=== PATIENT | male | born 1945 | race Caucasian/White ===

== ENCOUNTER 2016-03-26 12:03 | Inpatient (IN) ==
[2016-03-26] MEDS ORDERED: Ipratropium/Albuterol Neb 3 ML IH ONE (12:19)
--- NOTE | 2016-03-26 12:23 | Emergency Department Note ---
Disposition Clinical Impression: Community acquired pneumonia CHF (congestive heart failure) Qualifiers: Congestive heart failure type: unspecified congestive heart failure type Congestive heart failure chronicity: acute Qualified Code(s): I50.9 - Heart failure, unspecified Disposition: Admitted As Inpatient Condition: Good Forms: ED Satisfaction Letter Time of Disposition: 13:50 SOB HPI - General Chief Complaint: ED Shortness of Breath/Dyspnea Stated Complaint: SOB Time Seen by Provider: 03/26/16 12:12 Source: patient, family Limitations: no limitations Nursing Notes Reviewed: Yes Vital Signs Reviewed: Yes - History of Present Illness 71-year-old with a 2 day history of increasing shortness of breath also has had nausea vomiting. Patient stage IV renal disease and was told by his doctor to come in for evaluation. Pt Subjective Complaint: shortness of breath Onset (ago): day(s) Context: recent illness Severity: moderate Consistency/Duration: constant Improves with: nothing Worsens with: exertion Known history of: congestive heart failure Associated symptoms: Reports: chest pain, nausea/vomiting - Related Data Home Medications Medication Instructions Recorded Confirmed Insulin Glargine,Hum.rec.anlog 30 unit SQ HS 05/09/15 01/28/16 [Lantus Solostar] Pregabalin [Lyrica] 200 mg PO TID 05/09/15 01/28/16 Simvastatin [Zocor] 40 mg PO DAILY 05/09/15 01/28/16 Sotalol [Betapace] 80 mg PO BID 05/09/15 01/28/16 Temazepam [Restoril] 30 mg PO HS 05/09/15 01/28/16 Apixaban [Eliquis] 5 mg PO BID 12/31/15 01/28/16 Carvedilol [Coreg] 25 mg PO BID 12/31/15 01/28/16 Promethazine [Phenergan] 25 mg PO HS 12/31/15 01/28/16 Pantoprazole Sodium [Protonix] 40 mg PO DAILY 01/28/16 01/28/16 Previous Rx's Medication Instructions Recorded Artificial Tears SOLN [Akwa Tears] 1 drop BOTH EYES QID bottle 01/07/16 HydrALAZINE 75 mg PO TID #270 tablet 01/07/16 Tamsulosin [Flomax] 0.4 mg PO DAILY #30 capsule 11/18/16 Promethazine [Phenergan] 25 mg PO Q6HR PRN #20 tablet 02/01/16 Allergies Allergy/AdvReac Type Severity Reaction Status Date / Time aspirin Allergy See Verified 03/26/16 12:08 Comments diphenhydramine Allergy Swelling Verified 03/26/16 12:08 [From Benadryl] of Lip/Tongue/Throat Tetracyclines Allergy See Verified 03/26/16 12:08 Comments Constitutional: Denies: fever, chills, weakness, weight change Eyes: Denies: eye pain, eye discharge, vision change ENT ED: Reports: dysphagia. Denies: ear pain, throat pain, dental pain, hearing loss, epistaxis, congestion Cardiovascular: Reports: chest pain, dyspnea on exertion. Denies: palpitations , edema, syncope Respiratory: Denies: cough, dyspnea, wheezes, hemoptysis, stridor Gastrointestinal: Denies: abdominal pain, nausea, vomiting, diarrhea, constipation, hematemesis, melena, hematochezia Genitourinary: Denies: urgency, dysuria, frequency, hematuria Musculoskeletal: Denies: back pain, neck pain, arthralgia, myalgia Integumentary: Denies: rash, abrasion, lesions Neurological: Denies: headache, weakness, numbness, paresthesias, confusion, abnormal gait, vertigo Psychiatric: Denies: anxiety, depression, suicidal thoughts, homicidal thoughts , auditory hallucinations, visual hallucinations Endocrine: Denies: fatigue Hematological/Lymphatic: Denies: easy bleeding, easy bruising Allergic/Immunologic: Denies: facial swelling, urticaria Past Medical History - Past Medical History Medical history: Reports: cardiomyopathy, CHF, CVA, diabetes, hyperlipidemia, hypertension, renal disease Surgical history: Reports: orthopedic, other (Multiple shoulder surgeries left upper extremity status post removal of left proximal humerus humeral head, IVCD/ pacemaker) Psychiatric history: Reports: no psych history - Social History Smoking Status: Current every day smoker Smokeless Tobacco Status: No Alcohol use: Reports: rarely Drug use: Reports: none Physical Exam - General Limitations: no limitations General appearance: alert - Head Head exam: atraumatic, normocephalic, normal inspection - Eye Eye exam: Present: normal appearance, PERRL, EOMI - ENT ENT exam: normal exam, normal oropharynx, mucous membranes moist - Neck Neck exam: Present: normal inspection, full ROM, trachea midline - Chest Chest inspection: Present: normal inspection, symmetric chest wall rise - Respiratory Respiratory exam: Present: wheezes - Cardiovascular Cardiovascular exam: Present: regular rate, normal rhythm, normal heart sounds - Abdominal Exam Abdominal exam: Present: soft, Non-Tender. Absent: tenderness, distention, guarding, rebound, rigidity - Extremities Exam Extremities exam: Present: normal inspection, full ROM. Absent: tenderness, pedal edema - Expanded Lower Extremity Exam Neurovascular/Tendon exam: Absent: motor deficit, sensory deficit, tendon deficit Gait: observed and normal - Back Exam Back exam: Present: normal inspection, full ROM. Absent: tenderness - Neurological Exam Neurological exam: Present: alert, oriented X3 - Psychiatric Psychiatric exam: Present: normal affect, normal mood - Skin Skin exam: Present: warm, dry, intact, normal color Course - Reevaluation(s) Reevaluation #1: 71-year-old with renal insufficiency comes in with increasing shortness of breath. Workup shows some mild congestive changes along with possible pneumonia. Patient will be admitted for further evaluation and treatment. - Consultations Consultation #1: Discussed with , admit and he will see in consult. Time: 13:48 Consultation #2: Discussed with Dr. Valencia, admit Time: 13:49 Vital Signs Temperature 97.5 F L 03/26/16 12:05 Pulse Rate 77 03/26/16 12:05 Respiratory Rate 18 03/26/16 12:05 Blood Pressure 163/73 03/26/16 12:05 O2 Sat by Pulse Oximetry 94 L 03/26/16 12:05 Temperature 97.5 F L 03/26/16 12:05 Pulse Rate 77 03/26/16 12:05 Respiratory Rate 14 03/26/16 12:34 Blood Pressure 163/73 03/26/16 12:05 O2 Sat by Pulse Oximetry 96 03/26/16 12:34 Oxygen Delivery Oxygen Delivery Room Air Shortness of Breath/Dyspnea - Lab Data Result diagrams: 03/26/16 12:32 03/26/16 12:32 Lab Results 03/26/16 03/26/16 03/26/16 Range/Units 12:32 12:32 12:32 WBC 5.5 (4.3-11.1) K/mcL RBC 4.31 (4.19-5.50) M/mcL Hgb 12.7 L (12.9-16.9) g/dL Hct 40.0 (37.5-50.1) % MCV 92.8 (83.0-100.0) fL MCH 29.5 (28.0-33.3) pg MCHC 31.8 (31.6-35.5) g/dL RDW 14.9 H (11.5-14.5) % Plt Count 110 L (140-400) K/mcL MPV 10.9 (9.4-12.4) fL Immature Gran % 0.4 (0-4) % Seg Neutrophils % 76.3 % Lymphocytes % 13.8 % Monocytes % 7.8 % Eosinophils % 1.3 % Basophils % 0.4 % Neutrophils # 4.2 (1.6-8.9) K/mcL Lymphocytes # 0.8 (0.6-4.6) K/mcL Monocytes # 0.4 (0.0-1.3) K/mcL Eosinophils # 0.1 (0.0-0.6) K/mcL Basophils # 0.0 (0.0-0.2) K/mcL Sodium 140 (136-145) mEq/L Potassium 4.9 H (3.5-4.5) mEq/L Chloride 107 (98-109) mEq/L Carbon Dioxide 23 (19-29) mEq/L BUN 40 H (8-26) mg/dL Creatinine 2.55 H (0.72-1.25) mg/dL Est GFR ( Amer) 30 L (> 60) Est GFR (Non-Af Amer) 25 L (> 60) BUN/Creatinine Ratio 16 (6-26) Glucose 221 H (70-99) mg/dL Calculated Osmolality 307 H (280-300) Calcium 9.3 (8.6-10.8) mg/dL Troponin I 0.02 (0-0.03) ng/mL B-Natriuretic Peptide (0-100) pg/mL 03/26/16 Range/Units 12:32 WBC (4.3-11.1) K/mcL RBC (4.19-5.50) M/mcL Hgb (12.9-16.9) g/dL Hct (37.5-50.1) % MCV (83.0-100.0) fL MCH (28.0-33.3) pg MCHC (31.6-35.5) g/dL RDW (11.5-14.5) % Plt Count (140-400) K/mcL MPV (9.4-12.4) fL Immature Gran % (0-4) % Seg Neutrophils % % Lymphocytes % % Monocytes % % Eosinophils % % Basophils % % Neutrophils # (1.6-8.9) K/mcL Lymphocytes # (0.6-4.6) K/mcL Monocytes # (0.0-1.3) K/mcL Eosinophils # (0.0-0.6) K/mcL Basophils # (0.0-0.2) K/mcL Sodium (136-145) mEq/L Potassium (3.5-4.5) mEq/L Chloride (98-109) mEq/L Carbon Dioxide (19-29) mEq/L BUN (8-26) mg/dL Creatinine (0.72-1.25) mg/dL Est GFR ( Amer) (> 60) Est GFR (Non-Af Amer) (> 60) BUN/Creatinine Ratio (6-26) Glucose (70-99) mg/dL Calculated Osmolality (280-300) Calcium (8.6-10.8) mg/dL Troponin I (0-0.03) ng/mL B-Natriuretic Peptide 358 H (0-100) pg/mL - EKG Data EKG attestation: Yes I reviewed and interpreted this EKG. EKG results narrative: Paced rhythm
[2016-03-26 12:55] LABS: Calcium 9.3 mg/dL (8.6-10.8); Potassium 4.9 mEq/L (3.5-4.5)
[2016-03-26 13:15] LABS: Basophils % 0.4 %; Eosinophils # 0.1 K/mcL (0.0-0.6); Eosinophils % 1.3 %; Hemoglobin 12.7 g/dL (12.9-16.9); Immature Granulocytes % 0.4 % (0-4); Lymphocytes # 0.8 K/mcL (0.6-4.6); Lymphocytes % 13.8 %; Mean Corpuscular HGB Conc 31.8 g/dL (31.6-35.5); Mean Corpuscular Hemoglobin 29.5 pg (28.0-33.3); Mean Corpuscular Volume 92.8 fL (83.0-100.0); Mean Platelet Volume 10.9 fL (9.4-12.4); Monocytes # 0.4 K/mcL (0.0-1.3); Monocytes % 7.8 %; Neutrophils # 4.2 K/mcL (1.6-8.9); Platelet Count 110 K/mcL (140-400); Red Blood Count 4.31 M/mcL (4.19-5.50); Red Cell Distribution Width 14.9 % (11.5-14.5); Segmented Neutrophils % 76.3 %
[2016-03-26] MEDS ORDERED: Piperacillin/Tazobactam 3.375 GM in D5% in Water (Mini-Bag+) 100 ML IVPB ONE (13:36)
[2016-03-26] MEDS ORDERED: Furosemide 40 MG/4 ML VIAL IVP ONE (13:47)
[2016-03-26] MEDS ORDERED: Ondansetron 4 MG/2 ML VIAL IVP PRN (15:16)
[2016-03-26] MEDS ORDERED: Naloxone 0.4 MG/ML INJ IVP PRN (15:16)
[2016-03-26] MEDS ORDERED: Vancomycin 1,000 MG in D5% in Water 250 ML IVPB SCH (15:26)
[2016-03-26] MEDS ORDERED: Dextrose Gel 15 GM PO PRN ×2 (15:28)
[2016-03-26] MEDS ORDERED: D5% in Water 1,000 ML IV PRN (15:28)
[2016-03-26] MEDS ORDERED: *HR* Dextrose 50 % in Water (Syg) 50 ML SYRINGE IVP PRN (15:28)
--- NOTE | 2016-03-26 15:57 | Internal Med History&Physical ---
Date of Encounter: 03/26/16 Time of Encounter: 15:10 Assessment and Plan (1) Acute exacerbation of CHF (congestive heart failure) Current visit: Yes Status: Acute Acute on chronic CHF decompensation likely secondary to decrease in diuretic therapy secondary to underlying CKD Will restart IV diuresis, received first dose of Lasix 40mg IV in the ER, will continue Last 2D echo in April 2015: LVEF of 50% with mild LV diastolic dysfunction, will repeat 2D echo continue to monitor daily weight monitor I/Os fluid restricted diet monitor O2 saturation O2 supplementation as needed Qualifiers: Congestive heart failure type: diastolic Qualified Code(s): I50.33 - Acute on chronic diastolic (congestive) heart failure (2) HCAP (healthcare-associated pneumonia) Current visit: Yes Status: Acute CXR consistent with PNA Patient was hospitalized within in the last 90 days, therefore will treat as HCAP Started empiric IV abx (Vancomycin and Zosyn) Pharmacy to renally dose antibiotics f/u blood cultures (3) Hyperglycemia due to type 2 diabetes mellitus Current visit: Yes Status: Chronic Continue home dose of Levemir Started correctional insulin sliding scale algorithm continue to monitor fingerstick and blood glucose 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 Qualified Code( s): E11.65 - Type 2 diabetes mellitus with hyperglycemia; Z79.4 - emt intermediate ( current) use of insulin (4) Acute kidney injury superimposed on chronic kidney disease Current visit: Yes Status: Acute Likely secondary to underlying infection/drug induced Nephrology consultation requested by ER physician Due to acute CHF decompensation will need to use aggressive IV diuretic therapy Please titrate therapy once patient clinically improves continue to monitor kidney function (5) Atrial fibrillation Current visit: Yes Status: Chronic Rate controlled with Sotalol Anticoagulated with Eliquis continue home medications Qualifiers: Atrial fibrillation type: chronic Qualified Code(s): I48.2 - Chronic atrial fibrillation (6) Anemia Current visit: Yes Status: Chronic Secondary to CKD H&H within acceptable range no active bleeding noted at this time will continue to monitor goal Hgb>10 Qualifiers: Anemia type: other cause Other causes of anemia: other cause, not classified Qualified Code(s): D64.89 - Other specified anemias (7) Hypertension Current visit: Yes Status: Chronic BP within acceptable range continue home medications Qualifiers: Hypertension type: essential hypertension Qualified Code(s): I10 - Essential (primary) hypertension (8) DVT prophylaxis Current visit: Yes Status: Acute anticoagulated with Eliquis (9) Tobacco abuse Current visit: Yes Status: Chronic SMoking cessation counseling provided patient not ready to quit at this time refused nicotine replacement therapy (10) Morbid obesity Current visit: Yes Status: Chronic Qualifiers: Obesity type: unspecified obesity type Qualified Code(s): E66.01 - Morbid ( severe) obesity due to excess calories Internal Medicine - H&P: HPI Chief complaint: shortness of breath Admitted From: Home Plans for Post Hospital Care: Home History of present illness: Mr. Vera is a 71 year old male with PMH of CHF, CKD, Type II DM, HLD, Cardiomyopathy s/p AICD, Hypertension who presents to the ER for evaluation of worsening shortness of breath x 2 days. Patient states for the last couple of days he hasn't been feeling well with sore throat, cough, and shortness of breath. He lives with his son who wanted to bring him to the hospital yesterday for worsening shortness of breath but the patient refused. Patient states he follows with his geodesist who he saw recently for his CKD and due to his worsening renal function, his diuretic dose was decreased. He reports of worsening lower extremity edema and shortness of breath since then. In the ER patient received IV Lasix and was placed on nasal cannula, which improved his respiratory status. At this time, he is resting in bed, states he feels better since his arrival to the hospital. Reports of being an every cigar smoker. Reports of persistent cough for the last few days that has been causing him chest discomfort when he coughs. At this time he denies headache, chest pain, abd pain, n/v, fever, or chills. I had a detailed discussion about his advance directives. 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 He reports of having a living will and has appointed his daughter as his POA. Past Med Surg Social Fam HX - Past Medical History Medical history: cardiomyopathy, CHF, CVA, diabetes, hyperlipidemia, hypertension, renal disease Psychiatric history: no psych history - Past Surgical History Surgical History: orthopedic, other - Social History Smoking Status: Current every day smoker Smokeless Tobacco Status: No Alcohol use: rarely Drug use: none - Family History Mother Adopted: No Family Member Ethnicity: Non- Living Status: Hx Family Cardiac Disorders: Yes Hx Family Respiratory Disorders: Yes Hx Family Cancer: Yes Hx Family GI Disorders: No Hx Family Endocrine Disorder: Yes Hx Family Neuromuscular Disorders: No Hx Family Neurologic Disorders: No Hx Family HEENT Disorders: No Hx Family Autoimmune Disorders: No Internal Medicine - H&P: Meds Insulin Glargine,Hum.rec.anlog [Lantus Solostar] 42 unit SQ HS 05/09/15 [History ] Pregabalin [Lyrica] 200 mg PO BID 05/09/15 [History] Simvastatin [Zocor] 40 mg PO DAILY 05/09/15 [History] Sotalol [Betapace] 80 mg PO BID 05/09/15 [History] Temazepam [Restoril] 30 mg PO HS 05/09/15 [History] Apixaban [Eliquis] 2.5 mg PO BID 12/31/15 [History] Carvedilol [Coreg] 25 mg PO BID 12/31/15 [History] Promethazine [Phenergan] 25 mg PO HS 12/31/15 [History] Artificial Tears SOLN [Akwa Tears] 1 drop BOTH EYES QID bottle 01/07/16 [Rx] HydrALAZINE 75 mg PO TID #270 tablet 01/07/16 [Rx] Tamsulosin [Flomax] 0.4 mg PO DAILY #30 capsule 01/07/16 [Rx] Acetaminophen [Tylenol] 650 mg PO HS 03/26/16 [History] Cholecalciferol (D-3) [Vitamin D] 1,000 unit PO DAILY 03/26/16 [History] Cyanocobalamin (Vitamin B-12) [Vitamin B12] 5,000 mcg PO DAILY 03/26/16 [History ] Allergies aspirin Allergy (Verified 03/26/16 14:56) Hives diphenhydramine [From Benadryl] Allergy (Verified 03/26/16 12:08) Swelling of Lip/Tongue/Throat Tetracyclines Allergy (Verified 03/26/16 14:56) Hives All Systems PM: A 10-system review of systems was performed and is negative for pertinent findings except as documented above in the HPI. - Constitutional Constitutional: as per HPI - Constitutional Vitals: Temp Pulse Resp BP Pulse Ox 97.9 F 71 15 136/74 98 03/26/16 14:37 03/26/16 14:37 03/26/16 14:37 03/26/16 14:37 03/26/16 14:37 General appearance: Present: A&O X 3, morbidly obese, no acute distress, answers questions appropriately - Head Head exam: Present: atraumatic, normocephalic - Eye Eye exam: Present: conjuntiva pink, sclera anicteric - Respiratory Respiratory exam: Absent: respiratory distress, wheezes (bibasilar crackles) - Cardiovascular Cardiovascular exam: Present: JVD, RRR, +S1, +S2 - GI/Abdominal GI/Abdominal exam: Present: distended (obese), normal bowel sounds, soft. Absent: tenderness - Extremities Exam Extremities exam: Present: pedal edema (bilateral pitting edema in LE), warm, radial pulses palpable and symetrical. Absent: calf tenderness, tenderness - Neurological Exam Neurological exam: Present: alert, oriented X3, no focal deficits - Psychiatric Psychiatric exam: Present: normal affect, normal mood Internal Med - H&P Results - Labs CBC & Chem 7: 03/26/16 12:32 03/26/16 12:32
[2016-03-26] MEDS ORDERED: GuaiFENesin Liq 200 MG/10 ML UDC PO PRN (16:00)
[2016-03-26] MEDS ORDERED: Vancomycin 2,000 MG in D5% in Water 500 ML IVPB SCH (17:00)
[2016-03-26] MEDS: Artificial Tears SOLN 15 ML BOTTLE BOTH EYES SCH ×2 (17:04→20:16)
[2016-03-26] MEDS: Insulin LISPRO 300 UNITS/3 ML VIAL SQ SCH ×2 (17:04→20:38)
[2016-03-26] MEDS: hydrALAZINE 25 MG TABLET PO SCH (20:13)
[2016-03-26] MEDS: APIXABAN 5 MG TABLET PO SCH (20:14)
[2016-03-26] MEDS: Pregabalin 50 MG CAPSULE PO SCH (20:14)
[2016-03-26] MEDS: Acetaminophen 325 MG TABLET PO SCH (20:15)
[2016-03-26] MEDS: Insulin DETEMIR 100 UNIT/ML X5UNITS SQ SCH (20:15)
[2016-03-26] MEDS: Temazepam 15 MG CAPSULE PO SCH (20:15)
[2016-03-27] MEDS: Piperacillin/Tazobactam 3.375 GM in D5% in Water (Mini-Bag+) 100 ML IVPB SCH ×4 (00:06→20:25)
[2016-03-27 03:47] LABS: Basophils % 0.3 %; Eosinophils % 0.8 %; Immature Granulocytes % 0.3 % (0-4)
[2016-03-27 03:49] LABS: Eosinophils # 0.1 K/mcL (0.0-0.6); Hematocrit 36.4 % (37.5-50.1); Hemoglobin 11.1 g/dL (12.9-16.9); Lymphocytes # 1.5 K/mcL (0.6-4.6); Lymphocytes % 23.8 %; Mean Corpuscular HGB Conc 30.5 g/dL (31.6-35.5); Mean Corpuscular Hemoglobin 28.5 pg (28.0-33.3); Mean Corpuscular Volume 93.3 fL (83.0-100.0); Mean Platelet Volume 10.6 fL (9.4-12.4); Monocytes # 0.7 K/mcL (0.0-1.3); Monocytes % 10.4 %; Neutrophils # 4.1 K/mcL (1.6-8.9); Segmented Neutrophils % 64.4 %
[2016-03-27 04:03] LABS: Platelet Count 98 K/mcL (140-400)
[2016-03-27 04:09] LABS: Calcium 8.6 mg/dL (8.6-10.8); Chol/HDL Ratio 4.2 (0-4.9); Magnesium 1.7 mg/dL (1.6-2.6); Phosphorous 3.5 mg/dL (2.3-4.7); Potassium 4.2 mEq/L (3.5-4.5)
[2016-03-27] MEDS: Furosemide 40 MG/4 ML VIAL IVP SCH ×2 (06:23→07:55)
[2016-03-27] MEDS: Insulin LISPRO 300 UNITS/3 ML VIAL SQ SCH ×4 (07:44→20:24)
[2016-03-27] MEDS: Pregabalin 50 MG CAPSULE PO SCH ×2 (08:00→20:23)
[2016-03-27] MEDS: Artificial Tears SOLN 15 ML BOTTLE BOTH EYES SCH ×4 (08:00→20:21)
[2016-03-27] MEDS: hydrALAZINE 25 MG TABLET PO SCH ×3 (08:01→20:22)
[2016-03-27] MEDS: APIXABAN 5 MG TABLET PO SCH ×2 (08:01→20:23)
[2016-03-27] MEDS: Cholecalciferol (D-3) 1,000 UNIT TABLET PO SCH (08:01)
[2016-03-27] MEDS: Cyanocobalamin (B-12) 1,000 MCG TABLET PO SCH (08:01)
[2016-03-27] MEDS ORDERED: Aminoglycoside Consult 1 EACH MC ONE (08:50)
[2016-03-27] MEDS ORDERED: Perflutren Lipid Microsphere 1.3 ML in 0.9 % Sodium Chloride 8.7 ML IVP ONE (08:55)
--- NOTE | 2016-03-27 10:12 | ECHO - Doppler Report ---
Echo with Imaging Enhancement Agent Name: Mic eVra Date of Study: 03/27/2016 Date: 1945 Ht: 74.0 in Medical Record#: [id number] Age: 71 Wt: 294.0 lb Gender: Male BSA: 2.56 Order #: [id number] Location: [facility] Room #: 3B Reading Physician: Dara Ch DO Umbrella Mender: Redd Lundberg RDCS Ordering Physician: Imelda Bateman MD Primary Physician: Travis Brasher MD Indications: Shortness of breath Impressions: LVEF 50%. There is evidence of mild diastolic dysfunction of the left ventricle. Normal right ventricular size and function. No significant valvular dysfunction. No pulmonary hypertension. Left Ventricular Wall Motion: Rest Echo Findings All wall segments showed normal motion. Findings: Study Quality * Technically adequate exam. ECG Findings * Sinus rhythm with BBB. Left Ventricle * Mild left ventricular diastolic dysfunction. * LVEF 50%. * Definity echo contrast was used. * Mild concentric left ventricular hypertrophy. Mitral Valve * Mild mitral annular calcification * Trace mitral regurgitation. * Normal mitral valve structure. Aortic Valve * No aortic regurgitation. * Trileaflet aortic valve. * Mildly calcified aortic valve leaflets. * No aortic stenosis. Tricuspid Valve * Tricuspid valve not well visualized. * Trace tricuspid regurgitation. * Estimated RA pressure is 3 mmHg. * Estimated RVSP is 28 mmHg. * No pulmonary hypertension. Right Atrium * Normal right atrial size. Right Ventricle * Normal right ventricular structure and function. Left Atrium * Moderately dilated left atrium. Interatrial Septum * Interatrial septum not well evaluated. IVC * Normal IVC dimensions and inspiratory collapse. Pericardium * There is no pericardial effusion present. Aorta * Normally sized aortic root. Pulmonic Valve * Pulmonic valve is not well visualized. * No pulmonic stenosis. * No pulmonic regurgitation. Pulmonary Artery * Pulmonary artery not well visualized. Device lead * A device lead was visualized in the right atrium and right ventricle. History Hypertension Diabetes Hypercholesteremia History of Smoking Years 5 Packs Family History of CAD Pacer/ICD Implant 05/10/15 a Previous Echo was performed. Contrast: Definity 1.3 ml in 8.7 ml of saline 2 ml. Measurements: BP: 134/ 69 2D Normal Values IVSd: 1.30 cm 0.6 - 1.0 cm LVIDd: 5.18 cm 3.7 - 5.6 cm LVPWd: 1.30 cm 0.6 - 1.1 cm LVIDs: 4.01 cm 1.5 - 3.6 cm AO: 3.10 cm < 4.0 cm LA: 3.80 cm 2.0 - 4.0cm %FS: 22.60 cm >25 % LA volume: 119 Mitral Valve Peak E:.74 m/sec Peak A:.74 m/sec E/A Ratio:1 Peak E' Lat Abdifatah:7.29 cm/s Peak E' Med Abdifatah:7.4 cm/s E/E' Lat Ratio:10.2 E/E' Med Ratio:10 Aortic Valve AI pressure Half-time: 717.00 msec Tricuspid Valve TV Regurg Peak Grad: 25.00mmHg TV Regurg Peak Abdifatah: 2.51m/sec Updated by Dara Ch on 03/27/2016 10:04:17 AM electronically signed on 03/27/2016 10:05:45 AM with status of Final Wall Motion Muro: 1=Normal, 2=Hypokinesis, 3=Akinesis, 4=Dyskinesis, 5=Aneurysmal, 6=Hyperkinetic, X=Not Visualized (Blank)=Missing
--- NOTE | 2016-03-27 10:49 | Internal Med Progress Note ---
Date of Encounter: 03/27/16 Time of Encounter: 09:45 - Assessment and plan (1) Acute exacerbation of CHF (congestive heart failure) Current Visit: Yes Status: Acute Assessment and plan: Patient appears clinically dehydrated. Lower extremity edema has resolved, mucous membranes dry, poor by mouth intake, will give gentle IV fluids and decrease Lasix dosage and exchange mechanic to by mouth. Currently on 2 L nasal cannula continuously, not on oxygen at home. Chest x-ray consistent with mild CHF versus pneumonia- treating for both. We will continue to trend. ITS Impressions Chest X-Ray 03/26/16 12:12 IMPRESSION: Mild CHF, with bibasilar airspace disease representing either atelectasis, asymmetric edema, or pneumonia. D/ / 03/26/2016 13:26:58 Rudy Pretty MD / [facility] Interpreting Provider: Rudy Pretty MD Qualifiers: Congestive heart failure type: diastolic Qualified Code(s): I50.33 - Acute on chronic diastolic (congestive) heart failure (2) Acute respiratory failure Current Visit: Yes Status: Acute Qualifiers: Respiratory failure complication: unspecified whether with hypoxia or hypercapnia Qualified Code(s): J96.00 - Acute respiratory failure, unspecified whether with hypoxia or hypercapnia (3) HCAP (healthcare-associated pneumonia) Current Visit: Yes Status: Acute Assessment and plan: continue bank and Zosyn. Patient currently on supplemental oxygen, not on oxygen at home. Unknown causation, will order sputum culture. We will continue to trend. (4) Chronic kidney disease, stage 4 (severe) Current Visit: No Status: Chronic Assessment and plan: Nephrology on board. Patient appears slightly over diuresed. It appears clinically dehydrated. Mucous membranes dry. No pedal edema. We will give gentle IV fluids 1 L. (5) Acute kidney injury superimposed on chronic kidney disease Current Visit: Yes Status: Acute (6) CHF (congestive heart failure) Current Visit: Yes Status: Acute Qualifiers: Congestive heart failure type: diastolic Congestive heart failure chronicity: acute on chronic Qualified Code(s): I50.33 - Acute on chronic diastolic (congestive) heart failure (7) DVT prophylaxis Current Visit: Yes Status: Acute Assessment and plan: On Eliquis (8) Anemia Current Visit: Yes Status: Chronic Assessment and plan: Mild, chronic, stable, no signs of active bleeding. Qualifiers: Anemia type: other cause Other causes of anemia: other cause, not classified Qualified Code(s): D64.89 - Other specified anemias (9) Atrial fibrillation Current Visit: Yes Status: Inactive Assessment and plan: Telemetry reviewed, no atrial fibrillation noted. Ventricular pacing present with intermittent PVCs. (10) Hypertension Current Visit: Yes Status: Chronic Assessment and plan: Controlled, we will continue to trend and adjust medications as indicated. Qualifiers: Hypertension type: essential hypertension Qualified Code(s): I10 - Essential (primary) hypertension (11) Tobacco abuse Current Visit: Yes Status: Chronic (12) Thrombocytopenia Current Visit: No Status: Chronic Assessment and plan: Acute on chronic, currently lower than his baseline, we will continue to trend (13) Diabetes mellitus Current Visit: No Status: Chronic Assessment and plan: Poorly controlled to home with a recent A1c of 8.5%. Continue sliding scale while admitted. Qualifiers: Diabetes mellitus type: type 2 Diabetes mellitus complication status: with neurologic complications Diabetes mellitus complication detail: with polyneuropathy Diabetes mellitus care home insulin use: with exterminator helper termite use Qualified Code(s): E11.42 - Type 2 diabetes mellitus with diabetic polyneuropathy; Z79.4 - terminologist (current) use of insulin (14) Hyperkalemia, diminished renal excretion Current Visit: No Status: Resolved - Subjective Interval history: Patient seen and examined. On examination, patient sitting in high Nguyen's asleep and awaken easily to voice. Patient stating he is more short of breath than usual. He is endorsing chest pain but he states this consistent with his normal pain. He denies any leg swelling. He states he has a cough that is nonproductive. - Constitutional Vitals: Temp Pulse Resp BP Pulse Ox 98.3 F 61 17 106/61 92 L 03/27/16 10:03 03/27/16 10:03 03/27/16 10:03 03/27/16 10:03 03/27/16 10:03 General appearance: Present: A&O X 3, morbidly obese, pleasant, no acute distress, answers questions appropriately - Head Head exam: Present: atraumatic, normocephalic - Eye Eye exam: Present: PERRL, conjuntiva pink, sclera anicteric Pupils: Present: PERRL - Neck Neck exam general surgery: Present: supple, trachea midline. Absent: lymphadenopathy - Respiratory Respiratory exam: Present: accessory muscle use, decreased breath sounds, rhonchi, wheezes. Absent: rales, respiratory distress - Cardiovascular Cardiovascular exam: Present: RRR, +S1, +S2. Absent: diastolic murmur, gallop, rubs, systolic murmur - GI/Abdominal GI/Abdominal exam: Present: distended, normal bowel sounds, soft, no peritoneal signs. Absent: tenderness - Extremities Exam Extremities exam: Present: warm, radial pulses palpable and symetrical. Absent : calf tenderness, cyanotic, pedal edema - Neurological Exam Neurological exam: Present: alert, CN II-XII intact, oriented X3, no focal deficits, strengths equal and symetr throughout. Absent: pronater drift, facial droop, speech deficit - Skin Skin exam: Present: dry, intact, pallor, warm Internal Medicine: Result - Labs CBC & Chem 7: 03/27/16 03:31 03/27/16 03:31 Labs: Short CBC 03/27/16 Range/Units 03:31 WBC 6.4 (4.3-11.1) K/mcL Hgb 11.1 L D (12.9-16.9) g/dL Hct 36.4 L (37.5-50.1) % Plt Count 98 L (140-400) K/mcL Neutrophils # 4.1 (1.6-8.9) K/mcL BMP 03/27/16 03:31 Sodium 140 Potassium 4.2 Chloride 109 Carbon Dioxide 20 BUN 41 H Creatinine 2.84 H Glucose 84 Calcium 8.6 Consult Discharge Plan - Plan Referrals: Travis Brasher Jr, MD [Primary Care Provider] -
[2016-03-27] MEDS ORDERED: 0.9 % Sodium Chloride 1,000 ML IVC SCH (11:00)
--- NOTE | 2016-03-27 11:06 | Nephrology Consult Note ---
Date of Encounter: 03/27/16 Time of Encounter: 11:05 Assessment and Plan (1) Acute exacerbation of CHF (congestive heart failure) Current Visit: Yes Status: Acute Patient presented to the emergency department with what appears to be acute exacerbation of congestive heart failure with preserved ejection fraction. Elevated BNP and chest x-ray with pulmonary edema. Patient was given 40 mg IV Lasix in the emergency department yesterday and again this morning, with adequate urine output. Clinically, patient appears dry with trace lower extremity edema and dry mucous membranes. Lasix has been held at this time and we will reevaluate on a daily basis. Encourage gentle oral intake. Qualifiers: Congestive heart failure type: diastolic Qualified Code(s): I50.33 - Acute on chronic diastolic (congestive) heart failure (2) HCAP (healthcare-associated pneumonia) Current Visit: Yes Status: Acute CXR in the emergency department revealed mild CHF, with bibasilar airspace disease representing either atelectasis, asymmetric edema or pneumonia. Patient has had decent diuresis with the 2 doses of IV Lasix. Consider two- view chest x-ray to reevaluate fluid versus pneumonia. Continue to renally dose IV antibiotics and hold nephrotoxins if possible. (3) Chronic kidney disease, stage 4 (severe) Current Visit: Yes Status: Chronic Patient is established with Dr. Barlow in the outpatient clinic. Has a history of chronic kidney disease stage IV with baseline GFR in the mid 20s. Presented to the emergency department at about his baseline, and received IV Lasix along with vancomycin overnight. Slight increase in serum creatinine this morning. We will hold Lasix dose at this time and evaluate volume status on a daily basis. Continue to hold nephrotoxic agents if possible and renally dose antibiotics. History of Present Illness - Reason for Consult Chronic Kidney Disease - History of Present Illness Mr. Vera is a 71-year-old gentleman with a past medical history of stage IV chronic kidney disease, heart failure with preserved ejection fraction, insulin-dependent diabetes mellitus, hyperlipidemia, cardiomyopathy status post AICD placement, and hypertension who presented to the emergency department complaining of a 2 to three-day history of shortness of breath. He has complained of productive cough, sore throat, and worsening shortness of breath. Workup in the emergency department revealed a chest x-ray with mild CHF, bibasilar airspace disease representing either atelectasis or pneumonia. He was given a dose of Lasix 40 mg IV and started on HCAP coverage. Reviewing Dr. Narvaez office note from 03/17/16 reveals that patient has a baseline chronic kidney disease stage IV with GFR in the mid 20s. Serum creatinine on admission 2.55 with a GFR 25. Nephrology has been consulted for ALEKS on CKD. On examination, patient states that he is not feeling very well today and continues to complain of persistent cough and chest discomfort. Past Med Surg Social Fam HX - Past Medical History Medical history: cardiomyopathy, CHF, CVA, diabetes, hyperlipidemia, hypertension, renal disease Psychiatric history: no psych history - Past Surgical History Surgical History: orthopedic, other - Social History Smoking Status: Current every day smoker Smokeless Tobacco Status: No Alcohol use: rarely Drug use: none - Family History Mother Adopted: No Family Member Ethnicity: Non- Living Status: Hx Family Cardiac Disorders: Yes Hx Family Respiratory Disorders: Yes Hx Family Cancer: Yes Hx Family GI Disorders: No Hx Family Endocrine Disorder: Yes Hx Family Neuromuscular Disorders: No Hx Family Neurologic Disorders: No Hx Family HEENT Disorders: No Hx Family Autoimmune Disorders: No Medications and Allergies Insulin Glargine,Hum.rec.anlog [Lantus Solostar] 42 unit SQ HS 05/09/15 [History ] Pregabalin [Lyrica] 200 mg PO BID 05/09/15 [History] Simvastatin [Zocor] 40 mg PO DAILY 05/09/15 [History] Sotalol [Betapace] 80 mg PO BID 05/09/15 [History] Temazepam [Restoril] 30 mg PO HS 05/09/15 [History] Apixaban [Eliquis] 2.5 mg PO BID 12/31/15 [History] Carvedilol [Coreg] 25 mg PO BID 12/31/15 [History] Promethazine [Phenergan] 25 mg PO HS 12/31/15 [History] Artificial Tears SOLN [Akwa Tears] 1 drop BOTH EYES QID bottle 01/07/16 [Rx] HydrALAZINE 75 mg PO TID #270 tablet 01/07/16 [Rx] Tamsulosin [Flomax] 0.4 mg PO DAILY #30 capsule 01/07/16 [Rx] Acetaminophen [Tylenol] 650 mg PO HS 03/26/16 [History] Cholecalciferol (D-3) [Vitamin D] 1,000 unit PO DAILY 03/26/16 [History] Cyanocobalamin (Vitamin B-12) [Vitamin B12] 5,000 mcg PO DAILY 03/26/16 [History ] Allergies aspirin Allergy (Verified 03/26/16 14:56) Hives diphenhydramine [From Benadryl] Allergy (Verified 03/26/16 12:08) Swelling of Lip/Tongue/Throat Tetracyclines Allergy (Verified 03/26/16 14:56) Hives Review of Systems All Systems: reviewed and no additional remarkable complaints except as stated Exam - Vital Signs Vital signs: Initial Vital Signs Temp Pulse Resp BP Pulse Ox 97.5 F L 77 18 163/73 94 L 03/26/16 12:05 03/26/16 12:05 03/26/16 12:05 03/26/16 12:05 03/26/16 12:05 Vital Signs - Last 8 Hours Temp Pulse Resp BP Pulse Ox 03/27/16 10:03 98.3 F 61 17 106/61 92 L 03/27/16 07:36 98.6 F 64 20 134/69 95 03/27/16 03:15 98.9 F 64 18 116/69 96 Intake and Output 03/26/16 03/27/16 03/27/16 23:59 07:59 15:59 Intake Total 600 / 600 0 / 0 Output Total 1500 / 1500 Balance -900 / -900 0 / 0 Intake: IV Fluids 600 / 600 Zosyn 3.375 GM In 100 / 100 Dextrose 5% (Minibag+) 100 ML 100 ML @ 25 mls/hr IVPB Q8H [facility] Rx#: [id number] Vancocin 2,000 MG In 500 / 500 Dextrose 5% 500 ML @ 250 mls/hr IVPB Q24H [facility] Rx#: [id number] Oral 0 / 0 Output: Urine 900 / 900 Catheter 600 / 600 Other: Meal Dinner Breakfast Percent of Meal Consumed 10% 0% Blood Glucose* 213 87 83 - General Appearance Exam: General: Patient is alert and in no acute distress HEENT: Normocephalic atraumatic, pupils are equal round and reactive to light and accommodation, tympanic membrane is intact, nares is patent, mucous membranes moist, throat is not injected, no JVD, trachea is midline Cardiovascular: Regular rate and rhythm without murmur Respiratory: Lungs with expiratory wheezes and rhonchi noted throughout Abdomen: Soft, nontender, obese, positive bowel sounds in all 4 quadrants Extremities: Warm, dry, trace lower extremity edema Neuro: A&Ox3, speech is appropriate, cranial nerves II through XII are normal as tested Results - Lab Results 03/27/16 03:31 03/27/16 03:31 Most recent lab results Calcium 8.6 mg/dL (8.6-10.8) 03/27/16 03:31 Phosphorus 3.5 mg/dL (2.3-4.7) 03/27/16 03:31 Magnesium 1.7 mg/dL (1.6-2.6) 03/27/16 03:31 Consult Discharge Plan - Plan Referrals: Travis Brasher Jr, MD [Primary Care Provider] -
[2016-03-27] MEDS: *HR* Codeine Sulfate 30 MG TABLET PO PRN (15:44)
[2016-03-27] MEDS ORDERED: Vancomycin 1,500 MG in D5% in Water 250 ML IVPB SCH (17:00)
[2016-03-27] MEDS ORDERED: Furosemide 20 MG TABLET PO SCH (17:00)
--- NOTE | 2016-03-27 17:36 | Electrocardiograph Report ---
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
[2016-03-27] MEDS: *HR* OxyCODONE Immed Rel 5 MG TABLET PO PRN (18:14)
[2016-03-27] MEDS: Benzonatate 100 MG CAPSULE PO PRN (18:15)
[2016-03-27] MEDS: Acetaminophen 325 MG TABLET PO SCH (20:23)
[2016-03-27] MEDS: Insulin DETEMIR 100 UNIT/ML X5UNITS SQ SCH (20:24)
[2016-03-27] MEDS: Temazepam 15 MG CAPSULE PO SCH (20:24)
[2016-03-28 04:57] LABS: Basophils % 0.5 %; Eosinophils # 0.1 K/mcL (0.0-0.6); Eosinophils % 1.4 %; Hematocrit 33.7 % (37.5-50.1); Hemoglobin 10.8 g/dL (12.9-16.9); Immature Granulocytes % 0.5 % (0-4); Lymphocytes # 1.6 K/mcL (0.6-4.6); Lymphocytes % 24.8 %; Mean Corpuscular Hemoglobin 29.6 pg (28.0-33.3); Mean Corpuscular Volume 92.3 fL (83.0-100.0); Mean Platelet Volume 10.7 fL (9.4-12.4); Monocytes # 0.7 K/mcL (0.0-1.3); Monocytes % 10.9 %; Neutrophils # 4.1 K/mcL (1.6-8.9); Platelet Count 101 K/mcL (140-400); Red Blood Count 3.65 M/mcL (4.19-5.50); Segmented Neutrophils % 61.9 %
[2016-03-28 05:12] LABS: Calcium 8.6 mg/dL (8.6-10.8); Potassium 4.3 mEq/L (3.5-4.5)
[2016-03-28] MEDS: Piperacillin/Tazobactam 3.375 GM in D5% in Water (Mini-Bag+) 100 ML IVPB SCH (06:43)
[2016-03-28] MEDS: *HR* Codeine Sulfate 30 MG TABLET PO PRN (06:45)
[2016-03-28] MEDS: Insulin LISPRO 300 UNITS/3 ML VIAL SQ SCH ×4 (08:22→21:54)
[2016-03-28] MEDS: Artificial Tears SOLN 15 ML BOTTLE BOTH EYES SCH ×4 (08:38→21:45)
[2016-03-28] MEDS: Pregabalin 50 MG CAPSULE PO SCH ×2 (08:38→21:47)
[2016-03-28] MEDS: Cyanocobalamin (B-12) 1,000 MCG TABLET PO SCH (08:38)
[2016-03-28] MEDS: hydrALAZINE 25 MG TABLET PO SCH ×3 (08:39→21:48)
[2016-03-28] MEDS: Cholecalciferol (D-3) 1,000 UNIT TABLET PO SCH (08:39)
[2016-03-28] MEDS: APIXABAN 5 MG TABLET PO SCH ×2 (08:39→21:47)
--- NOTE | 2016-03-28 08:51 | Nephrology Progress Note ---
Date of Encounter: 03/28/16 Time of Encounter: 08:51 - Assessment and Plan (1) Acute kidney injury superimposed on chronic kidney disease Current Visit: Yes Status: Acute Unfortunately patient had an increase in his serum creatinine overnight from 2.84 to 3.69. This is likely multifactorial in the setting of diuretic treatment, antibiotics, and likely pneumonia. Clinically, patient appears dry. We have added gentle IV fluid hydration at 75 mL an hour for 1 L. Our concern that the patient may now be developing acute tubular necrosis with the elevation in serum creatinine as well as change in urine appearance. Repeat urinalysis pending. Continue to avoid nephrotoxic agents if possible and dose medications renally. (2) Acute exacerbation of CHF (congestive heart failure) Current Visit: Yes Status: Acute Initially, on presentation to the emergency department the patient appeared to be an acute exacerbation of congestive heart failure with preserved ejection fraction. He had a mildly elevated BNP and a chest x-ray with pulmonary edema. He was given 40 mg IV Lasix in the emergency department as well as another dose on the floor. Today clinically the patient appears dry with no lower extremity edema and dry mucous membranes. BNP today 123. Qualifiers: Congestive heart failure type: diastolic Qualified Code(s): I50.33 - Acute on chronic diastolic (congestive) heart failure (3) HCAP (healthcare-associated pneumonia) Current Visit: Yes Status: Acute Chest x-ray in the emergency department revealed mild congestive heart failure, with bibasilar airspace disease representing either atelectasis, asymmetric edema or pneumonia. Today patient is subjectively more short of breath with increased rhonchi throughout. Primary team ordered CT chest without contrast. Was receiving vancomycin and Zosyn, vancomycin on hold currently. Subjective Interval history: Patient seen and examined at the bedside. States he feels pretty terrible today. Continues to complain of significant productive cough, shortness of breath, and fatigue. States he does not have much of an appetite and appears to not be taking in much orally. He denies fevers or chills, chest pain, abdominal pain, or nausea/vomiting. Objective - Vital Signs Vital signs: Vital Signs Temp Pulse Resp BP Pulse Ox 03/28/16 07:53 99.3 F 71 18 108/56 94 L 03/28/16 04:06 98.4 F 68 20 117/78 93 L 03/27/16 23:21 98.6 F 59 14 105/58 94 L 03/27/16 19:43 99.5 F 61 16 118/66 93 L 03/27/16 15:27 98.0 F 61 20 117/70 94 L 03/27/16 11:00 98.0 F 62 20 115/63 93 L 03/27/16 10:03 98.3 F 61 17 106/61 92 L Intake and Output 03/27/16 03/28/16 03/28/16 23:59 07:59 15:59 Intake Total 350 / 350 100 / 100 Output Total 600 / 600 Balance 350 / 350 -500 / -500 Intake: IV Fluids 350 / 350 100 / 100 Zosyn 3.375 GM In 100 / 100 100 / 100 Dextrose 5% (Minibag+) 100 ML 100 ML @ 25 mls/hr IVPB Q8H [facility] Rx#: [id number] Vancocin 1,500 MG In 250 / 250 Dextrose 5% 250 ML @ 166. 667 mls/hr IVPB Q24H [facility] Rx#:[id number] Output: Catheter 600 / 600 Other: Weight 132.812 kg Blood Glucose* 174 65 80 Patient Weight 03/28/16 23:59 Weight 132.812 kg - General Appearance Exam: General: Patient is alert, ill-appearing HEENT: Normocephalic atraumatic, pupils are equal round and reactive to light and accommodation, tympanic membrane is intact, nares is patent, mucous membranes dry, throat is not injected, no JVD, trachea is midline Cardiovascular: Regular rate and rhythm without murmur Respiratory: Lungs with expiratory wheezes and rhonchi noted throughout Abdomen: Soft, nontender, obese, positive bowel sounds in all 4 quadrants Extremities: Warm, dry, no edema Neuro: A&Ox3, speech is appropriate, cranial nerves II through XII are normal as tested - Lab 03/28/16 04:30 03/28/16 04:30 Most recent lab results Calcium 8.6 mg/dL (8.6-10.8) 03/28/16 04:30 Phosphorus 3.5 mg/dL (2.3-4.7) 03/27/16 03:31 Magnesium 1.7 mg/dL (1.6-2.6) 03/27/16 03:31 Consult Discharge Plan - Plan Referrals: Nikki Quinonez DO [Partnered Physician] - 04/04/16 9:30 am
--- NOTE | 2016-03-28 09:43 | Internal Med Progress Note ---
Date of Encounter: 03/28/16 Time of Encounter: 08:45 - Assessment and plan (1) Acute exacerbation of CHF (congestive heart failure) Current Visit: Yes Status: Acute Assessment and plan: On examination today, the patient states that he feels about the same however clinically, he appears to have decompensated overnight. Patient now in moderate respiratory distress with diffuse wheezing present throughout and fair aeration. Will obtain chest CT and ABGs. He remains alert and oriented 3. Patient was not given IV fluid just today secondary to heart failure exacerbation. No edema noted to lower extremities. Ascites noted on abdomen, patient stating he has never had have his abdomen drained in the past. Patient is an active smoker, will treat for COPD exacerbation as well. It does not appear as if the patient has been diagnosed or treated for COPD in the past, will initiate duo nebs, Solu-Medrol and monitor his response closely. 03/27/16 Patient appears clinically dehydrated. Lower extremity edema has resolved, mucous membranes dry, poor by mouth intake, will give gentle IV fluids and decrease Lasix dosage and private branch exchange service adviser to by mouth. Currently on 2 L nasal cannula continuously, not on oxygen at home. Chest x-ray consistent with mild CHF versus pneumonia- treating for both. We will continue to trend. ITS Impressions Chest X-Ray 03/26/16 12:12 IMPRESSION: Mild CHF, with bibasilar airspace disease representing either atelectasis, asymmetric edema, or pneumonia. D/ / 03/26/2016 13:26:58 Rudy Pretty MD / [facility] Interpreting Provider: Rudy Pretty MD Qualifiers: Congestive heart failure type: diastolic Qualified Code(s): I50.33 - Acute on chronic diastolic (congestive) heart failure (2) Acute respiratory failure Current Visit: Yes Status: Acute Assessment and plan: See prior note for acute exacerbation of CHF. Suspect patient may have underlying COPD given that he is a current smoker. No prior diagnosis of COPD. On examination, he does not appear fluid overloaded. No crackles noted on examination, examination consistent with diffuse expiratory wheezing. Chest CT pending. ABGs pending. Will bring pulmonology on board. Nephrology is on board as well. Qualifiers: Respiratory failure complication: unspecified whether with hypoxia or hypercapnia Qualified Code(s): J96.00 - Acute respiratory failure, unspecified whether with hypoxia or hypercapnia (3) HCAP (healthcare-associated pneumonia) Current Visit: Yes Status: Acute Assessment and plan: Acute kidney injury superimposed on chronic kidney disease stage IV noted overnight. No leukocytosis. Vancomycin stop at this time. Appreciate nephrology and pulmonology recommendations for antibiotic treatment. Sputum culture still pending 03/27/16 continue Vanc and Zosyn. Patient currently on supplemental oxygen, not on oxygen at home. Unknown causation, will order sputum culture. We will continue to trend. (4) Chronic kidney disease, stage 4 (severe) Current Visit: Yes Status: Chronic Assessment and plan: Nephrology on board. Mucous membranes dry. No pedal edema. Pulmology examination not consistent with fluid overload, Chest CT pending. Michelle overnight - Vanc stopped- appreciate Nephrology's input. (5) Acute kidney injury superimposed on chronic kidney disease Current Visit: Yes Status: Acute (6) CHF (congestive heart failure) Current Visit: Yes Status: Acute Assessment and plan: Lasix held due to acute kidney injury superimposed on chronic kidney disease stage IV. Echocardiogram revealing ejection fraction of 50% and mild diastolic dysfunction and otherwise unremarkable. Echocardiogram with imaging enhancement agent impressions: LVEF 50%. There is evidence of mild diastolic dysfunction of the left ventricle. Normal right ventricular size and function. No significant valvular dysfunction. No pulmonary hypertension. Qualifiers: Congestive heart failure type: diastolic Congestive heart failure chronicity: acute on chronic Qualified Code(s): I50.33 - Acute on chronic diastolic (congestive) heart failure (7) DVT prophylaxis Current Visit: Yes Status: Acute Assessment and plan: On Eliquis (8) Anemia Current Visit: Yes Status: Chronic Assessment and plan: Mild, chronic, stable, no signs of active bleeding. Qualifiers: Anemia type: other cause Other causes of anemia: other cause, not classified Qualified Code(s): D64.89 - Other specified anemias (9) Atrial fibrillation Current Visit: Yes Status: Inactive Assessment and plan: Telemetry reviewed, no atrial fibrillation noted. Ventricular pacing present with intermittent PVCs. (10) Hypertension Current Visit: Yes Status: Chronic Assessment and plan: Controlled, we will continue to trend and adjust medications as indicated. Qualifiers: Hypertension type: essential hypertension Qualified Code(s): I10 - Essential (primary) hypertension (11) Tobacco abuse Current Visit: Yes Status: Chronic (12) Thrombocytopenia Current Visit: No Status: Chronic Assessment and plan: Acute on chronic, currently lower than his baseline, we will continue to trend (13) Diabetes mellitus Current Visit: No Status: Chronic Assessment and plan: Poorly controlled to home with a recent A1c of 8.5%. Continue sliding scale while admitted. Qualifiers: Diabetes mellitus type: type 2 Diabetes mellitus complication status: with neurologic complications Diabetes mellitus complication detail: with polyneuropathy Diabetes mellitus fdc insulin use: with finance professor use Qualified Code(s): E11.42 - Type 2 diabetes mellitus with diabetic polyneuropathy; Z79.4 - group home (current) use of insulin (14) Hyperkalemia, diminished renal excretion Current Visit: No Status: Resolved - Subjective Interval history: Patient seen and examined. On examination, patient resting supine in bed with the HOB elevated 30 degrees. Patient stating he is feeling "about the same." He states his chronic pain is the same as it typically is. He states that his breathing is the same as it was yesterday. He states he is not eating well - Constitutional Vitals: Temp Pulse Resp BP Pulse Ox 99.3 F 71 18 108/56 94 L 03/28/16 07:53 03/28/16 07:53 03/28/16 07:53 03/28/16 07:53 03/28/16 07:53 General appearance: Present: mild distress (Moderate), A&O X 3, morbidly obese, pleasant, answers questions appropriately - Head Head exam: Present: atraumatic, normocephalic - Eye Eye exam: Present: PERRL, conjuntiva pink, sclera anicteric Pupils: Present: PERRL - Neck Neck exam general surgery: Present: supple, trachea midline. Absent: lymphadenopathy - Respiratory Respiratory exam: Present: accessory muscle use, decreased breath sounds, prolonged expiratory phase, respiratory distress, wheezes. Absent: rales, rhonchi - Cardiovascular Cardiovascular exam: Present: RRR, +S1, +S2. Absent: diastolic murmur, gallop, rubs, systolic murmur - GI/Abdominal GI/Abdominal exam: Present: distended, normal bowel sounds, soft, no peritoneal signs. Absent: tenderness - Extremities Exam Extremities exam: Present: warm, radial pulses palpable and symetrical. Absent : calf tenderness, cyanotic, pedal edema - Neurological Exam Neurological exam: Present: alert, CN II-XII intact, oriented X3, no focal deficits, strengths equal and symetr throughout. Absent: pronater drift, facial droop, speech deficit - Skin Skin exam: Present: dry, intact, pallor, warm Internal Medicine: Result - Labs CBC & Chem 7: 03/28/16 04:30 03/28/16 04:30 Labs: Short CBC 03/28/16 Range/Units 04:30 WBC 6.6 (4.3-11.1) K/mcL Hgb 10.8 L (12.9-16.9) g/dL Hct 33.7 L (37.5-50.1) % Plt Count 101 L (140-400) K/mcL Neutrophils # 4.1 (1.6-8.9) K/mcL BMP 03/28/16 04:30 Sodium 139 Potassium 4.3 Chloride 106 Carbon Dioxide 22 BUN 50 H Creatinine 3.69 H Glucose 62 L Calcium 8.6 Consult Discharge Plan - Plan Referrals: Nikki Quinonez DO [Partnered Physician] - 04/04/16 9:30 am
[2016-03-28] MEDS: MethylPREDNISolone 40 MG/ML VIAL IVP SCH ×2 (10:07→16:31)
--- NOTE | 2016-03-28 10:26 | Pulmonology Consult Note ---
<Kelsie Arthur - Last Filed: 03/28/16 14:12> Date of Encounter: 03/28/16 Time of Encounter: 10:22 History of Present Illness Consult date: 03/28/16 Requesting physician: Kizzy Jeronimo Reason for consult: dyspnea Chief complaint: Difficulty breathing Past Med Surg Social Fam HX - Past Medical History Medical history: cardiomyopathy, CHF, CVA, diabetes, hyperlipidemia, hypertension, renal disease Psychiatric history: no psych history - Past Surgical History Surgical History: orthopedic, other - Social History Smoking Status: Current every day smoker Smokeless Tobacco Status: No Alcohol use: rarely Drug use: none - Family History Mother Adopted: No Family Member Ethnicity: Non- Living Status: Hx Family Cardiac Disorders: Yes Hx Family Respiratory Disorders: Yes Hx Family Cancer: Yes Hx Family GI Disorders: No Hx Family Endocrine Disorder: Yes Hx Family Neuromuscular Disorders: No Hx Family Neurologic Disorders: No Hx Family HEENT Disorders: No Hx Family Autoimmune Disorders: No Medications and Allergies RX: Insulin Glargine,Hum.rec.anlog [Lantus Solostar] 42 unit SQ HS 05/09/15 [ History] RX: Pregabalin [Lyrica] 200 mg PO BID 05/09/15 [History] RX: Simvastatin [Zocor] 40 mg PO DAILY 05/09/15 [History] RX: Sotalol [Betapace] 80 mg PO BID 05/09/15 [History] RX: Temazepam [Restoril] 30 mg PO HS 05/09/15 [History] RX: Apixaban [Eliquis] 2.5 mg PO BID 12/31/15 [History] RX: Carvedilol [Coreg] 25 mg PO BID 12/31/15 [History] RX: Promethazine [Phenergan] 25 mg PO HS 12/31/15 [History] RX: Artificial Tears SOLN [Akwa Tears] 1 drop BOTH EYES QID bottle 01/07/16 [Rx ] RX: HydrALAZINE 75 mg PO TID #270 tablet 01/07/16 [Rx] RX: Tamsulosin [Flomax] 0.4 mg PO DAILY #30 capsule 01/07/16 [Rx] Acetaminophen [Tylenol] 650 mg PO HS 03/26/16 [History] Cholecalciferol (D-3) [Vitamin D] 1,000 unit PO DAILY 03/26/16 [History] Cyanocobalamin (Vitamin B-12) [Vitamin B12] 5,000 mcg PO DAILY 03/26/16 [History ] Allergies aspirin Allergy (Verified 03/26/16 14:56) Hives diphenhydramine [From Benadryl] Allergy (Verified 03/26/16 12:08) Swelling of Lip/Tongue/Throat Tetracyclines Allergy (Verified 03/26/16 14:56) Hives All Systems: A 10-system review of systems was performed and is negative for pertinent findings except as documented above in the HPI. - Constitutional Constitutional: anorexia, other (Patient states the whole room spins when he lifts his head. No prior symptoms in the past.) - EENT Eyes: no photophobia Ears: other (Denies fullness or feeling underwater. Denies history of vertigo.) , no decreased hearing, no tinnitus Nose, mouth and throat: disequilibrium, dizziness, dry mouth, sore throat, vertigo, no headache(s), no hoarseness, no nasal congestion, no nasal discharge , no nasal obstruction, no sinus pain, no sinus pressure, no throat swelling, no tongue swelling - Cardiovascular Cardiovascular: dyspnea on exertion, no edema, no leg edema, no lightheadedness , no orthopnea, no palpitations, no paroxysmal nocturnal dyspnea, no pedal edema , no radiating pain, no syncope - Respiratory Respiratory: cough (Dry cough), dyspnea, dyspnea on exertion, wheezing, pain with cough, no hemoptysis, no pain on inspirtation, no excessive phlegm production, no change in phlegm color - Gastrointestinal Gastrointestinal: nausea, other (Dry heaves. Constipation), no abdominal pain, no diarrhea, no hematemesis, no hematochezia - Genitourinary Genitourinary: no dysuria, no flank pain, no hematuria - Musculoskeletal Musculoskeletal: arthralgias, no neck pain, no numbness, no radiating pain into limb, no tingling - Integumentary Integumentary: no rash, no jaundice - Neurological Neurological: vertigo, no headache(s), no syncope, no tingling - Psychiatric Psychiatric: no suicidal ideation - Endocrine Endocrine: fatigue, no cold intolerance, no excessive sweating, no flushing, no palpitations, no polydipsia, no polyuria - Hematologic/Lymphatic Hematologic/Lymphatic: easy bleeding, easy bruising, no lymphadenopathy Physical Examination Vital Signs: Vital Signs, Last 4 Hours Temp Pulse Resp BP Pulse Ox 03/28/16 07:53 99.3 F 71 18 108/56 94 L General appearance: no acute distress, alert Eyes: nonicteric ENT: oropharynx dry Mallampati (class): 3 Neck: supple, no lymphadenopathy Effort: mildly labored Inspection: normal Auscultation: left: other (Crackles left lower lobe), right: diminished breath sounds (Lower lobe), bilateral: wheezes Percussion: left: dull Cardiovascular: other (Paced ventricular rhythm rate of 78 bpm.) Gastrointestinal: normoactive bowel sounds, soft, non-tender, other ( Protuberant abdominal obesity) Integumentary: normal Extremities: no cyanosis, no edema, pink and warm, pulses normal, no ischemia or petechiae normal mental status, non-focal exam, pupils equal and round mood appropriate, affect normal Results - Laboratory Findings CBC and BMP: 03/28/16 04:30 03/28/16 04:30 Abnormal lab findings: Abnormal lab results RBC 3.65 M/mcL (4.19-5.50) L 03/28/16 04:30 Hgb 10.8 g/dL (12.9-16.9) L 03/28/16 04:30 Hct 33.7 % (37.5-50.1) L 03/28/16 04:30 RDW 15.0 % (11.5-14.5) H 03/28/16 04:30 Plt Count 101 K/mcL (140-400) L 03/28/16 04:30 BUN 50 mg/dL (8-26) H 03/28/16 04:30 Creatinine 3.69 mg/dL (0.72-1.25) H 03/28/16 04:30 Est GFR ( Amer) 20 (> 60) L 03/28/16 04:30 Est GFR (Non-Af Amer) 16 (> 60) L 03/28/16 04:30 Glucose 62 mg/dL (70-99) L 03/28/16 04:30 POC Glucose 108 (58-89) H 03/28/16 09:15 B-Natriuretic Peptide 123 pg/mL (0-100) H 03/28/16 04:30 HDL Cholesterol 26 mg/dL (40-59) L 03/27/16 03:31 - Clinical Findings Intake & Output: Intake & Output 03/27/16 03/28/16 03/28/16 23:59 07:59 15:59 Intake Total 350 / 350 100 / 100 240 / 240 Output Total 600 / 600 Balance 350 / 350 -500 / -500 240 / 240 Weight 132.812 kg Consult Discharge Plan - Plan Referrals: Nikki Quinonez DO [Partnered Physician] - 04/04/16 9:30 am <Robert Vilchis W - Last Filed: 03/28/16 14:39> Date of Encounter: 03/28/16 All Systems: A 10-system review of systems was performed and is negative for pertinent findings except as documented above in the HPI. Physical Examination Vital Signs: Vital Signs, Last 4 Hours Temp Pulse Resp BP Pulse Ox 03/28/16 11:58 98.7 F 89 16 111/53 96 03/28/16 10:38 18 94 L Results - Laboratory Findings CBC and BMP: 03/28/16 04:30 03/28/16 04:30 ABG ABG pH 7.30 pH Units (7.32-7.45) L 03/28/16 10:40 ABG pCO2 54 mmHg (35-45) H 03/28/16 10:40 ABG pO2 74 mmHg (85-104) L 03/28/16 10:40 ABG O2 Saturation 93 % (95-98) L 03/28/16 10:40 Abnormal lab findings: Abnormal lab results RBC 3.65 M/mcL (4.19-5.50) L 03/28/16 04:30 Hgb 10.8 g/dL (12.9-16.9) L 03/28/16 04:30 Hct 33.7 % (37.5-50.1) L 03/28/16 04:30 RDW 15.0 % (11.5-14.5) H 03/28/16 04:30 Plt Count 101 K/mcL (140-400) L 03/28/16 04:30 ABG pH 7.30 pH Units (7.32-7.45) L 03/28/16 10:40 ABG pCO2 54 mmHg (35-45) H 03/28/16 10:40 ABG pO2 74 mmHg (85-104) L 03/28/16 10:40 ABG Total CO2 28.3 mEq/L (20-26) H 03/28/16 10:40 ABG O2 Saturation 93 % (95-98) L 03/28/16 10:40 BUN 50 mg/dL (8-26) H 03/28/16 04:30 Creatinine 3.69 mg/dL (0.72-1.25) H 03/28/16 04:30 Est GFR ( Amer) 20 (> 60) L 03/28/16 04:30 Est GFR (Non-Af Amer) 16 (> 60) L 03/28/16 04:30 Glucose 62 mg/dL (70-99) L 03/28/16 04:30 POC Glucose 90 (58-89) H 03/28/16 12:00 B-Natriuretic Peptide 123 pg/mL (0-100) H 03/28/16 04:30 HDL Cholesterol 26 mg/dL (40-59) L 03/27/16 03:31 Urine Color Red (Yellow) A 03/28/16 12:15 Urine Clarity Turbid (Clear) A 03/28/16 12:15 Urine Protein 100 mg/dL (Neg-Trace) H 03/28/16 12:15 Urine Blood Large (Negative) H 03/28/16 12:15 Ur Leukocyte Esterase Small (Negative) H 03/28/16 12:15 Urine Microscopic RBC TNTC per hpf (0-3) H 03/28/16 12:15 Urine Microscopic WBC 30-50 per hpf (0-3) H 03/28/16 12:15 Ur Squamous Epith Cells Many per lpf (None-Few) H 03/28/16 12:15 Amorphous Sediment Many (Few) H 03/28/16 12:15 Granular Casts Few per lpf (None Seen) H 03/28/16 12:15 Urine Yeast Moderate per hpf (None Seen) H 03/28/16 12:15 Ur Culture Indicated? YES (NO) A 03/28/16 12:15 - Clinical Findings Intake & Output: Intake & Output 03/27/16 03/28/16 03/28/16 23:59 07:59 15:59 Intake Total 350 / 350 100 / 100 940 / 940 Output Total 600 / 600 Balance 350 / 350 -500 / -500 940 / 940 Weight 132.812 kg - Attending Attestation I examined this patient and my medical decision-making was reviewed with the ELECTRICAL ESTIMATOR/PA/Advanced Practice Nurse/Resident Physician. I agree with the documented findings, disposition and treatment plan as described except to the extent set forth below. labs reviwed Imaging Reviewed and personally interpreted: CT of Thorax, GGOs b/l in Lower lng deleon - chronic bronchitis, no significant pleural effusions CXR, increased vascular markings ?LL infiltrate Impression: 1. Acute Hypoxic Hypercapnic Respiratory Failure 2. PNA with minimal exposure to healthcare environment over last 3 months 3. COPD with exacerbation 4. ALEKS 5. HFpEF 6. Tobacco Abuse Recs: 1. Consider NIPPV whne resting and at sleep for support. Ok for breaks during the day and with meals. Wean supplemental FiO2 to keep saturation 89-92% out of bed to chair as tolerated ambulation as tolerated 2. Respiratory infectious panel. agree with ABx could deescalate to respiratory fluroquinolone but with concern for Qtc prolongation Cefepime with Doxy for atypical coverage is reasonable. Sputum/Blood cultures pending 3. Agree with BDs every 4-6 hours 4. ALEKS on CKD likely s/t to diuresis and nephrotoxins Renal Following. Daily RFP 5. Hold Diuresis. BP well controlled HR well controlled 6. Counseled on smoking cessation.
[2016-03-28] MEDS: Ipratropium/Albuterol Neb 3 ML IH SCH ×4 (10:37→23:31)
[2016-03-28 10:56] LABS: ABG Base Excess -0.4 mEq/L (-2.0 to 3.0); ABG HCO3 26.6 mEQ/L (21-27); ABG Oxygen Saturation 93 % (95-98); ABG PCO2 54 mmHg (35-45); ABG PO2 74 mmHg (85-104); ABG TCO2 28.3 mEq/L (20-26)
[2016-03-28 10:57] LABS: Blood Gas FiO2 28 %
[2016-03-28] MEDS ORDERED: 0.9 % Sodium Chloride 1,000 ML IVC SCH (11:00)
[2016-03-28 12:25] LABS: Bilirubin,Urine Negative (Negative); Blood,Urine Large (Negative); Clarity,Urine Turbid (Clear); Color,Urine Red (Yellow); Glucose,Urine (UA) Normal (Normal); Ketones,Urine Negative (Negative); Leukocyte Esterase,Urine Small (Negative); Nitrite,Urine Negative (Negative); PH,Urine 5.5 pH Units (5.0-8.0); Protein,Urine 100 mg/dL (Neg-Trace); Specific Gravity,Urine 1.021 (1.010-1.025); Urobilinogen,Urine Normal (Normal)
[2016-03-28 12:26] LABS: Squamous Epithelial Cell,Urine Many per lpf (None-Few); WBC,Urine 30-50 per hpf (0-3)
[2016-03-28 12:44] LABS: Amorphous Sediment,Urine Many (Few); RBC,Urine TNTC per hpf (0-3)
[2016-03-28] MEDS: Benzonatate 100 MG CAPSULE PO PRN ×2 (12:44→21:47)
[2016-03-28] MEDS: *HR* OxyCODONE Immed Rel 5 MG TABLET PO PRN (12:44)
[2016-03-28 12:45] LABS: Granular Casts,Urine Few per lpf (None Seen); Hyaline Casts,Urine None Seen per lpf (None-Few)
[2016-03-28 12:48] LABS: Bacteria,Urine Few per hpf (None-Few); Yeast,Urine Moderate per hpf (None Seen)
[2016-03-28 13:35] LABS: Adenovirus Not Detected (Not Detect); Bordetella Pertussis Not Detected (Not Detect); Chlamydophila pneumoniae Not Detected (Not Detect); Coronavirus 229E Not Detected (Not Detect); Coronavirus HKU1 Not Detected (Not Detect); Coronavirus NL63 Not Detected (Not Detect); Coronavirus OC43 Not Detected (Not Detect); Human Metapneumovirus Not Detected (Not Detect); Human Rhinovirus/Enterovirus Not Detected (Not Detect); Influenza A Subtype 2009 H1 Not Detected (Not Detect); Influenza A Untypeable Not Detected (Not Detect); Influenza B Not Detected (Not Detect); Mycoplasma pneumoniae Not Detected (Not Detect); Parainfluenza Virus 1 Not Detected (Not Detect); Parainfluenza Virus 2 Not Detected (Not Detect); Parainfluenza Virus 3 Not Detected (Not Detect); Parainfluenza Virus 4 Not Detected (Not Detect); Respiratory Syncytial Virus ***DETECTED*** (Not Detect)
--- NOTE | 2016-03-28 14:56 | Event Note ---
Date of Encounter: 03/28/16 Time of Encounter: 14:15 Patient is seen and reexamined. Both pulmonology and nephrology on board. On reexamination, patient again asleep and again awakened easily to voice and is still alert and oriented 3. Induration remains fair with diffuse expiratory wheeze noted. Gentle IV fluids and progress and he will receive 1 L of fluid today. Holding diuresis at this point. ABGs consistent with mild CO2 retention , will initiate BiPAP while asleep and as needed and recheck ABGs in the morning. Chest CT consistent with multifocal infectious versus inflammatory nodules. Will check respiratory viruses panel. Consideration for respiratory fluoroquinolone however with QTC prolongation, will initiate cefepime and Doxy instead. Continue duo nebs every 4, Solu-Medrol. Urine negative for legionella and strep pneumonia antigens. Blood cultures negative. Vital signs are stable, we will continue to monitor closely. Impressions Chest CT 03/28/16 09:38 IMPRESSION: Small ground-glass nodules noted within the lower lobes and posterior aspect of the upper lobes. Findings are likely infectious or inflammatory in etiology. Recommend follow-up in 3 months to ensure resolution. Atherosclerosis. D/ / Isabelle Galvan MD / Isabelle Galvan MD Interpreting Provider: Isabelle Galvan MD
[2016-03-28] MEDS: Cefepime HCl 1,000 MG in D5% in Water (Mini-Bag+) 100 ML IVPB SCH (16:31)
[2016-03-28] MEDS: Insulin DETEMIR 100 UNIT/ML X5UNITS SQ SCH (21:46)
[2016-03-28] MEDS: Temazepam 15 MG CAPSULE PO SCH (21:46)
[2016-03-28] MEDS: Acetaminophen 325 MG TABLET PO SCH (21:54)
[2016-03-29] MEDS: MethylPREDNISolone 40 MG/ML VIAL IVP SCH ×3 (00:13→15:34)
[2016-03-29] MEDS: Ipratropium/Albuterol Neb 3 ML IH SCH ×5 (04:25→21:12)
[2016-03-29 05:44] LABS: ABG Base Excess -4.4 mEq/L (-2.0 to 3.0); ABG HCO3 22.5 mEQ/L (21-27); ABG Oxygen Saturation 94 % (95-98); ABG PCO2 49 mmHg (35-45); ABG PH 7.27 pH Units (7.32-7.45); ABG PO2 79 mmHg (85-104)
[2016-03-29 05:45] LABS: Blood Gas FiO2 28 %
[2016-03-29 05:52] LABS: Calcium 8.4 mg/dL (8.6-10.8); Potassium 4.9 mEq/L (3.5-4.5)
--- NOTE | 2016-03-29 06:01 | Pulmonology Progress Note ---
<Kelsie Arthur - Last Filed: 03/29/16 09:44> Date of Encounter: 03/29/16 Time of Encounter: 06:01 Assessment and Plan (1) Acute respiratory failure with hypoxia and hypercapnia Current Visit: Yes Status: Acute Likely due to infectious etiology causing pneumonia and compounding by suspected underlying COPD exacerbation. Patient was on 2 L of oxygen by nasal cannula with an oxygen saturation of 92-94%. ABG demonstrated acidosis Ensure upper airway is patent and clear of obstructions. Supplemental oxygenation by noninvasive positive pressure ventilation while patient is resting or sleeping as treatment of underlying cause ensues. Patient is at risk of aspiration if obtunded or unconsciousness. NIPPV will decrease this risk with breaks for meals. FiO2 between 89-92%. Chest X-Ray 03/26/16 12:12 IMPRESSION: Mild CHF, with bibasilar airspace disease representing either atelectasis, asymmetric edema, or pneumonia. Chest CT 03/28/16 09:38 IMPRESSION: Small ground-glass nodules noted within the lower lobes and posterior aspect of the upper lobes. Findings are likely infectious or inflammatory in etiology. Recommend follow-up in 3 months to ensure resolution. Atherosclerosis. Blood cultures negative 2. Urine negative. Continue antibiotic therapy for treatment of pneumonia Continue corticosteroid therapy and short acting bronchodilator therapy/duonebs for underlying chronic lung disease Continuous pulse oximetry. Follow with morning ABG. (2) Pneumonia Current Visit: Yes Status: Acute Clinically, exam findings are suggestive of lower respiratory tract infection as patient has crackles in the left lower base decreased breath sounds in the right base. In addition, chest x-ray imaging is suggestive of new lung infiltrate, and CT scan. Patient has also been having cough, dyspnea, arthralgia and pleuritic chest pain. Chest X-Ray 03/26/16 12:12 IMPRESSION: Mild CHF, with bibasilar airspace disease representing either atelectasis, asymmetric edema, or pneumonia. Chest CT 03/28/16 09:38 IMPRESSION: Small ground-glass nodules noted within the lower lobes and posterior aspect of the upper lobes. Findings are likely infectious or inflammatory in etiology. Recommend follow-up in 3 months to ensure resolution. Atherosclerosis. Blood cultures were negative 2. Respiratory virus panel is pending Antibiotic start date 03/28/16: Cefepime and doxycycline. Respiratory syncytial virus positive. (3) COPD with acute exacerbation Current Visit: Yes Status: Acute Suspect underlying chronic lung disease due to strong risk factors that include cigarette/cigar smoking, advanced age and prolonged period of tobacco smoking. Symptoms concurrent with disease include progressive shortness of breath, wheezing, cough. CT scan demonstrated mild Bronchial thickening of the lower lobes as well as evidence of inflammatory or infectious etiology. Continue bronchodilator therapy every 4-6 hours and systemic corticosteroids for suspected chronic lung disease. Suggest further diagnostic testing and follow-up outpatient to include pulmonary function testing to establish baseline values and follow progression. Smoking cessation strongly encouraged. (4) Heart failure with preserved ejection fraction Current Visit: Yes Status: Acute Hold diuretics. Blood pressure and heart rate are currently well controlled. (5) Acute kidney injury superimposed on chronic kidney disease Current Visit: Yes Status: Acute This may be due to diuretic therapy and nephrotoxins. Renal is following. (6) Tobacco abuse Current Visit: Yes Status: Chronic Smoking cessation was discussed with the patient. He states that he has quit several times in the past but inevitably relapses within relatively short periods of time. Patient states that he is not ready to quit at this time and enjoys smoking his cigars daily because it makes him feel relaxed. Consider nicotine replacement patch low dose. Subjective Principal diagnosis: Acute hypoxic respiratory failure with hypercapnia Interval history: Patient was placed on BiPAP at 2300 until approximately 03:30 When he was no longer able to tolerate the mask. Patient states that he felt uncomfortable in the mask and did not like it on his face so he took it off and was placed on 2 L oxygen by nasal cannula satting at 94%. Patient reports that he slept well and is feeling better today however, has not had a bowel movement since Sunday and is feeling uncomfortable. Objective PUL Vital signs: Last Vital Signs Temp 98.4 F 03/29/16 05:41 Pulse 71 03/29/16 05:41 Resp 20 03/29/16 05:41 BP 134/62 03/29/16 05:41 Pulse Ox 93 L 03/29/16 05:41 General appearance: no acute distress, alert Eyes: nonicteric ENT: oropharynx dry Neck: supple, no lymphadenopathy Results - Laboratory Findings CBC and BMP: 03/28/16 04:30 03/29/16 04:35 ABG ABG pH 7.27 pH Units (7.32-7.45) L 03/29/16 05:35 ABG pCO2 49 mmHg (35-45) H 03/29/16 05:35 ABG pO2 79 mmHg (85-104) L 03/29/16 05:35 ABG O2 Saturation 94 % (95-98) L 03/29/16 05:35 Abnormal lab findings: Abnormal lab results RBC 3.65 M/mcL (4.19-5.50) L 03/28/16 04:30 Hgb 10.8 g/dL (12.9-16.9) L 03/28/16 04:30 Hct 33.7 % (37.5-50.1) L 03/28/16 04:30 RDW 15.0 % (11.5-14.5) H 03/28/16 04:30 Plt Count 101 K/mcL (140-400) L 03/28/16 04:30 ABG pH 7.27 pH Units (7.32-7.45) L 03/29/16 05:35 ABG pCO2 49 mmHg (35-45) H 03/29/16 05:35 ABG pO2 79 mmHg (85-104) L 03/29/16 05:35 ABG O2 Saturation 94 % (95-98) L 03/29/16 05:35 ABG Base Excess -4.4 mEq/L (-2.0 to 3.0) L 03/29/16 05:35 Sodium 134 mEq/L (136-145) L 03/29/16 04:35 Potassium 4.9 mEq/L (3.5-4.5) H 03/29/16 04:35 BUN 64 mg/dL (8-26) H D 03/29/16 04:35 Creatinine 3.54 mg/dL (0.72-1.25) H 03/29/16 04:35 Est GFR ( Amer) 21 (> 60) L 03/29/16 04:35 Est GFR (Non-Af Amer) 17 (> 60) L 03/29/16 04:35 Glucose 220 mg/dL (70-99) H 03/29/16 04:35 POC Glucose 252 (58-89) H 03/28/16 20:05 Calculated Osmolality 303 (280-300) H 03/29/16 04:35 Calcium 8.4 mg/dL (8.6-10.8) L 03/29/16 04:35 Phosphorus 5.0 mg/dL (2.3-4.7) H 03/29/16 04:35 B-Natriuretic Peptide 123 pg/mL (0-100) H 03/28/16 04:30 HDL Cholesterol 26 mg/dL (40-59) L 03/27/16 03:31 Urine Color Red (Yellow) A 03/28/16 12:15 Urine Clarity Turbid (Clear) A 03/28/16 12:15 Urine Protein 100 mg/dL (Neg-Trace) H 03/28/16 12:15 Urine Blood Large (Negative) H 03/28/16 12:15 Ur Leukocyte Esterase Small (Negative) H 03/28/16 12:15 Urine Microscopic RBC TNTC per hpf (0-3) H 03/28/16 12:15 Urine Microscopic WBC 30-50 per hpf (0-3) H 03/28/16 12:15 Ur Squamous Epith Cells Many per lpf (None-Few) H 03/28/16 12:15 Amorphous Sediment Many (Few) H 03/28/16 12:15 Granular Casts Few per lpf (None Seen) H 03/28/16 12:15 Urine Yeast Moderate per hpf (None Seen) H 03/28/16 12:15 Ur Culture Indicated? YES (NO) A 03/28/16 12:15 RSV (PCR) DETECTED (Not Detect) A 03/28/16 12:15 - Microbiology Findings Microbiology Findings: Microbiology, Last 48 Hours 03/28/16 12:49 Legionella Antigen - Final Urine,Catheterized Streptococcus pneumoniae Antigen (M - Final - Clinical Findings Intake & Output: Intake & Output 03/28/16 03/28/16 03/29/16 15:59 23:59 07:59 Intake Total 1060 / 1060 240 / 240 Balance 1060 / 1060 240 / 240 Weight 138.799 kg Consult Discharge Plan - Plan Referrals: Nikki Quinonez DO [Partnered Physician] - 04/04/16 9:30 am <Robert Vilchis W - Last Filed: 03/29/16 11:12> Date of Encounter: 03/29/16 Objective PUL Vital signs: Last Vital Signs Temp 98.3 F 03/29/16 07:53 Pulse 75 03/29/16 07:53 Resp 20 03/29/16 07:53 BP 128/68 03/29/16 07:53 Pulse Ox 94 L 03/29/16 07:53 Auscultation: bilateral: diminished breath sounds, wheezes (b/l ), rhonchi ( scattered ) Cardiovascular: regular rate and rhythm Extremities: no edema normal mental status mood appropriate Results - Laboratory Findings CBC and BMP: 03/28/16 04:30 03/29/16 04:35 ABG ABG pH 7.27 pH Units (7.32-7.45) L 03/29/16 05:35 ABG pCO2 49 mmHg (35-45) H 03/29/16 05:35 ABG pO2 79 mmHg (85-104) L 03/29/16 05:35 ABG O2 Saturation 94 % (95-98) L 03/29/16 05:35 Abnormal lab findings: Abnormal lab results RBC 3.65 M/mcL (4.19-5.50) L 03/28/16 04:30 Hgb 10.8 g/dL (12.9-16.9) L 03/28/16 04:30 Hct 33.7 % (37.5-50.1) L 03/28/16 04:30 RDW 15.0 % (11.5-14.5) H 03/28/16 04:30 Plt Count 101 K/mcL (140-400) L 03/28/16 04:30 ABG pH 7.27 pH Units (7.32-7.45) L 03/29/16 05:35 ABG pCO2 49 mmHg (35-45) H 03/29/16 05:35 ABG pO2 79 mmHg (85-104) L 03/29/16 05:35 ABG O2 Saturation 94 % (95-98) L 03/29/16 05:35 ABG Base Excess -4.4 mEq/L (-2.0 to 3.0) L 03/29/16 05:35 Sodium 134 mEq/L (136-145) L 03/29/16 04:35 Potassium 4.9 mEq/L (3.5-4.5) H 03/29/16 04:35 BUN 64 mg/dL (8-26) H D 03/29/16 04:35 Creatinine 3.54 mg/dL (0.72-1.25) H 03/29/16 04:35 Est GFR ( Amer) 21 (> 60) L 03/29/16 04:35 Est GFR (Non-Af Amer) 17 (> 60) L 03/29/16 04:35 Glucose 220 mg/dL (70-99) H 03/29/16 04:35 POC Glucose 242 (58-89) H 03/29/16 07:56 Calculated Osmolality 303 (280-300) H 03/29/16 04:35 Calcium 8.4 mg/dL (8.6-10.8) L 03/29/16 04:35 Phosphorus 5.0 mg/dL (2.3-4.7) H 03/29/16 04:35 B-Natriuretic Peptide 123 pg/mL (0-100) H 03/28/16 04:30 HDL Cholesterol 26 mg/dL (40-59) L 03/27/16 03:31 Urine Color Red (Yellow) A 03/28/16 12:15 Urine Clarity Turbid (Clear) A 03/28/16 12:15 Urine Protein 100 mg/dL (Neg-Trace) H 03/28/16 12:15 Urine Blood Large (Negative) H 03/28/16 12:15 Ur Leukocyte Esterase Small (Negative) H 03/28/16 12:15 Urine Microscopic RBC TNTC per hpf (0-3) H 03/28/16 12:15 Urine Microscopic WBC 30-50 per hpf (0-3) H 03/28/16 12:15 Ur Squamous Epith Cells Many per lpf (None-Few) H 03/28/16 12:15 Amorphous Sediment Many (Few) H 03/28/16 12:15 Granular Casts Few per lpf (None Seen) H 03/28/16 12:15 Urine Yeast Moderate per hpf (None Seen) H 03/28/16 12:15 Ur Culture Indicated? YES (NO) A 03/28/16 12:15 RSV (PCR) DETECTED (Not Detect) A 03/28/16 12:15 - Microbiology Findings Microbiology Findings: Microbiology, Last 48 Hours 03/28/16 12:49 Legionella Antigen - Final Urine,Catheterized Streptococcus pneumoniae Antigen (M - Final - Clinical Findings Intake & Output: Intake & Output 03/28/16 03/29/1617 23:59 07:59 15:59 Intake Total 240 / 240 Balance 240 / 240 Weight 138.799 kg - Attending Attestation I examined this patient and my medical decision-making was reviewed with the HOME STAGER/PA/Advanced Practice Nurse/Resident Physician. I agree with the documented findings, disposition and treatment plan as described except to the extent set forth below. Impression: 1. Acute hypoxic hypercapnic respiratory failure complicated by ALEKS 2. LRTI s/t RSV 3. COPD exacerbation 4. ALEKS on CKD 5. HFpEF Recs: 1. Cont supplemtal NIPPV while sleeping and layingrest. Wean Fio2 to keep sats > 88% to 92%. Encourage OOBCT and Ambulation as tolerated 2. Stop ABx supportive care 3. Cont Enteral steroids 40mg x 5 days 4. Nephrology managing. metabolic derangement complicating resp insuff. 5. Stable montor HR and BP control
[2016-03-29] MEDS: APIXABAN 5 MG TABLET PO SCH ×2 (08:56→19:52)
[2016-03-29] MEDS: Cyanocobalamin (B-12) 1,000 MCG TABLET PO SCH (08:57)
[2016-03-29] MEDS: Pregabalin 50 MG CAPSULE PO SCH ×2 (08:57→19:53)
[2016-03-29] MEDS: hydrALAZINE 25 MG TABLET PO SCH ×3 (08:57→19:53)
[2016-03-29] MEDS: Cholecalciferol (D-3) 1,000 UNIT TABLET PO SCH (08:58)
[2016-03-29] MEDS: Insulin LISPRO 300 UNITS/3 ML VIAL SQ SCH ×4 (09:05→19:55)
[2016-03-29] MEDS: Artificial Tears SOLN 15 ML BOTTLE BOTH EYES SCH ×4 (09:12→19:55)
--- NOTE | 2016-03-29 09:26 | Nephrology Progress Note ---
Date of Encounter: 03/29/16 Time of Encounter: 09:26 - Assessment and Plan (1) Acute kidney injury superimposed on chronic kidney disease Current Visit: Yes Status: Acute Patient's serum creatinine appears to have plateaued overnight. Slight improvement with gentle hydration. Clinically, patient appears dry. We have added gentle IV fluid hydration at 75 mL an hour for 1 L again today. Our concern that the patient may now be developing acute tubular necrosis with the elevation in serum creatinine as well as change in urine appearance. Repeat urinalysis reveals granular casts. Continue to avoid nephrotoxic agents if possible and dose medications renally. Patient's sotalol will need to be discontinued as it is contraindicated for patients with a GFR less than 40. Cardiology has been consulted for their recommendations. (2) Acute exacerbation of CHF (congestive heart failure) Current Visit: Yes Status: Acute Initially, on presentation to the emergency department the patient appeared to be an acute exacerbation of congestive heart failure with preserved ejection fraction. He had a mildly elevated BNP and a chest x-ray with pulmonary edema. He was given 40 mg IV Lasix in the emergency department as well as another dose on the floor. Today clinically the patient appears dry with no lower extremity edema and dry mucous membranes. We will give another liter of IV fluid hydration as patient's serum creatinine did slightly respond to yesterday's fluid. Continue to monitor patient's volume status closely. Qualifiers: Congestive heart failure type: diastolic Qualified Code(s): I50.33 - Acute on chronic diastolic (congestive) heart failure (3) Lower respiratory tract infection Current Visit: Yes Status: Acute Respiratory infectious panel reveals positive RSV. Continue supportive care with noninvasive positive pressure ventilation and oral steroids. Subjective Principal diagnosis: Acute hypoxic respiratory failure with hypercapnia Interval history: Patient seen and examined at the bedside. Continues to complain of significant cough, shortness of breath, and fatigue. He denies fevers or chills, chest pain , abdominal pain, or nausea/vomiting. Objective - Vital Signs Vital signs: Vital Signs Temp Pulse Resp BP Pulse Ox 03/29/16 07:53 98.3 F 75 20 128/68 94 L 03/29/16 05:41 98.4 F 71 20 134/62 93 L 03/29/16 04:27 14 93 L 03/28/16 23:57 99.3 F 65 13 121/69 94 L 03/28/16 23:41 18 92 L 03/28/16 20:52 14 91 L 03/28/16 20:00 98.4 F 72 16 135/67 94 L 03/28/16 17:22 98.3 F 68 18 118/65 94 L 03/28/16 16:28 63 122/68 03/28/16 15:38 16 96 03/28/16 11:58 98.7 F 89 16 111/53 96 03/28/16 10:38 18 94 L Intake and Output 03/28/16 03/29/16 03/29/16 23:59 07:59 15:59 Intake Total 240 / 240 Balance 240 / 240 Intake: Oral 240 / 240 Other: Meal Dinner Percent of Meal Consumed 85% # Voids 2 Weight 138.799 kg Blood Glucose* 252 242 Patient Weight 03/29/16 23:59 Weight 138.799 kg - General Appearance Exam: General: Patient is alert, ill-appearing HEENT: Normocephalic atraumatic, pupils are equal round and reactive to light and accommodation, tympanic membrane is intact, nares is patent, mucous membranes moist, throat is not injected, no JVD, trachea is midline Cardiovascular: Regular rate and rhythm without murmur Respiratory: Lungs with expiratory wheezes and rhonchi noted throughout Abdomen: Soft, nontender, obese, positive bowel sounds in all 4 quadrants Extremities: Warm, dry, no edema Neuro: A&Ox3, speech is appropriate, cranial nerves II through XII are normal as tested - Lab 03/28/16 04:30 03/29/16 04:35 Most recent lab results ABG pH 7.27 pH Units (7.32-7.45) L 03/29/16 05:35 ABG pCO2 49 mmHg (35-45) H 03/29/16 05:35 ABG pO2 79 mmHg (85-104) L 03/29/16 05:35 ABG HCO3 22.5 mEQ/L (21-27) 03/29/16 05:35 ABG O2 Saturation 94 % (95-98) L 03/29/16 05:35 Calcium 8.4 mg/dL (8.6-10.8) L 03/29/16 04:35 Phosphorus 5.0 mg/dL (2.3-4.7) H 03/29/16 04:35 Magnesium 1.7 mg/dL (1.6-2.6) 03/27/16 03:31 Consult Discharge Plan - Plan Referrals: Nikki Quinonez DO [Partnered Physician] - 04/04/16 9:30 am
[2016-03-29] MEDS: Tiotropium 18 MCG inhalation IH SCH (10:46)
[2016-03-29] MEDS ORDERED: 0.9 % Sodium Chloride 1,000 ML IVC SCH (13:15)
--- NOTE | 2016-03-29 13:21 | Internal Med Progress Note ---
Date of Encounter: 03/29/16 Time of Encounter: 09:00 (and 1045) - Assessment and plan (1) Acute exacerbation of CHF (congestive heart failure) Current Visit: Yes Status: Acute Assessment and plan: Patient was given a total of 1 L of fluid yesterday. On examination, he still appears slightly dehydrated and he will be given another bag today. Lower extremities with trace, nonpitting edema. Nephrology and pulmonology on board. 03/28/16 On examination today, the patient states that he feels about the same however clinically, he appears to have decompensated overnight. Patient now in moderate respiratory distress with diffuse wheezing present throughout and fair aeration. Will obtain chest CT and ABGs. He remains alert and oriented 3. Patient was not given IV fluid just today secondary to heart failure exacerbation. No edema noted to lower extremities. Ascites noted on abdomen, patient stating he has never had have his abdomen drained in the past. Patient is an active smoker, will treat for COPD exacerbation as well. It does not appear as if the patient has been diagnosed or treated for COPD in the past, will initiate duo nebs, Solu-Medrol and monitor his response closely. 03/27/16 Patient appears clinically dehydrated. Lower extremity edema has resolved, mucous membranes dry, poor by mouth intake, will give gentle IV fluids and decrease Lasix dosage and roll changer to by mouth. Currently on 2 L nasal cannula continuously, not on oxygen at home. Chest x-ray consistent with mild CHF versus pneumonia- treating for both. We will continue to trend. ITS Impressions Chest X-Ray 03/26/16 12:12 IMPRESSION: Mild CHF, with bibasilar airspace disease representing either atelectasis, asymmetric edema, or pneumonia. D/ / 03/26/2016 13:26:58 Rudy Pretty MD / [facility], [place] Interpreting Provider: Rudy Pretty MD Qualifiers: Congestive heart failure type: diastolic Qualified Code(s): I50.33 - Acute on chronic diastolic (congestive) heart failure (2) Acute respiratory failure Current Visit: Yes Status: Acute Assessment and plan: See prior note for acute exacerbation of CHF. Suspect patient may have underlying COPD given that he is a current smoker. No prior diagnosis of COPD. On examination, he does not appear fluid overloaded. No crackles noted on examination, examination consistent with diffuse expiratory wheezing. Chest CT consistent with multifocal infectious/inflammatory processes. BiPAP as needed, he did wear it overnight. ABGs improved today. He is currently tolerating 2 L of nasal cannula continuously. He is not on oxygen at home. Overall, he is slowly improving. Viral swab revealing positive for RSV, placed on isolation. ITS Impressions Chest CT 03/28/16 09:38 IMPRESSION: Small ground-glass nodules noted within the lower lobes and posterior aspect of the upper lobes. Findings are likely infectious or inflammatory in etiology. Recommend follow-up in 3 months to ensure resolution. Atherosclerosis. D/ / Isabelle Galvan MD / Isabelle Galvan MD Interpreting Provider: Isabelle Galvan MD Qualifiers: Respiratory failure complication: unspecified whether with hypoxia or hypercapnia Qualified Code(s): J96.00 - Acute respiratory failure, unspecified whether with hypoxia or hypercapnia (3) HCAP (healthcare-associated pneumonia) Current Visit: Yes Status: Acute Assessment and plan: Renal function remained stable with very slight improvement overnight. We will give another bag of fluid today. Positive urinary output. Nephrology on board. Legionella and strep pneumoniae antigens negative. Blood cultures negative x2. Urine culture negative. 03/28/16 Acute kidney injury superimposed on chronic kidney disease stage IV noted overnight. No leukocytosis. Vancomycin stop at this time. Appreciate nephrology and pulmonology recommendations for antibiotic treatment. Sputum culture still pending 03/27/16 continue Vanc and Zosyn. Patient currently on supplemental oxygen, not on oxygen at home. Unknown causation, will order sputum culture. We will continue to trend. (4) RSV (respiratory syncytial virus pneumonia) Current Visit: Yes Status: Acute (5) Chronic kidney disease, stage 4 (severe) Current Visit: Yes Status: Chronic Assessment and plan: Nephrology on board. Mucous membranes dry- will give another bag of IVF today. Trace, nonpitting pedal edema. Pulmology examination not consistent with fluid overload, Chest CT revealing multifocal inflammatory versus infectious process. ALEKS on CKD$ stable and slightly improved overnight. Nephrology onboard. (6) Acute kidney injury superimposed on chronic kidney disease Current Visit: Yes Status: Acute (7) CHF (congestive heart failure) Current Visit: Yes Status: Acute Assessment and plan: Lasix held due to acute kidney injury superimposed on chronic kidney disease stage IV. Echocardiogram revealing ejection fraction of 50% and mild diastolic dysfunction and otherwise unremarkable. Echocardiogram with imaging enhancement agent impressions: LVEF 50%. There is evidence of mild diastolic dysfunction of the left ventricle. Normal right ventricular size and function. No significant valvular dysfunction. No pulmonary hypertension. Qualifiers: Congestive heart failure type: diastolic Congestive heart failure chronicity: acute on chronic Qualified Code(s): I50.33 - Acute on chronic diastolic (congestive) heart failure (8) DVT prophylaxis Current Visit: Yes Status: Acute Assessment and plan: On Eliquis (9) Anemia Current Visit: Yes Status: Chronic Assessment and plan: Mild, chronic, stable, no signs of active bleeding. Qualifiers: Anemia type: other cause Other causes of anemia: other cause, not classified Qualified Code(s): D64.89 - Other specified anemias (10) Atrial fibrillation Current Visit: Yes Status: Chronic Assessment and plan: Telemetry reviewed, no atrial fibrillation noted. Ventricular pacing present with intermittent PVCs. Per Nephrology recommendations, the patient's Sotalol is contraindicated with a GFR less than 40 (his is 17 today). Will bring cardiology onboard for medication titration and change at their discretion (11) Hypertension Current Visit: Yes Status: Chronic Assessment and plan: Controlled, we will continue to trend and adjust medications as indicated. Qualifiers: Hypertension type: essential hypertension Qualified Code(s): I10 - Essential (primary) hypertension (12) Tobacco abuse Current Visit: Yes Status: Chronic (13) Thrombocytopenia Current Visit: No Status: Chronic Assessment and plan: Acute on chronic, currently lower than his baseline, we will continue to trend (14) Diabetes mellitus Current Visit: No Status: Chronic Assessment and plan: Poorly controlled to home with a recent A1c of 8.5%. Continue sliding scale while admitted. Qualifiers: Diabetes mellitus type: type 2 Diabetes mellitus complication status: with neurologic complications Diabetes mellitus complication detail: with polyneuropathy Diabetes mellitus manager terminal insulin use: with snf use Qualified Code(s): E11.42 - Type 2 diabetes mellitus with diabetic polyneuropathy; Z79.4 - buttermaker (current) use of insulin (15) Hyperkalemia, diminished renal excretion Current Visit: No Status: Acute - Subjective Interval history: Patient seen and examined. On examination, patient is alert and oriented 3 and sitting upright in bed. Patient stating his shortness of breath has slightly improved from yesterday. He is continuing to endorse shortness of breath above his norm. He states he did not sleep very well last night. He states he was able to tolerate the BiPAP machine. He is complaining of his chronic pain without acute changes. - Constitutional Vitals: Temp Pulse Resp BP Pulse Ox 97.9 F 67 20 127/65 99 03/29/16 11:19 03/29/16 11:19 03/29/16 11:19 03/29/16 11:19 03/29/16 11:19 General appearance: Present: mild distress, A&O X 3, pleasant, obese, answers questions appropriately - Head Head exam: Present: atraumatic, normocephalic - Eye Eye exam: Present: PERRL, conjuntiva pink, sclera anicteric Pupils: Present: PERRL - Neck Neck exam general surgery: Present: supple, trachea midline. Absent: lymphadenopathy - Respiratory Respiratory exam: Present: accessory muscle use, decreased breath sounds, prolonged expiratory phase, respiratory distress (Mild), wheezes. Absent: rales , rhonchi - Cardiovascular Cardiovascular exam: Present: irregular rhythm, RRR, +S1, +S2. Absent: diastolic murmur, gallop, rubs, systolic murmur - GI/Abdominal GI/Abdominal exam: Present: distended, normal bowel sounds, soft, no peritoneal signs. Absent: tenderness - Extremities Exam Extremities exam: Present: warm, radial pulses palpable and symetrical. Absent : calf tenderness, cyanotic, pedal edema - Neurological Exam Neurological exam: Present: alert, CN II-XII intact, oriented X3, no focal deficits, strengths equal and symetr throughout. Absent: pronater drift, facial droop, speech deficit - Skin Skin exam: Present: dry, intact, pallor, warm Internal Medicine: Result - Labs CBC & Chem 7: 03/28/16 04:30 03/29/16 04:35 Labs: BMP 03/29/16 04:35 Sodium 134 L Potassium 4.9 H Chloride 104 Carbon Dioxide 21 BUN 64 H D Creatinine 3.54 H Glucose 220 H Calcium 8.4 L - ABG Interpretation ABG results: ABG ABG pH 7.27 pH Units (7.32-7.45) L 03/29/16 05:35 ABG pCO2 49 mmHg (35-45) H 03/29/16 05:35 ABG pO2 79 mmHg (85-104) L 03/29/16 05:35 ABG O2 Saturation 94 % (95-98) L 03/29/16 05:35 Consult Discharge Plan - Plan Referrals: Nikki Quinonez DO [Partnered Physician] - 04/04/16 9:30 am
--- NOTE | 2016-03-29 13:41 | Cardiology Consult Note ---
Date of Encounter: 03/29/16 Time of Encounter: 13:00 Assessment and Plan (1) History of atrial fibrillation Current Visit: Yes Status: Resolved Per cardiology: -Patient with remote history of atrial fibrillation. Patient states he does not remember being told he had atrial fibrillation, cardiac arrhythmias, or tachycardia. Patient states he has been on sotalol for years, but he believed it was for his blood pressure. Patient also on coreg 25mg PO BID. -Patient currently without atrial fibrillation. Patient currently paced with a heart rate of 60. BPs have been 110-130s systolic and 60s diastolic. -Cardiology has been consulted to evaluate for stopping sotalol due to CKD and worsening renal function. -Will stop sotalol as recommended per nephrology. -Will sign off. Re-consult as needed. Discussion w patient/family: The assessment and plan as outlined above was discussed with the patient who expressed understanding and agreement. All questions were answered. Thank you for involving us in the care of your patient. Please call with any questions. Discussed and reviewed with Dr.John Steinberg. History of Present Illness Consult date: 03/29/16 Requesting physician: Kizzy Jeronimo Consult reason: Sotalol with CKD Chief complaint: Shortness of breath History of present illness: Mr. Vera is a 71 year old male who was admitted to [place] with shortness of breath. Patient has been on sotalol for apparent atrial fibrillation. Patient states he has been on this medication for years, but he does not recall a history of atrial fibrillation, cardiac arrythmia, or tachycardia. Per review of patient's cardiology records from [facility] cardiology, atrial fibrillation is listed as part of patient's medical history. Cardiology has been asked to see patient due to sotalol use in the setting of chronic kidney disease. Nephrology recommends stopping sotalol sine patient's kidney function is continuing to worsen. Past Med Surg Social Fam HX - Past Medical History Attestation: Yes The following information was validated with the patient. Medical history: cardiomyopathy, CHF, CVA, diabetes, hyperlipidemia, hypertension, renal disease Psychiatric history: no psych history - Past Surgical History Surgical History: orthopedic, other - Social History Smoking Status: Current every day smoker Smokeless Tobacco Status: No Alcohol use: rarely Drug use: none - Family History Mother Adopted: No Family Member Ethnicity: Non- Living Status: Hx Family Cardiac Disorders: Yes Hx Family Respiratory Disorders: Yes Hx Family Cancer: Yes Hx Family GI Disorders: No Hx Family Endocrine Disorder: Yes Hx Family Neuromuscular Disorders: No Hx Family Neurologic Disorders: No Hx Family HEENT Disorders: No Hx Family Autoimmune Disorders: No Medications and Allergies Insulin Glargine,Hum.rec.anlog [Lantus Solostar] 42 unit SQ HS 05/09/15 [History ] Pregabalin [Lyrica] 200 mg PO BID 05/09/15 [History] Simvastatin [Zocor] 40 mg PO DAILY 05/09/15 [History] Sotalol [Betapace] 80 mg PO BID 05/09/15 [History] Temazepam [Restoril] 30 mg PO HS 05/09/15 [History] Apixaban [Eliquis] 2.5 mg PO BID 12/31/15 [History] Carvedilol [Coreg] 25 mg PO BID 12/31/15 [History] Promethazine [Phenergan] 25 mg PO HS 12/31/15 [History] Artificial Tears SOLN [Akwa Tears] 1 drop BOTH EYES QID bottle 01/07/16 [Rx] HydrALAZINE 75 mg PO TID #270 tablet 01/07/16 [Rx] Tamsulosin [Flomax] 0.4 mg PO DAILY #30 capsule 01/07/16 [Rx] Acetaminophen [Tylenol] 650 mg PO HS 03/26/16 [History] Cholecalciferol (D-3) [Vitamin D] 1,000 unit PO DAILY 03/26/16 [History] Cyanocobalamin (Vitamin B-12) [Vitamin B12] 5,000 mcg PO DAILY 03/26/16 [History ] Allergies aspirin Allergy (Verified 03/26/16 14:56) Hives diphenhydramine [From Benadryl] Allergy (Verified 03/26/16 12:08) Swelling of Lip/Tongue/Throat Tetracyclines Allergy (Verified 03/26/16 14:56) Hives All Systems Review: A 10-system review of systems was performed and is negative for pertinent findings except as documented above in the HPI. - Constitutional Constitutional: fatigue, weakness - Respiratory Respiratory: cough, dyspnea Physical Examination Vital Signs, Last 4 Hours Temp Pulse Resp BP Pulse Ox 03/29/16 11:19 97.9 F 67 20 127/65 99 General: Conversant, No Apparent Distress HEENT: Atraumatic, Normocephaly Neck: No JVD Cardiac: Reg Rate and Rhythm, Normal S1 and S2, No Murmur, Other (Paced ) Lungs: Other (Wheezes noted to bilateral lungs. ) Neuro: No focal deficits noted Abdomen: Soft, Non-Tender Skin: No rashes noted on visualized skin Musculoskeletal: No Chest Wall Tenderness Extremities: No Clubbing, No Cyanosis, No Edema, Normal Pulses Results 03/28/16 04:30 03/29/16 04:35 Lab Results 03/29/16 04:35 Sodium 134 L Potassium 4.9 H Chloride 104 Carbon Dioxide 21 BUN 64 H D Creatinine 3.54 H Glucose 220 H Calcium 8.4 L - Imaging and Cardiology Chest Xray: report reviewed Echo: report reviewed Other Results: Chest CT report reviewed. - EKG Interpretation EKG results cardiology: personally reviewed, other (Telemetry reviewed. Paced rhythm with average heart rate 67. No significant events or atrial fibrillation noted.) Consult Discharge Plan - Plan Referrals: Nikki Quinonez DO [Partnered Physician] - 04/04/16 9:30 am
[2016-03-29] MEDS: *HR* OxyCODONE Immed Rel 5 MG TABLET PO PRN (15:33)
[2016-03-29] MEDS: Cefepime HCl 1,000 MG in D5% in Water (Mini-Bag+) 100 ML IVPB SCH (15:33)
[2016-03-29] MEDS: *HR* Morphine 2 MG/ML SYRINGE IVP PRN (17:17)
[2016-03-29] MEDS: Acetaminophen 325 MG TABLET PO SCH (19:53)
[2016-03-29] MEDS: Temazepam 15 MG CAPSULE PO SCH (19:54)
[2016-03-29] MEDS: Insulin DETEMIR 100 UNIT/ML X5UNITS SQ SCH (19:56)
[2016-03-30] MEDS: MethylPREDNISolone 40 MG/ML VIAL IVP SCH (00:09)
[2016-03-30] MEDS: Ipratropium/Albuterol Neb 3 ML IH SCH ×7 (00:19→23:01)
[2016-03-30 05:26] LABS: Hematocrit 31.6 % (37.5-50.1); Hemoglobin 10.1 g/dL (12.9-16.9); Immature Granulocytes % 0.9 % (0-4); Lymphocytes # 0.6 K/mcL (0.6-4.6); Lymphocytes % 8.2 %; Mean Corpuscular Hemoglobin 28.9 pg (28.0-33.3); Mean Corpuscular Volume 90.5 fL (83.0-100.0); Mean Platelet Volume 10.7 fL (9.4-12.4); Monocytes # 0.2 K/mcL (0.0-1.3); Neutrophils # 5.9 K/mcL (1.6-8.9); Platelet Count 113 K/mcL (140-400); Red Blood Count 3.49 M/mcL (4.19-5.50); Red Cell Distribution Width 13.9 % (11.5-14.5); Segmented Neutrophils % 87.9 %
[2016-03-30 05:38] LABS: Calcium 8.5 mg/dL (8.6-10.8); Potassium 5.3 mEq/L (3.5-4.5)
--- NOTE | 2016-03-30 07:29 | Pulmonology Progress Note ---
Date of Encounter: 03/30/16 Time of Encounter: 07:27 Assessment and Plan (1) RSV bronchitis Current Visit: Yes Status: Acute Cont supportive care and Isolation protocol (2) Acute kidney injury superimposed on chronic kidney disease Current Visit: Yes Status: Acute slowly appears to be improving. Defer mngt to Nephrology service (3) Acute respiratory failure with hypoxia and hypercapnia Current Visit: Yes Status: Acute s/t to Acute RSV infection with COPD (undiagnosed) exacerbation. Cont NIPVV at rest and when sleeping. Wean Fio2 to keep O2 sat% >99to 92% Walking pulse ox study prior to d/c to evaluate for need for home going O2 Needs oupatient Pulm follow up and PSG (4) CHF (congestive heart failure) Current Visit: Yes Status: Acute appears Euvolemic on exam. Cont BP meds and diuretics at discretion of primary team Qualifiers: Congestive heart failure type: diastolic Congestive heart failure chronicity: acute on chronic Qualified Code(s): I50.33 - Acute on chronic diastolic (congestive) heart failure (5) COPD with acute exacerbation Current Visit: Yes Status: Acute Recommend Enteral Steroids (40mg Prednisone) taper over two weeks Cont LAMA (Spiriva) Cont AR/JESSICA 4-6 hours PRN Discharge with Nebs and or PRN AR and daily LAMA Outpatient PFTs Counseled on Smoking Cessation Subjective Principal diagnosis: Acute hypoxic respiratory failure with hypercapnia Interval history: Did well overnight. Moved to SDU for closer monitoring after stopping Sotalol. He says that his breathing is improving. He has been compliant with NIPPV overnight. Objective PUL Vital signs: Last Vital Signs Temp 97.6 F 03/30/16 07:16 Pulse 59 03/30/16 07:16 Resp 11 03/30/16 07:16 BP 148/75 03/30/16 07:16 Pulse Ox 97 03/30/16 07:16 General appearance: no acute distress, alert ENT: oropharynx moist Neck: supple, no lymphadenopathy Effort: normal Auscultation: bilateral: wheezes (faint expiratory wheeze ) Cardiovascular: regular rate and rhythm Gastrointestinal: normoactive bowel sounds, soft, non-tender Extremities: no edema normal mental status, non-focal exam mood appropriate Results - Laboratory Findings CBC and BMP: 03/30/16 05:00 03/30/16 05:00 ABG ABG pH 7.27 pH Units (7.32-7.45) L 03/29/16 05:35 ABG pCO2 49 mmHg (35-45) H 03/29/16 05:35 ABG pO2 79 mmHg (85-104) L 03/29/16 05:35 ABG O2 Saturation 94 % (95-98) L 03/29/16 05:35 Abnormal lab findings: Abnormal lab results RBC 3.49 M/mcL (4.19-5.50) L 03/30/16 05:00 Hgb 10.1 g/dL (12.9-16.9) L 03/30/16 05:00 Hct 31.6 % (37.5-50.1) L 03/30/16 05:00 Plt Count 113 K/mcL (140-400) L 03/30/16 05:00 ABG pH 7.27 pH Units (7.32-7.45) L 03/29/16 05:35 ABG pCO2 49 mmHg (35-45) H 03/29/16 05:35 ABG pO2 79 mmHg (85-104) L 03/29/16 05:35 ABG O2 Saturation 94 % (95-98) L 03/29/16 05:35 ABG Base Excess -4.4 mEq/L (-2.0 to 3.0) L 03/29/16 05:35 Sodium 134 mEq/L (136-145) L 03/30/16 05:00 Potassium 5.3 mEq/L (3.5-4.5) H 03/30/16 05:00 BUN 77 mg/dL (8-26) H 03/30/16 05:00 Creatinine 3.04 mg/dL (0.72-1.25) H 03/30/16 05:00 Est GFR ( Amer) 25 (> 60) L 03/30/16 05:00 Est GFR (Non-Af Amer) 20 (> 60) L 03/30/16 05:00 Glucose 284 mg/dL (70-99) H 03/30/16 05:00 POC Glucose 287 (58-89) H 03/29/16 19:50 Calculated Osmolality 311 (280-300) H 03/30/16 05:00 Calcium 8.5 mg/dL (8.6-10.8) L 03/30/16 05:00 Phosphorus 5.0 mg/dL (2.3-4.7) H 03/29/16 04:35 B-Natriuretic Peptide 123 pg/mL (0-100) H 03/28/16 04:30 HDL Cholesterol 26 mg/dL (40-59) L 03/27/16 03:31 Urine Color Red (Yellow) A 03/28/16 12:15 Urine Clarity Turbid (Clear) A 03/28/16 12:15 Urine Protein 100 mg/dL (Neg-Trace) H 03/28/16 12:15 Urine Blood Large (Negative) H 03/28/16 12:15 Ur Leukocyte Esterase Small (Negative) H 03/28/16 12:15 Urine Microscopic RBC TNTC per hpf (0-3) H 03/28/16 12:15 Urine Microscopic WBC 30-50 per hpf (0-3) H 03/28/16 12:15 Ur Squamous Epith Cells Many per lpf (None-Few) H 03/28/16 12:15 Amorphous Sediment Many (Few) H 03/28/16 12:15 Granular Casts Few per lpf (None Seen) H 03/28/16 12:15 Urine Yeast Moderate per hpf (None Seen) H 03/28/16 12:15 Ur Culture Indicated? YES (NO) A 03/28/16 12:15 RSV (PCR) DETECTED (Not Detect) A 03/28/16 12:15 - Microbiology Findings Microbiology Findings: Microbiology, Last 48 Hours 03/28/16 12:49 Urine Culture - Final Urine,Clean Catch No growth. 03/28/16 12:49 Legionella Antigen - Final Urine,Catheterized Streptococcus pneumoniae Antigen (M - Final - Clinical Findings Intake & Output: Intake & Output 03/29/16 03/29/16 03/30/16 15:59 23:59 07:59 Intake Total 1290 / 1290 320 / 320 1200 / 1200 Output Total 650 / 650 725 / 725 Balance 1290 / 1290 -330 / -330 475 / 475 Weight 133.3 kg Consult Discharge Plan - Plan Referrals: Nikki Quinonez DO [Partnered Physician] - 04/04/16 9:30 am
[2016-03-30] MEDS: Insulin LISPRO 300 UNITS/3 ML VIAL SQ SCH ×5 (07:45→20:06)
[2016-03-30] MEDS: hydrALAZINE 25 MG TABLET PO SCH ×3 (07:46→20:01)
[2016-03-30] MEDS: Artificial Tears SOLN 15 ML BOTTLE BOTH EYES SCH ×4 (07:46→20:04)
[2016-03-30] MEDS: Cyanocobalamin (B-12) 1,000 MCG TABLET PO SCH (07:47)
[2016-03-30] MEDS: APIXABAN 5 MG TABLET PO SCH ×2 (07:47→20:02)
[2016-03-30] MEDS: Pregabalin 50 MG CAPSULE PO SCH ×2 (07:47→20:01)
[2016-03-30] MEDS: Cholecalciferol (D-3) 1,000 UNIT TABLET PO SCH (07:47)
[2016-03-30] MEDS: Tiotropium 18 MCG inhalation IH SCH (07:57)
--- NOTE | 2016-03-30 08:42 | Nephrology Progress Note ---
Date of Encounter: 03/30/16 Time of Encounter: 08:42 - Assessment and Plan (1) Acute kidney injury superimposed on chronic kidney disease Current Visit: Yes Status: Acute Patient's serum creatinine improving with gentle hydration. Clinically, patient appears dry. We have added gentle IV fluid hydration at 75 mL an hour for 1 L again today. Repeat urinalysis reveals granular casts. Continue to avoid nephrotoxic agents if possible and dose medications renally. (2) Acute exacerbation of CHF (congestive heart failure) Current Visit: Yes Status: Acute Initially, on presentation to the emergency department the patient appeared to be an acute exacerbation of congestive heart failure with preserved ejection fraction. He had a mildly elevated BNP and a chest x-ray with pulmonary edema. He was given 40 mg IV Lasix in the emergency department as well as another dose on the floor. Today clinically the patient appears dry with no lower extremity edema and dry mucous membranes. We will give another liter of IV fluid hydration as patient's serum creatinine did slightly respond to yesterday's fluid. Continue to monitor patient's volume status closely. Qualifiers: Congestive heart failure type: diastolic Qualified Code(s): I50.33 - Acute on chronic diastolic (congestive) heart failure (3) Lower respiratory tract infection Current Visit: Yes Status: Acute Respiratory infectious panel reveals positive RSV. Continue supportive care with noninvasive positive pressure ventilation and oral steroids. Subjective Principal diagnosis: Acute hypoxic respiratory failure with hypercapnia Interval history: Patient seen and examined at the bedside. Continues to complain of significant cough, shortness of breath, and fatigue. He denies fevers or chills, chest pain , abdominal pain, or nausea/vomiting. Objective - Vital Signs Vital signs: Vital Signs Temp Pulse Resp BP Pulse Ox 03/30/16 07:55 18 94 L 03/30/16 07:40 62 03/30/16 07:16 97.6 F 59 11 148/75 97 03/30/16 04:28 19 96 03/30/16 04:10 97.4 F L 59 16 139/69 98 03/30/16 00:20 14 94 L 03/30/16 00:10 65 03/29/16 23:10 98.0 F 65 14 115/60 92 L 03/29/16 19:40 98.2 F 66 14 149/71 94 L 03/29/16 17:21 68 03/29/16 16:59 98.2 F 79 18 95 03/29/16 15:53 98.1 F 64 24 124/67 94 L 03/29/16 11:19 97.9 F 67 20 127/65 99 03/29/16 11:08 20 94 L Intake and Output 03/29/16 03/30/16 03/30/16 23:59 07:59 15:59 Intake Total 320 / 320 1200 / 1200 Output Total 650 / 650 725 / 725 Balance -330 / -330 475 / 475 Intake: IV Fluids 1000 / 1000 0.9 % Sodium Chloride 1, 1000 / 1000 000 ML @ 75 mls/hr IVC . [id number] SANDI Rx#: [id number] Oral 320 / 320 200 / 200 Output: Urine 450 / 450 Catheter 200 / 200 725 / 725 Other: Meal Dinner Percent of Meal Consumed 50% Weight 133.3 kg Blood Glucose* 287 301 Patient Weight 03/30/16 23:59 Weight 133.3 kg - General Appearance Exam: General: Patient is alert, ill-appearing HEENT: Normocephalic atraumatic, pupils are equal round and reactive to light and accommodation, tympanic membrane is intact, nares is patent, mucous membranes moist, throat is not injected, no JVD, trachea is midline Cardiovascular: Regular rate and rhythm without murmur Respiratory: Lungs with expiratory wheezes and trace rhonchi noted Abdomen: Soft, nontender, obese, positive bowel sounds in all 4 quadrants Extremities: Warm, dry, trace lower extremity edema Neuro: A&Ox3, speech is appropriate, cranial nerves II through XII are normal as tested - Lab 03/30/16 05:00 03/30/16 05:00 Most recent lab results ABG pH 7.27 pH Units (7.32-7.45) L 03/29/16 05:35 ABG pCO2 49 mmHg (35-45) H 03/29/16 05:35 ABG pO2 79 mmHg (85-104) L 03/29/16 05:35 ABG HCO3 22.5 mEQ/L (21-27) 03/29/16 05:35 ABG O2 Saturation 94 % (95-98) L 03/29/16 05:35 Calcium 8.5 mg/dL (8.6-10.8) L 03/30/16 05:00 Phosphorus 5.0 mg/dL (2.3-4.7) H 03/29/16 04:35 Magnesium 1.7 mg/dL (1.6-2.6) 03/27/16 03:31 Consult Discharge Plan - Plan Referrals: Nikki Quinonez DO [Partnered Physician] - 04/04/16 9:30 am
[2016-03-30] MEDS: predniSONE 20 MG TABLET PO SCH (09:01)
--- NOTE | 2016-03-30 10:50 | Internal Med Progress Note ---
Date of Encounter: 03/30/16 Time of Encounter: 09:00 - Assessment and plan (1) Acute kidney injury superimposed on chronic kidney disease Current Visit: Yes Status: Acute Assessment and plan: Patient has history of CKD. Nephrology consult was called. Suspected ATN. Will give low rate IV fluid and follow-up renal function. (2) Acute respiratory failure with hypoxia and hypercapnia Current Visit: Yes Status: Acute (3) CHF (congestive heart failure) Current Visit: Yes Status: Acute Assessment and plan: Lasix held due to acute kidney injury superimposed on chronic kidney disease stage IV. Echocardiogram revealing ejection fraction of 50% and mild diastolic dysfunction and otherwise unremarkable. Continue beta nayely Qualifiers: Congestive heart failure type: combined Congestive heart failure chronicity : acute on chronic Qualified Code(s): I50.43 - Acute on chronic combined systolic (congestive) and diastolic (congestive) heart failure (4) COPD with acute exacerbation Current Visit: Yes Status: Acute Assessment and plan: Patient is on antibiotic, steroid, bronchodilator, and LAMA. Pulmonology consult is on case (5) DVT prophylaxis Current Visit: Yes Status: Acute Assessment and plan: On Eliquis (6) HCAP (healthcare-associated pneumonia) Current Visit: Yes Status: Acute Assessment and plan: Legionella and strep pneumoniae antigens negative. Blood cultures negative x2. Urine culture negative. CT suggest infection or inflammation, Continue cefepime. (7) RSV bronchitis Current Visit: Yes Status: Acute Assessment and plan: Continue isolation and supportive treatment (8) Atrial fibrillation Current Visit: Yes Status: Chronic Assessment and plan: History of A. fib, now on pacing rhythm. Cardiology consult appreciated, stop sotalol. Continue beta nayely and Eliquis. Qualifiers: Atrial fibrillation type: unspecified Qualified Code(s): I48.91 - Unspecified atrial fibrillation (9) Hypertension Current Visit: Yes Status: Chronic Assessment and plan: Controlled, we will continue to trend and adjust medications as indicated. Qualifiers: Hypertension type: essential hypertension Qualified Code(s): I10 - Essential (primary) hypertension (10) Diabetes mellitus Current Visit: No Status: Chronic Assessment and plan: Poorly controlled to home with a recent A1c of 8.5%. Continue sliding scale while admitted. Qualifiers: Diabetes mellitus type: type 2 Diabetes mellitus complication status: with neurologic complications Diabetes mellitus complication detail: with polyneuropathy Diabetes mellitus [facility] insulin use: with [facility] use Qualified Code(s): E11.42 - Type 2 diabetes mellitus with diabetic polyneuropathy; Z79.4 - snf (current) use of insulin (11) Tobacco abuse Current Visit: No Status: Chronic Assessment and plan: Smoking cessation education - Subjective Interval history: Patient is a 71-year-old male admitted at COPD exacerbation. Past medical history is significant for CHF, COPD, CVA, diabetes, hyperlipidemia, hypertension, CKD. Patient was seen and examined. Still in mild respiratory distress. Complaint mild shortness of breath. No chest pain, no nausea, no vomiting. No fever. Vitals are stable. Still wheezes bilaterally. Pulmonology consult is on case to help in managing for COPD, recommended patient is highly appreciated. We will continue closely monitor patient and continue current treatment. PTOT evaluation to help the patient increase mobility. - Constitutional Vitals: Temp Pulse Resp BP Pulse Ox 97.6 F 62 18 148/75 94 L 03/30/16 07:16 03/30/16 07:40 03/30/16 07:55 03/30/16 07:16 03/30/16 07:55 General appearance: Present: mild distress, A&O X 3, pleasant, obese, answers questions appropriately - Head Head exam: Present: atraumatic, normocephalic - Eye Eye exam: Present: PERRL, conjuntiva pink, sclera anicteric Pupils: Present: PERRL - Neck Neck exam general surgery: Present: supple, trachea midline. Absent: lymphadenopathy - Respiratory Respiratory exam: Present: CTAB, wheezes (Diffused wheezes bilaterally). Absent : accessory muscle use, rales, rhonchi - Cardiovascular Cardiovascular exam: Present: RRR, +S1, +S2. Absent: diastolic murmur, gallop, rubs, systolic murmur - GI/Abdominal GI/Abdominal exam: Present: normal bowel sounds, soft, no peritoneal signs. Absent: distended, tenderness - Extremities Exam Extremities exam: Present: warm, radial pulses palpable and symetrical. Absent : calf tenderness, cyanotic, pedal edema - Neurological Exam Neurological exam: Present: CN II-XII intact, oriented X3, no focal deficits. Absent: pronater drift, facial droop, speech deficit - Skin Skin exam: Present: dry, intact Internal Medicine: Result - Labs CBC & Chem 7: 03/30/16 05:00 03/30/16 05:00 Labs: Short CBC 03/30/16 Range/Units 05:00 WBC 6.7 (4.3-11.1) K/mcL Hgb 10.1 L (12.9-16.9) g/dL Hct 31.6 L (37.5-50.1) % Plt Count 113 L (140-400) K/mcL Neutrophils # 5.9 (1.6-8.9) K/mcL BMP 03/30/16 05:00 Sodium 134 L Potassium 5.3 H Chloride 107 Carbon Dioxide 19 BUN 77 H Creatinine 3.04 H Glucose 284 H Calcium 8.5 L - ABG Interpretation ABG results: ABG ABG pH 7.27 pH Units (7.32-7.45) L 03/29/16 05:35 ABG pCO2 49 mmHg (35-45) H 03/29/16 05:35 ABG pO2 79 mmHg (85-104) L 03/29/16 05:35 ABG O2 Saturation 94 % (95-98) L 03/29/16 05:35 Consult Discharge Plan - Plan Referrals: Nikki Quinonez DO [Partnered Physician] - 04/04/16 9:30 am
[2016-03-30] MEDS: *HR* Morphine 2 MG/ML SYRINGE IVP PRN ×2 (11:18→23:20)
[2016-03-30] MEDS ORDERED: 0.9 % Sodium Chloride 1,000 ML IVC SCH (13:15)
[2016-03-30] MEDS: Cefepime HCl 1,000 MG in D5% in Water (Mini-Bag+) 100 ML IVPB SCH (15:41)
[2016-03-30] MEDS: Temazepam 15 MG CAPSULE PO SCH (20:03)
[2016-03-30] MEDS: Acetaminophen 325 MG TABLET PO SCH (20:04)
[2016-03-30] MEDS: Insulin DETEMIR 100 UNIT/ML X5UNITS SQ SCH (20:05)
[2016-03-30] MEDS: *HR* OxyCODONE Immed Rel 5 MG TABLET PO PRN (23:13)
[2016-03-31] MEDS: Ipratropium/Albuterol Neb 3 ML IH SCH ×5 (05:10→19:36)
[2016-03-31 06:04] LABS: Basophils % 0.1 %; Hematocrit 32.3 % (37.5-50.1); Hemoglobin 10.5 g/dL (12.9-16.9); Immature Granulocytes % 1.3 % (0-4); Lymphocytes # 0.8 K/mcL (0.6-4.6); Lymphocytes % 11.1 %; Mean Corpuscular HGB Conc 32.5 g/dL (31.6-35.5); Mean Corpuscular Hemoglobin 29.1 pg (28.0-33.3); Mean Corpuscular Volume 89.5 fL (83.0-100.0); Mean Platelet Volume 10.7 fL (9.4-12.4); Monocytes # 0.4 K/mcL (0.0-1.3); Monocytes % 5.8 %; Neutrophils # 5.7 K/mcL (1.6-8.9); Platelet Count 119 K/mcL (140-400); Red Blood Count 3.61 M/mcL (4.19-5.50); Red Cell Distribution Width 13.7 % (11.5-14.5); Segmented Neutrophils % 81.7 %
[2016-03-31 06:23] LABS: Calcium 8.6 mg/dL (8.6-10.8); Potassium 4.8 mEq/L (3.5-4.5)
[2016-03-31] MEDS: Tiotropium 18 MCG inhalation IH SCH (07:47)
[2016-03-31] MEDS: Cyanocobalamin (B-12) 1,000 MCG TABLET PO SCH (08:22)
[2016-03-31] MEDS: Cholecalciferol (D-3) 1,000 UNIT TABLET PO SCH (08:22)
[2016-03-31] MEDS: predniSONE 20 MG TABLET PO SCH (08:22)
[2016-03-31] MEDS: Pregabalin 50 MG CAPSULE PO SCH ×2 (08:23→20:02)
[2016-03-31] MEDS: APIXABAN 5 MG TABLET PO SCH ×2 (08:23→20:02)
[2016-03-31] MEDS: Insulin LISPRO 300 UNITS/3 ML VIAL SQ SCH ×4 (08:39→21:13)
[2016-03-31] MEDS: Artificial Tears SOLN 15 ML BOTTLE BOTH EYES SCH ×4 (08:40→20:01)
[2016-03-31] MEDS: hydrALAZINE 25 MG TABLET PO SCH ×3 (09:35→20:01)
[2016-03-31] MEDS: *HR* Morphine 2 MG/ML SYRINGE IVP PRN ×2 (11:41→23:04)
--- NOTE | 2016-03-31 14:22 | Internal Med Progress Note ---
Date of Encounter: 03/31/16 Time of Encounter: 10:00 - Assessment and plan (1) Acute respiratory failure with hypoxia and hypercapnia Current Visit: Yes Status: Acute Assessment and plan: Due to COPD exacerbation. We will continue current treatment. Hypoxia has improved after treatment (2) Acute kidney injury superimposed on chronic kidney disease Current Visit: Yes Status: Acute Assessment and plan: Patient has history of CKD. Nephrology consult was called. Suspected ATN. Will continue low rate IV fluid and follow-up renal function. (3) CHF (congestive heart failure) Current Visit: Yes Status: Acute Assessment and plan: Lasix held due to acute kidney injury superimposed on chronic kidney disease stage IV. Echocardiogram revealing ejection fraction of 50% and mild diastolic dysfunction and otherwise unremarkable. Continue beta nayely Qualifiers: Congestive heart failure type: combined Congestive heart failure chronicity : acute on chronic Qualified Code(s): I50.43 - Acute on chronic combined systolic (congestive) and diastolic (congestive) heart failure (4) COPD with acute exacerbation Current Visit: Yes Status: Acute Assessment and plan: Patient is on antibiotic, steroid, bronchodilator, and LAMA. Pulmonology consult is on case (5) DVT prophylaxis Current Visit: Yes Status: Acute Assessment and plan: On Eliquis (6) HCAP (healthcare-associated pneumonia) Current Visit: Yes Status: Acute Assessment and plan: Legionella and strep pneumoniae antigens negative. Blood cultures negative x2. Urine culture negative. CT suggest infection or inflammation, Continue cefepime. (7) RSV bronchitis Current Visit: Yes Status: Acute Assessment and plan: Continue isolation and supportive treatment (8) Atrial fibrillation Current Visit: Yes Status: Chronic Assessment and plan: History of A. fib, now on pacing rhythm. Cardiology consult appreciated, stop sotalol. Continue beta nayely and Eliquis. Qualifiers: Atrial fibrillation type: unspecified Qualified Code(s): I48.91 - Unspecified atrial fibrillation (9) Hypertension Current Visit: Yes Status: Chronic Assessment and plan: Controlled, we will continue to trend and adjust medications as indicated. Qualifiers: Hypertension type: essential hypertension Qualified Code(s): I10 - Essential (primary) hypertension (10) Diabetes mellitus Current Visit: No Status: Chronic Assessment and plan: Poorly controlled at home with a recent A1c of 8.5%. Continue sliding scale while admitted. Qualifiers: Diabetes mellitus type: type 2 Diabetes mellitus complication status: with neurologic complications Diabetes mellitus complication detail: with polyneuropathy Diabetes mellitus [facility] insulin use: with terminal superintendent use Qualified Code(s): E11.42 - Type 2 diabetes mellitus with diabetic polyneuropathy; Z79.4 - intermediate (current) use of insulin (11) Tobacco abuse Current Visit: No Status: Chronic Assessment and plan: Smoking cessation education - Subjective Interval history: Patient is a 71-year-old male admitted at COPD exacerbation. Past medical history is significant for CHF, COPD, CVA, diabetes, hyperlipidemia, hypertension, CKD. Patient was seen and examined. Still in mild respiratory distress, improved from yesterday. Complaint mild shortness of breath. No chest pain, no nausea, no vomiting. No fever. Vitals are stable. Wheezes bilaterally also improved. Pulmonology consult is on case to help in managing for COPD, recommended patient is highly appreciated. We will continue closely monitor patient and continue current treatment. PTOT recommended ECF discharge, social media designer consult asked. - Constitutional Vitals: Temp Pulse Resp BP Pulse Ox 97.5 F L 63 18 139/74 95 03/31/16 11:21 03/31/16 11:21 03/31/16 11:21 03/31/16 11:21 03/31/16 11:21 General appearance: Present: mild distress, A&O X 3, pleasant, obese, answers questions appropriately - Head Head exam: Present: atraumatic, normocephalic - Eye Eye exam: Present: PERRL, conjuntiva pink, sclera anicteric Pupils: Present: PERRL - Neck Neck exam general surgery: Present: supple, trachea midline. Absent: lymphadenopathy - Respiratory Respiratory exam: Present: CTAB, rhonchi, wheezes (Scattered wheezes bilaterally ). Absent: accessory muscle use, rales - Cardiovascular Cardiovascular exam: Present: RRR, +S1, +S2. Absent: diastolic murmur, gallop, rubs, systolic murmur - GI/Abdominal GI/Abdominal exam: Present: normal bowel sounds, soft, no peritoneal signs. Absent: distended, tenderness - Extremities Exam Extremities exam: Present: warm, radial pulses palpable and symetrical. Absent : calf tenderness, cyanotic, pedal edema - Neurological Exam Neurological exam: Present: CN II-XII intact, oriented X3, no focal deficits. Absent: pronater drift, facial droop, speech deficit - Skin Skin exam: Present: dry, intact Internal Medicine: Result - Labs CBC & Chem 7: 03/31/16 05:00 03/31/16 05:00 Labs: Short CBC 03/31/16 Range/Units 05:00 WBC 7.0 (4.3-11.1) K/mcL Hgb 10.5 L (12.9-16.9) g/dL Hct 32.3 L (37.5-50.1) % Plt Count 119 L (140-400) K/mcL Neutrophils # 5.7 (1.6-8.9) K/mcL BMP 03/31/16 05:00 Sodium 137 Potassium 4.8 H Chloride 109 Carbon Dioxide 19 BUN 73 H Creatinine 2.54 H Glucose 201 H Calcium 8.6 - ABG Interpretation ABG results: ABG ABG pH 7.27 pH Units (7.32-7.45) L 03/29/16 05:35 ABG pCO2 49 mmHg (35-45) H 03/29/16 05:35 ABG pO2 79 mmHg (85-104) L 03/29/16 05:35 ABG O2 Saturation 94 % (95-98) L 03/29/16 05:35 Consult Discharge Plan - Plan Referrals: Nikki Qiunonez DO [Partnered Physician] - 04/04/16 9:30 am
[2016-03-31] MEDS: Cefepime HCl 1,000 MG in D5% in Water (Mini-Bag+) 100 ML IVPB SCH (16:44)
--- NOTE | 2016-03-31 16:50 | Nephrology Progress Note ---
Date of Encounter: 03/31/16 Time of Encounter: 16:30 - Assessment and Plan (1) Acute kidney injury superimposed on chronic kidney disease Current Visit: Yes Status: Acute SCr continues to improve off diuretics at 2.54, GFR 25, may well be at baseline UOP great at approx. 2l in the past 24hrs Continue to avoid nephrotoxins especially NSAIDs (2) Chronic kidney disease, stage 4 (severe) Current Visit: Yes Status: Chronic Baseline around GFR 26 (3) Hyperkalemia, diminished renal excretion Current Visit: No Status: Acute Potassium improved from 5.3 to 4.8. Continue renal diet Subjective Principal diagnosis: Acute hypoxic respiratory failure with hypercapnia Interval history: Interim events noted, pt seen and examined while on nebulizer treatment which he reports is helping him. No other complaints at present. Objective - Vital Signs Vital signs: Vital Signs Temp Pulse Resp BP Pulse Ox 03/31/16 15:29 97.5 F L 59 18 165/84 98 03/31/16 11:21 97.5 F L 63 18 139/74 95 03/31/16 11:19 16 94 L 03/31/16 08:35 96 03/31/16 08:06 97.4 F L 63 9 152/85 99 03/31/16 08:05 10 98 03/31/16 04:37 60 03/31/16 00:34 62 03/30/16 23:29 97.5 F L 62 18 166/78 95 03/30/16 23:02 18 94 L 03/30/16 20:57 91 L 03/30/16 20:29 67 03/30/16 20:24 96 03/30/16 20:09 97.4 F L 69 16 128/78 94 L Intake and Output 03/31/16 03/31/16 03/31/16 07:59 15:59 23:59 Intake Total 480 / 480 100 / 100 Output Total 1300 / 1300 Balance -820 / -820 100 / 100 Intake: IV Fluids 100 / 100 Maxipime 1,000 MG In 100 / 100 Dextrose 5% (Minibag+) 100 ML 100 ML @ 200 mls/ hr IVPB Q24H [facility] Rx#: [id number] Oral 480 / 480 Output: Urine 200 / 200 Urethral ([place]) 200 / 200 Catheter 1100 / 1100 Other: Meal Breakfast Percent of Meal Consumed 25% Blood Glucose* 173 - General Appearance General appearance: Present: well-developed, well-nourished (NAD, sitting in chair) EENT: Present: ATNC, mucous membranes moist Neck: Present: no JVD, supple Additional Comments: good areation ant bilat Cardiology: Present: no edema, normal S1, normal S2 Gastrointestinal: Present: no tenderness, no guarding, obese Integumentary: Present: warm and dry Neurologic: Present: no focal deficit Musculoskeletal: Present: no deformities Psychiatric: Present: mood/affect appropriate - Lab 03/31/16 05:00 04/01/16 11:41 Most recent lab results ABG pH 7.27 pH Units (7.32-7.45) L 03/29/16 05:35 ABG pCO2 49 mmHg (35-45) H 03/29/16 05:35 ABG pO2 79 mmHg (85-104) L 03/29/16 05:35 ABG HCO3 22.5 mEQ/L (21-27) 03/29/16 05:35 ABG O2 Saturation 94 % (95-98) L 03/29/16 05:35 Calcium 8.6 mg/dL (8.6-10.8) 03/31/16 05:00 Phosphorus 5.0 mg/dL (2.3-4.7) H 03/29/16 04:35 Magnesium 1.7 mg/dL (1.6-2.6) 03/27/16 03:31 Consult Discharge Plan - Plan Referrals: Nikki Quinonez DO [Partnered Physician] - 04/04/16 9:30 am
[2016-03-31] MEDS: Temazepam 15 MG CAPSULE PO SCH (20:01)
[2016-03-31] MEDS: Acetaminophen 325 MG TABLET PO SCH (20:01)
[2016-03-31] MEDS: Insulin DETEMIR 100 UNIT/ML X5UNITS SQ SCH (21:13)
[2016-04-01] MEDS: Ipratropium/Albuterol Neb 3 ML IH SCH ×7 (00:07→23:45)
[2016-04-01] MEDS: Insulin LISPRO 300 UNITS/3 ML VIAL SQ SCH ×4 (08:20→19:40)
[2016-04-01] MEDS: Acetylcysteine 10% 2 ML INHSOL IH SCH ×5 (09:55→23:45)
[2016-04-01] MEDS: Tiotropium 18 MCG inhalation IH SCH (09:57)
--- NOTE | 2016-04-01 11:19 | Internal Med Progress Note ---
Date of Encounter: 04/01/16 Time of Encounter: 09:00 - Assessment and plan (1) Acute respiratory failure with hypoxia and hypercapnia Current Visit: Yes Status: Acute Assessment and plan: Due to COPD exacerbation. We will continue current treatment. Hypoxia has improved after treatment (2) Acute kidney injury superimposed on chronic kidney disease Current Visit: Yes Status: Acute Assessment and plan: Patient has history of CKD. Nephrology consult was called. Suspected ATN. Will continue low rate IV fluid and follow-up renal function. (3) CHF (congestive heart failure) Current Visit: Yes Status: Acute Assessment and plan: Lasix held due to acute kidney injury superimposed on chronic kidney disease stage IV. Echocardiogram revealing ejection fraction of 50% and mild diastolic dysfunction and otherwise unremarkable. Continue beta nayely Qualifiers: Congestive heart failure type: combined Congestive heart failure chronicity : acute on chronic Qualified Code(s): I50.43 - Acute on chronic combined systolic (congestive) and diastolic (congestive) heart failure (4) COPD with acute exacerbation Current Visit: Yes Status: Acute Assessment and plan: Patient is on antibiotic, steroid, bronchodilator, and LAMA. Pulmonology consult is on case (5) DVT prophylaxis Current Visit: Yes Status: Acute Assessment and plan: On Eliquis (6) HCAP (healthcare-associated pneumonia) Current Visit: Yes Status: Acute Assessment and plan: Legionella and strep pneumoniae antigens negative. Blood cultures negative x2. Urine culture negative. CT suggest infection or inflammation, Continue cefepime. (7) RSV bronchitis Current Visit: Yes Status: Acute Assessment and plan: Continue isolation and supportive treatment (8) Atrial fibrillation Current Visit: Yes Status: Chronic Assessment and plan: History of A. fib, now on pacing rhythm. Cardiology consult appreciated, stop sotalol. Continue beta nayely and Eliquis. Qualifiers: Atrial fibrillation type: unspecified Qualified Code(s): I48.91 - Unspecified atrial fibrillation (9) Hypertension Current Visit: Yes Status: Chronic Assessment and plan: Controlled, we will continue to trend and adjust medications as indicated. Add amlodipine 5 mg by mouth daily. Qualifiers: Hypertension type: essential hypertension Qualified Code(s): I10 - Essential (primary) hypertension (10) Diabetes mellitus Current Visit: No Status: Chronic Assessment and plan: Poorly controlled at home with a recent A1c of 8.5%. Continue sliding scale while admitted. Switch to high-dose correction dose Qualifiers: Diabetes mellitus type: type 2 Diabetes mellitus complication status: with neurologic complications Diabetes mellitus complication detail: with polyneuropathy Diabetes mellitus [facility] insulin use: with [facility] use Qualified Code(s): E11.42 - Type 2 diabetes mellitus with diabetic polyneuropathy; Z79.4 - fishery biologist (current) use of insulin (11) Tobacco abuse Current Visit: No Status: Chronic Assessment and plan: Smoking cessation education - Time Spent With Patient 25 - 35 minutes - Subjective Interval history: Patient is a 71-year-old male admitted at COPD exacerbation. Past medical history is significant for CHF, COPD, CVA, diabetes, hyperlipidemia, hypertension, CKD. Patient was seen and examined. Still in mild respiratory distress, improved from yesterday. Complaint mild shortness of breath, has nonproductive cough. No chest pain, no nausea, no vomiting. No fever. Vitals are stable. Wheezes bilaterally also improved. Pulmonology consult is on case to help in managing for COPD, recommended patient is highly appreciated. We will continue closely monitor patient and continue current treatment. PTOT recommended ECF discharge , social media editor consult asked. Add mucomyst IH to help relieve symptoms. - Constitutional Vitals: Temp Pulse Resp BP Pulse Ox 98.2 F 65 16 160/86 96 04/01/16 07:46 04/01/16 08:32 04/01/16 07:46 04/01/16 07:46 04/01/16 08:31 General appearance: Present: mild distress, A&O X 3, pleasant, obese, answers questions appropriately - Head Head exam: Present: atraumatic, normocephalic - Eye Eye exam: Present: PERRL, conjuntiva pink, sclera anicteric Pupils: Present: PERRL - Neck Neck exam general surgery: Present: supple, trachea midline. Absent: lymphadenopathy - Respiratory Respiratory exam: Present: CTAB, wheezes (Scattered wheezes bilaterally). Absent: accessory muscle use, rales, rhonchi - Cardiovascular Cardiovascular exam: Present: RRR, +S1, +S2. Absent: diastolic murmur, gallop, rubs, systolic murmur - GI/Abdominal GI/Abdominal exam: Present: normal bowel sounds, soft, no peritoneal signs. Absent: distended, tenderness - Extremities Exam Extremities exam: Present: warm, radial pulses palpable and symetrical. Absent : calf tenderness, cyanotic, pedal edema - Neurological Exam Neurological exam: Present: CN II-XII intact, oriented X3, no focal deficits. Absent: pronater drift, facial droop, speech deficit - Skin Skin exam: Present: dry, intact Internal Medicine: Result - Labs CBC & Chem 7: 03/31/16 05:00 03/31/16 05:00 - ABG Interpretation ABG results: ABG ABG pH 7.27 pH Units (7.32-7.45) L 03/29/16 05:35 ABG pCO2 49 mmHg (35-45) H 03/29/16 05:35 ABG pO2 79 mmHg (85-104) L 03/29/16 05:35 ABG O2 Saturation 94 % (95-98) L 03/29/16 05:35 Consult Discharge Plan - Plan Referrals: Nikki Quinonez DO [Partnered Physician] - 04/04/16 9:30 am
--- NOTE | 2016-04-01 11:34 | Nephrology Progress Note ---
Date of Encounter: 04/01/16 Time of Encounter: 11:30 - Assessment and Plan (1) Acute kidney injury superimposed on chronic kidney disease Current Visit: Yes Status: Acute SCr continues to improve off diuretics at 2.5, GFR 26, this is likely the baseline UOP remains good at approx. 1300cc yesterday and already 1600cc today so far Continue to avoid nephrotoxins especially NSAIDs Continue po fluids. Can use diuretics cautiously if indicated (2) Chronic kidney disease, stage 4 (severe) Current Visit: Yes Status: Chronic Baseline around GFR 26 (3) Hyperkalemia, diminished renal excretion Current Visit: No Status: Acute Potassium normalized at 4.3, continue renal diet Subjective Principal diagnosis: Acute hypoxic respiratory failure with hypercapnia Interval history: Pt seen and examined still with wheezing, coughing and some SOB. Still feels weak as well. Objective - Vital Signs Vital signs: Vital Signs Temp Pulse Resp BP Pulse Ox 04/01/16 11:17 98.0 F 86 18 160/74 98 04/01/16 08:32 65 04/01/16 08:31 96 04/01/16 07:46 98.2 F 79 16 160/86 96 04/01/16 03:56 60 04/01/16 03:54 10 98 04/01/16 03:43 98.6 F 67 13 160/85 100 04/01/16 00:37 64 04/01/16 00:09 22 98 03/31/16 23:30 97.8 F 64 16 159/80 100 03/31/16 21:15 98.5 F 68 18 175/97 99 03/31/16 20:17 64 03/31/16 20:00 99 03/31/16 19:36 18 97 03/31/16 16:56 18 98 03/31/16 15:29 97.5 F L 59 18 165/84 98 Intake and Output 03/31/16 04/01/16 04/01/16 23:59 07:59 15:59 Intake Total 320 / 320 900 / 900 240 / 240 Output Total 500 / 500 1100 / 1100 Balance 320 / 320 400 / 400 -860 / -860 Intake: IV Fluids 200 / 200 Maxipime 1,000 MG In 200 / 200 Dextrose 5% (Minibag+) 100 ML 100 ML @ 200 mls/ hr IVPB Q24H [facility] Rx#: [id number] Oral 120 / 120 900 / 900 240 / 240 Output: Catheter 500 / 500 1100 / 1100 Other: Meal Dinner Breakfast Percent of Meal Consumed 95% 60% Weight 134.7 kg Blood Glucose* 262 171 110 Patient Weight 04/01/16 23:59 Weight 134.7 kg - General Appearance General appearance: Present: well-developed (NAD), well-nourished EENT: Present: ATNC, mucous membranes moist Neck: Present: no JVD Additional Comments: good areation ant bilat with scattered wheezes Cardiology: Present: no edema, normal S1, normal S2 Gastrointestinal: Present: no tenderness, no guarding, obese Integumentary: Present: warm and dry Neurologic: Present: no focal deficit Musculoskeletal: Present: no deformities Psychiatric: Present: mood/affect appropriate - Lab 03/31/16 05:00 04/01/16 11:41 Most recent lab results ABG pH 7.27 pH Units (7.32-7.45) L 03/29/16 05:35 ABG pCO2 49 mmHg (35-45) H 03/29/16 05:35 ABG pO2 79 mmHg (85-104) L 03/29/16 05:35 ABG HCO3 22.5 mEQ/L (21-27) 03/29/16 05:35 ABG O2 Saturation 94 % (95-98) L 03/29/16 05:35 Calcium 8.6 mg/dL (8.6-10.8) 03/31/16 05:00 Phosphorus 5.0 mg/dL (2.3-4.7) H 03/29/16 04:35 Magnesium 1.7 mg/dL (1.6-2.6) 03/27/16 03:31 Consult Discharge Plan - Plan Referrals: Nikki Quinonez DO [Partnered Physician] - 04/04/16 9:30 am
[2016-04-01 12:03] LABS: Calcium 8.8 mg/dL (8.6-10.8); Potassium 4.3 mEq/L (3.5-4.5)
[2016-04-01] MEDS: Cyanocobalamin (B-12) 1,000 MCG TABLET PO SCH (12:11)
[2016-04-01] MEDS: hydrALAZINE 25 MG TABLET PO SCH ×3 (12:11→19:39)
[2016-04-01] MEDS: Pregabalin 50 MG CAPSULE PO SCH ×2 (12:11→19:38)
[2016-04-01] MEDS: predniSONE 20 MG TABLET PO SCH (12:12)
[2016-04-01] MEDS: APIXABAN 5 MG TABLET PO SCH ×2 (12:12→19:39)
[2016-04-01] MEDS: Cholecalciferol (D-3) 1,000 UNIT TABLET PO SCH (12:13)
[2016-04-01] MEDS: Artificial Tears SOLN 15 ML BOTTLE BOTH EYES SCH ×4 (12:16→19:41)
[2016-04-01] MEDS: amLODIPine 5 MG TABLET PO SCH (17:24)
[2016-04-01] MEDS: Cefepime HCl 1,000 MG in D5% in Water (Mini-Bag+) 100 ML IVPB SCH (17:24)
[2016-04-01] MEDS: Temazepam 15 MG CAPSULE PO SCH (19:38)
[2016-04-01] MEDS: Acetaminophen 325 MG TABLET PO SCH (19:38)
[2016-04-01] MEDS: Insulin DETEMIR 100 UNIT/ML X5UNITS SQ SCH (19:40)
[2016-04-01] MEDS: *HR* Morphine 2 MG/ML SYRINGE IVP PRN (23:17)
[2016-04-02] MEDS: Ipratropium/Albuterol Neb 3 ML IH SCH ×5 (03:18→20:05)
[2016-04-02] MEDS: Acetylcysteine 10% 2 ML INHSOL IH SCH ×5 (03:18→20:05)
[2016-04-02 06:23] LABS: Hematocrit 34.5 % (37.5-50.1); Immature Granulocytes % 3.7 % (0-4); Lymphocytes % 20.1 %; Mean Corpuscular HGB Conc 31.9 g/dL (31.6-35.5); Mean Corpuscular Hemoglobin 28.5 pg (28.0-33.3); Mean Corpuscular Volume 89.4 fL (83.0-100.0); Monocytes % 8.4 %; Platelet Count 118 K/mcL (140-400); Red Blood Count 3.86 M/mcL (4.19-5.50); Red Cell Distribution Width 13.7 % (11.5-14.5); Segmented Neutrophils % 67.6 %
[2016-04-02 06:24] LABS: Basophils % 0.2 %; Monocytes # 0.4 K/mcL (0.0-1.3); Neutrophils # 3.5 K/mcL (1.6-8.9)
[2016-04-02 06:31] LABS: Calcium 8.6 mg/dL (8.6-10.8); Potassium 4.8 mEq/L (3.5-4.5)
[2016-04-02] MEDS: hydrALAZINE 25 MG TABLET PO SCH ×3 (08:21→20:04)
[2016-04-02] MEDS: APIXABAN 5 MG TABLET PO SCH ×2 (08:22→20:06)
[2016-04-02] MEDS: amLODIPine 5 MG TABLET PO SCH (08:22)
[2016-04-02] MEDS: Cholecalciferol (D-3) 1,000 UNIT TABLET PO SCH (08:22)
[2016-04-02] MEDS: Insulin LISPRO 300 UNITS/3 ML VIAL SQ SCH ×4 (08:23→20:17)
[2016-04-02] MEDS: Artificial Tears SOLN 15 ML BOTTLE BOTH EYES SCH ×4 (08:23→20:09)
[2016-04-02] MEDS: predniSONE 20 MG TABLET PO SCH (08:23)
[2016-04-02] MEDS: Tiotropium 18 MCG inhalation IH SCH (10:09)
[2016-04-02] MEDS: Pregabalin 50 MG CAPSULE PO SCH ×2 (12:13→20:05)
[2016-04-02] MEDS: Cyanocobalamin (B-12) 1,000 MCG TABLET PO SCH (12:13)
--- NOTE | 2016-04-02 12:48 | Internal Med Progress Note ---
Date of Encounter: 04/02/16 Time of Encounter: 10:00 - Assessment and plan (1) Acute respiratory failure with hypoxia and hypercapnia Current Visit: Yes Status: Acute Assessment and plan: Due to COPD exacerbation. We will continue current treatment. Hypoxia has improved after treatment (2) Acute kidney injury superimposed on chronic kidney disease Current Visit: Yes Status: Acute Assessment and plan: Patient has history of CKD. Nephrology consult was called. Suspected ATN. Significant improvement in renal function. At about his baseline now. (3) CHF (congestive heart failure) Current Visit: Yes Status: Acute Assessment and plan: Lasix held due to acute kidney injury superimposed on chronic kidney disease stage IV. Echocardiogram revealing ejection fraction of 50% and mild diastolic dysfunction and otherwise unremarkable. Continue beta nayely. He has good urine output now. Qualifiers: Congestive heart failure type: combined Congestive heart failure chronicity : acute on chronic Qualified Code(s): I50.43 - Acute on chronic combined systolic (congestive) and diastolic (congestive) heart failure (4) COPD with acute exacerbation Current Visit: Yes Status: Acute Assessment and plan: Patient is on antibiotic, steroid, bronchodilator, and LAMA. Pulmonology consult is on case. Symptoms has improved. (5) DVT prophylaxis Current Visit: Yes Status: Acute Assessment and plan: On Eliquis (6) HCAP (healthcare-associated pneumonia) Current Visit: Yes Status: Acute Assessment and plan: Legionella and strep pneumoniae antigens negative. Blood cultures negative x2. Urine culture negative. CT suggest infection or inflammation, Continue cefepime. (7) RSV bronchitis Current Visit: Yes Status: Acute Assessment and plan: Continue isolation and supportive treatment (8) Atrial fibrillation Current Visit: Yes Status: Chronic Assessment and plan: History of A. fib, now on pacing rhythm. Cardiology consult appreciated, stop sotalol. Continue beta nayely and Eliquis. Qualifiers: Atrial fibrillation type: unspecified Qualified Code(s): I48.91 - Unspecified atrial fibrillation (9) Hypertension Current Visit: Yes Status: Chronic Assessment and plan: we will continue to trend and adjust medications as indicated. Increase amlodipine to 10 mg by mouth daily. Qualifiers: Hypertension type: essential hypertension Qualified Code(s): I10 - Essential (primary) hypertension (10) Diabetes mellitus Current Visit: No Status: Chronic Assessment and plan: Poorly controlled at home with a recent A1c of 8.5%. Continue sliding scale while admitted. Switch to high-dose correction dose, glucose level improved. 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 Past medical history is significant for CHF, COPD, CVA, diabetes, hyperlipidemia, hypertension, CKD. Patient was seen and examined. Improved with respiratory distress. Still has mild nonproductive cough. No chest pain, no nausea, no vomiting. No fever. Vitals are stable. Wheezes bilaterally also improved. Complement constipation no bowel movement for 4 days, will add stool softener. Encourage patient out of bed. - Constitutional Vitals: Temp Pulse Resp BP Pulse Ox 97.6 F 60 16 150/80 93 L 04/02/16 11:21 04/02/16 11:49 04/02/16 11:21 04/02/16 11:21 04/02/16 11:21 General appearance: Present: mild distress, A&O X 3, pleasant, obese, answers questions appropriately - Head Head exam: Present: atraumatic, normocephalic - Eye Eye exam: Present: PERRL, conjuntiva pink, sclera anicteric Pupils: Present: PERRL - Neck Neck exam general surgery: Present: supple, trachea midline. Absent: lymphadenopathy - Respiratory Respiratory exam: Present: CTAB, wheezes (Very few wheezes bilaterally). Absent : accessory muscle use, rales, rhonchi - Cardiovascular Cardiovascular exam: Present: RRR, +S1, +S2. Absent: diastolic murmur, gallop, rubs, systolic murmur - GI/Abdominal GI/Abdominal exam: Present: normal bowel sounds, soft, no peritoneal signs. Absent: distended, tenderness - Extremities Exam Extremities exam: Present: warm, radial pulses palpable and symetrical. Absent : calf tenderness, cyanotic, pedal edema - Neurological Exam Neurological exam: Present: CN II-XII intact, oriented X3, no focal deficits. Absent: pronater drift, facial droop, speech deficit - Skin Skin exam: Present: dry, intact Internal Medicine: Result - Labs CBC & Chem 7: 04/02/16 05:29 04/02/16 05:29 Labs: Short CBC 04/02/16 Range/Units 05:29 WBC 5.1 (4.3-11.1) K/mcL Hgb 11.0 L (12.9-16.9) g/dL Hct 34.5 L (37.5-50.1) % Plt Count 118 L (140-400) K/mcL Neutrophils # 3.5 (1.6-8.9) K/mcL BMP 04/02/16 05:29 Sodium 140 Potassium 4.8 H Chloride 110 H Carbon Dioxide 23 BUN 67 H Creatinine 2.34 H Glucose 155 H Calcium 8.6 - ABG Interpretation ABG results: ABG ABG pH 7.27 pH Units (7.32-7.45) L 03/29/16 05:35 ABG pCO2 49 mmHg (35-45) H 03/29/16 05:35 ABG pO2 79 mmHg (85-104) L 03/29/16 05:35 ABG O2 Saturation 94 % (95-98) L 03/29/16 05:35 - VTE Documentation of Mechanical Device: Intermittent pneumatic compression device Consult Discharge Plan - Plan Referrals: Nikki Quinonez DO [Partnered Physician] - 04/04/16 9:30 am
--- NOTE | 2016-04-02 15:38 | Nephrology Progress Note ---
Date of Encounter: 04/02/16 Time of Encounter: 13:30 - Assessment and Plan (1) Acute kidney injury superimposed on chronic kidney disease Current Visit: Yes Status: Acute SCr continues to improve off diuretics at 2.34, GFR 28 UOP still very good Continue to avoid nephrotoxins if possible (2) Chronic kidney disease, stage 4 (severe) Current Visit: Yes Status: Chronic Baseline around GFR 26 (3) Hyperkalemia, diminished renal excretion Current Visit: No Status: Acute Potassium slightly elevated at 4.8. Continue renal diet Subjective Principal diagnosis: Acute hypoxic respiratory failure with hypercapnia Interval history: Pt seen and examined still with some SOB and cough. Nebs still helping though. Objective - Vital Signs Vital signs: Vital Signs Temp Pulse Resp BP Pulse Ox 04/02/16 15:18 97.3 F L 66 18 163/93 96 04/02/16 11:49 60 04/02/16 11:21 97.6 F 62 16 150/80 93 L 04/02/16 10:08 13 98 04/02/16 08:35 60 04/02/16 07:17 97.5 F L 59 13 160/80 98 04/02/16 04:07 97.5 F L 59 10 149/82 99 04/02/16 04:00 59 04/02/16 03:19 10 98 04/01/16 23:46 12 98 04/01/16 23:24 62 04/01/16 23:00 98.7 F 62 12 129/78 98 04/01/16 20:43 98.0 F 04/01/16 19:59 18 98 04/01/16 19:56 64 14 145/69 97 04/01/16 16:34 61 04/01/16 16:18 14 97 Intake and Output 04/01/16 04/02/16 04/02/16 23:59 07:59 15:59 Intake Total 500 / 500 0 / 0 940 / 940 Output Total 425 / 425 500 / 500 425 / 425 Balance 75 / 75 -500 / -500 515 / 515 Intake: Oral 500 / 500 0 / 0 940 / 940 Output: Catheter 425 / 425 500 / 500 425 / 425 Other: Meal Lunch Percent of Meal Consumed 25% Blood Glucose* 286 145 203 - General Appearance General appearance: Present: chronically ill (NAD) EENT: Present: ATNC, mucous membranes moist Neck: Present: no JVD, supple Respiratory: Present: course breath sounds Cardiology: Present: no edema, normal S1, normal S2 Gastrointestinal: Present: no tenderness, no guarding Integumentary: Present: warm and dry Neurologic: Present: no focal deficit Musculoskeletal: Present: no deformities Psychiatric: Present: mood/affect appropriate, cooperative - Lab 04/04/16 04:18 04/04/16 04:18 Most recent lab results ABG pH 7.27 pH Units (7.32-7.45) L 03/29/16 05:35 ABG pCO2 49 mmHg (35-45) H 03/29/16 05:35 ABG pO2 79 mmHg (85-104) L 03/29/16 05:35 ABG HCO3 22.5 mEQ/L (21-27) 03/29/16 05:35 ABG O2 Saturation 94 % (95-98) L 03/29/16 05:35 Calcium 8.6 mg/dL (8.6-10.8) 04/02/16 05:29 Phosphorus 5.0 mg/dL (2.3-4.7) H 03/29/16 04:35 Magnesium 1.7 mg/dL (1.6-2.6) 03/27/16 03:31 - VTE Documentation of Mechanical Device: Intermittent pneumatic compression device Consult Discharge Plan - Plan Referrals: Nikki Quinonez DO [Partnered Physician] - Travis Brasher Jr, MD [Primary Care Provider] - 04/13/16 10:00 am
[2016-04-02] MEDS ORDERED: Lisinopril 20 MG TABLET PO ONE (15:42)
[2016-04-02] MEDS: Cefepime HCl 1,000 MG in D5% in Water (Mini-Bag+) 100 ML IVPB SCH (16:43)
[2016-04-02] MEDS: Temazepam 15 MG CAPSULE PO SCH (20:05)
[2016-04-02] MEDS: Acetaminophen 325 MG TABLET PO SCH (20:06)
[2016-04-02] MEDS: Insulin DETEMIR 100 UNIT/ML X5UNITS SQ SCH (20:14)
[2016-04-02] MEDS: *HR* Morphine 2 MG/ML SYRINGE IVP PRN (23:18)
[2016-04-03] MEDS: Acetylcysteine 10% 2 ML INHSOL IH SCH ×7 (00:16→23:22)
[2016-04-03] MEDS: Ipratropium/Albuterol Neb 3 ML IH SCH ×7 (00:16→23:22)
[2016-04-03 06:10] LABS: Basophils % 0.2 %; Eosinophils % 0.4 %; Hematocrit 32.6 % (37.5-50.1); Hemoglobin 10.7 g/dL (12.9-16.9); Immature Granulocytes % 3.9 % (0-4); Immature Platelets 4.1 % (1.1-6.1); Lymphocytes # 1.2 K/mcL (0.6-4.6); Lymphocytes % 22.7 %; Mean Corpuscular HGB Conc 32.8 g/dL (31.6-35.5); Mean Corpuscular Hemoglobin 28.9 pg (28.0-33.3); Mean Corpuscular Volume 88.1 fL (83.0-100.0); Mean Platelet Volume 10.2 fL (9.4-12.4); Monocytes # 0.5 K/mcL (0.0-1.3); Monocytes % 9.4 %; Neutrophils # 3.4 K/mcL (1.6-8.9); Platelet Count 132 K/mcL (140-400); Red Cell Distribution Width 13.7 % (11.5-14.5); Segmented Neutrophils % 63.4 %
[2016-04-03 06:21] LABS: Calcium 8.5 mg/dL (8.6-10.8); Potassium 4.1 mEq/L (3.5-4.5)
[2016-04-03] MEDS: Tiotropium 18 MCG inhalation IH SCH (08:12)
[2016-04-03] MEDS: hydrALAZINE 25 MG TABLET PO SCH ×3 (09:05→20:33)
[2016-04-03] MEDS: Artificial Tears SOLN 15 ML BOTTLE BOTH EYES SCH ×4 (09:05→20:34)
[2016-04-03] MEDS: Cyanocobalamin (B-12) 1,000 MCG TABLET PO SCH (09:06)
[2016-04-03] MEDS: Cholecalciferol (D-3) 1,000 UNIT TABLET PO SCH (09:06)
[2016-04-03] MEDS: Pregabalin 50 MG CAPSULE PO SCH ×2 (09:06→20:32)
[2016-04-03] MEDS: predniSONE 20 MG TABLET PO SCH (09:06)
[2016-04-03] MEDS: amLODIPine 5 MG TABLET PO SCH (09:06)
[2016-04-03] MEDS: Insulin LISPRO 300 UNITS/3 ML VIAL SQ SCH ×4 (09:07→20:34)
[2016-04-03] MEDS: APIXABAN 5 MG TABLET PO SCH ×2 (09:07→20:33)
[2016-04-03] MEDS ORDERED: predniSONE 20 MG TABLET PO SCH (12:13)
--- NOTE | 2016-04-03 12:18 | Internal Med Progress Note ---
Date of Encounter: 04/03/16 Time of Encounter: 09:00 - Assessment and plan (1) Acute respiratory failure with hypoxia and hypercapnia Current Visit: Yes Status: Acute Assessment and plan: Due to COPD exacerbation. We will continue current treatment. Hypoxia has improved after treatment. (2) Acute kidney injury superimposed on chronic kidney disease Current Visit: Yes Status: Acute Assessment and plan: Patient has history of CKD. Nephrology consult was called. Suspected ATN. Significant improvement in renal function. At about his baseline now. (3) CHF (congestive heart failure) Current Visit: Yes Status: Acute Assessment and plan: Lasix held due to acute kidney injury superimposed on chronic kidney disease stage IV. Echocardiogram revealing ejection fraction of 50% and mild diastolic dysfunction and otherwise unremarkable. Continue beta nayely. He has good urine output now. Qualifiers: Congestive heart failure type: combined Congestive heart failure chronicity : acute on chronic Qualified Code(s): I50.43 - Acute on chronic combined systolic (congestive) and diastolic (congestive) heart failure (4) COPD with acute exacerbation Current Visit: Yes Status: Acute Assessment and plan: Patient is on antibiotic, steroid, bronchodilator, and LAMA. Pulmonology consult is on case. Symptoms has improved. Taper down steroid today. (5) DVT prophylaxis Current Visit: Yes Status: Acute Assessment and plan: On Eliquis (6) HCAP (healthcare-associated pneumonia) Current Visit: Yes Status: Acute Assessment and plan: Legionella and strep pneumoniae antigens negative. Blood cultures negative x2. Urine culture negative. CT suggest infection or inflammation, Continue cefepime to finish a 7 day course (day 6 today). (7) RSV bronchitis Current Visit: Yes Status: Acute Assessment and plan: Continue isolation and supportive treatment (8) Atrial fibrillation Current Visit: Yes Status: Chronic Assessment and plan: History of A. fib, now on pacing rhythm. Cardiology consult appreciated, stop sotalol. Continue beta nayely and Eliquis. Qualifiers: Atrial fibrillation type: unspecified Qualified Code(s): I48.91 - Unspecified atrial fibrillation (9) Hypertension Current Visit: Yes Status: Chronic Assessment and plan: we will continue to trend and adjust medications as indicated. Increase amlodipine to 10 mg by mouth daily. BP is better controlled today. Qualifiers: Hypertension type: essential hypertension Qualified Code(s): I10 - Essential (primary) hypertension (10) Diabetes mellitus Current Visit: No Status: Chronic Assessment and plan: Poorly controlled at home with a recent A1c of 8.5%. Continue sliding scale while admitted. Switch to high-dose correction dose, glucose level improved. Hyperglycemia is possibly also due to steroid use, taper down Steroid Today Qualifiers: Diabetes mellitus type: type 2 Diabetes mellitus complication status: with neurologic complications Diabetes mellitus complication detail: with polyneuropathy Diabetes mellitus terminal operator insulin use: with intermediate use Qualified Code(s): E11.42 - Type 2 diabetes mellitus with diabetic polyneuropathy; Z79.4 - nursing home (current) use of insulin (11) Tobacco abuse Current Visit: No Status: Chronic Assessment and plan: Smoking cessation education - Time Spent With Patient 25 - 35 minutes - Subjective Interval history: Patient is a 71-year-old male admitted at COPD exacerbation. Past medical history is significant for CHF, COPD, CVA, diabetes, hyperlipidemia, hypertension, CKD. Patient was seen and examined. Improved with respiratory distress. Still has nonproductive cough. No chest pain, no nausea, no vomiting. No fever. Vitals are stable. No wheezing today. Still no bowel movement, will continue stool softener. Encourage patient out of bed. Change cough syrup to Robitussin AC. - Constitutional Vitals: Temp Pulse Resp BP Pulse Ox 97.7 F 61 18 146/95 94 L 04/03/16 11:30 04/03/16 11:30 04/03/16 11:40 04/03/16 11:30 04/03/16 11:40 General appearance: Present: mild distress, A&O X 3, pleasant, obese, answers questions appropriately - Head Head exam: Present: atraumatic, normocephalic - Eye Eye exam: Present: PERRL, conjuntiva pink, sclera anicteric Pupils: Present: PERRL - Neck Neck exam general surgery: Present: supple, trachea midline. Absent: lymphadenopathy - Respiratory Respiratory exam: Present: CTAB. Absent: accessory muscle use, rales, rhonchi, wheezes - Cardiovascular Cardiovascular exam: Present: RRR, +S1, +S2. Absent: diastolic murmur, gallop, rubs, systolic murmur - GI/Abdominal GI/Abdominal exam: Present: normal bowel sounds, soft, no peritoneal signs. Absent: distended, tenderness - Extremities Exam Extremities exam: Present: warm, radial pulses palpable and symetrical. Absent : calf tenderness, cyanotic, pedal edema - Neurological Exam Neurological exam: Present: CN II-XII intact, oriented X3, no focal deficits. Absent: pronater drift, facial droop, speech deficit - Skin Skin exam: Present: dry, intact Internal Medicine: Result - Labs CBC & Chem 7: 04/03/16 05:26 04/03/16 05:26 Labs: Short CBC 04/03/16 Range/Units 05:26 WBC 5.4 (4.3-11.1) K/mcL Hgb 10.7 L (12.9-16.9) g/dL Hct 32.6 L (37.5-50.1) % Plt Count 132 L (140-400) K/mcL Neutrophils # 3.4 (1.6-8.9) K/mcL BMP 04/03/16 05:26 Sodium 139 Potassium 4.1 Chloride 108 Carbon Dioxide 23 BUN 64 H Creatinine 2.21 H Glucose 210 H Calcium 8.5 L - ABG Interpretation ABG results: ABG ABG pH 7.27 pH Units (7.32-7.45) L 03/29/16 05:35 ABG pCO2 49 mmHg (35-45) H 03/29/16 05:35 ABG pO2 79 mmHg (85-104) L 03/29/16 05:35 ABG O2 Saturation 94 % (95-98) L 03/29/16 05:35 - VTE Documentation of Mechanical Device: Intermittent pneumatic compression device Consult Discharge Plan - Plan Referrals: Nikki Quinonez DO [Partnered Physician] - Travis Brasher Jr, MD [Primary Care Provider] - 04/13/16 10:00 am
--- NOTE | 2016-04-03 13:30 | Nephrology Progress Note ---
Date of Encounter: 04/03/16 Time of Encounter: 11:45 - Assessment and Plan (1) Acute kidney injury superimposed on chronic kidney disease Current Visit: Yes Status: Acute SCr continues to improve off diuretics at 2.21 UOP acceptable Continue to avoid nephrotoxins if possible (2) Chronic kidney disease, stage 4 (severe) Current Visit: Yes Status: Chronic Baseline around GFR 26 (3) Hyperkalemia, diminished renal excretion Current Visit: No Status: Acute Potassium normalized at 4.1 Continue renal diet Subjective Principal diagnosis: Acute hypoxic respiratory failure with hypercapnia Interval history: Pt seen and examined feeling a little better but still with SOB and coughing. Objective - Vital Signs Vital signs: Vital Signs Temp Pulse Resp BP Pulse Ox 04/03/16 11:40 18 94 L 04/03/16 11:30 97.7 F 61 18 146/95 94 L 04/03/16 11:13 97.7 F 61 18 146/95 94 L 04/03/16 09:10 97.5 F L 87 11 167/88 97 04/03/16 08:45 97.5 F L 87 11 167/88 97 04/03/16 08:11 11 167/88 97 04/03/16 07:33 97.5 F L 87 14 167/88 99 04/03/16 05:00 96.3 F L 77 12 166/83 97 04/03/16 03:50 12 98 04/03/16 00:41 25 96 04/03/16 00:00 97.0 F L 84 19 157/103 96 04/02/16 20:28 67 96 04/02/16 20:21 97.6 F 65 12 174/84 100 04/02/16 20:06 16 95 04/02/16 15:46 18 95 04/02/16 15:18 97.3 F L 66 18 163/93 96 Intake and Output 04/02/16 04/03/16 04/03/16 23:59 07:59 15:59 Intake Total 0 / 0 400 / 400 480 / 480 Output Total 1220 / 1220 550 / 550 Balance 0 / 0 -820 / -820 -70 / -70 Intake: Oral 0 / 0 400 / 400 480 / 480 Output: Catheter 1220 / 1220 550 / 550 Other: Meal Dinner Lunch Percent of Meal Consumed 20% 10% Weight 134.7 kg Blood Glucose* 224 216 172 Patient Weight 04/03/16 23:59 Weight 134.7 kg - General Appearance General appearance: Present: chronically ill (NAD) EENT: Present: ATNC, mucous membranes moist Neck: Present: no JVD, supple Respiratory: Present: course breath sounds Cardiology: Present: no edema, normal S1, normal S2 Gastrointestinal: Present: no tenderness, no guarding Integumentary: Present: warm and dry Neurologic: Present: no focal deficit Musculoskeletal: Present: no deformities Psychiatric: Present: mood/affect appropriate, cooperative - Lab 04/04/16 04:18 04/04/16 04:18 Most recent lab results ABG pH 7.27 pH Units (7.32-7.45) L 03/29/16 05:35 ABG pCO2 49 mmHg (35-45) H 03/29/16 05:35 ABG pO2 79 mmHg (85-104) L 03/29/16 05:35 ABG HCO3 22.5 mEQ/L (21-27) 03/29/16 05:35 ABG O2 Saturation 94 % (95-98) L 03/29/16 05:35 Calcium 8.5 mg/dL (8.6-10.8) L 04/03/16 05:26 Phosphorus 5.0 mg/dL (2.3-4.7) H 03/29/16 04:35 Magnesium 1.7 mg/dL (1.6-2.6) 03/27/16 03:31 - VTE Documentation of Mechanical Device: Intermittent pneumatic compression device Consult Discharge Plan - Plan Referrals: Nikki Quinonez DO [Partnered Physician] - Travis Brasher Jr, MD [Primary Care Provider] - 04/13/16 10:00 am
[2016-04-03] MEDS: GuaiFENesin/Codeine Oral Soln 5 ML UDC PO SCH ×3 (14:44→23:09)
[2016-04-03] MEDS: Cefepime HCl 1,000 MG in D5% in Water (Mini-Bag+) 100 ML IVPB SCH (14:45)
[2016-04-03] MEDS: Benzonatate 100 MG CAPSULE PO PRN (19:48)
[2016-04-03] MEDS: Acetaminophen 325 MG TABLET PO SCH (20:33)
[2016-04-03] MEDS: Temazepam 15 MG CAPSULE PO SCH (20:33)
[2016-04-03] MEDS: Insulin DETEMIR 100 UNIT/ML X5UNITS SQ SCH (20:39)
[2016-04-03] MEDS: *HR* Morphine 2 MG/ML SYRINGE IVP PRN (23:13)
[2016-04-04] MEDS: Ipratropium/Albuterol Neb 3 ML IH SCH ×5 (03:33→20:24)
[2016-04-04] MEDS: Acetylcysteine 10% 2 ML INHSOL IH SCH ×5 (03:33→20:24)
[2016-04-04 04:59] LABS: Basophils % 0.2 %; Eosinophils % 0.2 %; Hematocrit 31.1 % (37.5-50.1); Hemoglobin 10.3 g/dL (12.9-16.9); Immature Granulocytes % 4.1 % (0-4); Lymphocytes # 1.1 K/mcL (0.6-4.6); Lymphocytes % 18.6 %; Mean Corpuscular HGB Conc 33.1 g/dL (31.6-35.5); Mean Corpuscular Hemoglobin 29.1 pg (28.0-33.3); Mean Corpuscular Volume 87.9 fL (83.0-100.0); Mean Platelet Volume 10.3 fL (9.4-12.4); Monocytes # 0.5 K/mcL (0.0-1.3); Monocytes % 7.7 %; Neutrophils # 4.2 K/mcL (1.6-8.9); Platelet Count 124 K/mcL (140-400); Red Blood Count 3.54 M/mcL (4.19-5.50); Red Cell Distribution Width 13.7 % (11.5-14.5); Segmented Neutrophils % 69.2 %
[2016-04-04 05:12] LABS: Calcium 8.4 mg/dL (8.6-10.8); Potassium 4.5 mEq/L (3.5-4.5)
[2016-04-04] MEDS: GuaiFENesin/Codeine Oral Soln 5 ML UDC PO SCH ×4 (06:04→23:16)
[2016-04-04] MEDS: Cyanocobalamin (B-12) 1,000 MCG TABLET PO SCH (07:45)
[2016-04-04] MEDS: Pregabalin 50 MG CAPSULE PO SCH ×2 (07:45→20:23)
[2016-04-04] MEDS: APIXABAN 5 MG TABLET PO SCH ×2 (07:45→20:23)
[2016-04-04] MEDS: Cholecalciferol (D-3) 1,000 UNIT TABLET PO SCH (07:45)
[2016-04-04] MEDS: hydrALAZINE 25 MG TABLET PO SCH ×3 (07:46→20:24)
[2016-04-04] MEDS: amLODIPine 5 MG TABLET PO SCH (07:46)
[2016-04-04] MEDS: predniSONE 20 MG TABLET PO SCH (07:46)
[2016-04-04] MEDS: Tiotropium 18 MCG inhalation IH SCH (07:46)
[2016-04-04] MEDS: Artificial Tears SOLN 15 ML BOTTLE BOTH EYES SCH ×4 (07:46→20:26)
[2016-04-04] MEDS: Insulin LISPRO 300 UNITS/3 ML VIAL SQ SCH ×4 (07:47→20:20)
[2016-04-04] MEDS: Benzonatate 100 MG CAPSULE PO PRN (10:42)
--- NOTE | 2016-04-04 14:48 | Internal Med Progress Note ---
Date of Encounter: 04/04/16 Time of Encounter: 10:00 - Assessment and plan (1) Acute respiratory failure with hypoxia and hypercapnia Current Visit: Yes Status: Acute Assessment and plan: Due to COPD exacerbation. We will continue current treatment. Hypoxia has improved after treatment. Continue taper Down steroid. (2) Acute kidney injury superimposed on chronic kidney disease Current Visit: Yes Status: Acute Assessment and plan: Patient has history of CKD. Nephrology consult was called. Suspected ATN. Continue improvement in renal function. At about his baseline now. (3) CHF (congestive heart failure) Current Visit: Yes Status: Acute Assessment and plan: Lasix held due to acute kidney injury superimposed on chronic kidney disease stage IV. Echocardiogram revealing ejection fraction of 50% and mild diastolic dysfunction and otherwise unremarkable. Continue beta nayely. He has good urine output now, no diuretic used. Qualifiers: Congestive heart failure type: combined Congestive heart failure chronicity : acute on chronic Qualified Code(s): I50.43 - Acute on chronic combined systolic (congestive) and diastolic (congestive) heart failure (4) COPD with acute exacerbation Current Visit: Yes Status: Acute Assessment and plan: Patient is on antibiotic, steroid, bronchodilator, and LAMA. Pulmonology consult is on case. Symptoms has improved. Taper down steroid. (5) DVT prophylaxis Current Visit: Yes Status: Acute Assessment and plan: On Eliquis (6) HCAP (healthcare-associated pneumonia) Current Visit: Yes Status: Acute Assessment and plan: Legionella and strep pneumoniae antigens negative. Blood cultures negative x2. Urine culture negative. CT suggest infection or inflammation, Continue cefepime to finish a 7 day course. DC cefepime today (7) RSV bronchitis Current Visit: Yes Status: Acute Assessment and plan: Continue isolation and supportive treatment (8) Atrial fibrillation Current Visit: Yes Status: Chronic Assessment and plan: History of A. fib, now on pacing rhythm. Cardiology consult appreciated, stop sotalol. Continue beta nayely and Eliquis. Qualifiers: Atrial fibrillation type: unspecified Qualified Code(s): I48.91 - Unspecified atrial fibrillation (9) Hypertension Current Visit: Yes Status: Chronic Assessment and plan: we will continue to trend and adjust medications as indicated. Increase amlodipine to 10 mg by mouth daily. BP is better controlled today. Qualifiers: Hypertension type: essential hypertension Qualified Code(s): I10 - Essential (primary) hypertension (10) Diabetes mellitus Current Visit: No Status: Chronic Assessment and plan: Poorly controlled at home with a recent A1c of 8.5%. Continue sliding scale while admitted. Switch to high-dose correction dose, glucose level improved. 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 Past medical history is significant for CHF, COPD, CVA, diabetes, hyperlipidemia, hypertension, CKD. Patient was seen and examined. Improved with respiratory distress. Improved nonproductive cough. No chest pain, no nausea, no vomiting. No fever. Vitals are stable. No wheezing today. Still no bowel movement, will continue stool softener. Encourage patient out of bed. Patient can walk around the room with the assistance of PT. PT recommended patient discharge to ECF, however patient refused to go to ECF, plan discharge with home health. - Constitutional Vitals: Temp Pulse Resp BP Pulse Ox 98 F 61 16 134/73 92 L 04/04/16 11:00 04/04/16 11:53 04/04/16 11:41 04/04/16 11:00 04/04/16 11:41 General appearance: Present: A&O X 3, pleasant, no acute distress, obese, answers questions appropriately - Head Head exam: Present: atraumatic, normocephalic - Eye Eye exam: Present: PERRL, conjuntiva pink, sclera anicteric Pupils: Present: PERRL - Neck Neck exam general surgery: Present: supple, trachea midline. Absent: lymphadenopathy - Respiratory Respiratory exam: Present: CTAB. Absent: accessory muscle use, rales, rhonchi, wheezes - Cardiovascular Cardiovascular exam: Present: RRR, +S1, +S2. Absent: diastolic murmur, gallop, rubs, systolic murmur - GI/Abdominal GI/Abdominal exam: Present: normal bowel sounds, soft, no peritoneal signs. Absent: distended, tenderness - Extremities Exam Extremities exam: Present: warm, radial pulses palpable and symetrical. Absent : calf tenderness, cyanotic, pedal edema - Neurological Exam Neurological exam: Present: CN II-XII intact, oriented X3, no focal deficits. Absent: pronater drift, facial droop, speech deficit - Skin Skin exam: Present: dry, intact Internal Medicine: Result - Labs CBC & Chem 7: 04/04/16 04:18 04/04/16 04:18 Labs: Short CBC 04/04/16 Range/Units 04:18 WBC 6.1 (4.3-11.1) K/mcL Hgb 10.3 L (12.9-16.9) g/dL Hct 31.1 L (37.5-50.1) % Plt Count 124 L (140-400) K/mcL Neutrophils # 4.2 (1.6-8.9) K/mcL BMP 04/04/16 04:18 Sodium 137 Potassium 4.5 Chloride 107 Carbon Dioxide 23 BUN 60 H Creatinine 2.08 H Glucose 287 H Calcium 8.4 L - ABG Interpretation ABG results: ABG ABG pH 7.27 pH Units (7.32-7.45) L 03/29/16 05:35 ABG pCO2 49 mmHg (35-45) H 03/29/16 05:35 ABG pO2 79 mmHg (85-104) L 03/29/16 05:35 ABG O2 Saturation 94 % (95-98) L 03/29/16 05:35 - VTE Documentation of Mechanical Device: Intermittent pneumatic compression device Consult Discharge Plan - Plan Referrals: Nikki Quinonez DO [Partnered Physician] - Travis Brasher Jr, MD [Primary Care Provider] - 04/13/16 10:00 am
[2016-04-04] MEDS: Cefepime HCl 1,000 MG in D5% in Water (Mini-Bag+) 100 ML IVPB SCH (14:54)
--- NOTE | 2016-04-04 17:37 | Nephrology Progress Note ---
Date of Encounter: 04/04/16 Time of Encounter: 11:45 - Assessment and Plan (1) Acute kidney injury superimposed on chronic kidney disease Current Visit: Yes Status: Acute SCr continues to improve off diuretics at 2.08, GFR 32 which is better than baseline. Will sign off, please reconsult prn. followup with Dr Barlow within 4 weeks of discharge UOP good Continue to avoid nephrotoxins if possible (2) Chronic kidney disease, stage 4 (severe) Current Visit: Yes Status: Chronic Baseline around GFR 26 (3) Hyperkalemia, diminished renal excretion Current Visit: No Status: Acute Potassium remains normalized at 4.5. Continue renal diet Subjective Principal diagnosis: Acute hypoxic respiratory failure with hypercapnia Interval history: Pt seen and examined feeling better today with less SOB overall. Eager to go home soon. Pt does not want ECF for rehab. Objective - Vital Signs Vital signs: Vital Signs Temp Pulse Resp BP Pulse Ox 04/04/16 15:58 16 95 04/04/16 15:30 62 04/04/16 15:18 97.9 F 66 16 109/96 94 L 04/04/16 11:53 61 04/04/16 11:41 16 92 L 04/04/16 11:00 98 F 59 16 134/73 93 L 04/04/16 07:56 60 04/04/16 07:48 16 95 04/04/16 07:06 97.9 F 60 14 139/80 95 04/04/16 03:35 16 96 04/04/16 03:29 97.2 F L 77 14 152/81 96 04/03/16 23:24 20 97 04/03/16 23:17 97.6 F 73 14 143/75 97 04/03/16 20:19 97.9 F 04/03/16 20:01 78 16 154/77 95 04/03/16 19:55 18 98 Intake and Output 04/04/16 04/04/16 04/04/16 07:59 15:59 23:59 Intake Total 0 / 0 240 / 240 Output Total 1250 / 1250 Balance -1250 / -1250 240 / 240 Intake: Oral 0 / 0 240 / 240 Output: Catheter 1250 / 1250 Other: Meal Lunch Percent of Meal Consumed 90% Weight 134 kg Blood Glucose* 331 246 Patient Weight 04/04/16 23:59 Weight 134 kg - General Appearance General appearance: Present: chronically ill (NAD) EENT: Present: ATNC, mucous membranes moist Neck: Present: no JVD, supple Additional Comments: improved areation ant bilat Cardiology: Present: no edema, normal S1, normal S2 Gastrointestinal: Present: no tenderness, no guarding, obese Integumentary: Present: warm and dry Neurologic: Present: no focal deficit Musculoskeletal: Present: no deformities Psychiatric: Present: mood/affect appropriate, cooperative - Lab 04/04/16 04:18 04/04/16 04:18 Most recent lab results ABG pH 7.27 pH Units (7.32-7.45) L 03/29/16 05:35 ABG pCO2 49 mmHg (35-45) H 03/29/16 05:35 ABG pO2 79 mmHg (85-104) L 03/29/16 05:35 ABG HCO3 22.5 mEQ/L (21-27) 03/29/16 05:35 ABG O2 Saturation 94 % (95-98) L 03/29/16 05:35 Calcium 8.4 mg/dL (8.6-10.8) L 04/04/16 04:18 Phosphorus 5.0 mg/dL (2.3-4.7) H 03/29/16 04:35 Magnesium 1.7 mg/dL (1.6-2.6) 03/27/16 03:31 - VTE Documentation of Mechanical Device: Intermittent pneumatic compression device Consult Discharge Plan - Plan Referrals: Nikki Quinonez DO [Partnered Physician] - Travis Brasher Jr, MD [Primary Care Provider] - 04/13/16 10:00 am
[2016-04-04] MEDS: Insulin DETEMIR 100 UNIT/ML X5UNITS SQ SCH (20:22)
[2016-04-04] MEDS: Acetaminophen 325 MG TABLET PO SCH (20:23)
[2016-04-04] MEDS: Temazepam 15 MG CAPSULE PO SCH (20:24)
[2016-04-04] MEDS: *HR* Morphine 2 MG/ML SYRINGE IVP PRN (23:14)
[2016-04-05] MEDS: Acetylcysteine 10% 2 ML INHSOL IH SCH ×5 (00:14→15:35)
[2016-04-05] MEDS: Ipratropium/Albuterol Neb 3 ML IH SCH ×5 (00:14→15:34)
[2016-04-05] MEDS: GuaiFENesin/Codeine Oral Soln 5 ML UDC PO SCH ×2 (05:53→11:25)
[2016-04-05] MEDS: Tiotropium 18 MCG inhalation IH SCH (07:49)
[2016-04-05] MEDS ORDERED: Lactulose Oral Soln 20 GM/30 ML UDC PO ONE (08:39)
[2016-04-05] MEDS: Cyanocobalamin (B-12) 1,000 MCG TABLET PO SCH (09:04)
[2016-04-05] MEDS: hydrALAZINE 25 MG TABLET PO SCH ×2 (09:04→16:12)
[2016-04-05] MEDS: Cholecalciferol (D-3) 1,000 UNIT TABLET PO SCH (09:05)
[2016-04-05] MEDS: predniSONE 20 MG TABLET PO SCH (09:05)
[2016-04-05] MEDS: Pregabalin 50 MG CAPSULE PO SCH (09:06)
[2016-04-05] MEDS: amLODIPine 5 MG TABLET PO SCH (09:06)
[2016-04-05] MEDS: APIXABAN 5 MG TABLET PO SCH (09:07)
[2016-04-05] MEDS: Insulin LISPRO 300 UNITS/3 ML VIAL SQ SCH ×2 (09:09→11:26)
[2016-04-05] MEDS: Artificial Tears SOLN 15 ML BOTTLE BOTH EYES SCH ×2 (09:17→12:43)
--- NOTE | 2016-04-05 14:25 | Discharge Summary ---
Date of Encounter: 04/05/16 Time of Encounter: 13:00 - Discharge Diagnosis (1) Acute respiratory failure with hypoxia and hypercapnia Priority: Primary Status: Acute (2) Acute kidney injury superimposed on chronic kidney disease Priority: Primary Status: Acute (3) CHF (congestive heart failure) Priority: Secondary Status: Acute Qualifiers: Congestive heart failure type: combined Congestive heart failure chronicity : acute on chronic Qualified Code(s): I50.43 - Acute on chronic combined systolic (congestive) and diastolic (congestive) heart failure (4) COPD with acute exacerbation Priority: Primary Status: Acute (5) DVT prophylaxis Priority: Secondary Status: Acute (6) HCAP (healthcare-associated pneumonia) Priority: Primary Status: Acute (7) RSV bronchitis Priority: Primary Status: Acute (8) Atrial fibrillation Priority: Secondary Status: Chronic Qualifiers: Atrial fibrillation type: unspecified Qualified Code(s): I48.91 - Unspecified atrial fibrillation (9) Hypertension Priority: Secondary Status: Chronic Qualifiers: Hypertension type: essential hypertension Qualified Code(s): I10 - Essential (primary) hypertension (10) Diabetes mellitus Priority: Secondary Status: Chronic Qualifiers: Diabetes mellitus type: type 2 Diabetes mellitus complication status: with neurologic complications Diabetes mellitus complication detail: with polyneuropathy Diabetes mellitus intermediate teacher insulin use: with intermediate teacher use Qualified Code(s): E11.42 - Type 2 diabetes mellitus with diabetic polyneuropathy; Z79.4 - [facility] (current) use of insulin (11) Tobacco abuse Priority: Secondary Status: Chronic - Discharge Medications Prescriptions: GuaiFENesin/Codeine [ROBITUSSIN w/CODEINE] 10 ml PO Q6HR PRN 10 Days PRN Reason: Cough Amlodipine [Norvasc] 10 mg PO DAILY #30 tablet Docusate [Colace] 200 mg PO DAILY #60 capsule PredniSONE 20 mg PO DAILY #10 tablet Tiotropium [Spiriva] 18 mcg IH DAILYR #60 inh Home Medications: Insulin Glargine,Hum.rec.anlog [Lantus Solostar] 42 unit SQ HS 05/09/15 [History ] Pregabalin [Lyrica] 200 mg PO BID 05/09/15 [History] Simvastatin [Zocor] 40 mg PO DAILY 05/09/15 [History] Temazepam [Restoril] 30 mg PO HS 05/09/15 [History] Apixaban [Eliquis] 2.5 mg PO BID 12/31/15 [History] Carvedilol [Coreg] 25 mg PO BID 12/31/15 [History] Promethazine [Phenergan] 25 mg PO HS 12/31/15 [History] Artificial Tears SOLN [Akwa Tears] 1 drop BOTH EYES QID bottle 01/07/16 [Rx] HydrALAZINE 75 mg PO TID #270 tablet 01/07/16 [Rx] Tamsulosin [Flomax] 0.4 mg PO DAILY #30 capsule 01/07/16 [Rx] Acetaminophen [Tylenol] 650 mg PO HS 03/26/16 [History] Cholecalciferol (D-3) [Vitamin D] 1,000 unit PO DAILY 03/26/16 [History] Cyanocobalamin (Vitamin B-12) [Vitamin B12] 5,000 mcg PO DAILY 03/26/16 [History ] Amlodipine [Norvasc] 10 mg PO DAILY #30 tablet 04/05/16 [Rx] Docusate [Colace] 200 mg PO DAILY #60 capsule 04/05/16 [Rx] GuaiFENesin/Codeine [ROBITUSSIN w/CODEINE] 10 ml PO Q6HR PRN 10 Days 04/05/16 [ Rx] PredniSONE 20 mg PO DAILY #10 tablet 04/05/16 [Rx] Tiotropium [Spiriva] 18 mcg IH DAILYR #60 inh 04/05/16 [Rx] Allergies/Adverse Reactions: Allergies aspirin Allergy (Verified 03/26/16 14:56) Hives diphenhydramine [From Benadryl] Allergy (Verified 03/26/16 12:08) Swelling of Lip/Tongue/Throat Tetracyclines Allergy (Verified 03/26/16 14:56) Hives - Notes to Outpatient Provider 1. Patient's home medication sotalol has been discontinued because of his poor renal function. 2. Amlodipine added to his home medication for blood pressure control. 3. Spiriva has been added to his home medication per pulmonology consult. Date of admission: 03/26/16 16:14 Primary care physician: Travis Brasher Jr, MD Consults: 03/28/16 09:52 Consult to Pulmonology [CONS] Routine Consulting Provider: [facility] [place] Reason for Consult: CHFEX, decompensating. +PNA. + possible undiagnosed COPDex. Please eval and advise. Time Notified: 09:52 Call Completed: Yes 03/29/16 13:31 Consult to Cardiology [CONS] Routine Comment: Consulting Provider: [facility] [place] Reason for Consult: Sotalol c/i with GFR 17. Please eval and advise. Nephro recs d'cing sotalol. Time Notified: 11:30 Call Completed: Yes 03/30/16 10:40 Consult to Occupational Therapy [CONS] Routine Comment: Evaluate, develop and implement POC Consult to Physical Therapy [CONS] Routine Comment: Evaluate, develop and implement POC 03/30/16 16:42 Consult to [facility] [CONS] Routine Reason for SW Consult: PT recommend for ECF discharge. Discharging clinician: Crystal Nguyễn Anticipated date of discharge: 04/05/16 - Patient Status Disposition: Home Health Service Condition: Good Functional capacity at discharge: independent ambulation Overall status at discharge: patient is back to baseline - Discharge Instructions Follow Up With: Nikki Quinonez DO [Partnered Physician] - Travis Brasher Jr, MD [Primary Care Provider] - 04/13/16 10:00 am - Diet and Activity Activity: as per physical therapy Diet: diabetic diet Interval History: Mr. Vera is a 71 year old male with PMH of CHF, CKD, Type II DM, HLD, Cardiomyopathy s/p AICD, Hypertension who presents to the ER for evaluation of worsening shortness of breath x 2 days. Patient states for the last couple of days he hasn't been feeling well with sore throat, cough, and shortness of breath. He lives with his son who wanted to bring him to the hospital yesterday for worsening shortness of breath but the patient refused. Patient states he follows with his yield engineer who he saw recently for his CKD and due to his worsening renal function, his diuretic dose was decreased. He reports of worsening lower extremity edema and shortness of breath since then. In the ER patient received IV Lasix and was placed on nasal cannula, which improved his respiratory status. At this time, he is resting in bed, states he feels better since his arrival to the hospital. Reports of being an every cigar smoker. Reports of persistent cough for the last few days that has been causing him chest discomfort when he coughs. At this time he denies headache, chest pain, abd pain, n/v, fever, or chills. Hospital course: Mr. Vera is a 71 year old male admitted for COPD exacerbation, CHF exacerbation, pneumonia, RSV infection, and acute renal failure on CKD. He was treated with antibiotics, steroids, and bronchodilator. He is not treated with diuretics because of poor renal function. Pulmonary, cardiology, and nephrology consult was called and saw patient. After treatment, his condition has improved, he has no shortness of breath, he has a good urine output and a negative fluid balance. His kidney function has improved and reached his baseline. PT / OT evaluated the patient, recommended for rehabilitation discharge. However, patient refused to go to rehabilitation center. We will discharge him home with home health, home PT and OT. He was evaluated for home oxygen qualification but did not qualify. I saw and examined patient today. He is awake alert, oriented 3. He has not no acute distress. No chest pain or shortness of breath, no nausea no vomiting. He complained of no bowel movement for 4 days, but denies abdominal pain or fullness. KUB ordered shows constipation but no obstruction. Patient was given lactulose 1 dose and will be discharged on docusate. Patient will discharge home today with home health, He will follow up of with PCP as outpatient - Time Spent with Patient Total time spent providing and/or coordinating discharge services: Greater than 30 minutes - Constitutional Vitals: Temp Pulse Resp BP Pulse Ox 98.9 F 63 17 157/86 94 L 04/05/16 10:59 04/05/16 11:35 04/05/16 11:15 04/05/16 10:59 04/05/16 11:15 General appearance: Present: A&O X 3, pleasant, no acute distress, obese, answers questions appropriately - Head Head exam: Present: atraumatic, normocephalic - Eye Eye exam: Present: PERRL, conjuntiva pink, sclera anicteric Pupils: Present: PERRL - Neck Neck exam general surgery: Present: supple, trachea midline. Absent: lymphadenopathy - Respiratory Respiratory exam: Present: CTAB. Absent: accessory muscle use, rales, rhonchi, wheezes - Cardiovascular Cardiovascular exam: Present: RRR, +S1, +S2. Absent: diastolic murmur, gallop, rubs, systolic murmur - GI/Abdominal GI/Abdominal exam: Present: normal bowel sounds, soft, no peritoneal signs. Absent: distended, tenderness - Extremities Exam Extremities exam: Present: warm, radial pulses palpable and symetrical. Absent : calf tenderness, cyanotic, pedal edema - Neurological Exam Neurological exam: Present: CN II-XII intact, oriented X3, no focal deficits. Absent: pronater drift, facial droop, speech deficit - Skin Skin exam: Present: dry, intact - VTE Documentation of Mechanical Device: Intermittent pneumatic compression device
--- NOTE | 2016-04-05 14:41 | Physician Discharge Referral ---
Home Health/Hosp Referral Info Transfer to: Home Health - Diagnosis (1) Acute respiratory failure with hypoxia and hypercapnia Status: Acute (2) Acute kidney injury superimposed on chronic kidney disease Status: Acute (3) CHF (congestive heart failure) Status: Acute (4) COPD with acute exacerbation Status: Acute (5) DVT prophylaxis Status: Acute (6) HCAP (healthcare-associated pneumonia) Status: Acute (7) RSV bronchitis Status: Acute (8) Atrial fibrillation Status: Chronic (9) Hypertension Status: Chronic (10) Diabetes mellitus Status: Chronic (11) Tobacco abuse Status: Chronic - Respiratory Orders Smoking Cessation: Smoking cessation has been advised. For more information, call the [place] Tobacco Quit Line at 6-340-KXDS-NOW. - Diet/Nutrition Diet/Nutrition Orders: No Concentrated Sweets (Diabetes diet) - Activity Activity Orders: Ambulate, Walker - Services Needed Following services are medically necessary services: Nursing, Home Health Aide, Physical Therapy, Occupational Therapy - Transfer Medications Prescriptions: GuaiFENesin/Codeine [ROBITUSSIN w/CODEINE] 10 ml PO Q6HR PRN 10 Days PRN Reason: Cough Amlodipine [Norvasc] 10 mg PO DAILY #30 tablet Docusate [Colace] 200 mg PO DAILY #60 capsule PredniSONE 20 mg PO DAILY #10 tablet Tiotropium [Spiriva] 18 mcg IH DAILYR #60 inh Home Medications: Insulin Glargine,Hum.rec.anlog [Lantus Solostar] 42 unit SQ HS 05/09/15 [History ] Pregabalin [Lyrica] 200 mg PO BID 05/09/15 [History] Simvastatin [Zocor] 40 mg PO DAILY 05/09/15 [History] Temazepam [Restoril] 30 mg PO HS 05/09/15 [History] Apixaban [Eliquis] 2.5 mg PO BID 12/31/15 [History] Carvedilol [Coreg] 25 mg PO BID 12/31/15 [History] Promethazine [Phenergan] 25 mg PO HS 12/31/15 [History] Artificial Tears SOLN [Akwa Tears] 1 drop BOTH EYES QID bottle 01/07/16 [Rx] HydrALAZINE 75 mg PO TID #270 tablet 01/07/16 [Rx] Tamsulosin [Flomax] 0.4 mg PO DAILY #30 capsule 01/07/16 [Rx] Acetaminophen [Tylenol] 650 mg PO HS 03/26/16 [History] Cholecalciferol (D-3) [Vitamin D] 1,000 unit PO DAILY 03/26/16 [History] Cyanocobalamin (Vitamin B-12) [Vitamin B12] 5,000 mcg PO DAILY 03/26/16 [History ] Amlodipine [Norvasc] 10 mg PO DAILY #30 tablet 04/05/16 [Rx] Docusate [Colace] 200 mg PO DAILY #60 capsule 04/05/16 [Rx] GuaiFENesin/Codeine [ROBITUSSIN w/CODEINE] 10 ml PO Q6HR PRN 10 Days 04/05/16 [ Rx] PredniSONE 20 mg PO DAILY #10 tablet 04/05/16 [Rx] Tiotropium [Spiriva] 18 mcg IH DAILYR #60 inh 04/05/16 [Rx] Allergies/Adverse Reactions: Allergies aspirin Allergy (Verified 03/26/16 14:56) Hives diphenhydramine [From Benadryl] Allergy (Verified 03/26/16 12:08) Swelling of Lip/Tongue/Throat Tetracyclines Allergy (Verified 03/26/16 14:56) Hives Certification: Further, I certify that my clinical findings support that this patient is homebound (i.e. absences from home require considerable and taxing effort and are for medical reasons or taoist services or infrequently or short duration when for other reasons) because: Homebound Reason: Patient requires assistance of a person or device to safely leave home Attestation: My signature below is to certify that this patient is under my care and that I, or nurse practitioner, or a physician's housing assistant working with me, has a face-to -face encounter with this patient.
[2016-04-05 15:32] VITALS: BP 151/84
== END 2016-04-05 16:41 | disposition home health service (06) | DRG 291 ==
LOC: EMEROO 12:03 → 3BNU 12:03 → SUATTDRO 16:14 → 2NNU 03-29 16:37
PROVIDERS: ADMIT Internal Medicine; ATTEND Internal Medicine

== ENCOUNTER 2016-04-27 16:21 | Inpatient (IN) ==
[2016-04-27] MEDS ORDERED: Ipratropium/Albuterol Neb 3 ML IH ONE (16:34)
--- NOTE | 2016-04-27 16:40 | Emergency Department Note ---
Disposition Clinical Impression: Acute exacerbation of chronic obstructive airways disease, Hypoxia Disposition: Admitted As Inpatient Condition: Good Referrals: NO,PCP [Primary Care Provider] - Forms: ED Satisfaction Letter SOB HPI - General Chief Complaint: ED Shortness of Breath/Dyspnea Stated Complaint: GODFREY Time Seen by Provider: 04/27/16 16:27 Source: patient, EMS Mode of arrival: EMS Limitations: no limitations Nursing Notes Reviewed: Yes Vital Signs Reviewed: Yes - History of Present Illness 71-year-old male history of COPD, diabetes, atrial fibrillation with AICD who presents to the ER with a chief complaint of shortness of breath. Patient reports that he woke up this morning and was feeling short of breath. Has also had a cough. Was recently hospitalized for pneumonia. EMS was called and reports he was 82% on room air when the arrived. Patient is not on oxygen at home. He was given Solu-Medrol and placed on a nonrebreather with improvement to 98%. He also reports central chest pain with this. Has had subjective fevers at home and chills. No other complaints. Pt Subjective Complaint: shortness of breath Onset (ago): hour(s) Context: recent illness Severity: severe Consistency/Duration: constant Improves with: oxygen, rest Worsens with: exertion Known history of: COPD, congestive heart failure Associated symptoms: Reports: chest pain, fever, cough Treatment prior to arrival: oxygen, other (Steroids) Cough present: Yes Cough Description: Involuntary Sputum production: No Sputum Amount: None - Related Data Home oxygen amount: none Home Medications Medication Instructions Recorded Confirmed Insulin Glargine,Hum.rec.anlog 42 unit SQ HS 05/09/15 04/27/16 [Lantus Solostar] Pregabalin [Lyrica] 200 mg PO BID 05/09/15 04/27/16 Simvastatin [Zocor] 40 mg PO DAILY 05/09/15 04/27/16 Temazepam [Restoril] 30 mg PO HS 05/09/15 04/27/16 Apixaban [Eliquis] 2.5 mg PO BID 12/31/15 04/27/16 Carvedilol [Coreg] 25 mg PO BID 12/31/15 04/27/16 Promethazine [Phenergan] 25 mg PO HS 12/31/15 04/27/16 Acetaminophen [Tylenol] 650 mg PO HS 03/26/16 04/27/16 Cholecalciferol (D-3) [Vitamin D] 1,000 unit PO DAILY 03/26/16 04/27/16 Cyanocobalamin (Vitamin B-12) 5,000 mcg PO DAILY 03/26/16 04/27/16 [Vitamin B12] Albuterol Sulfate [Proventil Hfa] 1 - 2 puff IH Q6H PRN 04/27/16 04/27/16 Budesonide/Formoterol 160/4.5 2 puff IH BIDR 04/27/16 04/27/16 [Symbicort 160/4.5] Ipratropium/Albuterol Neb [Duoneb] 3 ml IH QID PRN 04/27/16 04/27/16 Previous Rx's Medication Instructions Recorded Artificial Tears SOLN [Akwa Tears] 1 drop BOTH EYES QID bottle 01/07/16 HydrALAZINE 75 mg PO TID #270 tablet 01/07/16 Tamsulosin [Flomax] 0.4 mg PO DAILY #30 capsule 01/07/16 Amlodipine [Norvasc] 10 mg PO DAILY #30 tablet 04/05/16 Docusate [Colace] 200 mg PO DAILY #60 capsule 04/05/16 GuaiFENesin/Codeine [ROBITUSSIN 10 ml PO Q6HR PRN 10 Days 04/05/16 w/CODEINE] Tiotropium [Spiriva] 18 mcg IH DAILYR #60 inh 04/05/16 Allergies Allergy/AdvReac Type Severity Reaction Status Date / Time aspirin Allergy Hives Verified 03/26/16 14:56 diphenhydramine Allergy Swelling Verified 03/26/16 12:08 [From Benadryl] of Lip/Tongue/Throat Tetracyclines Allergy Hives Verified 03/26/16 14:56 All systems ED: reviewed and negative except as stated. Constitutional: Reports: fever, chills Cardiovascular: Reports: chest pain Respiratory: Reports: cough, dyspnea. Denies: wheezes Gastrointestinal: Denies: abdominal pain, nausea, vomiting, diarrhea Musculoskeletal: Denies: back pain, neck pain Past Medical History - Past Medical History Attestation: Yes The following information was validated with the patient. Source: patient Medical history: Reports: cardiomyopathy, CHF, CVA, diabetes, hyperlipidemia, hypertension, renal disease Surgical history: Reports: orthopedic, other Psychiatric history: Reports: no psych history - Social History Smoking Status: Current every day smoker Smokeless Tobacco Status: No Alcohol use: Reports: rarely Drug use: Reports: none Physical Exam - General Limitations: no limitations General appearance: alert, in no apparent distress - Head Head exam: atraumatic, normocephalic, normal inspection - Eye Eye exam: Present: normal appearance, EOMI - ENT ENT exam: normal exam - Neck Neck exam: Present: normal inspection - Chest Chest inspection: Present: normal inspection, symmetric chest wall rise - Respiratory Respiratory exam: Present: wheezes (Bilateral wheezing greater on the right versus left.), accessory muscle use, prolonged expiratory phase - Cardiovascular Cardiovascular exam: Present: regular rate, normal rhythm, normal heart sounds - Abdominal Exam Abdominal exam: Present: soft, Non-Tender. Absent: tenderness - Expanded Upper Extremity Exam Shoulder exam: Present: normal inspection, full ROM Arm exam: Present: normal inspection, full ROM Elbow exam: Present: normal inspection, full ROM Forearm/Wrist exam: Present: normal inspection, full ROM Hand exam: Present: normal inspection, full ROM - Expanded Lower Extremity Exam Hip/Pelvis exam: Present: normal inspection, full ROM Upper leg exam: Present: normal inspection, full ROM Knee exam: Present: normal inspection, full ROM Lower leg exam: Present: normal inspection, full ROM Ankle exam: Present: normal inspection, full ROM Foot/toe exam: Present: normal inspection, full ROM - Neurological Exam Neurological exam: Present: alert - Psychiatric Psychiatric exam: Present: normal affect, normal mood - Skin Skin exam: Present: warm, dry, intact, normal color Course Course Narrative: Patient seen and examined. Vital signs reviewed. We will give him 3 DuoNeb treatments here. He received Solu-Medrol prior to arrival. We will also check an EKG, chest x-ray and basic labs. - Reevaluation(s) Reevaluation #1: Discussed results of lab work and imaging with the patient. Vital Signs Temperature 101.7 F H 04/27/16 16:22 Pulse Rate 81 04/27/16 16:22 Respiratory Rate 20 04/27/16 16:22 Blood Pressure 163/152 04/27/16 16:22 O2 Sat by Pulse Oximetry 93 L 04/27/16 16:22 Temperature 101.7 F H 04/27/16 16:22 Pulse Rate 76 04/27/16 17:25 Respiratory Rate 20 04/27/16 17:25 Blood Pressure 133/60 04/27/16 17:25 O2 Sat by Pulse Oximetry 92 L 04/27/16 17:25 Oxygen Delivery Oxygen Delivery Nasal Cannula Shortness of Breath/Dyspnea - [facility] Narrative Medical decision making narrative: 71-year-old male presents to the ER due to shortness of breath and hypoxia. He was 83% upon arrival by EMS. He is on oxygen at home. This was improved after doing nebs and IV Solu-Medrol. Previous admission for pneumonia. He is satting well on 3 L here. EKG is unchanged from previous. Chest x-ray shows no acute process as per radiology read. Patient's creatinine is elevated at baseline. Patient admitted to the hospitalist service for COPD, hypoxia. - Lab Data Lab results reviewed: Yes I reviewed the patient's lab results. Result diagrams: 04/27/16 17:06 04/27/16 17:06 Lab Results 04/27/16 04/27/16 04/27/16 Range/Units 17:06 17:06 17:06 WBC 5.4 (4.3-11.1) K/mcL RBC 3.82 L (4.19-5.50) M/mcL Hgb 10.8 L (12.9-16.9) g/dL Hct 35.0 L (37.5-50.1) % MCV 91.6 (83.0-100.0) fL MCH 28.3 (28.0-33.3) pg MCHC 30.9 L (31.6-35.5) g/dL RDW 14.6 H (11.5-14.5) % Plt Count 183 (140-400) K/mcL MPV 9.9 (9.4-12.4) fL Immature Gran % 0.6 (0-4) % Seg Neutrophils % 71.9 % Lymphocytes % 18.2 % Monocytes % 7.4 % Eosinophils % 1.5 % Basophils % 0.4 % Neutrophils # 3.9 (1.6-8.9) K/mcL Lymphocytes # 1.0 (0.6-4.6) K/mcL Monocytes # 0.4 (0.0-1.3) K/mcL Eosinophils # 0.1 (0.0-0.6) K/mcL Basophils # 0.0 (0.0-0.2) K/mcL Sodium 137 (136-145) mEq/L Potassium 5.7 H (3.5-4.5) mEq/L Chloride 107 (98-109) mEq/L Carbon Dioxide 22 (19-29) mEq/L BUN 29 H (8-26) mg/dL Creatinine 2.31 H (0.72-1.25) mg/dL Est GFR ( Amer) 34 L (> 60) Est GFR (Non-Af Amer) 28 L (> 60) BUN/Creatinine Ratio 13 (6-26) Glucose 132 H (70-99) mg/dL Calculated Osmolality 292 (280-300) Lactic Acid (0.5-2.2) mmol/L Calcium 9.0 (8.6-10.8) mg/dL Troponin I 0.02 (0-0.03) ng/mL B-Natriuretic Peptide (0-100) pg/mL 04/27/16 04/27/16 Range/Units 17:06 17:08 WBC (4.3-11.1) K/mcL RBC (4.19-5.50) M/mcL Hgb (12.9-16.9) g/dL Hct (37.5-50.1) % MCV (83.0-100.0) fL MCH (28.0-33.3) pg MCHC (31.6-35.5) g/dL RDW (11.5-14.5) % Plt Count (140-400) K/mcL MPV (9.4-12.4) fL Immature Gran % (0-4) % Seg Neutrophils % % Lymphocytes % % Monocytes % % Eosinophils % % Basophils % % Neutrophils # (1.6-8.9) K/mcL Lymphocytes # (0.6-4.6) K/mcL Monocytes # (0.0-1.3) K/mcL Eosinophils # (0.0-0.6) K/mcL Basophils # (0.0-0.2) K/mcL Sodium (136-145) mEq/L Potassium (3.5-4.5) mEq/L Chloride (98-109) mEq/L Carbon Dioxide (19-29) mEq/L BUN (8-26) mg/dL Creatinine (0.72-1.25) mg/dL Est GFR ( Amer) (> 60) Est GFR (Non-Af Amer) (> 60) BUN/Creatinine Ratio (6-26) Glucose (70-99) mg/dL Calculated Osmolality (280-300) Lactic Acid 0.7 (0.5-2.2) mmol/L Calcium (8.6-10.8) mg/dL Troponin I (0-0.03) ng/mL B-Natriuretic Peptide 280 H (0-100) pg/mL - Radiology Data Radiology results reviewed: Yes I reviewed the patient's radiology results. Chest X-Ray 04/27/16 16:34 IMPRESSION: No acute cardiopulmonary disease. Left shoulder deformity with bone demineralization, incompletely visualized. D/ / Prashant Morrow MD / Prashant Morrow MD Interpreting Provider: Prashant Morrow MD - EKG Data EKG attestation: Yes I reviewed and interpreted this EKG. EKG results narrative: EKG demonstrates a paced rhythm with a rate of 81 bpm. Left axis deviation. QRS duration [address]-T wave changes in leads 1, V5, V6. No ST elevations or depressions. No acute ischemic findings. No significant changes from previous EKG dated 03/26/16. S.B.AChelle - Arielle Situation: Demographics, MOA Background: Presenting Complaint, Relevant PMH, Meds, & Allergies Assessment: Vital Signs, Course and respsone to treatment, Exam Concerns, Patient/Family Expectation, Pertinant Lab Results, Outstanding Labs Recommendation: Barrier(s) to disposition, Recommendation based on pending studies, treatments, or consults S.B.ABettyRBetty Report Given to: Adrianna López Time: 18:12
--- NOTE | 2016-04-27 16:46 | Emergency Department Note ---
START Narrative - START START: I examined this patient and my medical decision-making was reviewed with the CHUTE BOSS/PA/Advanced Practice Nurse/Resident Physician. I agree with the documented findings, disposition and treatment plan as described except to the extent set forth below. ED attending note: Patient seen with emergency medicine resident Dr. Gooden. Please see a copy of his note for details of the H&P, evaluation, management and disposition of this patient. We independently had [id number] contact with the patient Briefly: 71-year-old male via EMS for shortness of breath. Initially treated for pneumonia and was hospitalized for same. Has COPD and morbid obesity. Came in hypoxic in at home he was in the low 80s he was febrile to 1.5 in the ER about 20. Lactic acid and blood cultures are pending patient will likely need to be admitted for recurrent pneumonia or persistent pneumonia. Provided 45 minutes critical care service for this patient. Disposition pending.
[2016-04-27] MEDS ORDERED: Ipratropium/Albuterol Neb 3 ML ONE (16:53)
[2016-04-27 17:13] LABS: Basophils % 0.4 %; Eosinophils # 0.1 K/mcL (0.0-0.6); Eosinophils % 1.5 %; Hemoglobin 10.8 g/dL (12.9-16.9); Immature Granulocytes % 0.6 % (0-4); Lymphocytes % 18.2 %; Mean Corpuscular HGB Conc 30.9 g/dL (31.6-35.5); Mean Corpuscular Hemoglobin 28.3 pg (28.0-33.3); Mean Corpuscular Volume 91.6 fL (83.0-100.0); Mean Platelet Volume 9.9 fL (9.4-12.4); Monocytes # 0.4 K/mcL (0.0-1.3); Monocytes % 7.4 %; Neutrophils # 3.9 K/mcL (1.6-8.9); Platelet Count 183 K/mcL (140-400); Red Blood Count 3.82 M/mcL (4.19-5.50); Red Cell Distribution Width 14.6 % (11.5-14.5); Segmented Neutrophils % 71.9 %
[2016-04-27 17:30] LABS: Potassium 5.7 mEq/L (3.5-4.5)
[2016-04-27] MEDS ORDERED: Naloxone 0.4 MG/ML INJ IVP PRN (20:41)
[2016-04-27] MEDS ORDERED: Albuterol 2.5 MG/3 ML NEBULIZER IH PRN (20:45)
[2016-04-27] MEDS ORDERED: Dextrose Gel 15 GM PO PRN ×2 (21:15)
[2016-04-27] MEDS ORDERED: *HR* Dextrose 50 % in Water (Syg) 50 ML SYRINGE IVP PRN (21:15)
[2016-04-27] MEDS ORDERED: D5% in Water 1,000 ML IV PRN (21:15)
--- NOTE | 2016-04-27 21:28 | Internal Med History&Physical ---
Date of Encounter: 04/27/16 Time of Encounter: 21:28 Assessment and Plan (1) Acute exacerbation of chronic obstructive airways disease Current visit: Yes Status: Acute 1 patient has been extensively increasing shortness of breath as well as wheezing dry nonproductive cough for past few days. We will continue with oxygen titrated to maintain SPO2 greater than 92% 2 complete 6 minute walk test in order to see if patient qualifies for home O2 3 continue with DuoNeb's 4 IV steroids with taper (2) CHF (congestive heart failure) Current visit: Yes Status: Chronic 1 mass echo revealed EF 50% with mild diastolic dysfunction. Has been off lasix Will give lasix 40 IV x1 and 20 IV bid 2 monitor intake and output daily weights 3 low sodium diet Qualifiers: Congestive heart failure type: combined Congestive heart failure chronicity : chronic Qualified Code(s): I50.42 - Chronic combined systolic (congestive) and diastolic (congestive) heart failure (3) Chronic kidney disease, stage 4 (severe) Current visit: No Status: Chronic 1 present patient's creatinine is 2.3 appears patient's baseline is between 2 and 3 GFR is 28 baseline is 26. 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 2 EKG with no peaked T waves will continue monitoring (6) DVT prophylaxis Current visit: No Status: Acute 1 Eliquis (7) Atrial fibrillation Current visit: No Status: Chronic presently rate controlled will continue with BB and eliquis Qualifiers: Atrial fibrillation type: chronic Qualified Code(s): I48.2 - Chronic atrial fibrillation Internal Medicine - H&P: HPI Chief complaint: SOB Admitted From: Emergency Dept Plans for Post Hospital Care: Home History of present illness: Mr. Vera is a 71 year old male . He 4 CHF diabetes type 2 hypertension COPD nonischemic cardiomyopathy pacemaker with defibrillator. Patient was admitted to this facility approximately a month ago for pneumonia as well as [place] I. He was given antibiotics IV fluid his condition improved he has been doing well at home however the past few days he has been experiencing increasing shortness of breath upon exertion he has no oxygen at home and has been using breathing treatments with little relief he also has had a cough which is dry and nonproductive and wheezes. He sees pulmonology and is to undergo testing for sleep apnea. He denies any fevers chills nausea vomiting diarrhea chest pain. He presented to the ER with the above complaints upon presentation patient's temperature was 101.7 oxygen saturation was 92% on room air. He was given duo nebs and placed on oxygen which did improve his SPO2. Blood cultures were obtained Lab work revealed no leukocytosis troponin was 0.02 BNP is 280 creatinine was 2.3 which appears his baseline is between 2 and 3 potassium was 5.7. Chest x-ray with no acute process. He has been admitted for further workup and evaluation. Presently patient appears to be in respiratory distress he denies any chest pain or shortness of breath at this time. Lungs upon auscultation have expiratory wheezes throughout. He denies any recent weight gain there is no edema in his lower extremities he has 94% on 2 L of oxygen. He is afebrile this time. I reviewed this case with Dr. Todd who agrees with plan Past Med Surg Social Fam HX - Past Medical History Medical history: atrial fibrillation, cardiomyopathy, CHF, COPD, CVA, diabetes, hyperlipidemia, hypertension, myocardial infarction, renal disease, TIA Psychiatric history: no psych history - Past Surgical History Surgical History: orthopedic, other - Social History Smoking Status: Former smoker Smokeless Tobacco Status: No Alcohol use: rarely Drug use: none - Family History Mother Adopted: No Family Member Ethnicity: Non- Living Status: Hx Family Cardiac Disorders: Yes Hx Family Respiratory Disorders: Yes Hx Family Cancer: Yes Hx Family GI Disorders: No Hx Family Endocrine Disorder: Yes Hx Family Neuromuscular Disorders: No Hx Family Neurologic Disorders: No Hx Family HEENT Disorders: No Hx Family Autoimmune Disorders: No Internal Medicine - H&P: Meds Insulin Glargine,Hum.rec.anlog [Lantus Solostar] 42 unit SQ HS 05/09/15 [History ] Pregabalin [Lyrica] 200 mg PO BID 05/09/15 [History] Simvastatin [Zocor] 40 mg PO DAILY 05/09/15 [History] Temazepam [Restoril] 30 mg PO HS 05/09/15 [History] Apixaban [Eliquis] 2.5 mg PO BID 12/31/15 [History] Carvedilol [Coreg] 25 mg PO BID 12/31/15 [History] Promethazine [Phenergan] 25 mg PO HS 12/31/15 [History] Artificial Tears SOLN [Akwa Tears] 1 drop BOTH EYES QID bottle 01/07/16 [Rx] HydrALAZINE 75 mg PO TID #270 tablet 01/07/16 [Rx] Tamsulosin [Flomax] 0.4 mg PO DAILY #30 capsule 01/07/16 [Rx] Acetaminophen [Tylenol] 650 mg PO HS 03/26/16 [History] Cholecalciferol (D-3) [Vitamin D] 1,000 unit PO DAILY 03/26/16 [History] Cyanocobalamin (Vitamin B-12) [Vitamin B12] 5,000 mcg PO DAILY 03/26/16 [History ] Amlodipine [Norvasc] 10 mg PO DAILY #30 tablet 04/05/16 [Rx] Docusate [Colace] 200 mg PO DAILY #60 capsule 04/05/16 [Rx] GuaiFENesin/Codeine [ROBITUSSIN w/CODEINE] 10 ml PO Q6HR PRN 10 Days 04/05/16 [ Rx] Tiotropium [Spiriva] 18 mcg IH DAILYR #60 inh 04/05/16 [Rx] Albuterol Sulfate [Proventil Hfa] 1 - 2 puff IH Q6H PRN 04/27/16 [History] Budesonide/Formoterol 160/4.5 [Symbicort 160/4.5] 2 puff IH BIDR 04/27/16 [ History] Ipratropium/Albuterol Neb [Duoneb] 3 ml IH QID PRN 03/09/17 [History] Allergies aspirin Allergy (Verified 03/26/16 14:56) Hives diphenhydramine [From Benadryl] Allergy (Verified 03/26/16 12:08) Swelling of Lip/Tongue/Throat Tetracyclines Allergy (Verified 03/26/16 14:56) Hives All Systems PM: A 10-system review of systems was performed and is negative for pertinent findings except as documented above in the HPI. - Constitutional Constitutional: fatigue - EENT Eyes: no change in vision, no discharge, no pain, no photophobia Nose, mouth and throat: no dysphagia, no nasal discharge, no neck pain, no sore throat - Cardiovascular Cardiovascular ROS IM: dyspnea on exertion - Respiratory Respiratory: cough, dyspnea on exertion - Gastrointestinal Gastrointestinal: no abdominal pain, no diarrhea, no hematemesis, no hematochezia, no melena, no nausea, no vomiting - Musculoskeletal Musculoskeletal ROS IM: no numbness, no tingling - Integumentary Integumentary IM: no rash, no unusual bruising - Neurological Neurological ROS: no confusion, no convulsions, no focal weakness, no numbness, no tingling, no tremor(s) - Hematologic/Lymphatic Hematologic/Lymphatic: no easy bruising - Constitutional Vitals: Temp Pulse Resp BP Pulse Ox 99.4 F 79 19 132/71 93 L 04/27/16 20:34 04/27/16 20:34 04/27/16 20:34 04/27/16 20:34 04/27/16 20:34 General appearance: Present: A&O X 3, morbidly obese, answers questions appropriately - Head Head exam: Present: atraumatic, normocephalic - Eye Eye exam: Present: PERRL, conjuntiva pink, sclera anicteric Pupils: Present: PERRL - Neck Neck exam general surgery: Present: supple, trachea midline. Absent: lymphadenopathy - Respiratory Respiratory exam: Present: wheezes. Absent: accessory muscle use, rhonchi - Cardiovascular Cardiovascular exam: Present: RRR, +S1, +S2. Absent: diastolic murmur, gallop, rubs, systolic murmur - GI/Abdominal GI/Abdominal exam: Present: normal bowel sounds, soft, no peritoneal signs. Absent: distended, tenderness - Extremities Exam Extremities exam: Present: warm, radial pulses palpable and symetrical. Absent : calf tenderness, cyanotic, pedal edema - Neurological Exam Neurological exam: Present: CN II-XII intact, oriented X3, no focal deficits. Absent: pronater drift, facial droop, speech deficit - Skin Skin exam: Present: dry, intact Internal Med - H&P Results - Labs CBC & Chem 7: 04/27/16 17:06 04/27/16 17:06 - Diagnostic Studies Chest x-ray Additional comments: Chest X-Ray 04/27/16 16:34 IMPRESSION: No acute cardiopulmonary disease. Left shoulder deformity with bone demineralization, incompletely visualized. D/ / Prashant Morrow MD / Prashant Morrow MD Interpreting Provider: Prashant Morrow MD
[2016-04-27] MEDS ORDERED: Calcium Gluconate 1,000 MG in D5% in Water 100 ML IVPB ONE (22:14)
[2016-04-27] MEDS ORDERED: Furosemide 40 MG/4 ML VIAL IVP ONE (22:19)
[2016-04-27] MEDS ORDERED: Ipratropium/Albuterol Neb 3 ML IH SCH (23:00)
[2016-04-27] MEDS: APIXABAN 5 MG TABLET PO SCH (23:00)
[2016-04-27] MEDS: Pregabalin 50 MG CAPSULE PO SCH (23:01)
[2016-04-27] MEDS: hydrALAZINE 25 MG TABLET PO SCH (23:01)
[2016-04-27] MEDS: Budesonide/Formoterol 160/4.5 MDI IH SCH (23:46)
[2016-04-27] MEDS: Ipratropium/Albuterol Neb 3 ML IH SCH (23:46)
[2016-04-27] MEDS: Artificial Tears SOLN 15 ML BOTTLE BOTH EYES SCH (23:58)
[2016-04-27] MEDS: methylPREDNISolone 125 MG/2 ML VIAL IM SCH (23:58)
[2016-04-27] MEDS: *HR* HYDROcodone/Acet 5/325 mg TABLET PO PRN (23:59)
[2016-04-28 01:07] LABS: Basophils % 0.2 %; Hematocrit 31.5 % (37.5-50.1); Hemoglobin 9.8 g/dL (12.9-16.9); Immature Granulocytes % 0.9 % (0-4); Lymphocytes # 0.5 K/mcL (0.6-4.6); Lymphocytes % 9.3 %; Mean Corpuscular HGB Conc 31.1 g/dL (31.6-35.5); Mean Platelet Volume 9.9 fL (9.4-12.4); Monocytes # 0.1 K/mcL (0.0-1.3); Monocytes % 1.5 %; Neutrophils # 4.9 K/mcL (1.6-8.9); Platelet Count 173 K/mcL (140-400); Red Cell Distribution Width 14.5 % (11.5-14.5); Segmented Neutrophils % 88.1 %
[2016-04-28 01:21] LABS: Calcium 8.9 mg/dL (8.6-10.8); Magnesium 1.8 mg/dL (1.6-2.6)
--- NOTE | 2016-04-28 04:08 | Event Note ---
Date of Encounter: 04/28/16 Time of Encounter: 04:07 Patients examined with nurse practitioner. Patient presents with acute COPD exacerbation due to acute bronchitis. I also suspect that the patient is having a mild element of diastolic congestive heart failure. Patient will be started on IV steroids [id number] nebulizer treatment antibiotics and IV Lasix. Patient had a temperature of 101.7 on arrival to the hospital therefore I will keep him on Levaquin for acute bronchitis. X-ray shows no evidence of pneumonia. Patient was hypoxic on arrival to the hospital saturating 83%. Patient is on oxygen home. Patient will require 6 minute walk test on hospital discharge to evaluate for need for home O2.
[2016-04-28] MEDS: Ipratropium/Albuterol Neb 3 ML IH SCH ×6 (04:57→23:13)
[2016-04-28] MEDS: methylPREDNISolone 125 MG/2 ML VIAL IM SCH (05:26)
[2016-04-28] MEDS: Levofloxacin 750 MG/150 ML 750 MG/150 ML BAG IVPB SCH (05:27)
[2016-04-28] MEDS: Budesonide/Formoterol 160/4.5 MDI IH SCH ×2 (07:55→20:00)
[2016-04-28] MEDS ORDERED: Furosemide 20 MG/2 ML VIAL IVP SCH (08:00)
[2016-04-28] MEDS: Cyanocobalamin (B-12) 1,000 MCG TABLET PO SCH (08:05)
[2016-04-28] MEDS: Cholecalciferol (D-3) 1,000 UNIT TABLET PO SCH (08:05)
[2016-04-28] MEDS: Pregabalin 50 MG CAPSULE PO SCH ×2 (08:05→20:56)
[2016-04-28] MEDS: Furosemide 20 MG/2 ML VIAL IVP SCH (08:05)
[2016-04-28] MEDS: hydrALAZINE 25 MG TABLET PO SCH ×3 (08:06→20:56)
[2016-04-28] MEDS: APIXABAN 5 MG TABLET PO SCH ×2 (08:07→20:57)
[2016-04-28] MEDS: Artificial Tears SOLN 15 ML BOTTLE BOTH EYES SCH ×4 (08:08→21:01)
[2016-04-28] MEDS: Insulin LISPRO 300 UNITS/3 ML VIAL SQ SCH ×5 (08:08→20:58)
[2016-04-28] MEDS ORDERED: Tiotropium 18 MCG inhalation IH SCH (10:00)
--- NOTE | 2016-04-28 12:51 | Internal Med Progress Note ---
<Brandon Alford - Last Filed: 04/28/16 12:48> Date of Encounter: 04/28/16 Time of Encounter: 12:48 - Assessment and plan (1) Acute exacerbation of chronic obstructive airways disease Current Visit: Yes Status: Acute Assessment and plan: 71-year-old male with a history of CHF, diabetes mellitus 2, hypertension, COPD , nonischemic cardiomyopathy presented with worsening shortness of breath and unproductive cough. One month ago patient was admitted to the hospital due to pneumonia. Chest x-ray upon admission was normal and showed interval improvement from previous admission. Possibly secondary to acute bronchitis. Blood cultures pending. Lung exam was clear to auscultation bilaterally He required 2 L oxygen initially. Plan on weaning off oxygen. We will continue Levaquin, DuoNeb, prednisone. continue Symbicort. Cardiac diet. (2) CKD stage 4 due to type 2 diabetes mellitus Current Visit: Yes Status: Chronic Assessment and plan: Patient has history of chronic kidney disease stage IV Serum creatinine upon admission was 2.31 which is increased to 2.7 for most likely secondary to Lasix. On exam patient appears dry. We will withhold Lasix. BMP tomorrow morning. (3) Acute hyperkalemia Current Visit: Yes Status: Acute Assessment and plan: Patient presented with potassium was 5.7. This is most likely secondary to chronic kidney disease. He was treated with albuterol nebulizer, sodium bicarbonate, calcium gluconate, Kayexalate without improvement. We will give him another 30 g of Kayexalate and repeat potassium in the afternoon. EKG within normal limits. (4) CHF (congestive heart failure) Current Visit: Yes Status: Chronic Assessment and plan: Patient has mild diastolic congestive heart failure. Last echo was completed in March with a ejection fraction of 50% with normal valvular function and normal wall motion. Currently holding Lasix because patient appears dry and has worsening of kidney function. BNP was 280 which appears to be patient's baseline. Chest x-ray was negative for pulmonary edema and cardiomegaly. Qualifiers: Congestive heart failure type: combined Congestive heart failure chronicity : chronic Qualified Code(s): I50.42 - Chronic combined systolic (congestive) and diastolic (congestive) heart failure (5) Atrial fibrillation Current Visit: Yes Status: Chronic Assessment and plan: Controlled. Patient appears to be in regular rate and rhythm. He is anticoagulated with Eliquis. Rate controlled with carvedilol. Qualifiers: Atrial fibrillation type: chronic Qualified Code(s): I48.2 - Chronic atrial fibrillation (6) Diabetes mellitus Current Visit: No Status: Chronic Assessment and plan: Patient's last hemoglobin A1c was 8.5. Currently his glucose is elevated at 300 most likely secondary to prednisone use. He will receive 34 units of Levemir at night and 10 units of Humalog preprandial. Continue diabetic diet. 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 Patient continues to complain of shortness of breath and nonproductive cough. He denies chest pain, palpitations, abdominal pain, dysuria, nausea. - Constitutional Vitals: Temp Pulse Resp BP Pulse Ox 98.2 F 81 18 131/75 97 04/28/16 11:04 04/28/16 11:04 04/28/16 11:24 04/28/16 11:04 04/28/16 11:24 General appearance: Present: A&O X 3, morbidly obese, answers questions appropriately - Respiratory Respiratory exam: Present: CTAB. Absent: accessory muscle use, rales, rhonchi, wheezes - Cardiovascular Cardiovascular exam: Present: RRR, +S1, +S2. Absent: diastolic murmur, gallop, rubs, systolic murmur - GI/Abdominal GI/Abdominal exam: Present: normal bowel sounds, soft, no peritoneal signs. Absent: distended, tenderness - Extremities Exam Extremities exam: Present: warm, radial pulses palpable and symetrical. Absent : calf tenderness, cyanotic, pedal edema Internal Medicine: Result - Labs CBC & Chem 7: 04/28/16 00:44 04/28/16 00:44 Labs: Short CBC 04/28/16 Range/Units 00:44 WBC 5.5 (4.3-11.1) K/mcL Hgb 9.8 L (12.9-16.9) g/dL Hct 31.5 L (37.5-50.1) % Plt Count 173 (140-400) K/mcL Neutrophils # 4.9 (1.6-8.9) K/mcL [facility] 04/28/16 00:44 Sodium 136 Potassium 6.0 H Chloride 105 Carbon Dioxide 22 BUN 36 H Creatinine 2.74 H Glucose 342 H Calcium 8.9 Consult Discharge Plan - Plan Referrals: NO,PCP [Primary Care Provider] - <Thomas Washington T - Last Filed: 04/28/16 13:46> - Constitutional Vitals: Temp Pulse Resp BP Pulse Ox 98.2 F 81 18 131/75 97 04/28/16 11:04 04/28/16 11:04 04/28/16 11:24 04/28/16 11:04 04/28/16 11:24 Internal Medicine: Result - Labs CBC & Chem 7: 04/28/16 00:44 04/28/16 00:44 Labs: Short CBC 04/28/16 Range/Units 00:44 WBC 5.5 (4.3-11.1) K/mcL Hgb 9.8 L (12.9-16.9) g/dL Hct 31.5 L (37.5-50.1) % Plt Count 173 (140-400) K/mcL Neutrophils # 4.9 (1.6-8.9) K/mcL [facility] 04/28/16 00:44 Sodium 136 Potassium 6.0 H Chloride 105 Carbon Dioxide 22 BUN 36 H Creatinine 2.74 H Glucose 342 H Calcium 8.9 - Attending Attestation I examined this patient and my medical decision-making was reviewed with the HEALTH CARE SPECIALIST/PA/Advanced Practice Nurse/Resident Physician. I agree with the documented findings, disposition and treatment plan as described except to the extent set forth below. 71 Y/O M with PMH of CHFpEF, HTN, COPD, Non-ischemic CMP s/p PCM, Suspected MIAC Patient is admitted and being managed for acute hypoxic respiratory failure secondary to COPD exacerbation possibly due to bronchitis. He is seen at bedside, lying flat in bed, denies new complains. Chest is clear to auscultation bilaterally, no JVD, no pedal edema. HS S1, S2. RRR. No g/m/r Labs and Imaging reviewed-No leukocytosis, HB, CR at baseline, slightly worse after IV Lasix this a.m, hyperkalemia, CXR is clear. ECHO from 03/27 showed LVEF 50%, mild LVDD, no pulm HTN Continue Levaquin, switch solumedrol to prednisone, continue O2 supplementation , continue Levaquin, give kayexalate, repeat potassium later today and monitor, hold Lasix, patient is not in fluid overload, no pulm edema on CXR, no crackles. Rest of details as in residents documentation
--- NOTE | 2016-04-28 17:57 | Electrocardiograph Report ---
[place] [id number] Test Date: 2016-04-27 Pat Name: Mic Buckley Department: 103 Room: 2A22 Gender: M Manager Electronic: : 1945 Requested By: Rufino Gooden Order Number: [id number] Reading MD: Anastasia Steinberg Measurements Intervals [place] Rate: 81 P: [place]: 0 QRS: -63 QRSD: 109 T: 96 QT: 362 QTc: 399 Interpretive Statements ELECTRONIC VENTRICULAR PACEMAKER ABNORMAL RHYTHM ECG Electronically Signed On 04-28-2016 17:55:12 EST by Anastasia Steinberg
[2016-04-28] MEDS: Insulin DETEMIR 100 UNIT/ML X5UNITS SQ SCH (20:58)
[2016-04-28] MEDS ORDERED: Insulin DETEMIR 100 UNIT/ML X5UNITS SQ SCH ×2 (21:00)
[2016-04-29] MEDS: Ipratropium/Albuterol Neb 3 ML IH SCH ×6 (04:46→23:17)
[2016-04-29 06:50] LABS: Calcium 8.4 mg/dL (8.6-10.8); Potassium 4.5 mEq/L (3.5-4.5)
[2016-04-29 07:10] LABS: Hematocrit 32.4 % (37.5-50.1); Hemoglobin 10.2 g/dL (12.9-16.9); Immature Granulocytes % 0.9 % (0-4); Lymphocytes # 0.9 K/mcL (0.6-4.6); Lymphocytes % 13.5 %; Mean Corpuscular HGB Conc 31.5 g/dL (31.6-35.5); Mean Corpuscular Hemoglobin 27.9 pg (28.0-33.3); Mean Corpuscular Volume 88.8 fL (83.0-100.0); Monocytes # 0.6 K/mcL (0.0-1.3); Monocytes % 8.2 %; Neutrophils # 5.2 K/mcL (1.6-8.9); Platelet Count 189 K/mcL (140-400); Red Blood Count 3.65 M/mcL (4.19-5.50); Red Cell Distribution Width 14.5 % (11.5-14.5); Segmented Neutrophils % 77.4 %
[2016-04-29] MEDS: Budesonide/Formoterol 160/4.5 MDI IH SCH ×2 (07:54→19:44)
[2016-04-29] MEDS: Cyanocobalamin (B-12) 1,000 MCG TABLET PO SCH (07:55)
[2016-04-29] MEDS: hydrALAZINE 25 MG TABLET PO SCH ×3 (07:55→22:17)
[2016-04-29] MEDS: predniSONE 20 MG TABLET PO SCH (07:56)
[2016-04-29] MEDS: Furosemide 20 MG/2 ML VIAL IVP SCH (07:56)
[2016-04-29] MEDS: Cholecalciferol (D-3) 1,000 UNIT TABLET PO SCH (07:56)
[2016-04-29] MEDS: Pregabalin 50 MG CAPSULE PO SCH ×2 (07:56→22:16)
[2016-04-29] MEDS: APIXABAN 5 MG TABLET PO SCH ×2 (07:56→22:17)
[2016-04-29] MEDS: Artificial Tears SOLN 15 ML BOTTLE BOTH EYES SCH ×4 (07:57→22:18)
[2016-04-29] MEDS: Insulin LISPRO 300 UNITS/3 ML VIAL SQ SCH ×7 (07:57→22:21)
--- NOTE | 2016-04-29 16:57 | Internal Med Progress Note ---
Date of Encounter: 04/29/16 Time of Encounter: 16:56 - Assessment and plan (1) Acute exacerbation of chronic obstructive airways disease Current Visit: Yes Status: Acute Assessment and plan: 71-year-old male with a history of CHF, diabetes mellitus 2, hypertension, COPD , nonischemic cardiomyopathy presented with worsening shortness of breath and unproductive cough. One month ago patient was admitted to the hospital due to pneumonia. Chest x-ray upon admission was normal and showed interval improvement from previous admission. Possibly secondary to acute bronchitis. Blood cultures pending. Lung exam was clear to auscultation bilaterally He required 2 L oxygen initially. Plan on weaning off oxygen. We will continue Levaquin, DuoNeb, prednisone. continue Symbicort. Cardiac diet. 04/29/2016 Day 2 antibiotics/Steroids/BDAs doing better occasional cough and SOB plan will continue same. close observation labs in AM (2) CKD stage 4 due to type 2 diabetes mellitus Current Visit: Yes Status: Chronic Assessment and plan: Patient has history of chronic kidney disease stage IV Serum creatinine upon admission was 2.31 which is increased to 2.7 for most likely secondary to Lasix. On exam patient appears dry. We will withhold Lasix. BMP tomorrow morning. 04/29/2016 Improving creat will continue to monitor. (3) CHF (congestive heart failure) Current Visit: Yes Status: Chronic Assessment and plan: Patient has mild diastolic congestive heart failure. Last echo was completed in March with a ejection fraction of 50% with normal valvular function and normal wall motion. Currently holding Lasix because patient appears dry and has worsening of kidney function. BNP was 280 which appears to be patient's baseline. Chest x-ray was negative for pulmonary edema and cardiomegaly. Qualifiers: Congestive heart failure type: combined Congestive heart failure chronicity : chronic Qualified Code(s): I50.42 - Chronic combined systolic (congestive) and diastolic (congestive) heart failure (4) Atrial fibrillation Current Visit: Yes Status: Chronic Assessment and plan: Controlled. Patient appears to be in regular rate and rhythm. He is anticoagulated with Eliquis. Rate controlled with carvedilol. Qualifiers: Atrial fibrillation type: chronic Qualified Code(s): I48.2 - Chronic atrial fibrillation (5) DVT prophylaxis Current Visit: Yes Status: Acute Assessment and plan: Continue Eliquis - Subjective Interval history: seen and examined has occasional cough and SOB feeling much better than yesterday - Constitutional Vitals: Temp Pulse Resp BP Pulse Ox 97.9 F 78 14 138/65 95 04/29/16 15:33 04/29/16 15:33 04/29/16 15:33 04/29/16 15:33 04/29/16 15:33 General appearance: Present: A&O X 3, morbidly obese, answers questions appropriately - Head Head exam: Present: atraumatic, normocephalic - Eye Eye exam: Present: PERRL, conjuntiva pink, sclera anicteric Pupils: Present: PERRL - Neck Neck exam general surgery: Present: supple, trachea midline. Absent: lymphadenopathy - Respiratory Respiratory exam: Present: CTAB. Absent: accessory muscle use, rales, rhonchi, wheezes - Cardiovascular Cardiovascular exam: Present: RRR, +S1, +S2. Absent: diastolic murmur, gallop, rubs, systolic murmur - GI/Abdominal GI/Abdominal exam: Present: normal bowel sounds, soft, no peritoneal signs. Absent: distended, tenderness - Extremities Exam Extremities exam: Present: warm, radial pulses palpable and symetrical. Absent : calf tenderness, cyanotic, pedal edema - Neurological Exam Neurological exam: Present: CN II-XII intact, oriented X3, no focal deficits. Absent: pronater drift, facial droop, speech deficit - Skin Skin exam: Present: dry, intact Internal Medicine: Result - Labs CBC & Chem 7: 04/29/16 05:51 04/29/16 05:51 Labs: Short CBC 04/29/16 Range/Units 05:51 WBC 6.7 (4.3-11.1) K/mcL Hgb 10.2 L (12.9-16.9) g/dL Hct 32.4 L (37.5-50.1) % Plt Count 189 (140-400) K/mcL Neutrophils # 5.2 (1.6-8.9) K/mcL BMP 04/29/16 05:51 Sodium 140 Potassium 4.5 Chloride 105 Carbon Dioxide 23 BUN 50 H D Creatinine 2.68 H Glucose 213 H Calcium 8.4 L - VTE Documentation of Mechanical Device: Graduated compression elastic hosiery Consult Discharge Plan - Plan Referrals: NO,PCP [Primary Care Provider] -
[2016-04-29] MEDS: Insulin DETEMIR 100 UNIT/ML X5UNITS SQ SCH (22:19)
[2016-04-30] MEDS: Ipratropium/Albuterol Neb 3 ML IH SCH ×6 (04:21→23:50)
[2016-04-30] MEDS: Levofloxacin 750 MG/150 ML 750 MG/150 ML BAG IVPB SCH (05:14)
[2016-04-30 07:08] LABS: Hematocrit 29.3 % (37.5-50.1); Hemoglobin 9.4 g/dL (12.9-16.9); Immature Granulocytes % 0.7 % (0-4); Lymphocytes # 1.1 K/mcL (0.6-4.6); Lymphocytes % 18.4 %; Mean Corpuscular HGB Conc 32.1 g/dL (31.6-35.5); Mean Corpuscular Hemoglobin 28.8 pg (28.0-33.3); Mean Corpuscular Volume 89.9 fL (83.0-100.0); Mean Platelet Volume 9.9 fL (9.4-12.4); Monocytes # 0.5 K/mcL (0.0-1.3); Monocytes % 8.4 %; Neutrophils # 4.3 K/mcL (1.6-8.9); Platelet Count 179 K/mcL (140-400); Red Blood Count 3.26 M/mcL (4.19-5.50); Red Cell Distribution Width 14.6 % (11.5-14.5); Segmented Neutrophils % 72.5 %
[2016-04-30 07:14] LABS: Albumin 2.5 g/dL (3.5-5.0); Albumin/Globulin Ratio 0.7 (1.1-2.2); Bilirubin,Total 0.4 mg/dL (0.2-1.2); Calcium 8.1 mg/dL (8.6-10.8); Globulin 3.6 g/dL (2.4-3.5); Potassium 3.9 mEq/L (3.5-4.5); Total Protein 6.1 g/dL (6.0-8.3)
[2016-04-30] MEDS: Cyanocobalamin (B-12) 1,000 MCG TABLET PO SCH (08:32)
[2016-04-30] MEDS: Cholecalciferol (D-3) 1,000 UNIT TABLET PO SCH (08:32)
[2016-04-30] MEDS: APIXABAN 5 MG TABLET PO SCH ×2 (08:32→22:54)
[2016-04-30] MEDS: predniSONE 20 MG TABLET PO SCH (08:33)
[2016-04-30] MEDS: Pregabalin 50 MG CAPSULE PO SCH ×2 (08:33→23:05)
[2016-04-30] MEDS: hydrALAZINE 25 MG TABLET PO SCH ×3 (08:33→22:58)
[2016-04-30] MEDS: Furosemide 20 MG/2 ML VIAL IVP SCH (08:34)
[2016-04-30] MEDS: Insulin LISPRO 300 UNITS/3 ML VIAL SQ SCH ×7 (08:34→23:01)
[2016-04-30] MEDS: Budesonide/Formoterol 160/4.5 MDI IH SCH ×2 (09:24→19:44)
[2016-04-30] MEDS: Artificial Tears SOLN 15 ML BOTTLE BOTH EYES SCH ×4 (10:03→23:09)
--- NOTE | 2016-04-30 13:46 | Internal Med Progress Note ---
Date of Encounter: 04/30/16 Time of Encounter: 13:43 - Assessment and plan (1) Acute exacerbation of chronic obstructive airways disease Current Visit: Yes Status: Acute Assessment and plan: 71-year-old male with a history of CHF, diabetes mellitus 2, hypertension, COPD , nonischemic cardiomyopathy presented with worsening shortness of breath and unproductive cough. One month ago patient was admitted to the hospital due to pneumonia. Chest x-ray upon admission was normal and showed interval improvement from previous admission. Possibly secondary to acute bronchitis. Blood cultures pending. Lung exam was clear to auscultation bilaterally He required 2 L oxygen initially. Plan on weaning off oxygen. We will continue Levaquin, DuoNeb, prednisone. continue Symbicort. Cardiac diet. 04/29/2016 Day 2 antibiotics/Steroids/BDAs doing better occasional cough and SOB plan will continue same. close observation labs in AM 04/30/2016 Day 3 Abx/Steroids/BDAs doing well creat down landin trend blood sugar is in acceptable limits (2) CKD stage 4 due to type 2 diabetes mellitus Current Visit: Yes Status: Chronic Assessment and plan: Patient has history of chronic kidney disease stage IV Serum creatinine upon admission was 2.31 which is increased to 2.7 for most likely secondary to Lasix. On exam patient appears dry. We will withhold Lasix. BMP tomorrow morning. 04/29/2016 Improving creat will continue to monitor. 04/30/2016 creat is getting better. (3) CHF (congestive heart failure) Current Visit: Yes Status: Chronic Assessment and plan: Patient has mild diastolic congestive heart failure. Last echo was completed in March with a ejection fraction of 50% with normal valvular function and normal wall motion. Currently holding Lasix because patient appears dry and has worsening of kidney function. BNP was 280 which appears to be patient's baseline. Chest x-ray was negative for pulmonary edema and cardiomegaly. Qualifiers: Congestive heart failure type: combined Congestive heart failure chronicity : chronic Qualified Code(s): I50.42 - Chronic combined systolic (congestive) and diastolic (congestive) heart failure (4) Atrial fibrillation Current Visit: Yes Status: Chronic Assessment and plan: Controlled. Patient appears to be in regular rate and rhythm. He is anticoagulated with Eliquis. Rate controlled with carvedilol. Qualifiers: Atrial fibrillation type: chronic Qualified Code(s): I48.2 - Chronic atrial fibrillation (5) DVT prophylaxis Current Visit: Yes Status: Acute Assessment and plan: Continue Eliquis - Subjective Interval history: seen and examined has occasional cough and SOB feeling much better than yesterday 04/30/2016 no new complaints has occasional cough and keen to have codine base cough syrup slept well and denies any SOB - Constitutional Vitals: Temp Pulse Resp BP Pulse Ox 97.6 F 71 16 135/70 97 04/30/16 11:24 04/30/16 11:24 04/30/16 11:24 04/30/16 11:24 04/30/16 11:24 General appearance: Present: A&O X 3, morbidly obese, answers questions appropriately - Head Head exam: Present: atraumatic, normocephalic - Eye Eye exam: Present: PERRL, conjuntiva pink, sclera anicteric Pupils: Present: PERRL - Neck Neck exam general surgery: Present: supple, trachea midline. Absent: lymphadenopathy - Respiratory Respiratory exam: Present: CTAB. Absent: accessory muscle use, rales, rhonchi, wheezes - Cardiovascular Cardiovascular exam: Present: RRR, +S1, +S2. Absent: diastolic murmur, gallop, rubs, systolic murmur - GI/Abdominal GI/Abdominal exam: Present: normal bowel sounds, soft, no peritoneal signs. Absent: distended, tenderness - Extremities Exam Extremities exam: Present: warm, radial pulses palpable and symetrical. Absent : calf tenderness, cyanotic, pedal edema - Neurological Exam Neurological exam: Present: CN II-XII intact, oriented X3, no focal deficits. Absent: pronater drift, facial droop, speech deficit - Skin Skin exam: Present: dry, intact Internal Medicine: Result - Labs CBC & Chem 7: 04/30/16 06:45 04/30/16 06:45 Labs: Short CBC 04/30/16 Range/Units 06:45 WBC 5.9 (4.3-11.1) K/mcL Hgb 9.4 L (12.9-16.9) g/dL Hct 29.3 L (37.5-50.1) % Plt Count 179 (140-400) K/mcL Neutrophils # 4.3 (1.6-8.9) K/mcL BMP 04/30/16 06:45 Sodium 139 Potassium 3.9 Chloride 104 Carbon Dioxide 26 BUN 55 H Creatinine 2.46 H Glucose 172 H Calcium 8.1 L Liver Function 04/30/16 Range/Units 06:45 Total Bilirubin 0.4 (0.2-1.2) mg/dL AST 35 H (5-34) Units/L ALT 14 (0-55) Units/L Alkaline Phosphatase 61 (38-126) Units/L Albumin 2.5 L (3.5-5.0) g/dL - VTE Documentation of Mechanical Device: Graduated compression elastic hosiery Consult Discharge Plan - Plan Referrals: NO,PCP [Primary Care Provider] -
[2016-04-30] MEDS: GuaiFENesin/Codeine Oral Soln 5 ML UDC PO PRN (22:58)
[2016-04-30] MEDS: *HR* HYDROcodone/Acet 5/325 mg TABLET PO PRN (23:06)
[2016-04-30] MEDS: Insulin DETEMIR 100 UNIT/ML X5UNITS SQ SCH (23:07)
[2016-05-01] MEDS: Ipratropium/Albuterol Neb 3 ML IH SCH ×6 (03:56→23:53)
[2016-05-01 05:54] LABS: Basophils % 0.2 %; Hematocrit 30.2 % (37.5-50.1); Immature Granulocytes % 1.8 % (0-4); Immature Platelets 3.1 % (1.1-6.1); Lymphocytes # 1.2 K/mcL (0.6-4.6); Lymphocytes % 21.2 %; Mean Corpuscular HGB Conc 33.1 g/dL (31.6-35.5); Mean Corpuscular Hemoglobin 29.2 pg (28.0-33.3); Mean Platelet Volume 9.8 fL (9.4-12.4); Monocytes # 0.5 K/mcL (0.0-1.3); Monocytes % 8.3 %; Neutrophils # 3.9 K/mcL (1.6-8.9); Platelet Count 190 K/mcL (140-400); Red Blood Count 3.43 M/mcL (4.19-5.50); Red Cell Distribution Width 14.1 % (11.5-14.5); Segmented Neutrophils % 68.5 %
[2016-05-01 06:06] LABS: Albumin 2.6 g/dL (3.5-5.0); Albumin/Globulin Ratio 0.7 (1.1-2.2); Bilirubin,Total 0.4 mg/dL (0.2-1.2); Calcium 8.2 mg/dL (8.6-10.8); Globulin 3.8 g/dL (2.4-3.5); Potassium 3.9 mEq/L (3.5-4.5); Total Protein 6.4 g/dL (6.0-8.3)
[2016-05-01] MEDS: Budesonide/Formoterol 160/4.5 MDI IH SCH ×2 (07:49→19:54)
[2016-05-01] MEDS: Insulin LISPRO 300 UNITS/3 ML VIAL SQ SCH ×7 (08:15→22:29)
[2016-05-01] MEDS: Cyanocobalamin (B-12) 1,000 MCG TABLET PO SCH (08:48)
[2016-05-01] MEDS: Cholecalciferol (D-3) 1,000 UNIT TABLET PO SCH (08:48)
[2016-05-01] MEDS: predniSONE 20 MG TABLET PO SCH (08:48)
[2016-05-01] MEDS: APIXABAN 5 MG TABLET PO SCH ×2 (08:48→22:27)
[2016-05-01] MEDS: hydrALAZINE 25 MG TABLET PO SCH ×3 (08:49→22:27)
[2016-05-01] MEDS: Pregabalin 50 MG CAPSULE PO SCH ×2 (08:49→22:27)
[2016-05-01] MEDS: GuaiFENesin/Codeine Oral Soln 5 ML UDC PO PRN ×2 (08:55→22:39)
[2016-05-01] MEDS: Artificial Tears SOLN 15 ML BOTTLE BOTH EYES SCH ×3 (10:53→16:48)
[2016-05-01] MEDS: Furosemide 20 MG/2 ML VIAL IVP SCH (11:08)
[2016-05-01] MEDS ORDERED: Sennosides 8.6 MG TABLET PO PRN (11:30)
[2016-05-01] MEDS ORDERED: Sennosides 8.6 MG TABLET PO ONE (11:31)
--- NOTE | 2016-05-01 13:56 | Internal Med Progress Note ---
Date of Encounter: 05/01/16 Time of Encounter: 13:52 - Assessment and plan (1) Acute exacerbation of chronic obstructive airways disease Current Visit: Yes Status: Acute Assessment and plan: 71-year-old male with a history of CHF, diabetes mellitus 2, hypertension, COPD , nonischemic cardiomyopathy presented with worsening shortness of breath and unproductive cough. One month ago patient was admitted to the hospital due to pneumonia. Chest x-ray upon admission was normal and showed interval improvement from previous admission. Possibly secondary to acute bronchitis. Blood cultures pending. Lung exam was clear to auscultation bilaterally He required 2 L oxygen initially. Plan on weaning off oxygen. We will continue Levaquin, DuoNeb, prednisone. continue Symbicort. Cardiac diet. 04/29/2016 Day 2 antibiotics/Steroids/BDAs doing better occasional cough and SOB plan will continue same. close observation labs in AM 04/30/2016 Day 3 Abx/Steroids/BDAs doing well creat down landin trend blood sugar is in acceptable limits 05/01/2016 Day 4 Abx (Levaquin), Steroids ( Pred 40 mg ) BDAs still has occasional cough has CKD IV creat base line around 2 will give gentle hydration and will have labs tomorrow (2) CKD stage 4 due to type 2 diabetes mellitus Current Visit: Yes Status: Chronic Assessment and plan: Patient has history of chronic kidney disease stage IV Serum creatinine upon admission was 2.31 which is increased to 2.7 for most likely secondary to Lasix. On exam patient appears dry. We will withhold Lasix. BMP tomorrow morning. 04/29/2016 Improving creat will continue to monitor. 04/30/2016 creat is getting better. 05/01/2016 has CKD IV creat base line around 2 now 2.55 will give gentle hydration and will have labs tomorrow (3) CHF (congestive heart failure) Current Visit: Yes Status: Chronic Assessment and plan: Patient has mild diastolic congestive heart failure. Last echo was completed in March with a ejection fraction of 50% with normal valvular function and normal wall motion. Currently holding Lasix because patient appears dry and has worsening of kidney function. BNP was 280 which appears to be patient's baseline. Chest x-ray was negative for pulmonary edema and cardiomegaly. Qualifiers: Congestive heart failure type: combined Congestive heart failure chronicity : chronic Qualified Code(s): I50.42 - Chronic combined systolic (congestive) and diastolic (congestive) heart failure (4) Atrial fibrillation Current Visit: Yes Status: Chronic Assessment and plan: Controlled. Patient appears to be in regular rate and rhythm. He is anticoagulated with Eliquis. Rate controlled with carvedilol. Qualifiers: Atrial fibrillation type: chronic Qualified Code(s): I48.2 - Chronic atrial fibrillation (5) DVT prophylaxis Current Visit: Yes Status: Acute Assessment and plan: Continue Eliquis - Subjective Interval history: seen and examined has occasional cough and SOB feeling much better than yesterday 04/30/2016 no new complaints has occasional cough and keen to have codine base cough syrup slept well and denies any SOB 05/01/2016 has occasional cough but claims that he improved a lot as compare to yesterday denies constipation/Diarrhea no headaches or chest pain - Constitutional Vitals: Temp Pulse Resp BP Pulse Ox 97.7 F 65 18 135/74 96 05/01/16 11:53 05/01/16 11:53 05/01/16 11:53 05/01/16 11:53 05/01/16 11:53 General appearance: Present: A&O X 3, morbidly obese, answers questions appropriately - Head Head exam: Present: atraumatic, normocephalic - Eye Eye exam: Present: PERRL, conjuntiva pink, sclera anicteric Pupils: Present: PERRL - Neck Neck exam general surgery: Present: supple, trachea midline. Absent: lymphadenopathy - Respiratory Respiratory exam: Present: CTAB. Absent: accessory muscle use, rales, rhonchi, wheezes - Cardiovascular Cardiovascular exam: Present: RRR, +S1, +S2. Absent: diastolic murmur, gallop, rubs, systolic murmur - GI/Abdominal GI/Abdominal exam: Present: normal bowel sounds, soft, no peritoneal signs. Absent: distended, tenderness - Extremities Exam Extremities exam: Present: warm, radial pulses palpable and symetrical. Absent : calf tenderness, cyanotic, pedal edema - Neurological Exam Neurological exam: Present: CN II-XII intact, oriented X3, no focal deficits. Absent: pronater drift, facial droop, speech deficit - Skin Skin exam: Present: dry, intact Internal Medicine: Result - Labs CBC & Chem 7: 05/01/16 05:41 05/01/16 05:41 Labs: Short CBC 05/01/16 Range/Units 05:41 WBC 5.7 (4.3-11.1) K/mcL Hgb 10.0 L (12.9-16.9) g/dL Hct 30.2 L (37.5-50.1) % Plt Count 190 (140-400) K/mcL Neutrophils # 3.9 (1.6-8.9) K/mcL BMP 05/01/16 05:41 Sodium 140 Potassium 3.9 Chloride 104 Carbon Dioxide 28 BUN 57 H Creatinine 2.55 H Glucose 164 H Calcium 8.2 L Liver Function 05/01/16 Range/Units 05:41 Total Bilirubin 0.4 (0.2-1.2) mg/dL AST 39 H (5-34) Units/L ALT 23 (0-55) Units/L Alkaline Phosphatase 64 (38-126) Units/L Albumin 2.6 L (3.5-5.0) g/dL - VTE Documentation of Mechanical Device: Graduated compression elastic hosiery Consult Discharge Plan - Plan Referrals: NO,PCP [Primary Care Provider] -
[2016-05-01] MEDS: 0.9 % Sodium Chloride 1,000 ML IVC SCH (15:20)
[2016-05-01] MEDS: Insulin DETEMIR 100 UNIT/ML X5UNITS SQ SCH (22:28)
[2016-05-01] MEDS: *HR* HYDROcodone/Acet 5/325 mg TABLET PO PRN (22:39)
[2016-05-02] MEDS: Ipratropium/Albuterol Neb 3 ML IH SCH ×6 (04:19→20:27)
[2016-05-02] MEDS: 0.9 % Sodium Chloride 1,000 ML IVC SCH (04:54)
[2016-05-02] MEDS: Levofloxacin 750 MG/150 ML 750 MG/150 ML BAG IVPB SCH (04:54)
[2016-05-02 06:45] LABS: Basophils % 0.2 %; Hematocrit 29.3 % (37.5-50.1); Hemoglobin 9.6 g/dL (12.9-16.9); Immature Granulocytes % 3.8 % (0-4); Lymphocytes # 1.2 K/mcL (0.6-4.6); Lymphocytes % 21.1 %; Mean Corpuscular HGB Conc 32.8 g/dL (31.6-35.5); Mean Corpuscular Hemoglobin 28.8 pg (28.0-33.3); Monocytes # 0.5 K/mcL (0.0-1.3); Monocytes % 8.5 %; Neutrophils # 3.8 K/mcL (1.6-8.9); Platelet Count 160 K/mcL (140-400); Red Blood Count 3.33 M/mcL (4.19-5.50); Segmented Neutrophils % 66.4 %
[2016-05-02 07:14] LABS: Albumin 2.5 g/dL (3.5-5.0); Albumin/Globulin Ratio 0.7 (1.1-2.2); Bilirubin,Total 0.4 mg/dL (0.2-1.2); Globulin 3.4 g/dL (2.4-3.5); Potassium 3.9 mEq/L (3.5-4.5); Total Protein 5.9 g/dL (6.0-8.3)
[2016-05-02] MEDS: Budesonide/Formoterol 160/4.5 MDI IH SCH ×2 (07:48→20:27)
[2016-05-02] MEDS: Cyanocobalamin (B-12) 1,000 MCG TABLET PO SCH (08:14)
[2016-05-02] MEDS: predniSONE 20 MG TABLET PO SCH (08:15)
[2016-05-02] MEDS: hydrALAZINE 25 MG TABLET PO SCH ×3 (08:16→20:22)
[2016-05-02] MEDS: Cholecalciferol (D-3) 1,000 UNIT TABLET PO SCH (08:16)
[2016-05-02] MEDS: APIXABAN 5 MG TABLET PO SCH ×2 (08:16→20:21)
[2016-05-02] MEDS: Insulin LISPRO 300 UNITS/3 ML VIAL SQ SCH ×4 (08:17→11:15)
[2016-05-02] MEDS: Pregabalin 50 MG CAPSULE PO SCH ×2 (08:17→20:20)
--- NOTE | 2016-05-02 10:16 | Internal Med Progress Note ---
<Umair Thornton - Last Filed: 05/02/16 17:32> Date of Encounter: 05/02/16 Time of Encounter: 10:16 - Assessment and plan (1) COPD with acute exacerbation Current Visit: No Status: Acute Assessment and plan: Patient was admitted with increasing shortness of breath and nonproductive cough. He will recent admission one month prior for pneumonia. Original chest x-ray was without abnormal findings. The cultures from 04/27 preliminarily have no growth. No elevation in WBC, vitals stable. Plan: - Continue duo nebs, Proventil nebulizer, Symbicort. - Day 5 Levaquin. - Day 5 of prednisone 40 mg by mouth. - Discharge disposition 1-2 days. (2) Atrial fibrillation Current Visit: Yes Status: Chronic Assessment and plan: Patient has history of proximal atrial fibrillation takes 25 mg cord by mouth twice a day. Clinical examination demonstrates regular rate. Anticoagulation includes Apixaban. Plan: -Continue cord 25 mg by mouth twice a day - Continue current anticoagulation. Qualifiers: Atrial fibrillation type: chronic Qualified Code(s): I48.2 - Chronic atrial fibrillation (3) CHF (congestive heart failure) Current Visit: Yes Status: Chronic Assessment and plan: Patient has a history of diastolic heart failure, last echocardiogram was in March. Clinical examination of mild fluid overload. Chest x-ray was negative for pulmonary congestion. Plan: - Lasix 40 mg by mouth daily. - Continue simvastatin 40 mg by mouth daily, beta nayely - Diabetic/cardiac diet - Fluid restrictions - Daily weights Qualifiers: Congestive heart failure type: combined Congestive heart failure chronicity : chronic Qualified Code(s): I50.42 - Chronic combined systolic (congestive) and diastolic (congestive) heart failure (4) CKD stage 4 due to type 2 diabetes mellitus Current Visit: Yes Status: Chronic Assessment and plan: Patient has history of chronic kidney disease stage IV, with acute kidney injury with this visit. Creatinine high during inpatient stay was 2.7, current creatinine is 2.24. Patient has been receiving gentle rehydration and now demonstrates diffuse rhonchi. Plan: - Avoid nephrotoxic medications and renally dose antibiotics. - Hold IV fluids. - IV Lasix 40 mg. Close monitoring of renal function. (5) Diabetes mellitus Current Visit: No Status: Chronic Assessment and plan: Continue Levemir 34 units at bedtime. Held sliding scale insulin with hypoglycemic episode this morning. Hypoglycemia likely secondary to hospital- controlled diet. Plan: - Continue Levemir 34 units at bedtime - Continue before meals at bedtime glucose checks. - We will address with elevated glucoses. Qualifiers: Diabetes mellitus type: type 2 Diabetes mellitus complication status: with neurologic complications Diabetes mellitus complication detail: with polyneuropathy Diabetes mellitus long term acute care registered nurse insulin use: with longterm use Qualified Code(s): E11.42 - Type 2 diabetes mellitus with diabetic polyneuropathy; Z79.4 - snf (current) use of insulin (6) DVT prophylaxis Current Visit: Yes Status: Acute Assessment and plan: Continue Eliquis - Subjective Interval history: Mr. Vera 71-year-old male seen evaluated patient bedside screening. He said that he is improved but not back to his normal self. He continues to have shortness of breath and a cough that is nonproductive. He denies any chest pain or palpitations, abdominal pain, nausea vomiting diarrhea constipation. 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 - Constitutional Vitals: Temp Pulse Resp BP Pulse Ox 98.3 F 59 18 133/75 94 L 05/02/16 07:37 05/02/16 07:37 05/02/16 07:48 05/02/16 07:37 05/02/16 07:48 General appearance: Present: A&O X 3, morbidly obese, answers questions appropriately - Other Additional findings: General examination: Well-developed, well-nourished, no acute distress, alert and oriented 3 and interactive. HEENT: Normocephalic, atraumatic, pupils equal and reactive, oral mucosa is moist, neck is supple trachea is midline. Cardiac: Regular rate and rhythm positive S1-S2 no murmurs or gallops appreciated, radial pulses bilateral 2+. Respiratory: Patient diffuse expiratory wheeze in all lung deleon and diffuse rhonchi. Abdomen: Obese, soft, nontender to palpation, positive bowel sounds, no signs of erythema. Extremities: Symmetric bilateral patient is moving all 4 spontaneously. Bilateral pedal edema trace. Internal Medicine: Result - Labs CBC & Chem 7: 05/02/16 05:43 05/02/16 05:43 Labs: Short CBC 05/02/16 Range/Units 05:43 WBC 5.8 (4.3-11.1) K/mcL Hgb 9.6 L (12.9-16.9) g/dL Hct 29.3 L (37.5-50.1) % Plt Count 160 (140-400) K/mcL Neutrophils # 3.8 (1.6-8.9) K/mcL BMP 05/02/16 05:43 Sodium 141 Potassium 3.9 Chloride 106 Carbon Dioxide 24 BUN 56 H Creatinine 2.24 H Glucose 168 H Calcium 8.0 L Liver Function 05/02/16 Range/Units 05:43 Total Bilirubin 0.4 (0.2-1.2) mg/dL AST 27 (5-34) Units/L ALT 19 (0-55) Units/L Alkaline Phosphatase 62 (38-126) Units/L Albumin 2.5 L (3.5-5.0) g/dL - VTE Documentation of Mechanical Device: Graduated compression elastic hosiery Consult Discharge Plan - Plan Referrals: NO,PCP [Primary Care Provider] - <Ambrocio Ramírez - Last Filed: 05/02/16 18:42> - Assessment and plan (1) Acute exacerbation of chronic obstructive airways disease Current Visit: Yes Status: Acute (2) Atrial fibrillation Current Visit: Yes Status: Chronic Qualifiers: Atrial fibrillation type: chronic Qualified Code(s): I48.2 - Chronic atrial fibrillation (3) Diabetes mellitus Current Visit: No Status: Chronic Qualifiers: Diabetes mellitus type: type 2 Diabetes mellitus complication status: with neurologic complications Diabetes mellitus complication detail: with polyneuropathy Diabetes mellitus long term acute care registered nurse insulin use: with longterm use Qualified Code(s): E11.42 - Type 2 diabetes mellitus with diabetic polyneuropathy; Z79.4 - terminal operations supervisor (current) use of insulin (4) CHF (congestive heart failure) Current Visit: Yes Status: Chronic Qualifiers: Congestive heart failure type: combined Congestive heart failure chronicity : chronic Qualified Code(s): I50.42 - Chronic combined systolic (congestive) and diastolic (congestive) heart failure (5) Hypertension Current Visit: No Status: Chronic Qualifiers: Hypertension type: essential hypertension Qualified Code(s): I10 - Essential (primary) hypertension (6) Hypoglycemia Current Visit: No Status: Resolved - Constitutional Vitals: Temp Pulse Resp BP Pulse Ox 97.6 F 68 18 158/74 92 L 05/02/16 15:50 05/02/16 15:50 05/02/16 16:14 05/02/16 15:50 05/02/16 16:14 Internal Medicine: Result - Labs CBC & Chem 7: 05/02/16 05:43 05/02/16 05:43 Labs: Short CBC 05/02/16 Range/Units 05:43 WBC 5.8 (4.3-11.1) K/mcL Hgb 9.6 L (12.9-16.9) g/dL Hct 29.3 L (37.5-50.1) % Plt Count 160 (140-400) K/mcL Neutrophils # 3.8 (1.6-8.9) K/mcL BMP 05/02/16 05:43 Sodium 141 Potassium 3.9 Chloride 106 Carbon Dioxide 24 BUN 56 H Creatinine 2.24 H Glucose 168 H Calcium 8.0 L Liver Function 05/02/16 Range/Units 05:43 Total Bilirubin 0.4 (0.2-1.2) mg/dL AST 27 (5-34) Units/L ALT 19 (0-55) Units/L Alkaline Phosphatase 62 (38-126) Units/L Albumin 2.5 L (3.5-5.0) g/dL - Attending Attestation I examined this patient and my medical decision-making was reviewed with the Resident Physician on 05/02/16. I agree with the documented findings, disposition and treatment plan as described except to the extent set forth below. Mr. Vera is currently admitted for acute exac COPD. He remains moderate to high risk due to potential for worsening respiratory issues. Mr Vera is feeling a little better. He is not near baseline. He still is dyspneic with movement. Less cough. No chest pain or GI symptoms. Exam Alert. Comfortable resting in bed Heart reg Lungs diminished. Some scant bilateral wheeze and rhonchi noted. I/P 1. Acute exac COPD 2. Chronic CHF 3. Chronic a fib Further diagnoses and plan as above.
[2016-05-02] MEDS: Furosemide 40 MG TABLET PO SCH (14:03)
[2016-05-02] MEDS: Insulin DETEMIR 100 UNIT/ML X5UNITS SQ SCH (20:30)
[2016-05-02] MEDS: Artificial Tears SOLN 15 ML BOTTLE BOTH EYES SCH (20:31)
[2016-05-02] MEDS: Acetaminophen 325 MG TABLET PO PRN (23:31)
[2016-05-03] MEDS: Ipratropium/Albuterol Neb 3 ML IH SCH ×7 (00:19→23:15)
[2016-05-03 06:52] LABS: Basophils % 0.2 %; Eosinophils % 0.2 %; Hemoglobin 10.3 g/dL (12.9-16.9); Immature Granulocytes % 4.5 % (0-4); Lymphocytes # 1.2 K/mcL (0.6-4.6); Lymphocytes % 20.2 %; Mean Corpuscular HGB Conc 32.2 g/dL (31.6-35.5); Mean Corpuscular Hemoglobin 28.5 pg (28.0-33.3); Mean Corpuscular Volume 88.4 fL (83.0-100.0); Monocytes # 0.5 K/mcL (0.0-1.3); Monocytes % 8.3 %; Platelet Count 149 K/mcL (140-400); Red Blood Count 3.62 M/mcL (4.19-5.50); Segmented Neutrophils % 66.6 %
[2016-05-03 07:04] LABS: Albumin 2.6 g/dL (3.5-5.0); Albumin/Globulin Ratio 0.7 (1.1-2.2); Bilirubin,Total 0.5 mg/dL (0.2-1.2); Calcium 8.3 mg/dL (8.6-10.8); Globulin 3.5 g/dL (2.4-3.5); Potassium 3.9 mEq/L (3.5-4.5); Total Protein 6.1 g/dL (6.0-8.3)
[2016-05-03] MEDS: Artificial Tears SOLN 15 ML BOTTLE BOTH EYES SCH ×5 (07:44→20:39)
[2016-05-03] MEDS: Budesonide/Formoterol 160/4.5 MDI IH SCH ×2 (08:02→20:08)
[2016-05-03] MEDS: Pregabalin 50 MG CAPSULE PO SCH ×2 (08:59→20:41)
[2016-05-03] MEDS: predniSONE 20 MG TABLET PO SCH (09:00)
[2016-05-03] MEDS: hydrALAZINE 25 MG TABLET PO SCH ×3 (09:00→20:41)
[2016-05-03] MEDS: Furosemide 40 MG TABLET PO SCH (09:01)
[2016-05-03] MEDS: APIXABAN 5 MG TABLET PO SCH ×2 (09:01→20:39)
[2016-05-03] MEDS: Cholecalciferol (D-3) 1,000 UNIT TABLET PO SCH (09:01)
[2016-05-03] MEDS: Cyanocobalamin (B-12) 1,000 MCG TABLET PO SCH (09:01)
[2016-05-03] MEDS: Acetaminophen 325 MG TABLET PO PRN (11:00)
--- NOTE | 2016-05-03 14:42 | Internal Med Progress Note ---
<Umair Thornton - Last Filed: 05/03/16 14:39> Date of Encounter: 05/03/16 Time of Encounter: 08:20 - Assessment and plan (1) COPD with acute exacerbation Current Visit: No Status: Acute Assessment and plan: Patient was admitted with increasing shortness of breath and nonproductive cough. He will recent admission one month prior for pneumonia. Original chest x-ray was without abnormal findings. Blood cultures from April 27 have no growth. No elevation in WBC, vitals stable. Plan: - Continue duo nebs, Proventil nebulizer, Symbicort. - Discontinue Levaquin - Discontinue prednisone - Discharge disposition tomorrow. (2) Atrial fibrillation Current Visit: Yes Status: Chronic Assessment and plan: Patient has history of proximal atrial fibrillation takes 25 mg cord by mouth twice a day. Clinical examination demonstrates regular rate. Anticoagulation includes Apixaban. Telemetry demonstrates 100% ventricular paced. Plan: -Continue coreg 25 mg by mouth twice a day - Continue current anticoagulation. Qualifiers: Atrial fibrillation type: chronic Qualified Code(s): I48.2 - Chronic atrial fibrillation (3) CHF (congestive heart failure) Current Visit: Yes Status: Chronic Assessment and plan: Patient has a history of diastolic heart failure, last echocardiogram was in March. Clinical examination today demonstrates euvolemic. Plan: - Discontinue Lasix - Continue simvastatin 40 mg by mouth daily, beta nayely - Diabetic/cardiac diet - Fluid restrictions - Daily weights Qualifiers: Congestive heart failure type: combined Congestive heart failure chronicity : chronic Qualified Code(s): I50.42 - Chronic combined systolic (congestive) and diastolic (congestive) heart failure (4) CKD stage 4 due to type 2 diabetes mellitus Current Visit: Yes Status: Chronic Assessment and plan: Patient has history of chronic kidney disease stage IV, with acute kidney injury with this visit. Creatinine high during inpatient stay was 2.7, current creatinine is 2.23. Review of previous creatinine levels demonstrates he is around his baseline. Plan: - Avoid nephrotoxic medications and renally dose antibiotics. - Hold IV fluids. - Close monitoring of renal function. (5) Diabetes mellitus Current Visit: No Status: Chronic Assessment and plan: Continue Levemir 34 units at bedtime. Held sliding scale insulin with hypoglycemic episode this morning. Hypoglycemia likely secondary to hospital- controlled diet. Plan: - Continue Levemir 34 units at bedtime - Continue before meals at bedtime glucose checks. - We will address with elevated glucoses. Qualifiers: Diabetes mellitus type: type 2 Diabetes mellitus complication status: with neurologic complications Diabetes mellitus complication detail: with polyneuropathy Diabetes mellitus skilled nursing insulin use: with skilled nursing use Qualified Code(s): E11.42 - Type 2 diabetes mellitus with diabetic polyneuropathy; Z79.4 - intermediate accountant (current) use of insulin (6) DVT prophylaxis Current Visit: Yes Status: Acute Assessment and plan: Continue Eliquis - Subjective Interval history: Mr. Vera 71-year-old male seen evaluated patient bedside screening. He is feeling much improved today but not back to his normal self yet. He is sitting up at bedside working with physical therapy and feels that he is improving. He continues to have some shortness of breath but is tolerating room oxygen. He denies any sputum production or chronic cough. Denies any chest pain, palpitations, abdominal pain nausea vomiting diarrhea constipation. He is agreeable with discharge planning for tomorrow morning if he is in good condition. - Constitutional Vitals: Temp Pulse Resp BP Pulse Ox 99.0 F 66 16 122/68 91 L 05/03/16 10:59 05/03/16 10:59 05/03/16 11:04 05/03/16 10:59 05/03/16 11:04 General appearance: Present: A&O X 3, morbidly obese, answers questions appropriately - Head Head exam: Present: atraumatic, normocephalic - Eye Eye exam: Present: PERRL, conjuntiva pink, sclera anicteric Pupils: Present: PERRL - Neck Neck exam general surgery: Present: supple, trachea midline. Absent: lymphadenopathy - Respiratory Respiratory exam: Present: CTAB. Absent: accessory muscle use, rales, rhonchi, wheezes - Cardiovascular Cardiovascular exam: Present: RRR, +S1, +S2. Absent: diastolic murmur, gallop, rubs, systolic murmur - GI/Abdominal GI/Abdominal exam: Present: normal bowel sounds, soft, no peritoneal signs. Absent: distended, tenderness - Extremities Exam Extremities exam: Present: warm, radial pulses palpable and symetrical. Absent : calf tenderness, cyanotic, pedal edema - Neurological Exam Neurological exam: Present: alert, oriented X3, no focal deficits. Absent: pronater drift, facial droop, speech deficit - Psychiatric Psychiatric exam: Present: normal affect, normal mood Internal Medicine: Result - Labs CBC & Chem 7: 05/03/16 06:01 05/03/16 06:01 Labs: Short CBC 05/03/16 Range/Units 06:01 WBC 6.0 (4.3-11.1) K/mcL Hgb 10.3 L (12.9-16.9) g/dL Hct 32.0 L (37.5-50.1) % Plt Count 149 (140-400) K/mcL Neutrophils # 4.0 (1.6-8.9) K/mcL BMP 05/03/16 06:01 Sodium 139 Potassium 3.9 Chloride 103 Carbon Dioxide 26 BUN 55 H Creatinine 2.23 H Glucose 165 H Calcium 8.3 L Liver Function 05/03/16 Range/Units 06:01 Total Bilirubin 0.5 (0.2-1.2) mg/dL AST 22 (5-34) Units/L ALT 18 (0-55) Units/L Alkaline Phosphatase 62 (38-126) Units/L Albumin 2.6 L (3.5-5.0) g/dL - VTE Documentation of Mechanical Device: Graduated compression elastic hosiery Consult Discharge Plan - Plan Referrals: NO,PCP [Primary Care Provider] - <Ambrocio Ramírez - Last Filed: 05/03/16 17:23> - Assessment and plan (1) Acute exacerbation of chronic obstructive airways disease Current Visit: Yes Status: Acute (2) Atrial fibrillation Current Visit: Yes Status: Chronic Qualifiers: Atrial fibrillation type: chronic Qualified Code(s): I48.2 - Chronic atrial fibrillation (3) Diabetes mellitus Current Visit: No Status: Chronic Qualifiers: Diabetes mellitus type: type 2 Diabetes mellitus complication status: with neurologic complications Diabetes mellitus complication detail: with polyneuropathy Diabetes mellitus intermodal dispatcher insulin use: with intermodal dispatcher use Qualified Code(s): E11.42 - Type 2 diabetes mellitus with diabetic polyneuropathy; Z79.4 - care home (current) use of insulin (4) CHF (congestive heart failure) Current Visit: Yes Status: Chronic Qualifiers: Congestive heart failure type: combined Congestive heart failure chronicity : chronic Qualified Code(s): I50.42 - Chronic combined systolic (congestive) and diastolic (congestive) heart failure (5) Hypertension Current Visit: No Status: Chronic Qualifiers: Hypertension type: essential hypertension Qualified Code(s): I10 - Essential (primary) hypertension (6) Hypoglycemia Current Visit: No Status: Resolved - Constitutional Vitals: Temp Pulse Resp BP Pulse Ox 98.3 F 65 16 135/72 92 L 05/03/16 14:00 05/03/16 14:00 05/03/16 15:37 05/03/16 14:00 05/03/16 15:37 Internal Medicine: Result - Labs CBC & Chem 7: 05/03/16 06:01 05/03/16 06:01 Labs: Short CBC 05/03/16 Range/Units 06:01 WBC 6.0 (4.3-11.1) K/mcL Hgb 10.3 L (12.9-16.9) g/dL Hct 32.0 L (37.5-50.1) % Plt Count 149 (140-400) K/mcL Neutrophils # 4.0 (1.6-8.9) K/mcL BMP 05/03/16 06:01 Sodium 139 Potassium 3.9 Chloride 103 Carbon Dioxide 26 BUN 55 H Creatinine 2.23 H Glucose 165 H Calcium 8.3 L Liver Function 05/03/16 Range/Units 06:01 Total Bilirubin 0.5 (0.2-1.2) mg/dL AST 22 (5-34) Units/L ALT 18 (0-55) Units/L Alkaline Phosphatase 62 (38-126) Units/L Albumin 2.6 L (3.5-5.0) g/dL - Attending Attestation I examined this patient and my medical decision-making was reviewed with the Resident Physician on 05/03/16. I agree with the documented findings, disposition and treatment plan as described except to the extent set forth below. Mr. Vera is currently admitted for acute exac COPD. He remains moderate to high risk due to potential for worsening respiratory symptoms. Mr. Vera feels a little better today. He received Lasix yesterday. He is still quite dyspneic when up and about in the room. No CP. No GI symptoms. Exam Alert. Comfortable in bed. Heart reg No wheeze at this time. I/P 1. Acute exac COPD 2. Chronic a fib 3. CHF - chronic diastolic 4. CKD 4 Further diagnoses and plan as above.
[2016-05-03] MEDS: GuaiFENesin/Codeine Oral Soln 5 ML UDC PO PRN ×2 (16:00→22:40)
[2016-05-03] MEDS: Insulin DETEMIR 100 UNIT/ML X5UNITS SQ SCH (20:42)
[2016-05-04] MEDS: Ipratropium/Albuterol Neb 3 ML IH SCH ×4 (04:22→16:04)
[2016-05-04 06:59] LABS: Basophils % 0.3 %; Eosinophils % 0.1 %; Hematocrit 33.4 % (37.5-50.1); Immature Granulocytes % 3.4 % (0-4); Lymphocytes # 1.5 K/mcL (0.6-4.6); Mean Corpuscular HGB Conc 32.9 g/dL (31.6-35.5); Mean Corpuscular Hemoglobin 29.2 pg (28.0-33.3); Mean Corpuscular Volume 88.6 fL (83.0-100.0); Mean Platelet Volume 10.4 fL (9.4-12.4); Monocytes # 0.6 K/mcL (0.0-1.3); Monocytes % 7.7 %; Neutrophils # 4.9 K/mcL (1.6-8.9); Platelet Count 156 K/mcL (140-400); Red Blood Count 3.77 M/mcL (4.19-5.50); Red Cell Distribution Width 14.2 % (11.5-14.5); Segmented Neutrophils % 67.5 %
[2016-05-04 07:15] LABS: Albumin 2.8 g/dL (3.5-5.0); Albumin/Globulin Ratio 0.8 (1.1-2.2); Bilirubin,Total 0.6 mg/dL (0.2-1.2); Calcium 8.5 mg/dL (8.6-10.8); Globulin 3.6 g/dL (2.4-3.5); Potassium 4.2 mEq/L (3.5-4.5); Total Protein 6.4 g/dL (6.0-8.3)
[2016-05-04 07:34] VITALS: BP 153/81
[2016-05-04] MEDS: Budesonide/Formoterol 160/4.5 MDI IH SCH (07:38)
--- NOTE | 2016-05-04 08:43 | Discharge Summary ---
<Umair Thornton - Last Filed: 05/05/16 17:03> Date of Encounter: 05/04/16 Time of Encounter: 08:40 - Discharge Diagnosis (1) COPD with acute exacerbation Priority: Primary Status: Acute (2) Atrial fibrillation Priority: Secondary Status: Chronic Qualifiers: Atrial fibrillation type: chronic Qualified Code(s): I48.2 - Chronic atrial fibrillation (3) CHF (congestive heart failure) Priority: Primary Status: Chronic Qualifiers: Congestive heart failure type: combined Congestive heart failure chronicity : chronic Qualified Code(s): I50.42 - Chronic combined systolic (congestive) and diastolic (congestive) heart failure (4) CKD stage 4 due to type 2 diabetes mellitus Priority: Primary Status: Chronic (5) Diabetes mellitus Priority: Secondary Status: Chronic Qualifiers: Diabetes mellitus type: type 2 Diabetes mellitus complication status: with neurologic complications Diabetes mellitus complication detail: with polyneuropathy Diabetes mellitus penitentiary insulin use: with terminal make up operator use Qualified Code(s): E11.42 - Type 2 diabetes mellitus with diabetic polyneuropathy; Z79.4 - buttermaker helper (current) use of insulin (6) DVT prophylaxis Priority: Secondary Status: Acute - Discharge Medications Prescriptions: GuaiFENesin Liq [Robitussin Liq] 200 mg PO Q6HR #500 mls Home Medications: Insulin Glargine,Hum.rec.anlog [Lantus Solostar] 42 unit SQ HS 05/09/15 [History ] Pregabalin [Lyrica] 200 mg PO BID 05/09/15 [History] Simvastatin [Zocor] 40 mg PO DAILY 05/09/15 [History] Temazepam [Restoril] 30 mg PO HS 05/09/15 [History] Apixaban [Eliquis] 2.5 mg PO BID 12/31/15 [History] Carvedilol [Coreg] 25 mg PO BID 12/31/15 [History] Promethazine [Phenergan] 25 mg PO HS 12/31/15 [History] Artificial Tears SOLN [Akwa Tears] 1 drop BOTH EYES QID bottle 01/07/16 [Rx] HydrALAZINE 75 mg PO TID #270 tablet 01/07/16 [Rx] Tamsulosin [Flomax] 0.4 mg PO DAILY #30 capsule 01/07/16 [Rx] Acetaminophen [Tylenol] 650 mg PO HS 03/26/16 [History] Cholecalciferol (D-3) [Vitamin D] 1,000 unit PO DAILY 03/26/16 [History] Cyanocobalamin (Vitamin B-12) [Vitamin B12] 5,000 mcg PO DAILY 03/26/16 [History ] Amlodipine [Norvasc] 10 mg PO DAILY #30 tablet 04/05/16 [Rx] Docusate [Colace] 200 mg PO DAILY #60 capsule 04/05/16 [Rx] GuaiFENesin/Codeine [ROBITUSSIN w/CODEINE] 10 ml PO Q6HR PRN 10 Days 04/05/16 [ Rx] Tiotropium [Spiriva] 18 mcg IH DAILYR #60 inh 04/05/16 [Rx] Albuterol Sulfate [Proventil Hfa] 1 - 2 puff IH Q6H PRN 04/27/16 [History] Budesonide/Formoterol 160/4.5 [Symbicort 160/4.5] 2 puff IH BIDR 04/27/16 [ History] Ipratropium/Albuterol Neb [Duoneb] 3 ml IH QID PRN 04/27/16 [History] GuaiFENesin Liq [Robitussin Liq] 200 mg PO Q6HR #500 mls 05/04/16 [Rx] Allergies/Adverse Reactions: Allergies aspirin Allergy (Verified 03/26/16 14:56) Hives diphenhydramine [From Benadryl] Allergy (Verified 03/26/16 12:08) Swelling of Lip/Tongue/Throat Tetracyclines Allergy (Verified 03/26/16 14:56) Hives Date of admission: 04/27/16 22:11 Primary care physician: PCP NO Discharging clinician: Umair Thornton Anticipated date of discharge: 05/04/16 - Patient Status Disposition: Home Health Service Condition: Good Functional capacity at discharge: independent ambulation Overall status at discharge: patient is progressing back to baseline - Discharge Instructions Instructions: Guaifenesin/Phenylephrine (By mouth), Heart Failure (DC), Chronic Kidney Disease (DC), Diabetes Mellitus Type 2 in Adults (DC) Follow Up With: Travis Brasher Jr, MD [Partnered Physician] - 05/10/16 10:40 am (FOLLOW UP WITH AMELIA GAN CNP) Additional Instructions: I recommend follow-up with your primary care physician in the next to 5 days. Take medications as prescribed. - Diet and Activity Activity: increase activity as tolerated Diet: diabetic diet, low salt diet Interval History: Mr. Vera is a 71 year old male with past medical history of CHF diabetes type 2 hypertension COPD nonischemic cardiomyopathy pacemaker with defibrillator was admitted to [facility] with acute COPD exacerbation. He was placed on oxygen to maintain oxygen saturation greater than 90% continued on DuoNeb nebulizers, placed on IV steroids with planned taper, Levaquin for antibiotic coverage. He was found to have hyperkalemia with a potassium of 5.7 was treated with albuterol nebulizer, sodium bicarbonate and calcium gluconate, Kayexalate. He was continued on all Eliquis for anticoagulation that was home medications for atrial fibrillation. Throughout his inpatient stay continued to improve clinically with reduced need for oxygen therapy, resolution of his productive sputum and completion of steroids and antibiotics during his inpatient stay. His hyperkalemia resolved his discharge potassium was 4.2, renal function correlates with his stage IV kidney disease with a discharge creatinine 2.47 and GFR of 26. On 05/04/2016 Mr. Vera was seen and evaluated patient bedside he is deemed stable for discharge with home health as recommended. Hospital course: Mr. Vera is a 71 year old male - Time Spent with Patient Total time spent providing and/or coordinating discharge services: - Constitutional Vitals: Temp Pulse Resp BP Pulse Ox 97.3 F L 64 16 153/81 95 05/04/16 07:33 05/04/16 07:33 05/04/16 07:38 05/04/16 07:33 05/04/16 07:38 General appearance: Present: A&O X 3, morbidly obese, answers questions appropriately - Head Head exam: Present: atraumatic, normocephalic - Eye Eye exam: Present: conjuntiva pink, sclera anicteric - ENT ENT exam: Present: mucous membranes moist - Neck Neck exam general surgery: Present: supple, trachea midline. Absent: lymphadenopathy - Respiratory Respiratory exam: Present: CTAB. Absent: accessory muscle use, rales, rhonchi, wheezes - Cardiovascular Cardiovascular exam: Present: RRR, +S1, +S2. Absent: diastolic murmur, gallop, rubs, systolic murmur - GI/Abdominal GI/Abdominal exam: Present: normal bowel sounds, soft, no peritoneal signs. Absent: distended, tenderness - Extremities Exam Extremities exam: Present: warm, radial pulses palpable and symetrical. Absent : calf tenderness, cyanotic, pedal edema - Neurological Exam Neurological exam: Present: alert, oriented X3, no focal deficits. Absent: pronater drift, facial droop, speech deficit - Skin Skin exam: Present: dry, intact - VTE Documentation of Mechanical Device: Graduated compression elastic hosiery <Ambrocio Ramírez - Last Filed: 05/07/16 16:07> - Discharge Diagnosis (1) Acute exacerbation of chronic obstructive airways disease Status: Acute (2) Atrial fibrillation Status: Chronic Qualifiers: Atrial fibrillation type: chronic Qualified Code(s): I48.2 - Chronic atrial fibrillation (3) Diabetes mellitus Status: Chronic Qualifiers: Diabetes mellitus type: type 2 Diabetes mellitus complication status: with neurologic complications Diabetes mellitus complication detail: with polyneuropathy Diabetes mellitus terminal make up operator insulin use: with terminal make up operator use Qualified Code(s): E11.42 - Type 2 diabetes mellitus with diabetic polyneuropathy; Z79.4 - alf (current) use of insulin (4) CHF (congestive heart failure) Status: Chronic Qualifiers: Congestive heart failure type: combined Congestive heart failure chronicity : chronic Qualified Code(s): I50.42 - Chronic combined systolic (congestive) and diastolic (congestive) heart failure (5) Hypertension Status: Chronic Qualifiers: Hypertension type: essential hypertension Qualified Code(s): I10 - Essential (primary) hypertension (6) Hypoglycemia Status: Resolved Date of admission: 04/27/16 22:11 Primary care physician: PCP NO Hospital course: Mr. Vera is a 71 year old male - Time Spent with Patient Total time spent providing and/or coordinating discharge services: 39min - Constitutional Vitals: Temp Pulse Resp BP Pulse Ox 97.3 F L 64 16 153/81 95 05/04/16 07:33 05/04/16 07:33 05/04/16 11:01 05/04/16 07:33 05/04/16 11:01 - Attending Attestation I examined this patient and my medical decision-making was reviewed with the Resident Physician on 05/04/16. I agree with the documented findings, disposition and treatment plan as described except to the extent set forth below. Mr. Vera is feeling OK today. He is ready to go home. Denies new issues. He is afebrile and vitals are stable. Exam Alert. Comfortable Heart reg Lungs clear Plan D/C home today Follow up with primary provider
--- NOTE | 2016-05-04 08:46 | Physician Discharge Referral ---
Home Health/Hosp Referral Info Transfer to: Home Health Provider in Charge Post Discharge: PCP - Diagnosis (1) COPD with acute exacerbation Status: Acute (2) Atrial fibrillation Status: Chronic (3) CHF (congestive heart failure) Status: Chronic (4) CKD stage 4 due to type 2 diabetes mellitus Status: Chronic (5) Diabetes mellitus Status: Chronic (6) DVT prophylaxis Status: Acute - Respiratory Orders Smoking Cessation: Smoking cessation has been advised. For more information, call the [place] Tobacco Quit Line at 6-959-TZKF-NOW. - Diet/Nutrition Diet/Nutrition: List: Cardiac/diabetic diet. - Activity Activity Orders: Ambulate - Services Needed Following services are medically necessary services: Home Health Aide, Physical Therapy, Occupational Therapy - Transfer Medications Home Medications: Insulin Glargine,Hum.rec.anlog [Lantus Solostar] 42 unit SQ HS 05/09/15 [History ] Pregabalin [Lyrica] 200 mg PO BID 05/09/15 [History] Simvastatin [Zocor] 40 mg PO DAILY 05/09/15 [History] Temazepam [Restoril] 30 mg PO HS 05/09/15 [History] Apixaban [Eliquis] 2.5 mg PO BID 12/31/15 [History] Carvedilol [Coreg] 25 mg PO BID 12/31/15 [History] Promethazine [Phenergan] 25 mg PO HS 12/31/15 [History] Artificial Tears SOLN [Akwa Tears] 1 drop BOTH EYES QID bottle 01/07/16 [Rx] HydrALAZINE 75 mg PO TID #270 tablet 01/07/16 [Rx] Tamsulosin [Flomax] 0.4 mg PO DAILY #30 capsule 01/07/16 [Rx] Acetaminophen [Tylenol] 650 mg PO HS 03/26/16 [History] Cholecalciferol (D-3) [Vitamin D] 1,000 unit PO DAILY 03/26/16 [History] Cyanocobalamin (Vitamin B-12) [Vitamin B12] 5,000 mcg PO DAILY 03/26/16 [History ] Amlodipine [Norvasc] 10 mg PO DAILY #30 tablet 04/05/16 [Rx] Docusate [Colace] 200 mg PO DAILY #60 capsule 04/05/16 [Rx] GuaiFENesin/Codeine [ROBITUSSIN w/CODEINE] 10 ml PO Q6HR PRN 10 Days 04/05/16 [ Rx] Tiotropium [Spiriva] 18 mcg IH DAILYR #60 inh 04/05/16 [Rx] Albuterol Sulfate [Proventil Hfa] 1 - 2 puff IH Q6H PRN 04/27/16 [History] Budesonide/Formoterol 160/4.5 [Symbicort 160/4.5] 2 puff IH BIDR 04/27/16 [ History] Ipratropium/Albuterol Neb [Duoneb] 3 ml IH QID PRN 04/27/16 [History] Allergies/Adverse Reactions: Allergies aspirin Allergy (Verified 03/26/16 14:56) Hives diphenhydramine [From Benadryl] Allergy (Verified 03/26/16 12:08) Swelling of Lip/Tongue/Throat Tetracyclines Allergy (Verified 03/26/16 14:56) Hives Certification: Further, I certify that my clinical findings support that this patient is homebound (i.e. absences from home require considerable and taxing effort and are for medical reasons or faith services or infrequently or short duration when for other reasons) because: Homebound Reason: Leaving home requires considerable and taxing effort due to condition, Severity of cardiac or pulmonary status limits activity tolerance Attestation: My signature below is to certify that this patient is under my care and that I, or nurse practitioner, or a physician's imaging assistant working with me, has a face-to -face encounter with this patient.
[2016-05-04] MEDS: Pregabalin 50 MG CAPSULE PO SCH (09:12)
[2016-05-04] MEDS: APIXABAN 5 MG TABLET PO SCH (09:12)
[2016-05-04] MEDS: Cyanocobalamin (B-12) 1,000 MCG TABLET PO SCH (09:12)
[2016-05-04] MEDS: hydrALAZINE 25 MG TABLET PO SCH ×2 (09:13→14:22)
[2016-05-04] MEDS: Cholecalciferol (D-3) 1,000 UNIT TABLET PO SCH (09:13)
[2016-05-04] MEDS: Artificial Tears SOLN 15 ML BOTTLE BOTH EYES SCH ×3 (09:14→16:01)
[2016-05-04] MEDS: Acetaminophen 325 MG TABLET PO PRN (11:33)
[2016-05-04] MEDS: GuaiFENesin/Codeine Oral Soln 5 ML UDC PO PRN (11:33)
== END 2016-05-04 16:40 | disposition home health service (06) | DRG 190 ==
LOC: EMEROO 16:21 → 2ANU 16:21 → SUATTDRO 22:11
PROVIDERS: ADMIT Nurse Practitioner Acute Care; ATTEND Internal Medicine

== ENCOUNTER 2016-05-12 14:12 | Inpatient (IN) ==
--- NOTE | 2016-05-12 15:28 | Emergency Department Note ---
Disposition Clinical Impression: HCAP (healthcare-associated pneumonia), CHF (congestive heart failure) Disposition: Admitted As Inpatient Referrals: NO,PCP [Non-Partnered Physician] - Forms: ED Satisfaction Letter Chest Pain HPI - General Chief Complaint: ED Shortness of Breath/Dyspnea Stated Complaint: CP Time Seen by Provider: 05/12/16 14:16 Source: patient, EMS Limitations: no limitations Vital Signs Reviewed: Yes Nursing Notes Reviewed: Yes - History of Present Illness HPI Narrative: Patient also complains of cough and congestion for a few days. Patient states he has chest pain but only when he coughs. Patient also has shortness of denies fevers or chills. Patient states he did have some pain in his left arm while 3 days ago but that since resolved. Patient denies bowel bladder dysfunction denies dizziness. Patient is complains of chest pain with cough and shortness of breath. Patient does have a history COPD but he feels he may have pneumonia again which she was diagnosed with 2 weeks ago. Severity scale (1-10): 0 - Related Data Home Medications Medication Instructions Recorded Confirmed Insulin Glargine,Hum.rec.anlog 42 unit SQ HS 05/09/15 05/12/16 [Lantus Solostar] Pregabalin [Lyrica] 200 mg PO BID 05/09/15 05/12/16 Simvastatin [Zocor] 40 mg PO DAILY 05/09/15 05/12/16 Temazepam [Restoril] 30 mg PO HS 05/09/15 05/12/16 Apixaban [Eliquis] 2.5 mg PO BID 12/31/15 04/27/16 Carvedilol [Coreg] 25 mg PO BID 12/31/15 05/12/16 Promethazine [Phenergan] 25 mg PO HS 12/31/15 05/12/16 Acetaminophen [Tylenol] 650 mg PO HS 03/26/16 05/12/16 Cholecalciferol (D-3) [Vitamin D] 1,000 unit PO DAILY 03/26/16 05/12/16 Cyanocobalamin (Vitamin B-12) 5,000 mcg PO DAILY 03/26/16 05/12/16 [Vitamin B12] Albuterol Sulfate [Proventil Hfa] 1 - 2 puff IH Q6H PRN 04/27/16 05/12/16 Budesonide/Formoterol 160/4.5 2 puff IH BIDR 04/27/16 05/12/16 [Symbicort 160/4.5] Ipratropium/Albuterol Neb [Duoneb] 3 ml IH QID PRN 04/27/16 05/12/16 GuaiFENesin Liq [Robitussin Liq] 200 mg PO Q6HR PRN 05/12/16 05/12/16 Pantoprazole Sodium [Protonix] 40 mg PO DAILY 05/12/16 05/12/16 Previous Rx's Medication Instructions Recorded Artificial Tears SOLN [Akwa Tears] 1 drop BOTH EYES QID bottle 01/07/16 HydrALAZINE 75 mg PO TID #270 tablet 01/07/16 Tamsulosin [Flomax] 0.4 mg PO DAILY #30 capsule 01/07/16 Amlodipine [Norvasc] 10 mg PO DAILY #30 tablet 04/05/16 Docusate [Colace] 200 mg PO DAILY #60 capsule 04/05/16 Tiotropium [Spiriva] 18 mcg IH DAILYR #60 inh 04/05/16 Allergies Allergy/AdvReac Type Severity Reaction Status Date / Time aspirin Allergy Hives Verified 03/26/16 14:56 diphenhydramine Allergy Swelling Verified 03/26/16 12:08 [From Benadryl] of Lip/Tongue/Throat Tetracyclines Allergy Hives Verified 03/26/16 14:56 All systems ED: reviewed and negative except as stated. Chest Pain PMH - Past Medical History Medical history: Reports: atrial fibrillation, cardiomyopathy, CHF, COPD, CVA, diabetes, hyperlipidemia, hypertension, myocardial infarction, renal disease, TIA Surgical history: Reports: orthopedic, other Psychiatric history: Reports: no psych history - Social History Smoking Status: Former smoker Alcohol use: Reports: rarely Drug use: Reports: none Physical Exam - General Limitations: no limitations General appearance: alert, in no apparent distress - Head Head exam: atraumatic, normocephalic, normal inspection - Eye Eye exam: Present: normal appearance, PERRL, EOMI - ENT ENT exam: normal exam, normal oropharynx, mucous membranes moist - Neck Neck exam: Present: normal inspection, full ROM, trachea midline - Chest Chest inspection: Present: normal inspection, symmetric chest wall rise - Respiratory Respiratory exam: Present: other (Decreased air movement) - Cardiovascular Cardiovascular exam: Present: regular rate, normal rhythm, normal heart sounds - Abdominal Exam Abdominal exam: Present: soft, Non-Tender. Absent: tenderness, distention, guarding, rebound, rigidity - Extremities Exam Extremities exam: Present: normal inspection, full ROM, pedal edema. Absent: tenderness - Back Exam Back exam: Present: normal inspection, full ROM. Absent: tenderness - Neurological Exam Neurological exam: Present: alert, oriented X3 - Psychiatric Psychiatric exam: Present: normal affect, normal mood - Skin Skin exam: Present: warm, dry, intact, normal color Course Vital Signs Temperature 99.3 F 05/12/16 14:13 Pulse Rate 87 05/12/16 14:13 Respiratory Rate 20 05/12/16 14:13 Blood Pressure 114/101 05/12/16 14:13 O2 Sat by Pulse Oximetry 95 05/12/16 14:13 Temperature 99.3 F 05/12/16 14:13 Pulse Rate 83 05/12/16 15:49 Respiratory Rate 18 05/12/16 15:49 Blood Pressure 131/66 05/12/16 15:49 O2 Sat by Pulse Oximetry 95 05/12/16 15:49 Oxygen Delivery Oxygen Delivery Room Air Chest Pain - Differential Diagnosis Likely: pneumothorax, stable angina, st elevation myocardial infraction, costalchondritis, chest pain - Lab Data Lab results reviewed: Yes I reviewed the patient's lab results. Result diagrams: 05/12/16 16:00 05/12/16 16:00 Lab Results 05/12/16 05/12/16 05/12/16 Range/Units 16:00 16:00 16:00 WBC 12.6 H (4.3-11.1) K/mcL RBC 3.45 L (4.19-5.50) M/mcL Hgb 9.9 L (12.9-16.9) g/dL Hct 30.8 L (37.5-50.1) % MCV 89.3 (83.0-100.0) fL MCH 28.7 (28.0-33.3) pg MCHC 32.1 (31.6-35.5) g/dL RDW 14.9 H (11.5-14.5) % Plt Count 111 L (140-400) K/mcL MPV 10.1 (9.4-12.4) fL Immature Gran % 0.7 (0-4) % Seg Neutrophils % 90.2 % Lymphocytes % 5.6 % Monocytes % 3.1 % Eosinophils % 0.3 % Basophils % 0.1 % Neutrophils # 11.4 H (1.6-8.9) K/mcL Lymphocytes # 0.7 (0.6-4.6) K/mcL Monocytes # 0.4 (0.0-1.3) K/mcL Eosinophils # 0.0 (0.0-0.6) K/mcL Basophils # 0.0 (0.0-0.2) K/mcL PT 14.0 H (9.4-12.1) Seconds INR 1.3 APTT 33.4 (26.0-36.0) Seconds Sodium 140 (136-145) mEq/L Potassium 5.1 H (3.5-4.5) mEq/L Chloride 110 H (98-109) mEq/L Carbon Dioxide 22 (19-29) mEq/L BUN 29 H (8-26) mg/dL Creatinine 2.10 H (0.72-1.25) mg/dL Est GFR ( Amer) 38 L (> 60) Est GFR (Non-Af Amer) 31 L (> 60) BUN/Creatinine Ratio 14 (6-26) Glucose 133 H (70-99) mg/dL Calculated Osmolality 298 (280-300) Lactic Acid (0.5-2.2) mmol/L Calcium 8.8 (8.6-10.8) mg/dL Total Bilirubin 0.8 (0.2-1.2) mg/dL AST 13 (5-34) Units/L ALT 13 (0-55) Units/L Alkaline Phosphatase 78 (38-126) Units/L Troponin I (0-0.03) ng/mL B-Natriuretic Peptide (0-100) pg/mL Serum Total Protein 6.7 (6.0-8.3) g/dL Albumin 2.9 L (3.5-5.0) g/dL Globulin 3.8 H (2.4-3.5) g/dL Albumin/Globulin Ratio 0.8 L (1.1-2.2) 05/12/16 05/12/16 05/12/16 Range/Units 16:00 16:00 16:00 WBC (4.3-11.1) K/mcL RBC (4.19-5.50) M/mcL Hgb (12.9-16.9) g/dL Hct (37.5-50.1) % MCV (83.0-100.0) fL MCH (28.0-33.3) pg MCHC (31.6-35.5) g/dL RDW (11.5-14.5) % Plt Count (140-400) K/mcL MPV (9.4-12.4) fL Immature Gran % (0-4) % Seg Neutrophils % % Lymphocytes % % Monocytes % % Eosinophils % % Basophils % % Neutrophils # (1.6-8.9) K/mcL Lymphocytes # (0.6-4.6) K/mcL Monocytes # (0.0-1.3) K/mcL Eosinophils # (0.0-0.6) K/mcL Basophils # (0.0-0.2) K/mcL PT (9.4-12.1) Seconds INR APTT (26.0-36.0) Seconds Sodium (136-145) mEq/L Potassium (3.5-4.5) mEq/L Chloride (98-109) mEq/L Carbon Dioxide (19-29) mEq/L BUN (8-26) mg/dL Creatinine (0.72-1.25) mg/dL Est GFR ( Amer) (> 60) Est GFR (Non-Af Amer) (> 60) BUN/Creatinine Ratio (6-26) Glucose (70-99) mg/dL Calculated Osmolality (280-300) Lactic Acid 0.7 (0.5-2.2) mmol/L Calcium (8.6-10.8) mg/dL Total Bilirubin (0.2-1.2) mg/dL AST (5-34) Units/L ALT (0-55) Units/L Alkaline Phosphatase (38-126) Units/L Troponin I 0.03 (0-0.03) ng/mL B-Natriuretic Peptide 532 H (0-100) pg/mL Serum Total Protein (6.0-8.3) g/dL Albumin (3.5-5.0) g/dL Globulin (2.4-3.5) g/dL Albumin/Globulin Ratio (1.1-2.2) - Radiology Data Radiology results reviewed: Yes I reviewed the patient's radiology results. Chest X-Ray 05/12/16 14:25 IMPRESSION: Patchy hazy bilateral pulmonary opacities compatible with infectious or inflammatory process. D/ / Luis Jeff MD / Luis Jeff MD Interpreting Provider: Luis Jeff MD - EKG Data EKG results narrative: Electorally paced rhythm. Critical Care Time Total Critical Care Time: 30 Attestation: Critical care performed: Time is exclusive of separately billable procedures. Time includes: direct patient care, patient reassessment, coordination of patient care, interpretation of data (laboratory data, radiology data, and respiratory data), review of patient's medical records, medical consultation and documentation of patient care. Procedures included in critical care time: Procedures excluded from critical care time:
[2016-05-12 16:08] LABS: Basophils % 0.1 %; Eosinophils % 0.3 %; Hematocrit 30.8 % (37.5-50.1); Hemoglobin 9.9 g/dL (12.9-16.9); Immature Granulocytes % 0.7 % (0-4); Lymphocytes # 0.7 K/mcL (0.6-4.6); Lymphocytes % 5.6 %; Mean Corpuscular HGB Conc 32.1 g/dL (31.6-35.5); Mean Corpuscular Hemoglobin 28.7 pg (28.0-33.3); Mean Corpuscular Volume 89.3 fL (83.0-100.0); Mean Platelet Volume 10.1 fL (9.4-12.4); Monocytes # 0.4 K/mcL (0.0-1.3); Monocytes % 3.1 %; Neutrophils # 11.4 K/mcL (1.6-8.9); Platelet Count 111 K/mcL (140-400); Red Blood Count 3.45 M/mcL (4.19-5.50); Red Cell Distribution Width 14.9 % (11.5-14.5); Segmented Neutrophils % 90.2 %
[2016-05-12 16:12] LABS: INR 1.3
[2016-05-12 16:14] LABS: Activated Partial Thrombo Time 33.4 Seconds (26.0-36.0)
[2016-05-12 16:23] LABS: Albumin 2.9 g/dL (3.5-5.0); Bilirubin,Total 0.8 mg/dL (0.2-1.2); Calcium 8.8 mg/dL (8.6-10.8); Potassium 5.1 mEq/L (3.5-4.5); Total Protein 6.7 g/dL (6.0-8.3)
[2016-05-12 16:24] LABS: Albumin/Globulin Ratio 0.8 (1.1-2.2); Globulin 3.8 g/dL (2.4-3.5)
[2016-05-12] MEDS ORDERED: Piperacillin/Tazobactam 3.375 GM in D5% in Water (Mini-Bag+) 100 ML IVPB ONE (16:48)
[2016-05-12] MEDS ORDERED: Vancomycin 1,500 MG in D5% in Water 250 ML IVPB ONE (16:48)
--- NOTE | 2016-05-12 21:01 | Internal Med History&Physical ---
Date of Encounter: 05/12/16 Time of Encounter: 20:55 Assessment and Plan (1) HCAP (healthcare-associated pneumonia) Current visit: No Status: Acute Bilateral infiltrates in a patient with recent hospital admission due to COPD exacerbation. Will treat as healthcare associated pneumonia with broad- spectrum antibiotics, follow cultures. Testing for strep pneumo and legionella requested. Monitor vancomycin level. Continue with oxygen via NC. (2) DVT prophylaxis Current visit: No Status: Acute On eliquis for atrial fibrillation. (3) Diabetes mellitus Current visit: No Status: Chronic Monitor fingerstick, insulin therapy. Qualifiers: Diabetes mellitus type: type 2 Diabetes mellitus complication status: with neurologic complications Diabetes mellitus complication detail: with polyneuropathy Diabetes mellitus assistant terminal manager insulin use: with assistant terminal manager use Qualified Code(s): E11.42 - Type 2 diabetes mellitus with diabetic polyneuropathy; Z79.4 - retirement (current) use of insulin (4) Atrial fibrillation Current visit: No Status: Chronic Ventricular rate under control. Continue with anticoagulation. Qualifiers: Atrial fibrillation type: unspecified Qualified Code(s): I48.91 - Unspecified atrial fibrillation (5) COPD with acute exacerbation Current visit: No Status: Acute Nebulizer therapy, IV antibiotics, systemic steroids. (6) CKD stage 4 due to type 2 diabetes mellitus Current visit: No Status: Chronic Monitor kidney function tests. Avoid nephrotoxic agents Internal Medicine - H&P: HPI Chief complaint: sob Admitted From: Emergency Dept Plans for Post Hospital Care: Home History of present illness: Mr. Vera is a 71 year old male with past medical history of atrial fibrillation on liquids, hypertension, chronic kidney disease, COPD, morbid obesity, former smoker. Patient was discharged from this facility 8 days ago, he was admitted due to a COPD exacerbation. The patient states it has been complaining of progressive shortness of breath associated with productive cough and wheezing in the last 4 weeks, he is not getting any better. Today he presented to the emergency department complaining of above-mentioned symptoms along with epistaxis. initially blood pressure was 131/66, oxygen saturation was 95% and heart rate was 80/m. Initial blood work revealed a WBC count of 12.6, hemoglobin 9.9, platelet count was 111,000. Biochemistry revealed a sodium of 140, potassium 5.1, chloride 110, bicarbonate 22, WN 29, creatinine 2.1, glucose 133. Troponin was 0.03. Chest x-ray revealed a patchy hazy bilateral pulmonary opacities compatible with infectious or intramedullary process. The patient was given a dose of vancomycin and Zosyn in the emergency department. He was admitted for further management and workup. The patient denies history of obstructive sleep apnea, however he has not been formally tested with a polysomnography. Past Med Surg Social Fam HX - Past Medical History Medical history: atrial fibrillation, cardiomyopathy, CHF, COPD, CVA, diabetes, hyperlipidemia, hypertension, myocardial infarction, renal disease, TIA Psychiatric history: no psych history - Past Surgical History Surgical History: orthopedic, other - Social History Smoking Status: Former smoker Smokeless Tobacco Status: No Alcohol use: rarely Drug use: none - Family History Mother Adopted: No Family Member Ethnicity: Non- Living Status: Hx Family Cardiac Disorders: Yes Hx Family Respiratory Disorders: Yes Hx Family Cancer: Yes Hx Family GI Disorders: No Hx Family Endocrine Disorder: Yes Hx Family Neuromuscular Disorders: No Hx Family Neurologic Disorders: No Hx Family HEENT Disorders: No Hx Family Autoimmune Disorders: No Internal Medicine - H&P: Meds Insulin Glargine,Hum.rec.anlog [Lantus Solostar] 42 unit SQ HS 05/09/15 [History ] Pregabalin [Lyrica] 200 mg PO BID 05/09/15 [History] Simvastatin [Zocor] 40 mg PO DAILY 05/09/15 [History] Temazepam [Restoril] 30 mg PO HS 05/09/15 [History] Apixaban [Eliquis] 2.5 mg PO BID 12/31/15 [History] Carvedilol [Coreg] 25 mg PO BID 12/31/15 [History] Promethazine [Phenergan] 25 mg PO HS 12/31/15 [History] Artificial Tears SOLN [Akwa Tears] 1 drop BOTH EYES QID bottle 01/07/16 [Rx] HydrALAZINE 75 mg PO TID #270 tablet 01/07/16 [Rx] Tamsulosin [Flomax] 0.4 mg PO DAILY #30 capsule 01/07/16 [Rx] Acetaminophen [Tylenol] 650 mg PO HS 03/26/16 [History] Cholecalciferol (D-3) [Vitamin D] 1,000 unit PO DAILY 03/26/16 [History] Cyanocobalamin (Vitamin B-12) [Vitamin B12] 5,000 mcg PO DAILY 03/26/16 [History ] Amlodipine [Norvasc] 10 mg PO DAILY #30 tablet 04/05/16 [Rx] Docusate [Colace] 200 mg PO DAILY #60 capsule 04/05/16 [Rx] Tiotropium [Spiriva] 18 mcg IH DAILYR #60 inh 04/05/16 [Rx] Albuterol Sulfate [Proventil Hfa] 1 - 2 puff IH Q6H PRN 04/27/16 [History] Budesonide/Formoterol 160/4.5 [Symbicort 160/4.5] 2 puff IH BIDR 04/27/16 [ History] Ipratropium/Albuterol Neb [Duoneb] 3 ml IH QID PRN 04/27/16 [History] GuaiFENesin Liq [Robitussin Liq] 200 mg PO Q6HR PRN 05/12/16 [History] Pantoprazole Sodium [Protonix] 40 mg PO DAILY 05/12/16 [History] Allergies aspirin Allergy (Verified 03/26/16 14:56) Hives diphenhydramine [From Benadryl] Allergy (Verified 03/26/16 12:08) Swelling of Lip/Tongue/Throat Tetracyclines Allergy (Verified 03/26/16 14:56) Hives All Systems PM: A 10-system review of systems was performed and is negative for pertinent findings except as documented above in the HPI. - Constitutional Constitutional: as per HPI, no chills, no fever(s), no night sweats - EENT Eyes: as per HPI, no change in vision, no discharge, no pain, no photophobia Ears: as per HPI, no ear discharge, no ear pain, no tinnitus Nose, mouth and throat: as per HPI, epistaxis, no dysphagia, no nasal discharge , no neck pain, no sore throat - Breasts Breasts: as per HPI - Cardiovascular Cardiovascular ROS IM: as per HPI, dyspnea, dyspnea on exertion, no chest pain, no diaphoresis, no lightheadedness, no palpitations, no syncope - Respiratory Respiratory: as per HPI, cough, dyspnea, dyspnea on exertion, wheezing, no excessive phlegm production - Gastrointestinal Gastrointestinal: as per HPI, no abdominal pain, no diarrhea, no hematemesis, no hematochezia, no melena, no nausea, no vomiting - Genitourinary Genitourinary ROS male: as per HPI - Musculoskeletal Musculoskeletal ROS IM: as per HPI, no numbness, no tingling - Integumentary Integumentary IM: as per HPI, no rash, no unusual bruising - Neurological Neurological ROS: as per HPI, no confusion, no convulsions, no focal weakness, no numbness, no tingling, no tremor(s) - Psychiatric Psychiatric: as per HPI - Endocrine Endocrine IM: as per HPI - Hematologic/Lymphatic Hematologic/Lymphatic: as per HPI, no easy bruising - Allergic/Immunologic Allergic/Immunologic: as per HPI - Constitutional Vitals: Temp Pulse Resp BP Pulse Ox 98.4 F 67 16 105/56 93 L 05/12/16 19:19 05/12/16 19:19 05/12/16 19:19 05/12/16 19:19 05/12/16 19:19 General appearance: Present: cooperative, mild distress, A&O X 3, morbidly obese - Head Head exam: Present: atraumatic, normocephalic - Eye Eye exam: Present: PERRL, conjuntiva pink, sclera anicteric Pupils: Present: PERRL - Neck Neck exam general surgery: Present: supple, trachea midline. Absent: lymphadenopathy - Respiratory Respiratory exam: Present: decreased breath sounds, wheezes. Absent: accessory muscle use, rales, rhonchi - Cardiovascular Cardiovascular exam: Present: RRR, +S1, +S2. Absent: diastolic murmur, gallop, rubs, systolic murmur - GI/Abdominal GI/Abdominal exam: Present: normal bowel sounds, soft, no peritoneal signs. Absent: distended, tenderness - Extremities Exam Extremities exam: Present: warm, radial pulses palpable and symetrical. Absent : calf tenderness, cyanotic, pedal edema - Neurological Exam Neurological exam: Present: CN II-XII intact, oriented X3, no focal deficits. Absent: pronater drift, facial droop, speech deficit - Skin Skin exam: Present: dry, intact Internal Med - H&P Results - Labs CBC & Chem 7: 05/12/16 16:00 05/12/16 16:00
[2016-05-12] MEDS ORDERED: Ondansetron 4 MG/2 ML VIAL IVP PRN (21:06)
[2016-05-12] MEDS ORDERED: Acetaminophen 325 MG TABLET PO PRN (21:06)
[2016-05-12] MEDS ORDERED: Albuterol 2.5 MG/3 ML NEBULIZER IH PRN (21:06)
[2016-05-12] MEDS ORDERED: Naloxone 0.4 MG/ML INJ IVP PRN (21:06)
[2016-05-12] MEDS ORDERED: D5% in Water 1,000 ML IVC PRN (21:10)
[2016-05-12] MEDS ORDERED: Dextrose Gel 15 GM PO PRN ×2 (21:10)
[2016-05-12] MEDS ORDERED: *HR* Dextrose 50 % in Water (Syg) 50 ML SYRINGE IVP PRN (21:10)
[2016-05-12] MEDS ORDERED: Vancomycin (wt based) 1,000 MG VIAL IVPB SCH (22:00)
[2016-05-12] MEDS: Ipratropium/Albuterol Neb 3 ML IH SCH (22:14)
[2016-05-12] MEDS: Insulin LISPRO 300 UNITS/3 ML VIAL SQ SCH (22:27)
[2016-05-12] MEDS: Insulin DETEMIR 100 UNIT/ML X5UNITS SQ SCH (22:28)
[2016-05-12] MEDS: Piperacillin/Tazobactam 3.375 GM in D5% in Water (Mini-Bag+) 100 ML IVPB SCH (23:24)
[2016-05-13 03:57] LABS: Basophils % 0.1 %; Hematocrit 28.5 % (37.5-50.1); Hemoglobin 9.1 g/dL (12.9-16.9); Immature Granulocytes % 0.4 % (0-4); Lymphocytes # 0.7 K/mcL (0.6-4.6); Lymphocytes % 6.4 %; Mean Corpuscular HGB Conc 31.9 g/dL (31.6-35.5); Mean Corpuscular Hemoglobin 28.8 pg (28.0-33.3); Mean Corpuscular Volume 90.2 fL (83.0-100.0); Mean Platelet Volume 10.6 fL (9.4-12.4); Monocytes # 0.2 K/mcL (0.0-1.3); Monocytes % 1.9 %; Neutrophils # 9.4 K/mcL (1.6-8.9); Platelet Count 108 K/mcL (140-400); Red Blood Count 3.16 M/mcL (4.19-5.50); Red Cell Distribution Width 14.8 % (11.5-14.5); Segmented Neutrophils % 91.2 %
[2016-05-13 04:14] LABS: Albumin 2.5 g/dL (3.5-5.0); Albumin/Globulin Ratio 0.7 (1.1-2.2); Bilirubin,Total 0.5 mg/dL (0.2-1.2); Calcium 8.4 mg/dL (8.6-10.8); Globulin 3.6 g/dL (2.4-3.5); Magnesium 1.6 mg/dL (1.6-2.6); Potassium 5.6 mEq/L (3.5-4.5); Total Protein 6.1 g/dL (6.0-8.3)
[2016-05-13] MEDS: Ipratropium/Albuterol Neb 3 ML IH SCH ×4 (04:35→22:30)
[2016-05-13 04:36] LABS: Thyroid Stimulating Hormone 0.844 mcIU/mL (0.350-4.840)
[2016-05-13] MEDS: Famotidine 20 MG/2 ML VIAL IVP SCH ×2 (05:16→17:24)
[2016-05-13] MEDS: MethylPREDNISolone 40 MG/ML VIAL IVP SCH ×2 (05:16→17:24)
[2016-05-13] MEDS: Insulin LISPRO 300 UNITS/3 ML VIAL SQ SCH ×4 (08:05→20:08)
[2016-05-13] MEDS: Piperacillin/Tazobactam 3.375 GM in D5% in Water (Mini-Bag+) 100 ML IVPB SCH ×3 (08:05→23:51)
[2016-05-13] MEDS: Vancomycin 2,000 MG in D5% in Water 500 ML IVPB SCH (08:05)
--- NOTE | 2016-05-13 14:59 | Internal Med Progress Note ---
Date of Encounter: 05/13/16 Time of Encounter: 09:15 - Assessment and plan (1) HCAP (healthcare-associated pneumonia) Current Visit: No Status: Acute Assessment and plan: Patient is currently on 3 L per nasal cannula. He states he is still more short of breath than his usual. Flu negative. Continue Vanco and Zosyn. ITS Impressions Chest X-Ray 05/12/16 14:25 IMPRESSION: Patchy hazy bilateral pulmonary opacities compatible with infectious or inflammatory process. D/ / Luis Jeff MD / Luis Jeff MD Interpreting Provider: Luis Jeff MD (2) Nonischemic cardiomyopathy Current Visit: Yes Status: Chronic Assessment and plan: Appears euvolemic on examination. Pacemaker with defibrillator in place. (3) Acute and chronic respiratory failure Current Visit: Yes Status: Chronic (4) Diabetes mellitus Current Visit: No Status: Chronic Assessment and plan: Relatively well controlled with an A1c of 7.5%. Continue sliding scale while admitted Qualifiers: Diabetes mellitus type: type 2 Diabetes mellitus complication status: with neurologic complications Diabetes mellitus complication detail: with polyneuropathy Diabetes mellitus grants administrator insulin use: with fci use Qualified Code(s): E11.42 - Type 2 diabetes mellitus with diabetic polyneuropathy; Z79.4 - senior brand manager (current) use of insulin (5) Tobacco abuse Current Visit: No Status: Resolved (6) DVT prophylaxis Current Visit: No Status: Acute Assessment and plan: IPC's ordered and his home Eliquis was continued (7) Atrial fibrillation Current Visit: No Status: Chronic Assessment and plan: Rate controlled, on Eliquis Qualifiers: Atrial fibrillation type: chronic Qualified Code(s): I48.2 - Chronic atrial fibrillation (8) Anemia Current Visit: No Status: Chronic Assessment and plan: Currently at the low end of his normal, no signs of active bleeding, we will continues to trend (9) Hyperkalemia, diminished renal excretion Current Visit: No Status: Acute Assessment and plan: Acute on chronic. Was given Kayexalate, will continue to monitor renal functioning and glucose levels (10) Hypertension Current Visit: No Status: Chronic Assessment and plan: Controlled. At home, he is on hydralazine 75 mg 3 times a day, carvedilol 25 mg twice a day, amlodipine 10 mg daily and these have been continued. We will continue to trend Qualifiers: Hypertension type: essential hypertension Qualified Code(s): I10 - Essential (primary) hypertension (11) Chronic kidney disease, stage 4 (severe) Current Visit: No Status: Chronic Assessment and plan: Mild acute kidney injury overnight however he remains within his normal renal function, we will continue to trend (12) Thrombocytopenia Current Visit: No Status: Chronic Assessment and plan: Intermittently chronic, stable, no signs of active bleeding, will trend - Subjective Interval history: Patient seen and examined. On examination, patient resting supine in bed. Patient awakened easily to voice and currently denies pain. He states he wants to be left alone so he can continue to sleep. He is still endorsing shortness of breath above his norm. - Constitutional Vitals: Temp Pulse Resp BP Pulse Ox 97.7 F 87 16 116/70 95 05/13/16 11:06 05/13/16 11:06 05/13/16 11:06 05/13/16 11:06 05/13/16 11:06 General appearance: Present: cooperative, mild distress, A&O X 3, morbidly obese , answers questions appropriately - Head Head exam: Present: atraumatic, normocephalic - Eye Eye exam: Present: PERRL, conjuntiva pink, sclera anicteric Pupils: Present: PERRL - Neck Neck exam general surgery: Present: supple, trachea midline. Absent: lymphadenopathy - Respiratory Respiratory exam: Present: decreased breath sounds, respiratory distress, rhonchi. Absent: accessory muscle use, rales, wheezes - Cardiovascular Cardiovascular exam: Present: RRR, +S1, +S2. Absent: diastolic murmur, gallop, rubs, systolic murmur - GI/Abdominal GI/Abdominal exam: Present: distended, normal bowel sounds, soft, no peritoneal signs. Absent: tenderness - Extremities Exam Extremities exam: Present: warm, radial pulses palpable and symetrical. Absent : calf tenderness, cyanotic, pedal edema - Neurological Exam Neurological exam: Present: alert, CN II-XII intact, oriented X3, no focal deficits, strengths equal and symetr throughout. Absent: pronater drift, facial droop, speech deficit - Skin Skin exam: Present: dry, intact, pallor, warm Internal Medicine: Result - Labs CBC & Chem 7: 05/13/16 03:10 05/13/16 03:10 Labs: Short CBC 05/13/16 Range/Units 03:10 WBC 10.3 (4.3-11.1) K/mcL Hgb 9.1 L (12.9-16.9) g/dL Hct 28.5 L (37.5-50.1) % Plt Count 108 L (140-400) K/mcL Neutrophils # 9.4 H (1.6-8.9) K/mcL BMP 05/13/16 03:10 Sodium 137 Potassium 5.6 H Chloride 108 Carbon Dioxide 22 BUN 33 H Creatinine 2.54 H Glucose 331 H Calcium 8.4 L Cardiac Enzymes 05/13/16 Range/Units 03:10 Troponin I 0.02 (0-0.03) ng/mL Liver Function 05/13/16 Range/Units 03:10 Total Bilirubin 0.5 (0.2-1.2) mg/dL AST 12 (5-34) Units/L ALT 13 (0-55) Units/L Alkaline Phosphatase 64 (38-126) Units/L Albumin 2.5 L (3.5-5.0) g/dL - ABG Interpretation ABG results: PT/INR, D-dimer PT 14.0 Seconds (9.4-12.1) H 05/12/16 16:00 Consult Discharge Plan - Plan Referrals: Travis Brasher Jr, MD [Primary Care Provider] -
[2016-05-13] MEDS ORDERED: GuaiFENesin Liq 200 MG/10 ML UDC PO PRN (15:17)
[2016-05-13] MEDS: Budesonide/Formoterol 160/4.5 MDI IH SCH ×2 (15:56→22:30)
[2016-05-13] MEDS: Insulin DETEMIR 100 UNIT/ML X5UNITS SQ SCH (20:07)
[2016-05-13] MEDS: Pregabalin 50 MG CAPSULE PO SCH (20:10)
[2016-05-13] MEDS: Temazepam 15 MG CAPSULE PO SCH (20:10)
[2016-05-13] MEDS: hydrALAZINE 25 MG TABLET PO SCH (20:11)
[2016-05-13] MEDS: APIXABAN 5 MG TABLET PO SCH (20:11)
[2016-05-13] MEDS ORDERED: Insulin LISPRO 300 UNITS/3 ML VIAL SQ SCH (21:00)
[2016-05-13] MEDS ORDERED: Insulin DETEMIR 100 UNIT/ML X5UNITS SQ SCH (21:00)
[2016-05-14 04:02] LABS: Hematocrit 27.1 % (37.5-50.1); Hemoglobin 8.6 g/dL (12.9-16.9); Lymphocytes # 0.5 K/mcL (0.6-4.6); Lymphocytes % 5.9 %; Mean Corpuscular HGB Conc 31.7 g/dL (31.6-35.5); Mean Corpuscular Volume 91.2 fL (83.0-100.0); Mean Platelet Volume 10.6 fL (9.4-12.4); Monocytes # 0.3 K/mcL (0.0-1.3); Neutrophils # 7.4 K/mcL (1.6-8.9); Platelet Count 105 K/mcL (140-400); Red Blood Count 2.97 M/mcL (4.19-5.50); Red Cell Distribution Width 14.9 % (11.5-14.5); Segmented Neutrophils % 90.1 %
[2016-05-14 04:16] LABS: Calcium 8.1 mg/dL (8.6-10.8); Potassium 5.2 mEq/L (3.5-4.5)
[2016-05-14] MEDS: Ipratropium/Albuterol Neb 3 ML IH SCH ×4 (04:16→22:19)
[2016-05-14] MEDS: MethylPREDNISolone 40 MG/ML VIAL IVP SCH ×2 (05:41→17:15)
[2016-05-14] MEDS: amLODIPine 5 MG TABLET PO SCH (08:08)
[2016-05-14] MEDS: APIXABAN 5 MG TABLET PO SCH ×2 (08:09→20:59)
[2016-05-14] MEDS: Piperacillin/Tazobactam 3.375 GM in D5% in Water (Mini-Bag+) 100 ML IVPB SCH ×2 (08:09→17:14)
[2016-05-14] MEDS: Pregabalin 50 MG CAPSULE PO SCH ×2 (08:09→20:58)
[2016-05-14] MEDS: hydrALAZINE 25 MG TABLET PO SCH ×3 (08:09→20:59)
[2016-05-14] MEDS: 0.9 % Sodium Chloride 1,000 ML IVC SCH (08:10)
[2016-05-14] MEDS: Insulin LISPRO 300 UNITS/3 ML VIAL SQ SCH ×4 (08:10→20:55)
[2016-05-14] MEDS: Vancomycin 2,000 MG in D5% in Water 500 ML IVPB SCH (09:04)
[2016-05-14] MEDS: Tiotropium 18 MCG inhalation IH SCH (10:35)
[2016-05-14] MEDS: Budesonide/Formoterol 160/4.5 MDI IH SCH ×2 (10:36→22:19)
--- NOTE | 2016-05-14 12:54 | Internal Med Progress Note ---
Date of Encounter: 05/14/16 Time of Encounter: 09:00 - Assessment and plan (1) HCAP (healthcare-associated pneumonia) Current Visit: No Status: Acute Assessment and plan: Patient is currently on 3 L per nasal cannula; not on oxygen at home. He states he is still more short of breath than his usual but states he feels slightly better than yesterday. Flu negative. Continue Vanco and Zosyn. He states his cough is now nonproductive, we will schedule mucolytic's. ITS Impressions Chest X-Ray 05/12/16 14:25 IMPRESSION: Patchy hazy bilateral pulmonary opacities compatible with infectious or inflammatory process. D/ / Luis Jeff MD / Luis Jeff MD Interpreting Provider: Luis Jeff MD (2) Nonischemic cardiomyopathy Current Visit: Yes Status: Chronic Assessment and plan: Appears euvolemic on examination. Pacemaker with defibrillator in place. (3) Acute and chronic respiratory failure Current Visit: Yes Status: Chronic Assessment and plan: During his last admission a week and a half ago, we attempted to qualify him for supplemental oxygenation but he did not qualify. He is currently on 3 L per nasal cannula. Patient states he breathes a lot better with oxygen, will attempt to requalify at time of disposition however he is not fit for discharge at this time. (4) Diabetes mellitus Current Visit: No Status: Chronic Assessment and plan: Relatively well controlled with an A1c of 7.5%. Continue sliding scale while admitted Qualifiers: Diabetes mellitus type: type 2 Diabetes mellitus complication status: with neurologic complications Diabetes mellitus complication detail: with polyneuropathy Diabetes mellitus acid cleaner insulin use: with acid cleaner use Qualified Code(s): E11.42 - Type 2 diabetes mellitus with diabetic polyneuropathy; Z79.4 - order puller (current) use of insulin (5) Tobacco abuse Current Visit: No Status: Resolved (6) DVT prophylaxis Current Visit: No Status: Acute Assessment and plan: IPC's ordered and his home Eliquis was continued (7) Atrial fibrillation Current Visit: No Status: Chronic Assessment and plan: Rate controlled, on Eliquis Qualifiers: Atrial fibrillation type: chronic Qualified Code(s): I48.2 - Chronic atrial fibrillation (8) Anemia Current Visit: No Status: Chronic Assessment and plan: Currently at the low end of his normal, no signs of active bleeding other than his nosebleed from yesterday, we will continues to trend. It does not appear as if his anemia has been addressed recently, will check iron, B12, folate. We will continue to monitor. Patient states he has never had to be transfused in the past. (9) Hyperkalemia, diminished renal excretion Current Visit: No Status: Acute Assessment and plan: Acute on chronic. Was given Kayexalate and is trending down, will continue to monitor renal functioning and glucose levels (10) Hypertension Current Visit: No Status: Chronic Assessment and plan: Controlled. At home, he is on hydralazine 75 mg 3 times a day, carvedilol 25 mg twice a day, amlodipine 10 mg daily and these have been continued. We will continue to trend Qualifiers: Hypertension type: essential hypertension Qualified Code(s): I10 - Essential (primary) hypertension (11) Chronic kidney disease, stage 4 (severe) Current Visit: No Status: Chronic Assessment and plan: Mild acute kidney injury overnight however he remains within his normal renal function, but given that he is stage 4, will bring his call center manager Dr Barlow onboard (spoke to him and he will see the patient tomorrow). Patient became tearful stating he refuses to go on dialysis. He states that he watched his suffer through dialysis for one year and states that he will absolutely refusing. He states if his kidneys get worse then he will "just have to ." He is quite upset at times- will continue to monitor closely. (12) Thrombocytopenia Current Visit: No Status: Chronic Assessment and plan: Intermittently chronic, stable, no signs of active bleeding, will trend - Subjective Interval history: Patient seen and examined. On examination, patient resting supine in bed. Patient is alert and oriented 3 and states he is sleepy but he denies pain. He states his shortness of breath has improved but he is not back to his baseline. He states he is concerned that he has been sick for so long sitting is just not getting better and he is frustrated and scared. He continues to endorse a cough but states it is not productive. He states he is eating well. - Constitutional Vitals: Temp Pulse Resp BP Pulse Ox 98.0 F 74 18 125/63 97 05/14/16 10:27 05/14/16 10:27 05/14/16 10:36 05/14/16 10:27 05/14/16 10:36 General appearance: Present: cooperative, A&O X 3, morbidly obese, pleasant, no acute distress, answers questions appropriately - Head Head exam: Present: atraumatic, normocephalic - Eye Eye exam: Present: PERRL, conjuntiva pink, sclera anicteric Pupils: Present: PERRL - Neck Neck exam general surgery: Present: supple, trachea midline. Absent: lymphadenopathy - Respiratory Respiratory exam: Present: decreased breath sounds, prolonged expiratory phase, rhonchi. Absent: accessory muscle use, rales, respiratory distress, wheezes - Cardiovascular Cardiovascular exam: Present: RRR, +S1, +S2. Absent: diastolic murmur, gallop, rubs, systolic murmur - GI/Abdominal GI/Abdominal exam: Present: distended, normal bowel sounds, soft, no peritoneal signs. Absent: tenderness - Extremities Exam Extremities exam: Present: warm, radial pulses palpable and symetrical. Absent : calf tenderness, cyanotic, pedal edema - Neurological Exam Neurological exam: Present: alert, CN II-XII intact, oriented X3, no focal deficits, strengths equal and symetr throughout. Absent: pronater drift, facial droop, speech deficit - Skin Skin exam: Present: dry, intact, pallor, warm Internal Medicine: Result - Labs CBC & Chem 7: 05/14/16 03:48 05/14/16 03:48 Labs: Short CBC 05/14/16 Range/Units 03:48 WBC 8.3 (4.3-11.1) K/mcL Hgb 8.6 L (12.9-16.9) g/dL Hct 27.1 L (37.5-50.1) % Plt Count 105 L (140-400) K/mcL Neutrophils # 7.4 (1.6-8.9) K/mcL BMP 05/14/16 03:48 Sodium 137 Potassium 5.2 H Chloride 107 Carbon Dioxide 20 BUN 35 H Creatinine 2.67 H Glucose 491 H Calcium 8.1 L - ABG Interpretation ABG results: PT/INR, D-dimer PT 14.0 Seconds (9.4-12.1) H 05/12/16 16:00 Consult Discharge Plan - Plan Referrals: Travis Brasher Jr, MD [Primary Care Provider] -
[2016-05-14] MEDS: Famotidine 20 MG/2 ML VIAL IVP SCH (17:14)
--- NOTE | 2016-05-14 20:53 | Electrocardiograph Report ---
[address] [address] Test Date: 2016-05-12 Pat Name: Mic [place] Department: 103 Room: 3B12 Gender: M Interventional Tech: : [id number] Requested By: Toney Colón Order Number: [id number] Reading MD: Danny Monae MD Measurements Intervals [place] Rate: 84 P: 41 SC: QRS: -60 QRSD: 117 T: 99 QT: 375 QTc: 416 Interpretive Statements ELECTRONIC VENTRICULAR PACEMAKER OCCASIONAL PVCs ARTIFACT PRESENT Electronically Signed On 05-14-2016 20:51:55 EDT by Danny Monae MD
[2016-05-14] MEDS: Insulin DETEMIR 100 UNIT/ML X5UNITS SQ SCH (20:54)
[2016-05-14] MEDS: Temazepam 15 MG CAPSULE PO SCH (20:58)
[2016-05-15] MEDS: Piperacillin/Tazobactam 3.375 GM in D5% in Water (Mini-Bag+) 100 ML IVPB SCH ×3 (00:01→17:26)
[2016-05-15 04:31] LABS: Hematocrit 27.5 % (37.5-50.1); Hemoglobin 8.7 g/dL (12.9-16.9); Immature Granulocytes % 1.5 % (0-4); Lymphocytes # 0.6 K/mcL (0.6-4.6); Lymphocytes % 7.2 %; Mean Corpuscular HGB Conc 31.6 g/dL (31.6-35.5); Mean Corpuscular Hemoglobin 28.2 pg (28.0-33.3); Mean Corpuscular Volume 89.3 fL (83.0-100.0); Mean Platelet Volume 10.3 fL (9.4-12.4); Monocytes # 0.2 K/mcL (0.0-1.3); Monocytes % 2.7 %; Neutrophils # 6.9 K/mcL (1.6-8.9); Platelet Count 116 K/mcL (140-400); Red Blood Count 3.08 M/mcL (4.19-5.50); Red Cell Distribution Width 14.6 % (11.5-14.5); Segmented Neutrophils % 88.6 %
[2016-05-15 04:45] LABS: Potassium 4.8 mEq/L (3.5-4.5)
[2016-05-15] MEDS: Ipratropium/Albuterol Neb 3 ML IH SCH ×4 (05:19→22:35)
[2016-05-15 05:20] LABS: Folate 4.8 ng/mL (7.0-31.4); Vitamin B12 > 2000 pg/mL (213-816)
[2016-05-15] MEDS: 0.9 % Sodium Chloride 1,000 ML IVC SCH (06:06)
[2016-05-15] MEDS: MethylPREDNISolone 40 MG/ML VIAL IVP SCH ×2 (06:06→17:26)
[2016-05-15] MEDS: Vancomycin 2,000 MG in D5% in Water 500 ML IVPB SCH (08:28)
[2016-05-15] MEDS: APIXABAN 5 MG TABLET PO SCH ×2 (08:29→20:11)
[2016-05-15] MEDS: Pregabalin 50 MG CAPSULE PO SCH ×2 (08:29→20:12)
[2016-05-15] MEDS: amLODIPine 5 MG TABLET PO SCH (08:29)
[2016-05-15] MEDS: hydrALAZINE 25 MG TABLET PO SCH ×3 (08:29→20:12)
[2016-05-15] MEDS: Insulin LISPRO 300 UNITS/3 ML VIAL SQ SCH ×4 (08:29→22:02)
[2016-05-15] MEDS: Folic Acid 1 MG TABLET PO SCH (08:29)
[2016-05-15] MEDS: *HR* Morphine 2 MG/ML SYRINGE IVP PRN ×3 (08:41→22:03)
--- NOTE | 2016-05-15 10:44 | Internal Med Progress Note ---
Date of Encounter: 05/15/16 Time of Encounter: 09:00 - Assessment and plan (1) HCAP (healthcare-associated pneumonia) Current Visit: No Status: Acute Assessment and plan: Patient is currently fluctuating between 2 and 4 per nasal cannula; not on oxygen at home. He states he is still more short of breath than his usual and also feels weak. Flu negative. Continue Vanco and Zosyn. We will obtain chest CT and possibly consider consultation to pulmonology given that this is his third admission this year for the same complaint. He may necessitate a bronchoscopy. We will await chest CT results. Unknown etiology of the pneumonia, sputum culture pending. Urine testing for strep pneumonia and legionella was negative. He has 2 prior admissions over the last 2 months for pneumonia, treating to allow for pseudomonal coverage ITS Impressions Chest X-Ray 05/12/16 14:25 IMPRESSION: Patchy hazy bilateral pulmonary opacities compatible with infectious or inflammatory process. D/ / Luis Jeff MD / Luis Jeff MD Interpreting Provider: Luis Jeff MD (2) Nonischemic cardiomyopathy Current Visit: Yes Status: Chronic Assessment and plan: Appears euvolemic on examination. Pacemaker with defibrillator in place. (3) Acute and chronic respiratory failure Current Visit: Yes Status: Chronic Assessment and plan: During his last admission a week and a half ago, we attempted to qualify him for supplemental oxygenation but he did not qualify. He is currently on 2-4 L per nasal cannula. Patient states he breathes a lot better with oxygen, will attempt to requalify at time of disposition however he is not fit for discharge at this time. (4) Diabetes mellitus Current Visit: No Status: Chronic Assessment and plan: Relatively well controlled with an A1c of 7.5%. Continue sliding scale while admitted Qualifiers: Diabetes mellitus type: type 2 Diabetes mellitus complication status: with neurologic complications Diabetes mellitus complication detail: with polyneuropathy Diabetes mellitus termite helper insulin use: with skilled nursing use Qualified Code(s): E11.42 - Type 2 diabetes mellitus with diabetic polyneuropathy; Z79.4 - correction (current) use of insulin (5) Tobacco abuse Current Visit: No Status: Resolved (6) DVT prophylaxis Current Visit: No Status: Acute Assessment and plan: IPC's ordered and his home Eliquis was continued (7) Atrial fibrillation Current Visit: No Status: Chronic Assessment and plan: Rate controlled, on Eliquis Qualifiers: Atrial fibrillation type: chronic Qualified Code(s): I48.2 - Chronic atrial fibrillation (8) Anemia Current Visit: No Status: Chronic Assessment and plan: Remains at the low end of his normal, no signs of active bleeding other than his nosebleed from 2 days ago with no bleeding since that time. Iron unremarkable. TSH normal. B12 elevated. Folate low, started on supplementation. He denies bloody bowel movements or hemoptysis. (9) Hyperkalemia, diminished renal excretion Current Visit: No Status: Acute Assessment and plan: Acute on chronic. Was given Kayexalate and IV fluids and continues to trend down, will continue to monitor renal functioning and glucose levels (10) Hypertension Current Visit: No Status: Chronic Assessment and plan: Controlled. At home, he is on hydralazine 75 mg 3 times a day, carvedilol 25 mg twice a day, amlodipine 10 mg daily and these have been continued. We will continue to trend Qualifiers: Hypertension type: essential hypertension Qualified Code(s): I10 - Essential (primary) hypertension (11) Chronic kidney disease, stage 4 (severe) Current Visit: No Status: Chronic Assessment and plan: Renal functioning improved to his baseline with gentle IV fluids. Dr. Barlow of nephrology on board. 05/14/16 Mild acute kidney injury overnight however he remains within his normal renal function, but given that he is stage 4, will bring his solar field installation crew member Dr Barlow onboard (spoke to him and he will see the patient tomorrow). Patient became tearful stating he refuses to go on dialysis. He states that he watched his suffer through dialysis for one year and states that he will absolutely refusing. He states if his kidneys get worse then he will "just have to ." He is quite upset at times- will continue to monitor closely. (12) Thrombocytopenia Current Visit: No Status: Chronic Assessment and plan: Intermittently chronic, stable, no signs of active bleeding, now trending up, will trend - Subjective Interval history: Patient seen and examined. On examination, patient resting supine in bed. Patient is alert and oriented 3 and states he is still more short of breath than usual and still feels very weak. He states he has been unable to sit up or to move around very much secondary to weakness and generalized malaise. He states he is eating well. - Constitutional Vitals: Temp Pulse Resp BP Pulse Ox 97.9 F 81 17 149/76 98 05/15/16 06:56 05/15/16 06:56 05/15/16 06:56 05/15/16 06:56 05/15/16 06:56 General appearance: Present: cooperative, A&O X 3, morbidly obese, pleasant, no acute distress, answers questions appropriately - Head Head exam: Present: atraumatic, normocephalic - Eye Eye exam: Present: PERRL, conjuntiva pink, sclera anicteric Pupils: Present: PERRL - Neck Neck exam general surgery: Present: supple, trachea midline. Absent: lymphadenopathy - Respiratory Respiratory exam: Present: decreased breath sounds, rhonchi. Absent: accessory muscle use, rales, respiratory distress, wheezes - Cardiovascular Cardiovascular exam: Present: RRR, +S1, +S2. Absent: diastolic murmur, gallop, rubs, systolic murmur - GI/Abdominal GI/Abdominal exam: Present: distended, normal bowel sounds, soft, no peritoneal signs. Absent: tenderness - Extremities Exam Extremities exam: Present: warm, radial pulses palpable and symetrical. Absent : calf tenderness, cyanotic, pedal edema - Neurological Exam Neurological exam: Present: alert, CN II-XII intact, oriented X3, no focal deficits, strengths equal and symetr throughout. Absent: pronater drift, facial droop, speech deficit - Skin Skin exam: Present: dry, intact, pallor, warm Internal Medicine: Result - Labs CBC & Chem 7: 05/15/16 03:40 05/15/16 03:40 Labs: Short CBC 05/15/16 Range/Units 03:40 WBC 7.8 (4.3-11.1) K/mcL Hgb 8.7 L (12.9-16.9) g/dL Hct 27.5 L (37.5-50.1) % Plt Count 116 L (140-400) K/mcL Neutrophils # 6.9 (1.6-8.9) K/mcL BMP 05/15/16 03:40 Sodium 137 Potassium 4.8 H Chloride 106 Carbon Dioxide 24 BUN 35 H Creatinine 2.39 H Glucose 275 H Calcium 8.0 L - ABG Interpretation ABG results: PT/INR, D-dimer PT 14.0 Seconds (9.4-12.1) H 05/12/16 16:00 - VTE Documentation of Mechanical Device: Intermittent pneumatic compression device Consult Discharge Plan - Plan Referrals: Travis Brasher Jr, MD [Primary Care Provider] -
[2016-05-15] MEDS: Budesonide/Formoterol 160/4.5 MDI IH SCH ×2 (11:26→22:35)
[2016-05-15] MEDS: Tiotropium 18 MCG inhalation IH SCH (11:26)
--- NOTE | 2016-05-15 17:06 | Nephrology Consult Note ---
<VianneySangeetha cuba - Last Filed: 05/16/16 10:20> Assessment and Plan (1) CKD (chronic kidney disease) stage 4, GFR 15-29 ml/min Current Visit: Yes Status: Acute Patient currently at his baseline renal function. Reassured patient there is no indication for dialysis at this time. Vitamin D level ordered. Continue renal protective strategy. - Renally dose antibiotics. - Avoid nephrotoxins as much as possible. ---daily vancomycin level. Thank-you for consulting [facility]. (2) HCAP (healthcare-associated pneumonia) Current Visit: Yes Status: Acute (3) Acute and chronic respiratory failure Current Visit: Yes Status: Chronic Qualifiers: Respiratory failure complication: unspecified whether with hypoxia or hypercapnia Qualified Code(s): J96.20 - Acute and chronic respiratory failure , unspecified whether with hypoxia or hypercapnia (4) Diabetes mellitus Current Visit: No Status: Chronic Qualifiers: Diabetes mellitus type: type 2 Diabetes mellitus complication status: with neurologic complications Diabetes mellitus complication detail: with polyneuropathy Diabetes mellitus alf insulin use: with alf use Qualified Code(s): E11.42 - Type 2 diabetes mellitus with diabetic polyneuropathy; Z79.4 - correction (current) use of insulin (5) Nonischemic cardiomyopathy Current Visit: Yes Status: Chronic History of Present Illness - Chief Complaint GODFREY - History of Present Illness 71 yo male with a PMH of a fib on Eliquis, HTN, COPD, and CKD stage 4 admitted for HCAP (he was discharged 8 days prior from an admission for COPD exacerbation ). He follows outpatient with Dr. Barlow. His renal function has been at or slightly below baseline during this hospital admission. Patient is adamant that he does not want dialysis as he watched his be on dialysis for a year and talking about this causes him great anxiety. (Although no health critical care nurse specialist are stating he is needing dialysis at this time.) Medications and Allergies Insulin Glargine,Hum.rec.anlog [Lantus Solostar] 42 unit SQ HS 05/09/15 [History ] Pregabalin [Lyrica] 200 mg PO BID 05/09/15 [History] Simvastatin [Zocor] 40 mg PO DAILY 05/09/15 [History] Temazepam [Restoril] 30 mg PO HS 05/09/15 [History] Apixaban [Eliquis] 2.5 mg PO BID 12/31/15 [History] Carvedilol [Coreg] 25 mg PO BID 12/31/15 [History] Promethazine [Phenergan] 25 mg PO HS 12/31/15 [History] Artificial Tears SOLN [Akwa Tears] 1 drop BOTH EYES QID bottle 01/07/16 [Rx] HydrALAZINE 75 mg PO TID #270 tablet 01/07/16 [Rx] Tamsulosin [Flomax] 0.4 mg PO DAILY #30 capsule 01/07/16 [Rx] Acetaminophen [Tylenol] 650 mg PO HS 03/26/16 [History] Cholecalciferol (D-3) [Vitamin D] 1,000 unit PO DAILY 03/26/16 [History] Cyanocobalamin (Vitamin B-12) [Vitamin B12] 5,000 mcg PO DAILY 03/26/16 [History ] Amlodipine [Norvasc] 10 mg PO DAILY #30 tablet 04/05/16 [Rx] Docusate [Colace] 200 mg PO DAILY #60 capsule 04/05/16 [Rx] Tiotropium [Spiriva] 18 mcg IH DAILYR #60 inh 04/05/16 [Rx] Albuterol Sulfate [Proventil Hfa] 1 - 2 puff IH Q6H PRN 04/27/16 [History] Budesonide/Formoterol 160/4.5 [Symbicort 160/4.5] 2 puff IH BIDR 04/27/16 [ History] Ipratropium/Albuterol Neb [Duoneb] 3 ml IH QID PRN 04/27/16 [History] GuaiFENesin Liq [Robitussin Liq] 200 mg PO Q6HR PRN 05/12/16 [History] Pantoprazole Sodium [Protonix] 40 mg PO DAILY 05/12/16 [History] Allergies aspirin Allergy (Verified 03/26/16 14:56) Hives diphenhydramine [From Benadryl] Allergy (Verified 03/26/16 12:08) Swelling of Lip/Tongue/Throat Tetracyclines Allergy (Verified 03/26/16 14:56) Hives Review of Systems Constitutional: fatigue, lethargy, malaise, no fever(s) Cardiovascular: no leg edema Respiratory: cough, dyspnea, dyspnea on exertion, no excessive phlegm production Gastrointestinal: no diarrhea, no vomiting Integumentary: no rash, no skin ulcer Exam - Vital Signs Vital signs: Initial Vital Signs Temp Pulse Resp BP Pulse Ox 99.3 F 87 20 114/101 95 05/12/16 14:13 05/12/16 14:13 05/12/16 14:13 05/12/16 14:13 05/12/16 14:13 Vital Signs - Last 8 Hours Temp Pulse Resp BP Pulse Ox 05/16/16 07:01 97.3 F L 68 17 136/72 96 05/16/16 04:25 18 97 05/16/16 04:00 97.9 F 69 15 135/67 97 Intake and Output 05/15/16 05/16/16 05/16/16 23:59 07:59 15:59 Intake Total 220 / 220 Output Total 625 / 625 Balance 220 / 220 -625 / -625 Intake: IV Fluids 100 / 100 Zosyn 3.375 GM In 100 / 100 Dextrose 5% (Minibag+) 100 ML 100 ML @ 25 mls/hr IVPB Q8HR [facility] Rx#: [id number] Oral 120 / 120 Output: Straight Cath 625 / 625 Other: Meal Dinner Percent of Meal Consumed 100% # Urine Diapers 1 1 Weight 134.5 kg Blood Glucose* 281 291 Patient Weight 05/16/16 23:59 Weight 134.5 kg - General Appearance General appearance: well-developed, well-nourished, appears started age Neck: supple Respiratory: course breath sounds, rhonchi Cardiology: regular rate, regular rhythm, normal S1, normal S2 Integumentary: no rash, warm and dry Neurologic: no focal deficit, CN 3-12 intact Musculoskeletal: no deformities, no erythema, no cyanosis, no clubbing Psychiatric: mood/affect appropriate, cooperative Results - Lab Results 05/16/16 03:49 05/16/16 03:49 Most recent lab results Calcium 8.0 mg/dL (8.6-10.8) L 05/16/16 03:49 Magnesium 1.6 mg/dL (1.6-2.6) 05/13/16 03:10 Urine Creatinine 63 mg/dL 05/16/16 06:00 Urine Total Protein 15 mg/dL (1-14) H 05/16/16 06:00 Consult Discharge Plan - Plan Referrals: Travis Brasher Jr, MD [Primary Care Provider] - 05/22/16 3:00 pm <RiccardojoanneobieivisHomero Egan - Last Filed: 05/18/16 16:07> Date of Encounter: 05/15/16 Time of Encounter: 11:00 History of Present Illness - Reason for Consult Consult date: 05/15/16 Chronic Kidney Disease Requesting physician: Kizzy Jeronmio - History of Present Illness 71 y o male with PMH of Past Med Surg Social Fam HX - Past Medical History Medical history: atrial fibrillation, cardiomyopathy, CHF, COPD, CVA, diabetes, hyperlipidemia, hypertension, myocardial infarction, renal disease, TIA Psychiatric history: no psych history - Past Surgical History Surgical History: orthopedic, other - Social History Smoking Status: Former smoker Smokeless Tobacco Status: No Alcohol use: rarely Drug use: none - Family History Mother Adopted: No Family Member Ethnicity: Non- Living Status: Hx Family Cardiac Disorders: Yes Hx Family Respiratory Disorders: Yes Hx Family Cancer: Yes Hx Family GI Disorders: No Hx Family Endocrine Disorder: Yes Hx Family Neuromuscular Disorders: No Hx Family Neurologic Disorders: No Hx Family HEENT Disorders: No Hx Family Autoimmune Disorders: No Exam - Vital Signs Vital signs: Initial Vital Signs Temp Pulse Resp BP Pulse Ox 99.3 F 87 20 114/101 95 05/12/16 14:13 05/12/16 14:13 05/12/16 14:13 05/12/16 14:13 05/12/16 14:13 Vital Signs - Last 8 Hours Temp Pulse Resp BP Pulse Ox 05/15/16 16:24 16 98 05/15/16 15:22 97.6 F 68 16 135/77 97 05/15/16 11:26 16 98 05/15/16 11:18 97.5 F L 67 17 124/70 99 Intake and Output 05/15/16 05/15/16 05/15/16 07:59 15:59 23:59 Intake Total 1150 / 1150 820 / 820 Output Total 250 / 250 Balance 900 / 900 820 / 820 Intake: IV Fluids 1050 / 1050 600 / 600 0.9 % Sodium Chloride 1, 950 / 950 000 ML @ 60 mls/hr IVC . [id number] [facility] Rx#: [id number] Zosyn 3.375 GM In 100 / 100 100 / 100 Dextrose 5% (Minibag+) 100 ML 100 ML @ 25 mls/hr IVPB Q8HR [facility] Rx#: [id number] Vancocin 2,000 MG In 500 / 500 Dextrose 5% 500 ML @ 250 mls/hr IVPB Q24H [facility] Rx#: [id number] Oral 100 / 100 220 / 220 Output: Straight Cath 250 / 250 Other: Meal Lunch Percent of Meal Consumed 5% # Urine Diapers 1 1 1 Weight 132.5 kg Blood Glucose* 281 309 287 Patient Weight 05/15/16 23:59 Weight 132.5 kg Results - Lab Results 05/16/16 03:49 05/18/16 04:19 Most recent lab results Calcium 8.0 mg/dL (8.6-10.8) L 05/15/16 03:40 Magnesium 1.6 mg/dL (1.6-2.6) 05/13/16 03:10 - Attending Attestation I examined this patient and my medical decision-making was reviewed with the ADJUNCT LATIN PROFESSOR/PA/Advanced Practice Nurse/Resident Physician. I agree with the documented findings, disposition and treatment plan as described except to the extent set forth below. Pt seen and examined. Assured SCr at baseline with no indication for STRETCH MACHINE OPERATOR at this time. Encouraged po fluids. Monitor vanco by daily levels. Avoid nephrotoxins if possible, will follow with you
[2016-05-15] MEDS: Famotidine 20 MG/2 ML VIAL IVP SCH (17:26)
--- NOTE | 2016-05-15 19:11 | Event Note ---
Date of Encounter: 05/15/16 Time of Encounter: 19:00 Patient seen and reexamined as he was requesting the results to his chest CT. Chest CT revealing right upper lobe chronic scarring, bibasilar atelectasis and a possible cyst/nodule to his thyroid. TSH normal, outpatient thyroid ultrasound recommended. Patient continues to endorse shortness of breath above his norm and continues to be oxygen dependent. Consider possible pulmonology consult pending clinical outcomes. OT and PT recommended home health. No sputum culture has been obtained at this time as the patient has a nonproductive cough. We will obtain viral respiratory panel. ITS Impressions Chest X-Ray 05/12/16 14:25 IMPRESSION: Patchy hazy bilateral pulmonary opacities compatible with infectious or inflammatory process. D/ / Luis Jeff MD / Luis Jeff MD Interpreting Provider: Luis Jeff MD Chest CT 05/15/16 10:15 IMPRESSION: 1. Bandlike linear density in the right upper lobe probably represents atelectasis or scarring. 2. Bibasilar dependent atelectasis. 3. Mild to moderate cardiomegaly. 4. Coronary artery disease. 5. Asymmetric enlargement of the left lobe of the thyroid, possibly secondary to a cyst or nodule. Thyroid gland would better be assessed with a dedicated thyroid ultrasound on a nonemergent basis. D/ / 05/15/2016 11:40:50 Toni Rubio MD / thomas Interpreting Provider: Toni Rubio MD
[2016-05-15] MEDS: Temazepam 15 MG CAPSULE PO SCH (20:12)
[2016-05-15] MEDS: Insulin DETEMIR 100 UNIT/ML X5UNITS SQ SCH (20:13)
[2016-05-16] MEDS: Piperacillin/Tazobactam 3.375 GM in D5% in Water (Mini-Bag+) 100 ML IVPB SCH ×2 (00:45→09:27)
[2016-05-16] MEDS: Ipratropium/Albuterol Neb 3 ML IH SCH ×4 (04:25→22:11)
[2016-05-16 04:50] LABS: Hematocrit 28.1 % (37.5-50.1); Immature Granulocytes % 2.2 % (0-4); Lymphocytes # 0.5 K/mcL (0.6-4.6); Lymphocytes % 8.7 %; Mean Corpuscular Hemoglobin 28.6 pg (28.0-33.3); Mean Corpuscular Volume 89.2 fL (83.0-100.0); Mean Platelet Volume 10.3 fL (9.4-12.4); Monocytes # 0.2 K/mcL (0.0-1.3); Monocytes % 3.9 %; Platelet Count 121 K/mcL (140-400); Red Blood Count 3.15 M/mcL (4.19-5.50); Red Cell Distribution Width 14.3 % (11.5-14.5); Segmented Neutrophils % 85.2 %
[2016-05-16 05:28] LABS: Potassium 5.2 mEq/L (3.5-4.5)
[2016-05-16] MEDS: MethylPREDNISolone 40 MG/ML VIAL IVP SCH ×2 (05:33→17:34)
[2016-05-16 06:21] LABS: Bilirubin,Urine Negative (Negative); Blood,Urine Negative (Negative); Clarity,Urine Clear (Clear); Color,Urine Yellow (Yellow); Glucose,Urine (UA) >=1000 mg/dL (Normal); Ketones,Urine Negative (Negative); Leukocyte Esterase,Urine Negative (Negative); Nitrite,Urine Negative (Negative); Protein,Urine Trace mg/dL (Neg-Trace); Specific Gravity,Urine 1.024 (1.010-1.025); Urobilinogen,Urine Normal (Normal)
[2016-05-16 06:24] LABS: Bacteria,Urine None Seen per hpf (None-Few); Hyaline Casts,Urine None Seen per lpf (None-Few); Squamous Epithelial Cell,Urine None Seen per lpf (None-Few); WBC,Urine 0-3 per hpf (0-3)
[2016-05-16 06:26] LABS: Protein/Creatinine Ratio,Urine 0.24 mg/mg (0-0.20)
[2016-05-16] MEDS ORDERED: Aminoglycoside Consult 1 EACH MC ONE (08:28)
[2016-05-16] MEDS: amLODIPine 5 MG TABLET PO SCH (09:26)
[2016-05-16] MEDS: *HR* Morphine 2 MG/ML SYRINGE IVP PRN ×3 (09:26→22:49)
[2016-05-16] MEDS: hydrALAZINE 25 MG TABLET PO SCH ×3 (09:26→20:20)
[2016-05-16] MEDS: Insulin LISPRO 300 UNITS/3 ML VIAL SQ SCH ×4 (09:26→20:34)
[2016-05-16] MEDS: Pregabalin 50 MG CAPSULE PO SCH ×2 (09:27→20:20)
[2016-05-16] MEDS: APIXABAN 5 MG TABLET PO SCH ×2 (09:27→20:19)
[2016-05-16] MEDS: Folic Acid 1 MG TABLET PO SCH (09:27)
[2016-05-16] MEDS: Budesonide/Formoterol 160/4.5 MDI IH SCH ×2 (09:57→22:11)
[2016-05-16] MEDS: Tiotropium 18 MCG inhalation IH SCH (09:59)
--- NOTE | 2016-05-16 10:59 | Internal Med Progress Note ---
<Fannie Irwin - Last Filed: 05/16/16 10:48> Date of Encounter: 05/16/16 Time of Encounter: 10:48 - Assessment and plan (1) HCAP (healthcare-associated pneumonia) Current Visit: Yes Status: Acute Assessment and plan: Patient with chest xray with patchy hazy bilateral opacities compatible with infection or inflammatory process, does not appear changed from prior xray in 2015 and prior admission Chest CT with evidence of bilbasilar dependent atelectasis and a band like density in right upper lobe representing scarring/atelectasis He has had 2 prior admissions in prior 2 months, requiring expanded coverage for HCAP Urine legionella and streptococcus negative Sputum culture ordered, however patient is not producing sputum Consider consultation with pulmonology given repeated presentations with same complaint and no improvement in symptoms without identifiable cause Continue zosyn and vancomycin for now (2) Acute and chronic respiratory failure Current Visit: Yes Status: Chronic Assessment and plan: Patient with known history of COPD Does not require oxygen at home Possible consideration for obesity hypoventilation syndrome Patient has required oxygen his previous admissions, he failed to qualify for oxygen at previous admission Will attempt to requalify with 6 minute walk prior to discharge Continue to attempt to wean supplemental O2 to keep SpO2 > 88% given presence of underlying lung disease Given concers for CHF, may consider trial on one time dose of IV lasix to determine if helps underlying respiratory status Qualifiers: Respiratory failure complication: unspecified whether with hypoxia or hypercapnia Qualified Code(s): J96.20 - Acute and chronic respiratory failure , unspecified whether with hypoxia or hypercapnia (3) Diabetes mellitus Current Visit: No Status: Chronic Assessment and plan: Relatively well controlled with an A1c of 7.5%. Complicated by chronic kidney disease and polyneuropathy Patient admits to not being compliant with medications at home and he only takes his basal insulin in addition to insulin one time per day. Admits he does not take his blood sugar as often as he should. Continue sliding scale while in hospital Continue home lyrica Qualifiers: Diabetes mellitus type: type 2 Diabetes mellitus complication status: with neurologic complications Diabetes mellitus complication detail: with polyneuropathy Diabetes mellitus halfway insulin use: with terminal clerk use Qualified Code(s): E11.42 - Type 2 diabetes mellitus with diabetic polyneuropathy; Z79.4 - [facility] (current) use of insulin (4) Tobacco abuse Current Visit: No Status: Resolved (5) Atrial fibrillation Current Visit: No Status: Chronic Assessment and plan: Rate controlled Continue home eliquis for anticoagulation Continue home carvedilol Review of records indicates previous echo with LVEF 50% and mild diastolic dysfunction Qualifiers: Atrial fibrillation type: chronic Qualified Code(s): I48.2 - Chronic atrial fibrillation (6) Anemia Current Visit: No Status: Chronic Assessment and plan: Paiyancy had nosebleed prior to arrival Hgb has remained stable during admission. No current signs of active bleeding Continue to monitor CBC Qualifiers: Anemia type: unspecified type Qualified Code(s): D64.9 - Anemia, unspecified (7) Hyperkalemia, diminished renal excretion Current Visit: No Status: Acute Assessment and plan: Chronic. Initial elevation to 5.6, given kayexalate and IV fluids Potassium today 5.2, appears to be baseline for him (4.8-5.2) Nephrology following, appreciate expertise and assistance (8) Hypertension Current Visit: No Status: Chronic Assessment and plan: Controlled. Continue home medications of hydralazine and amlodipine Continue to monitor vitals Qualifiers: Hypertension type: essential hypertension Qualified Code(s): I10 - Essential (primary) hypertension (9) Chronic kidney disease, stage 4 (severe) Current Visit: No Status: Chronic Assessment and plan: Initial bump in creatinine and BUN with decrease in GFR Patient has received IV fluids BUN and creatinine have improved to his baseline of 37 and 2.14 with a GFR of 31 Nephrology following, appreciate expertise and assistance. Per review of their note the patient is adamant he does not want to go on dialysis and would rather . No practictioner has mentioned dialysis to him during this hospital stay. (10) Thrombocytopenia Current Visit: No Status: Chronic Assessment and plan: Intermittently chronic Stable Platelets improved to 121 today from 116 yesterday No signs of active bleeding (11) Nonischemic cardiomyopathy Current Visit: Yes Status: Chronic Assessment and plan: Patient has a pacemaker/defibrillator in place Denies any discharge of defibrillator Follows with cardiology in [place] - Subjective Interval history: Patient seen and examined , he is resting in bed. Patient states he is unsure if he ever really fully returned from baseline from previous hospitalization. He reports worsening shortness of breath prior to arrival to the emergency room. He relates that he does not normally wear oxygen at home, he did not qualify for oxygen after previous admission, he does state that he feels significantly better if he wears oxygen. He still feels very weak and fatigued. He does not feel like his breathing is any better than when he was admitted. He reports getting up to the chair with physical therapy He has no other complaints or concerns at this time. - Constitutional Vitals: Temp Pulse Resp BP Pulse Ox 97.3 F L 68 14 136/72 98 05/16/16 07:01 05/16/16 07:01 05/16/16 10:36 05/16/16 07:01 05/16/16 10:36 General appearance: Present: cooperative, A&O X 3, morbidly obese, pleasant, no acute distress, answers questions appropriately - Head Head exam: Present: atraumatic, normocephalic - Eye Eye exam: Present: normal appearance. Absent: conjunctival injection - ENT ENT exam: Present: mucous membranes moist, normal external ear exam Additional comments: nasal canula in place - Neck Neck exam general surgery: Present: supple, trachea midline - Respiratory Respiratory exam: Present: CTAB. Absent: rales, rhonchi, stridor, wheezes - Cardiovascular Cardiovascular exam: Present: RRR, +S1, +S2. Absent: clicks, diastolic murmur, gallop, rubs, systolic murmur - GI/Abdominal GI/Abdominal exam: Present: normal bowel sounds, soft. Absent: distended, guarding, rigid, tenderness - Extremities Exam Extremities exam: Present: normal capillary refill. Absent: pedal edema - Psychiatric Psychiatric exam: Present: normal affect, normal mood - Skin Skin exam: Present: dry, intact, warm Internal Medicine: Result - Labs CBC & Chem 7: 05/16/16 03:49 05/16/16 03:49 Labs: Short CBC 05/16/16 Range/Units 03:49 WBC 5.9 (4.3-11.1) K/mcL Hgb 9.0 L (12.9-16.9) g/dL Hct 28.1 L (37.5-50.1) % Plt Count 121 L (140-400) K/mcL Neutrophils # 5.0 (1.6-8.9) K/mcL BMP 05/16/16 03:49 Sodium 135 L Potassium 5.2 H Chloride 107 Carbon Dioxide 21 BUN 37 H Creatinine 2.14 H Glucose 290 H Calcium 8.0 L Urine 05/16/16 Range/Units 06:00 Urine Color Yellow (Yellow) Urine Clarity Clear (Clear) Urine pH 6.0 (5.0-8.0) pH Units Ur Specific [place] 1.024 (1.010-1.025) Urine Protein Trace (Neg-Trace) mg/dL Urine Glucose (UA) >=1000 H (Normal) mg/dL - ABG Interpretation ABG results: PT/INR, D-dimer PT 14.0 Seconds (9.4-12.1) H 05/12/16 16:00 - Impressions Impressions Chest CT 05/15/16 10:15 IMPRESSION: 1. Bandlike linear density in the right upper lobe probably represents atelectasis or scarring. 2. Bibasilar dependent atelectasis. 3. Mild to moderate cardiomegaly. 4. Coronary artery disease. 5. Asymmetric enlargement of the left lobe of the thyroid, possibly secondary to a cyst or nodule. Thyroid gland would better be assessed with a dedicated thyroid ultrasound on a nonemergent basis. D/ / 05/15/2016 11:40:50 Toni Rubio MD / [facility] Interpreting Provider: Toni Rubio MD - VTE Documentation of Mechanical Device: Intermittent pneumatic compression device Consult Discharge Plan - Plan Referrals: Travis Brasher Jr, MD [Primary Care Provider] - 05/22/16 3:00 pm <Dev Prince H - Last Filed: 05/16/16 14:51> - Constitutional Vitals: Temp Pulse Resp BP Pulse Ox 97.8 F 74 17 161/67 99 05/16/16 10:53 05/16/16 10:53 05/16/16 10:53 05/16/16 10:53 05/16/16 10:53 Internal Medicine: Result - Labs CBC & Chem 7: 05/16/16 03:49 05/16/16 03:49 Labs: Short CBC 05/16/16 Range/Units 03:49 WBC 5.9 (4.3-11.1) K/mcL Hgb 9.0 L (12.9-16.9) g/dL Hct 28.1 L (37.5-50.1) % Plt Count 121 L (140-400) K/mcL Neutrophils # 5.0 (1.6-8.9) K/mcL BMP 05/16/16 03:49 Sodium 135 L Potassium 5.2 H Chloride 107 Carbon Dioxide 21 BUN 37 H Creatinine 2.14 H Glucose 290 H Calcium 8.0 L Urine 05/16/16 Range/Units 06:00 Urine Color Yellow (Yellow) Urine Clarity Clear (Clear) Urine pH 6.0 (5.0-8.0) pH Units Ur Specific [place] 1.024 (1.010-1.025) Urine Protein Trace (Neg-Trace) mg/dL Urine Glucose (UA) >=1000 H (Normal) mg/dL - ABG Interpretation ABG results: PT/INR, D-dimer PT 14.0 Seconds (9.4-12.1) H 05/12/16 16:00 - Attending Attestation CT scan did not show any evidence of pneumonia. Physical exam revealed bilateral diffuse crackles I will discontinue vancomycin and Zosyn Order respiratory viral panel Start IV Lasix for possible acute systolic and diastolic CHF exacerbation Taper down Solu-Medrol Strict I's and O's and daily weight Continue oxygen Echocardiogram March of this year showed an ejection fraction of 50% and mild diastolic dysfunction I examined this patient and my medical decision-making was reviewed with the REDUCING SYSTEM OPERATOR/PA/Advanced Practice Nurse/Resident Physician. I agree with the documented findings, disposition and treatment plan as described except to the extent set forth below.
--- NOTE | 2016-05-16 14:17 | Nephrology Progress Note ---
<Sangeetha Brock Dorota - Last Filed: 05/16/16 14:22> Date of Encounter: 05/16/16 Time of Encounter: 14:15 - Assessment and Plan (1) CKD (chronic kidney disease) stage 4, GFR 15-29 ml/min Current Visit: Yes Status: Acute at baseline Continue renal protective strategy. - Renally dose antibiotics. - Avoid nephrotoxins as much as possible. ---daily vancomycin level. Vitamin D level pending (2) HCAP (healthcare-associated pneumonia) Current Visit: Yes Status: Acute (3) Acute and chronic respiratory failure Current Visit: Yes Status: Chronic Qualifiers: Respiratory failure complication: unspecified whether with hypoxia or hypercapnia Qualified Code(s): J96.20 - Acute and chronic respiratory failure , unspecified whether with hypoxia or hypercapnia (4) Diabetes mellitus Current Visit: No Status: Chronic Qualifiers: Diabetes mellitus type: type 2 Diabetes mellitus complication status: with neurologic complications Diabetes mellitus complication detail: with polyneuropathy Diabetes mellitus mcfp insulin use: with assistant terminal manager use Qualified Code(s): E11.42 - Type 2 diabetes mellitus with diabetic polyneuropathy; Z79.4 - watermaster (current) use of insulin (5) Nonischemic cardiomyopathy Current Visit: Yes Status: Chronic Subjective Principal diagnosis: CKD Interval history: Patient seen and examined. Still with GODFREY. Objective - Vital Signs Vital signs: Vital Signs Temp Pulse Resp BP Pulse Ox 05/16/16 10:53 97.8 F 74 17 161/67 99 05/16/16 10:36 14 98 05/16/16 07:01 97.3 F L 68 17 136/72 96 05/16/16 04:25 18 97 05/16/16 04:00 97.9 F 69 15 135/67 97 05/16/16 00:34 97.7 F 67 16 142/67 98 05/15/16 22:36 20 98 05/15/16 20:04 98.0 F 70 16 166/75 98 05/15/16 20:00 98 05/15/16 16:24 16 98 05/15/16 15:22 97.6 F 68 16 135/77 97 Intake and Output 05/15/16 05/16/16 05/16/16 23:59 07:59 15:59 Intake Total 220 / 220 100 / 100 560 / 560 Output Total 625 / 625 Balance 220 / 220 -525 / -525 560 / 560 Intake: IV Fluids 100 / 100 100 / 100 100 / 100 Zosyn 3.375 GM In 100 / 100 100 / 100 100 / 100 Dextrose 5% (Minibag+) 100 ML 100 ML @ 25 mls/hr IVPB Q8HR [facility] Rx#: [id number] Oral 120 / 120 460 / 460 Output: Straight Cath 625 / 625 Other: Meal Dinner Lunch Percent of Meal Consumed 100% 100% Stool Size Smear Stool Characteristics Pasty Stool Color Brown # Urine Diapers 1 1 1 Weight 134.5 kg Blood Glucose* 281 291 296 Patient Weight 05/16/16 23:59 Weight 134.5 kg - General Appearance General appearance: Present: well-developed, well-nourished, appears started age Exam: coughing throughout exam EENT: Present: mucous membranes moist Neck: Present: supple Respiratory: Present: clear Cardiology: Present: no murmurs, regular rate, regular rhythm, normal S1, normal S2 Integumentary: Present: no rash, warm and dry Neurologic: Present: no focal deficit, alert and oriented x3 Musculoskeletal: Present: no deformities, no erythema, no cyanosis, no clubbing Psychiatric: Present: mood/affect appropriate, cooperative - Lab 05/16/16 03:49 05/16/16 03:49 Most recent lab results Calcium 8.0 mg/dL (8.6-10.8) L 05/16/16 03:49 Magnesium 1.6 mg/dL (1.6-2.6) 05/13/16 03:10 Urine Creatinine 63 mg/dL 05/16/16 06:00 Urine Total Protein 15 mg/dL (1-14) H 05/16/16 06:00 - VTE Documentation of Mechanical Device: Intermittent pneumatic compression device Consult Discharge Plan - Plan Referrals: Travis Brasher Jr, MD [Primary Care Provider] - 05/22/16 3:00 pm <Homero Merida - Last Filed: 05/18/16 16:18> Date of Encounter: 05/16/16 Objective - Vital Signs Vital signs: Vital Signs Temp Pulse Resp BP Pulse Ox 05/18/16 15:24 16 96 05/18/16 14:57 97.6 F 57 16 143/83 96 05/18/16 11:10 16 98 03/30/17 10:48 97.3 F L 60 16 117/61 97 05/18/16 06:40 97.4 F L 61 14 126/70 97 05/18/16 04:16 16 98 05/18/16 02:58 97.8 F 62 16 102/65 96 05/17/16 23:55 98.1 F 55 15 130/62 96 05/17/16 23:08 15 98 05/17/16 19:09 97.5 F L 66 15 132/80 99 05/17/16 16:36 16 136/71 98 Intake and Output 05/18/16 05/18/16 05/18/16 07:59 15:59 23:59 Intake Total 450 / 450 360 / 360 Output Total 1400 / 1400 750 / 750 Balance -950 / -950 -390 / -390 Intake: Oral 450 / 450 360 / 360 Output: Catheter 1400 / 1400 750 / 750 Other: Meal Lunch Percent of Meal Consumed 25% Weight 132.449 kg Blood Glucose* 333 269 Patient Weight 05/18/16 23:59 Weight 132.449 kg - Lab 05/16/16 03:49 05/18/16 04:19 Most recent lab results Calcium 8.4 mg/dL (8.6-10.8) L 05/18/16 04:19 Magnesium 1.6 mg/dL (1.6-2.6) 05/13/16 03:10 Urine Creatinine 63 mg/dL 05/16/16 06:00 Urine Total Protein 15 mg/dL (1-14) H 05/16/16 06:00 - Attending Attestation I examined this patient and my medical decision-making was reviewed with the AIRPLANE PATROL PILOT/PA/Advanced Practice Nurse/Resident Physician. I agree with the documented findings, disposition and treatment plan as described except to the extent set forth below. Pt seen and examined improving. SCr improved at 2.14. PTH noted elevated, awaiting vitamin D level. Vanco level noted
[2016-05-16] MEDS ORDERED: Vancomycin 1 EACH in EMPTY BAG 1 EACH IVPB SCH (15:00)
[2016-05-16] MEDS: Furosemide 40 MG/4 ML VIAL IV SCH ×2 (15:57→20:21)
[2016-05-16] MEDS: Famotidine 20 MG/2 ML VIAL IVP SCH (17:34)
[2016-05-16] MEDS ORDERED: Vancomycin 1,500 MG in D5% in Water 250 ML IVPB SCH (18:00)
[2016-05-16] MEDS ORDERED: Vancomycin 1,000 MG in D5% in Water 250 ML IVPB SCH (18:00)
[2016-05-16 19:24] LABS: Adenovirus Not Detected (Not Detect); Coronavirus 229E Not Detected (Not Detect); Coronavirus HKU1 Not Detected (Not Detect); Coronavirus NL63 Not Detected (Not Detect); Coronavirus OC43 Not Detected (Not Detect); Human Metapneumovirus Not Detected (Not Detect); Human Rhinovirus/Enterovirus ***DETECTED*** (Not Detect)
[2016-05-16 19:25] LABS: Bordetella Pertussis Not Detected (Not Detect); Chlamydophila pneumoniae Not Detected (Not Detect); Influenza A Subtype 2009 H1 Not Detected (Not Detect); Influenza A Untypeable Not Detected (Not Detect); Influenza B Not Detected (Not Detect); Mycoplasma pneumoniae Not Detected (Not Detect); Parainfluenza Virus 1 Not Detected (Not Detect); Parainfluenza Virus 2 Not Detected (Not Detect); Parainfluenza Virus 3 Not Detected (Not Detect); Parainfluenza Virus 4 Not Detected (Not Detect); Respiratory Syncytial Virus Not Detected (Not Detect)
[2016-05-16] MEDS: Temazepam 15 MG CAPSULE PO SCH (20:19)
[2016-05-16] MEDS: Insulin DETEMIR 100 UNIT/ML X5UNITS SQ SCH (20:21)
[2016-05-17] MEDS: Ipratropium/Albuterol Neb 3 ML IH SCH ×4 (04:09→23:08)
[2016-05-17 04:39] LABS: Calcium 8.2 mg/dL (8.6-10.8); Potassium 4.8 mEq/L (3.5-4.5)
[2016-05-17] MEDS: MethylPREDNISolone 40 MG/ML VIAL IVP SCH (05:40)
[2016-05-17] MEDS: hydrALAZINE 25 MG TABLET PO SCH ×3 (08:19→22:27)
[2016-05-17] MEDS: APIXABAN 5 MG TABLET PO SCH ×2 (08:20→22:26)
[2016-05-17] MEDS: Folic Acid 1 MG TABLET PO SCH (08:20)
[2016-05-17] MEDS: Pregabalin 50 MG CAPSULE PO SCH ×2 (08:20→22:27)
[2016-05-17] MEDS: amLODIPine 5 MG TABLET PO SCH (08:20)
[2016-05-17] MEDS: Furosemide 40 MG/4 ML VIAL IV SCH ×2 (08:21→22:34)
[2016-05-17] MEDS: Insulin LISPRO 300 UNITS/3 ML VIAL SQ SCH ×4 (08:21→22:31)
[2016-05-17] MEDS: Budesonide/Formoterol 160/4.5 MDI IH SCH ×2 (10:04→23:08)
[2016-05-17] MEDS: Tiotropium 18 MCG inhalation IH SCH (10:11)
[2016-05-17] MEDS: *HR* Morphine 2 MG/ML SYRINGE IVP PRN ×2 (10:21→22:50)
--- NOTE | 2016-05-17 10:51 | Internal Med Progress Note ---
<Fannie Irwin - Last Filed: 05/17/16 10:41> Date of Encounter: 05/17/16 Time of Encounter: 10:42 - Assessment and plan (1) Congestive heart failure with left ventricular diastolic dysfunction Current Visit: Yes Status: Acute Assessment and plan: Echo in 03/27/16 with LVEF 55% and mild diastolic dysfunction. Likely an acute exacerbation on presentation given improvement with lasix Continue lasix IV BID Plan to transition to oral lasix prior to discharge (2) Acute and chronic respiratory failure Current Visit: Yes Status: Chronic Assessment and plan: Patient with known history of COPD and diastolic CHF Does not require oxygen at home, failed to qualify for oxygen at previous admission Possible consideration for obesity hypoventilation syndrome Will attempt to requalify with 6 minute walk prior to discharge Continue to attempt to wean supplemental O2 to keep SpO2 > 88% given presence of underlying lung disease Continue treatment for CHF as above Qualifiers: Respiratory failure complication: unspecified whether with hypoxia or hypercapnia Qualified Code(s): J96.20 - Acute and chronic respiratory failure , unspecified whether with hypoxia or hypercapnia (3) Nonischemic cardiomyopathy Current Visit: Yes Status: Chronic Assessment and plan: Patient has a pacemaker/defibrillator in place Denies any discharge of defibrillator Follows with cardiology in [place] (4) HCAP (healthcare-associated pneumonia) Current Visit: Yes Status: Resolved Assessment and plan: Patient with chest xray with patchy hazy bilateral opacities compatible with infection or inflammatory process, does not appear changed from prior xray in 2015 and prior admission Chest CT with evidence of bilbasilar dependent atelectasis and a band like density in right upper lobe representing scarring/atelectasis Urine legionella and streptococcus negative Sputum culture ordered, however patient is not producing sputum Patient received 4 days of zosyn and 4 days of vancomycin, both antibiotics have been discontinued Continue to monitor respiratory status and will restart antibiotics if clinically indicated (5) Diabetes mellitus Current Visit: No Status: Chronic Assessment and plan: Relatively well controlled with an A1c of 7.5%. Complicated by chronic kidney disease and polyneuropathy Patient admits to not being compliant with medications at home and he only takes his basal insulin in addition to insulin one time per day. Reinforced with patient that he needs to control his diabetes to prevent complications from diabetes Continue sliding scale while in hospital Continue home lyrica Qualifiers: Diabetes mellitus type: type 2 Diabetes mellitus complication status: with neurologic complications Diabetes mellitus complication detail: with polyneuropathy Diabetes mellitus custodial insulin use: with continuous churn buttermaker use Qualified Code(s): E11.42 - Type 2 diabetes mellitus with diabetic polyneuropathy; Z79.4 - half-way (current) use of insulin (6) Atrial fibrillation Current Visit: No Status: Chronic Assessment and plan: Rate controlled Continue home eliquis for anticoagulation Continue home carvedilol Review of records indicates previous echo with LVEF 50% and mild diastolic dysfunction Qualifiers: Atrial fibrillation type: chronic Qualified Code(s): I48.2 - Chronic atrial fibrillation (7) Anemia Current Visit: No Status: Chronic Assessment and plan: Paiyancy had nosebleed prior to arrival Hgb has remained stable during admission. No current signs of active bleeding Continue to monitor CBC Qualifiers: Anemia type: unspecified type Qualified Code(s): D64.9 - Anemia, unspecified (8) Hyperkalemia, diminished renal excretion Current Visit: No Status: Acute Assessment and plan: Chronic. Initial elevation to 5.6, given kayexalate and IV fluids Potassium today decreased to 4.8, appears to be baseline for him (4.8-5.2) Nephrology following, appreciate expertise and assistance (9) Hypertension Current Visit: No Status: Chronic Assessment and plan: Controlled. Continue home medications of hydralazine and amlodipine Continue to monitor vitals Qualifiers: Hypertension type: essential hypertension Qualified Code(s): I10 - Essential (primary) hypertension (10) Chronic kidney disease, stage 4 (severe) Current Visit: No Status: Chronic Assessment and plan: Initial bump in creatinine and BUN with decrease in GFR Patient has received IV fluids, currently discontinued BUN and creatinine slightly increased from yesterday at 49 and 2.21 but overall appear to be around his baseline with GFR of 29 Rise in BUN and CR liekly secondary to administration of IV lasix, will continue to monitor kidney function closely Nephrology following, appreciate expertise and assistance. Per review of their note the patient is adamant he does not want to go on dialysis and would rather . No practictioner has mentioned dialysis to him during this hospital stay. (11) Thrombocytopenia Current Visit: No Status: Chronic Assessment and plan: Intermittently chronic Stable No signs of active bleeding - Subjective Interval history: Patient seen and examined , he is resting in bed. Patient admitted with increasing shortness of breath and chest pain with cough, found to be hypoxic. He was recently admitted and discharged, also required oxygen that admission but did not qualify for oxygen on discharge. Patient endorses feeling better on oxygen. Patient initially treated for health care associated [place] given recent hospitalization with zosyn and vancomycin with no improvement in respiratory status, antibiotics discontinued. Patient received one dose IV lasix yesterday afternoon with -1100 mL urine out. RIDP perforemd yesterday positive for enterovirus/rhinovirus. Patient reports that he feels his breathing is significantly improved from yesterday. He does not feel as short of breath. He feels more comfortable. He is tolerating diet. He has no other complaints or concerns at this time. - Constitutional Vitals: Temp Pulse Resp BP Pulse Ox 97.6 F 64 18 123/73 96 05/17/16 07:07 05/17/16 07:07 05/17/16 07:07 05/17/16 07:07 05/17/16 08:15 General appearance: Present: cooperative, A&O X 3, morbidly obese, pleasant, no acute distress, answers questions appropriately - Head Head exam: Present: atraumatic, normocephalic - Eye Eye exam: Present: normal appearance. Absent: conjunctival injection Additional comments: nasal canula in place - ENT ENT exam: Present: mucous membranes moist, normal external ear exam - Neck Neck exam general surgery: Present: supple, trachea midline - Respiratory Respiratory exam: Present: prolonged expiratory phase (faint crackles bibasilarly ), rales. Absent: rhonchi, stridor, wheezes - Cardiovascular Cardiovascular exam: Present: RRR, +S1, +S2. Absent: clicks, diastolic murmur, gallop, rubs, systolic murmur - GI/Abdominal GI/Abdominal exam: Present: normal bowel sounds, soft. Absent: distended, guarding, rigid, tenderness - Extremities Exam Extremities exam: Present: normal capillary refill. Absent: pedal edema Internal Medicine: Result - Labs CBC & Chem 7: 05/16/16 03:49 05/17/16 03:28 Labs: BMP 05/17/16 03:28 Sodium 134 L Potassium 4.8 H Chloride 103 Carbon Dioxide 24 BUN 49 H D Creatinine 2.21 H Glucose 297 H Calcium 8.2 L - ABG Interpretation ABG results: PT/INR, D-dimer PT 14.0 Seconds (9.4-12.1) H 05/12/16 16:00 - VTE Documentation of Mechanical Device: Intermittent pneumatic compression device Consult Discharge Plan - Plan Referrals: Travis Brasher Jr, MD [Primary Care Provider] - 05/22/16 3:00 pm <Dev Prince H - Last Filed: 05/17/16 11:28> - Constitutional Vitals: Temp Pulse Resp BP Pulse Ox 97.8 F 60 18 120/63 98 05/17/16 11:00 05/17/16 11:00 05/17/16 11:00 05/17/16 11:00 05/17/16 11:00 Internal Medicine: Result - Labs CBC & Chem 7: 05/16/16 03:49 05/17/16 03:28 Labs: BMP 05/17/16 03:28 Sodium 134 L Potassium 4.8 H Chloride 103 Carbon Dioxide 24 BUN 49 H D Creatinine 2.21 H Glucose 297 H Calcium 8.2 L - ABG Interpretation ABG results: PT/INR, D-dimer PT 14.0 Seconds (9.4-12.1) H 05/12/16 16:00 - Attending Attestation acute on chronic hypoxic respiratory failure secondary to combination of acute copd exacerbation due to rhino/enterovirus and acute diastolic CHF exacerbation Pneumonia ruled out CT scan did not show any evidence of pneumonia. Physical exam revealed bilateral diffuse crackles Respiratory viral panel positive Constinue IV Lasix Taper down Solu-Medrol Strict I's and O's and daily weight Continue oxygen Echocardiogram March of this year showed an ejection fraction of 50% and mild diastolic dysfunction I examined this patient and my medical decision-making was reviewed with the ORAL AND MAXILLOFACIAL SURGERY/PA/Advanced Practice Nurse/Resident Physician. I agree with the documented findings, disposition and treatment plan as described except to the extent set forth below.
--- NOTE | 2016-05-17 11:12 | Nephrology Progress Note ---
<TamarajoannekarissaSangeetha cuba - Last Filed: 05/17/16 11:37> Date of Encounter: 05/17/16 Time of Encounter: 11:10 - Assessment and Plan (1) CKD (chronic kidney disease) stage 4, GFR 15-29 ml/min Current Visit: Yes Status: Acute at baseline Vitamin D level 22 - start supplementation 50,000 unit q week Continue renal protective strategy. - Renally dose medications. - Avoid nephrotoxins. (2) HCAP (healthcare-associated pneumonia) Current Visit: Yes Status: Resolved (3) Acute and chronic respiratory failure Current Visit: Yes Status: Chronic Qualifiers: Respiratory failure complication: unspecified whether with hypoxia or hypercapnia Qualified Code(s): J96.20 - Acute and chronic respiratory failure , unspecified whether with hypoxia or hypercapnia (4) Diabetes mellitus Current Visit: No Status: Chronic Qualifiers: Diabetes mellitus type: type 2 Diabetes mellitus complication status: with neurologic complications Diabetes mellitus complication detail: with polyneuropathy Diabetes mellitus meterman insulin use: with meterman use Qualified Code(s): E11.42 - Type 2 diabetes mellitus with diabetic polyneuropathy; Z79.4 - penitentiary (current) use of insulin (5) Nonischemic cardiomyopathy Current Visit: Yes Status: Chronic Subjective Principal diagnosis: CKD Interval history: Patient seen and examined. Breathing improved. No signs of uremia. Objective - Vital Signs Vital signs: Vital Signs Temp Pulse Resp BP Pulse Ox 05/17/16 11:00 97.8 F 60 18 120/63 98 05/17/16 08:15 96 05/17/16 07:07 97.6 F 64 18 123/73 96 05/17/16 04:09 16 98 05/17/16 03:47 97.4 F L 61 14 143/75 98 05/16/16 23:35 97.4 F L 61 17 119/64 98 05/16/16 22:11 16 98 05/16/16 20:15 97.9 F 60 15 143/79 98 05/16/16 20:00 96 05/16/16 16:24 16 96 05/16/16 15:28 97.6 F 65 14 143/70 99 Intake and Output 05/16/16 05/17/16 05/17/16 23:59 07:59 15:59 Intake Total 740 / 740 Output Total 2700 / 2700 950 / 950 1575 / 1575 Balance -2700 / -2700 -950 / -950 -835 / -835 Intake: Oral 740 / 740 Output: Urine 1600 / 1600 Urethral ([place]) 300 / 300 Catheter 1100 / 1100 950 / 950 1575 / 1575 Other: Meal Breakfast Percent of Meal Consumed 65% # Urine Diapers 1 Blood Glucose* [phone] - General Appearance General appearance: Present: well-developed, well-nourished, appears started age EENT: Present: mucous membranes moist Neck: Present: supple Respiratory: Present: clear Cardiology: Present: no murmurs, regular rate, regular rhythm, normal S1, normal S2 Integumentary: Present: no rash, warm and dry Neurologic: Present: no focal deficit, alert and oriented x3 Musculoskeletal: Present: no deformities, no erythema, no cyanosis, no clubbing Psychiatric: Present: mood/affect appropriate, cooperative - Lab 05/16/16 03:49 05/17/16 03:28 Most recent lab results Calcium 8.2 mg/dL (8.6-10.8) L 05/17/16 03:28 Magnesium 1.6 mg/dL (1.6-2.6) 05/13/16 03:10 Urine Creatinine 63 mg/dL 05/16/16 06:00 Urine Total Protein 15 mg/dL (1-14) H 05/16/16 06:00 - VTE Documentation of Mechanical Device: Intermittent pneumatic compression device Consult Discharge Plan - Plan Referrals: Travis Brasher Jr, MD [Primary Care Provider] - 05/22/16 3:00 pm <Homero Merida - Last Filed: 05/18/16 16:20> Date of Encounter: 05/17/16 Objective - Vital Signs Vital signs: Vital Signs Temp Pulse Resp BP Pulse Ox 05/18/16 15:24 16 96 05/18/16 14:57 97.6 F 57 16 143/83 96 05/18/16 11:10 16 98 05/18/16 10:48 97.3 F L 60 16 117/61 97 05/18/16 06:40 97.4 F L 61 14 126/70 97 05/18/16 04:16 16 98 05/18/16 02:58 97.8 F 62 16 102/65 96 05/17/16 23:55 98.1 F 55 15 130/62 96 05/17/16 23:08 15 98 05/17/16 19:09 97.5 F L 66 15 132/80 99 05/17/16 16:36 16 136/71 98 Intake and Output 05/18/16 05/18/16 05/18/16 07:59 15:59 23:59 Intake Total 450 / 450 360 / 360 Output Total 1400 / 1400 750 / 750 Balance -950 / -950 -390 / -390 Intake: Oral 450 / 450 360 / 360 Output: Catheter 1400 / 1400 750 / 750 Other: Meal Lunch Percent of Meal Consumed 25% Weight 132.449 kg Blood Glucose* 333 269 Patient Weight 05/18/16 23:59 Weight 132.449 kg - Lab 05/16/16 03:49 05/18/16 04:19 Most recent lab results Calcium 8.4 mg/dL (8.6-10.8) L 05/18/16 04:19 Magnesium 1.6 mg/dL (1.6-2.6) 05/13/16 03:10 Urine Creatinine 63 mg/dL 05/16/16 06:00 Urine Total Protein 15 mg/dL (1-14) H 05/16/16 06:00 - Attending Attestation I examined this patient and my medical decision-making was reviewed with the SOLDERER ASSEMBLER/PA/Advanced Practice Nurse/Resident Physician. I agree with the documented findings, disposition and treatment plan as described except to the extent set forth below. Pt seen and examined, no new complaints. SCr fluctuating within his range. Vitamin D low along with elevated PTH, will start ergocalciferol weekly
[2016-05-17] MEDS: Famotidine 20 MG/2 ML VIAL IVP SCH (17:40)
[2016-05-17] MEDS: Temazepam 15 MG CAPSULE PO SCH (22:29)
[2016-05-17] MEDS: Insulin DETEMIR 100 UNIT/ML X5UNITS SQ SCH (22:33)
[2016-05-18] MEDS: Ipratropium/Albuterol Neb 3 ML IH SCH ×4 (04:16→22:57)
[2016-05-18] MEDS: *HR* Morphine 2 MG/ML SYRINGE IVP PRN ×3 (04:32→22:05)
[2016-05-18 06:18] LABS: Calcium 8.4 mg/dL (8.6-10.8); Potassium 4.5 mEq/L (3.5-4.5)
[2016-05-18] MEDS: amLODIPine 5 MG TABLET PO SCH (08:58)
[2016-05-18] MEDS: APIXABAN 5 MG TABLET PO SCH ×2 (08:59→21:04)
[2016-05-18] MEDS: Pregabalin 50 MG CAPSULE PO SCH ×2 (08:59→21:03)
[2016-05-18] MEDS: hydrALAZINE 25 MG TABLET PO SCH ×3 (08:59→21:02)
[2016-05-18] MEDS: Folic Acid 1 MG TABLET PO SCH (08:59)
[2016-05-18] MEDS ORDERED: MethylPREDNISolone 40 MG/ML VIAL IVP SCH (09:00)
[2016-05-18] MEDS: MethylPREDNISolone 40 MG/ML VIAL IVP SCH ×2 (09:01→21:05)
[2016-05-18] MEDS: Furosemide 40 MG/4 ML VIAL IV SCH ×3 (09:07→17:17)
[2016-05-18] MEDS: Insulin LISPRO 300 UNITS/3 ML VIAL SQ SCH ×4 (09:07→21:04)
--- NOTE | 2016-05-18 09:30 | Internal Med Progress Note ---
<IrwinFannie duarte - Last Filed: 05/18/16 09:26> Date of Encounter: 05/17/16 Time of Encounter: 09:26 - Assessment and plan (1) Congestive heart failure with left ventricular diastolic dysfunction Current Visit: Yes Status: Acute Assessment and plan: Echo in 03/27/16 with LVEF 55% and mild diastolic dysfunction. Given improvement in respiratory status with lasix, likely a component of acute exacerbation on arrival Has been on lasix BID with 2320 mL Will increase lasix to TID dosing Given presence of CKD, will continue to closely monitor renal function and electrolytes Plan to transition to oral lasix prior to discharge (2) Acute and chronic respiratory failure Current Visit: Yes Status: Chronic Assessment and plan: Patient with known history of COPD and diastolic CHF, hypoxia on admission likley secondary to acute COPD exacerbation secondary to viral upper respiratory infection (RIDP positive for rhino/enterovirus) and acute exacerbation of chronic diastolic heart failure Does not require oxygen at home, failed to qualify for oxygen at previous admission Possible consideration for obesity hypoventilation syndrome Will attempt to requalify with 6 minute walk prior to discharge Continue to attempt to wean supplemental O2 to keep SpO2 > 88% given presence of underlying lung disease Continue treatment for CHF as above Qualifiers: Respiratory failure complication: unspecified whether with hypoxia or hypercapnia Qualified Code(s): J96.20 - Acute and chronic respiratory failure , unspecified whether with hypoxia or hypercapnia (3) Nonischemic cardiomyopathy Current Visit: Yes Status: Chronic Assessment and plan: Patient has a pacemaker/defibrillator in place Denies any discharge of defibrillator Follows with cardiology in [place] (4) Diabetes mellitus Current Visit: No Status: Chronic Assessment and plan: Relatively well controlled with an A1c of 7.5%. Complicated by chronic kidney disease and polyneuropathy Patient admits to not being compliant with medications at home and he only takes his basal insulin in addition to insulin one time per day. Continue basal insulin while in hospital Continue sliding scale while in hospital Continue home lyrica Qualifiers: Diabetes mellitus type: type 2 Diabetes mellitus complication status: with neurologic complications Diabetes mellitus complication detail: with polyneuropathy Diabetes mellitus continuous churn buttermaker insulin use: with continuous churn buttermaker use Qualified Code(s): E11.42 - Type 2 diabetes mellitus with diabetic polyneuropathy; Z79.4 - senior living (current) use of insulin (5) Atrial fibrillation Current Visit: No Status: Chronic Assessment and plan: Rate controlled Continue home eliquis for anticoagulation Continue home carvedilol Review of records indicates previous echo with LVEF 50% and mild diastolic dysfunction Qualifiers: Atrial fibrillation type: chronic Qualified Code(s): I48.2 - Chronic atrial fibrillation (6) Anemia Current Visit: No Status: Chronic Assessment and plan: Mary had nosebleed prior to arrival Hgb has remained stable during admission. No current signs of active bleeding Qualifiers: Anemia type: unspecified type Qualified Code(s): D64.9 - Anemia, unspecified (7) Hyperkalemia, diminished renal excretion Current Visit: No Status: Acute Assessment and plan: Chronic. Initial elevation to 5.6, given kayexalate and IV fluids Potassium improved to 4.5 today, continues to decline Nephrology following, appreciate expertise and assistance (8) Hypertension Current Visit: No Status: Chronic Assessment and plan: Controlled. Continue home medications of hydralazine and amlodipine Continue to monitor vitals Qualifiers: Hypertension type: essential hypertension Qualified Code(s): I10 - Essential (primary) hypertension (9) Chronic kidney disease, stage 4 (severe) Current Visit: No Status: Chronic Assessment and plan: Initial bump in creatinine and BUN with decrease in GFR Patient has received IV fluids, currently discontinued BUN and creatinine slightly increased from yesterday at 64 and 2.45 but overall appear to be around his baseline with GFR of 26 Rise in BUN and CR likely secondary to administration of IV lasix, will continue to monitor kidney function closely especially give increase in frequency of lasix administration Nephrology following, appreciate expertise and assistance. Per review of their note the patient is adamant he does not want to go on dialysis and would rather . There has been no mention to him of dialysis by a physician during this hospital stay. (10) Thrombocytopenia Current Visit: No Status: Chronic Assessment and plan: Intermittently chronic Stable No signs of active bleeding - Subjective Interval history: Patient seen and examined , he is resting in bed. Patient admitted with increasing shortness of breath and chest pain with cough, found to be hypoxic. He was recently admitted and discharged, also required oxygen that admission but did not qualify for oxygen on discharge. Patient endorses feeling better on oxygen. Patient initially treated for health care associated [place] given recent hospitalization with zosyn and vancomycin with no improvement in respiratory status, antibiotics discontinued. Patient is receiving IV lasix with 2320 mL urine out. RIDP performed positive for enterovirus/rhinovirus. Patient reports that he feels about the same as yesterday. He does not feel as short of breath as when he first presented to the emergency room. He is tolerating diet with no nausea or vomiting. He has no other complaints or concerns at this time. - Constitutional Vitals: Temp Pulse Resp BP Pulse Ox 97.4 F L 61 14 126/70 97 05/18/16 06:40 05/18/16 06:40 05/18/16 06:40 05/18/16 06:40 05/18/16 06:40 General appearance: Present: cooperative, A&O X 3, morbidly obese, pleasant, no acute distress, answers questions appropriately - Head Head exam: Present: atraumatic, normocephalic - Eye Eye exam: Present: normal appearance. Absent: conjunctival injection - ENT ENT exam: Present: mucous membranes moist, normal external ear exam Additional comments: nasal canula in place - Neck Neck exam general surgery: Present: supple, trachea midline - Respiratory Respiratory exam: Present: rales (bilaterally ), rhonchi (bilaterally ). Absent : accessory muscle use, respiratory distress, stridor, wheezes - Cardiovascular Cardiovascular exam: Present: RRR, +S1, +S2. Absent: clicks, diastolic murmur, gallop, rubs, systolic murmur - GI/Abdominal GI/Abdominal exam: Present: normal bowel sounds, soft. Absent: distended, guarding, rebound, tenderness - Extremities Exam Extremities exam: Present: normal capillary refill. Absent: pedal edema - Psychiatric Psychiatric exam: Present: normal affect, normal mood Internal Medicine: Result - Labs CBC & Chem 7: 05/16/16 03:49 05/18/16 04:19 Labs: BMP 05/18/16 04:19 Sodium 135 L Potassium 4.5 Chloride 100 Carbon Dioxide 22 BUN 64 H D Creatinine 2.45 H Glucose 299 H Calcium 8.4 L - ABG Interpretation ABG results: PT/INR, D-dimer PT 14.0 Seconds (9.4-12.1) H 05/12/16 16:00 - VTE Documentation of Mechanical Device: Intermittent pneumatic compression device Consult Discharge Plan - Plan Referrals: Travis Brasher Jr, MD [Primary Care Provider] - 05/22/16 3:00 pm <Corrie-MarknaldoDev H - Last Filed: 05/18/16 11:05> Date of Encounter: 05/17/16 - Constitutional Vitals: Temp Pulse Resp BP Pulse Ox 97.3 F L 60 16 117/61 97 05/18/16 10:48 05/18/16 10:48 05/18/16 10:48 05/18/16 10:48 05/18/16 10:48 Internal Medicine: Result - Labs CBC & Chem 7: 05/16/16 03:49 05/18/16 04:19 Labs: BMP 05/18/16 04:19 Sodium 135 L Potassium 4.5 Chloride 100 Carbon Dioxide 22 BUN 64 H D Creatinine 2.45 H Glucose 299 H Calcium 8.4 L - ABG Interpretation ABG results: PT/INR, D-dimer PT 14.0 Seconds (9.4-12.1) H 05/12/16 16:00 - Attending Attestation acute on chronic hypoxic respiratory failure secondary to combination of acute copd exacerbation due to rhino/enterovirus and acute diastolic CHF exacerbation Pneumonia ruled out CT scan did not show any evidence of pneumonia. Physical exam revealed bilateral diffuse crackles Respiratory viral panel positive Continue IV Lasix continue Solu-Medrol Strict I's and O's and daily weight Continue oxygen Echocardiogram March of this year showed an ejection fraction of 50% and mild diastolic dysfunction I examined this patient and my medical decision-making was reviewed with the UNISHEAR OPERATOR/PA/Advanced Practice Nurse/Resident Physician. I agree with the documented findings, disposition and treatment plan as described except to the extent set forth below.
[2016-05-18] MEDS: Tiotropium 18 MCG inhalation IH SCH (11:09)
[2016-05-18] MEDS: Budesonide/Formoterol 160/4.5 MDI IH SCH ×2 (11:13→22:57)
--- NOTE | 2016-05-18 16:20 | Nephrology Progress Note ---
Date of Encounter: 05/18/16 Time of Encounter: 11:45 - Assessment and Plan (1) CKD (chronic kidney disease) stage 4, GFR 15-29 ml/min Status: Acute SCr fairly stable at 2.45, GFR 26 which is within range of typical fluctuation for this patient UOP adequate Now off antibiotics, continue to avoid nephrotoxins if possible Encouraged po fluids (2) Hyperparathyroidism Status: Acute PTH elevated with low vitamin d level, ergocalciferol started but will monitor outpatient whether calcitriol also needed in addition (3) Vitamin D deficiency Status: Acute Vitamin D low with ergocalciferol started Subjective Principal diagnosis: CKD Interval history: Pt seen and examined getting better slowly, now positive for enterovirus. No new complaints Objective - Vital Signs Vital signs: Vital Signs Temp Pulse Resp BP Pulse Ox 05/18/16 15:24 16 96 05/18/16 14:57 97.6 F 57 16 143/83 96 05/18/16 11:10 16 98 05/18/16 10:48 97.3 F L 60 16 117/61 97 05/18/16 06:40 97.4 F L 61 14 126/70 97 05/18/16 04:16 16 98 05/18/16 02:58 97.8 F 62 16 102/65 96 05/17/16 23:55 98.1 F 55 15 130/62 96 05/17/16 23:08 15 98 05/17/16 19:09 97.5 F L 66 15 132/80 99 05/17/16 16:36 16 136/71 98 Intake and Output 05/18/16 05/18/16 05/18/16 07:59 15:59 23:59 Intake Total 450 / 450 360 / 360 Output Total 1400 / 1400 750 / 750 Balance -950 / -950 -390 / -390 Intake: Oral 450 / 450 360 / 360 Output: Catheter 1400 / 1400 750 / 750 Other: Meal Lunch Percent of Meal Consumed 25% Weight 132.449 kg Blood Glucose* 333 269 Patient Weight 05/18/16 23:59 Weight 132.449 kg - General Appearance General appearance: Present: chronically ill (NAD) EENT: Present: ATNC, mucous membranes moist Neck: Present: no JVD, supple Additional Comments: improving areation ant bilat Cardiology: Present: no edema, normal S1, normal S2 Gastrointestinal: Present: no tenderness, no guarding Integumentary: Present: warm and dry Neurologic: Present: no focal deficit Musculoskeletal: Present: no deformities Psychiatric: Present: mood/affect appropriate - Lab 05/19/16 05:04 05/19/16 05:04 Most recent lab results Calcium 8.4 mg/dL (8.6-10.8) L 05/18/16 04:19 Magnesium 1.6 mg/dL (1.6-2.6) 05/13/16 03:10 Urine Creatinine 63 mg/dL 05/16/16 06:00 Urine Total Protein 15 mg/dL (1-14) H 05/16/16 06:00 - VTE Documentation of Mechanical Device: Intermittent pneumatic compression device Consult Discharge Plan - Plan Instructions: Heart Failure (GEN), Diabetes Mellitus Type 2 in Adults (GEN), COPD Exacerbation, Nursing Information Systems Coordinator (GEN) Referrals: Travis Brasher Jr, MD [Primary Care Provider] - 05/22/16 3:00 pm Prescriptions: Furosemide [Lasix] 40 mg PO BID 30 Days PredniSONE 10 mg PO DAILY #84 tablet
[2016-05-18] MEDS: Famotidine 20 MG/2 ML VIAL IVP SCH (17:17)
[2016-05-18] MEDS: Temazepam 15 MG CAPSULE PO SCH (21:03)
[2016-05-18] MEDS: Insulin DETEMIR 100 UNIT/ML X5UNITS SQ SCH (21:04)
[2016-05-19] MEDS: Ipratropium/Albuterol Neb 3 ML IH SCH ×3 (04:12→10:35)
[2016-05-19 06:18] LABS: Hematocrit 33.3 % (37.5-50.1); Mean Corpuscular HGB Conc 33.3 g/dL (31.6-35.5); Mean Corpuscular Hemoglobin 28.9 pg (28.0-33.3); Mean Corpuscular Volume 86.7 fL (83.0-100.0); Mean Platelet Volume 10.7 fL (9.4-12.4); Platelet Count 108 K/mcL (140-400); Red Blood Count 3.84 M/mcL (4.19-5.50); Red Cell Distribution Width 14.1 % (11.5-14.5)
[2016-05-19 06:20] LABS: Hemoglobin 11.1 g/dL (12.9-16.9)
[2016-05-19 06:34] LABS: Calcium 8.1 mg/dL (8.6-10.8)
[2016-05-19 07:13] LABS: Influenza A PCR Body Fluid NOT DETECTED; Influenza B PCR Body Fluid NOT DETECTED; RSV PCR Body Fluid NOT DETECTED
[2016-05-19] MEDS: Pregabalin 50 MG CAPSULE PO SCH (08:02)
[2016-05-19] MEDS: hydrALAZINE 25 MG TABLET PO SCH (08:02)
[2016-05-19] MEDS: APIXABAN 5 MG TABLET PO SCH (08:03)
[2016-05-19] MEDS: Folic Acid 1 MG TABLET PO SCH (08:05)
[2016-05-19] MEDS: amLODIPine 5 MG TABLET PO SCH (08:06)
[2016-05-19] MEDS: Insulin LISPRO 300 UNITS/3 ML VIAL SQ SCH ×2 (08:07→12:07)
[2016-05-19] MEDS: Furosemide 40 MG/4 ML VIAL IV SCH (08:08)
[2016-05-19] MEDS: MethylPREDNISolone 40 MG/ML VIAL IVP SCH (08:08)
--- NOTE | 2016-05-19 08:31 | Internal Med Progress Note ---
Date of Encounter: 05/19/16 Time of Encounter: 08:29 - Assessment and plan (1) Acute and chronic respiratory failure Current Visit: Yes Status: Chronic Assessment and plan: Acute on chronic hypoxic resiratory failure secondary to combination of acute COPD exacerbation due to rhino/enterovirus and Acute diastolic CHF exacerbation Does not require oxygen at home, failed to qualify for oxygen at previous admission Possible consideration for obesity hypoventilation syndrome Will attempt to requalify with 6 minute walk prior to discharge Continue to attempt to wean supplemental O2 to keep SpO2 > 88% given presence of underlying lung disease Treatment as per CHF and COPD exacerbation Qualifiers: Respiratory failure complication: hypoxia Qualified Code(s): J96.21 - Acute and chronic respiratory failure with hypoxia (2) Congestive heart failure with left ventricular diastolic dysfunction Current Visit: Yes Status: Acute Assessment and plan: Acute exacerbation of diastolic CHF which was present on admission Echo in 03/27/16 with LVEF 55% and mild diastolic dysfunction Lasix dosing with -7625 mL out Will decrease lasix to BID dosing, may consider discontinuing Given presence of CKD, will continue to closely monitor renal function and electrolytes Consider transition to oral lasix on discharge Qualifiers: Congestive heart failure chronicity: acute on chronic Qualified Code(s): I50.33 - Acute on chronic diastolic (congestive) heart failure (3) COPD exacerbation Current Visit: Yes Status: Acute Assessment and plan: Presented with acute exacerbation of COPD secondary to rhino/enterovirus which was present on admission Initiallt treated with vancomycin and zosyn for concerns of HCAP, both since discontinued RIDP positive for rhino/enterovirus Continue duonebs scheduled continue albuterol neb PRN Continue symbicort and spiriva Continue IV steroids BID (day 2) (4) Hyperkalemia, diminished renal excretion Current Visit: No Status: Acute Assessment and plan: Chronic. Initial elevation to 5.6, given kayexalate and IV fluids Potassium increased to 5.0 from 4.5 yesterday, around his baseline Nephrology following, appreciate expertise and assistance (5) Nonischemic cardiomyopathy Current Visit: Yes Status: Chronic Assessment and plan: Patient has a pacemaker/defibrillator in place Denies any discharge of defibrillator Follows with cardiology in [place] (6) Diabetes mellitus Current Visit: No Status: Chronic Assessment and plan: Relatively well controlled with an A1c of 7.5%. Complicated by chronic kidney disease and polyneuropathy Patient hyperglycemic this morning, likely secondary to steroids which can worsen hyperglycemia Patient admits to not being compliant with medications at home and he only takes his basal insulin in addition to insulin one time per day. Continue basal insulin while in hospital Continue sliding scale while in hospital Continue home lyrica Qualifiers: Diabetes mellitus type: type 2 Diabetes mellitus complication status: with neurologic complications Diabetes mellitus complication detail: with polyneuropathy Diabetes mellitus terminologist insulin use: with terminologist use Qualified Code(s): E11.42 - Type 2 diabetes mellitus with diabetic polyneuropathy; Z79.4 - terminal press operator (current) use of insulin (7) Atrial fibrillation Current Visit: No Status: Chronic Assessment and plan: Rate controlled Continue home eliquis for anticoagulation Continue home carvedilol Qualifiers: Atrial fibrillation type: chronic Qualified Code(s): I48.2 - Chronic atrial fibrillation (8) Anemia Current Visit: No Status: Chronic Assessment and plan: Paient had nosebleed prior to arrival Hgb has improved to 11.1, was 8.7 on admission No current signs of active bleeding Qualifiers: Anemia type: unspecified type Qualified Code(s): D64.9 - Anemia, unspecified (9) Hypertension Current Visit: No Status: Chronic Assessment and plan: Controlled. Continue home medications of hydralazine and amlodipine Continue to monitor vitals Qualifiers: Hypertension type: essential hypertension Qualified Code(s): I10 - Essential (primary) hypertension (10) Chronic kidney disease, stage 4 (severe) Current Visit: No Status: Chronic Assessment and plan: Initially presented with a mild ALEKS, received initial IV fluids which have since been discontinued BUN and creatinine increased from yesterday to 73 and 2.72, likely secondary to administration of TID IV lasix Will change lasix to BID as detailed previously Will give 250 mL IV fluid bolus Nephrology following, appreciate expertise and assistance. Per review of their note the patient is adamant he does not want to go on dialysis and would rather . There has been no mention to him of dialysis by a physician during this hospital stay. (11) Thrombocytopenia Current Visit: No Status: Chronic Assessment and plan: Intermittently chronic Stable, platelets 108 this morning No signs of active bleeding - Subjective Interval history: Patient seen and examined , he is resting in bed. Patient admitted with increasing shortness of breath and chest pain with cough, found to be hypoxic. He was recently admitted and discharged, also required oxygen that admission but did not qualify for oxygen on discharge. Patient endorses feeling better on oxygen. Patient initially treated for health care associated [place] given recent hospitalization with zosyn and vancomycin with no improvement in respiratory status, antibiotics discontinued. Patient is receiving IV lasix with 7625 mL urine out. RIDP performed positive for enterovirus/rhinovirus. Patient reports that he feels about the same as yesterday. He feels improved and feels like he is ready to go home. He is tolerating diet with no nausea or vomiting. He has no other complaints or concerns at this time. - Constitutional Vitals: Temp Pulse Resp BP Pulse Ox 97.6 F 69 17 147/82 93 L 05/19/16 07:26 05/19/16 07:26 05/19/16 07:26 05/19/16 07:26 05/19/16 07:26 General appearance: Present: cooperative, A&O X 3, morbidly obese, pleasant, no acute distress, answers questions appropriately - Head Head exam: Present: atraumatic, normocephalic - Eye Eye exam: Present: normal appearance. Absent: conjunctival injection - ENT ENT exam: Present: mucous membranes moist, normal external ear exam Additional comments: nasal canula in place - Neck Neck exam general surgery: Present: supple, trachea midline - Respiratory Respiratory exam: Present: rhonchi (bilaterally). Absent: rales, stridor, wheezes - Cardiovascular Cardiovascular exam: Present: RRR, +S1, +S2. Absent: clicks, diastolic murmur, gallop, rubs, systolic murmur - GI/Abdominal GI/Abdominal exam: Present: normal bowel sounds, soft. Absent: distended, guarding, rebound, tenderness - Extremities Exam Extremities exam: Present: normal capillary refill. Absent: pedal edema - Psychiatric Psychiatric exam: Present: normal affect, normal mood Internal Medicine: Result - Labs CBC & Chem 7: 05/19/16 05:04 05/19/16 05:04 Labs: Short CBC 05/19/16 Range/Units 05:04 WBC 6.5 (4.3-11.1) K/mcL Hgb 11.1 L D (12.9-16.9) g/dL Hct 33.3 L (37.5-50.1) % Plt Count 108 L (140-400) K/mcL BMP 05/19/16 05:04 Sodium 132 L Potassium 5.0 H Chloride 98 Carbon Dioxide 21 BUN 73 H Creatinine 2.72 H Glucose 331 H Calcium 8.1 L - ABG Interpretation ABG results: PT/INR, D-dimer PT 14.0 Seconds (9.4-12.1) H 05/12/16 16:00 - Impressions Impressions Chest CT 05/15/16 10:15 IMPRESSION: 1. Bandlike linear density in the right upper lobe probably represents atelectasis or scarring. 2. Bibasilar dependent atelectasis. 3. Mild to moderate cardiomegaly. 4. Coronary artery disease. 5. Asymmetric enlargement of the left lobe of the thyroid, possibly secondary to a cyst or nodule. Thyroid gland would better be assessed with a dedicated thyroid ultrasound on a nonemergent basis. D/ / 05/15/2016 11:40:50 Toni Rubio MD / [facility] Interpreting Provider: Toni Rubio MD - [facility] Documentation of Mechanical Device: Intermittent pneumatic compression device Consult Discharge Plan - Plan Referrals: Travis Brasher Jr, MD [Primary Care Provider] - 05/22/16 3:00 pm
[2016-05-19] MEDS ORDERED: 0.9 % Sodium Chloride 250 ML IVC ONE (08:43)
--- NOTE | 2016-05-19 09:40 | Discharge Summary ---
<Fannie Irwin - Last Filed: 05/19/16 12:13> Date of Encounter: 05/19/16 Time of Encounter: 09:36 - Discharge Diagnosis (1) Acute and chronic respiratory failure Priority: Primary Status: Chronic Comments: Hypoxia on admission secondary to a combination of acute COPD exacerbation secondary to rhino/enterovirus and acute exacerbation of chronic diastolic heart failure Patient did not qualify for oxygen at previous admission Evaluation for home oxygen this admission with failure to qualify Qualifiers: Respiratory failure complication: hypoxia Qualified Code(s): J96.21 - Acute and chronic respiratory failure with hypoxia (2) Congestive heart failure with left ventricular diastolic dysfunction Priority: Primary Status: Acute Comments: Acute exacerbation of chronic diastolic heart failure present on admission and contributing to acute hypoxic respiratory failure Has been on lasix with 7625 mL out Will discharge on lasix oral BID Will need monitoring of real function, recommend follow up BMP 1 week after discharge to monitor electrolytes and kidney function Qualifiers: Congestive heart failure chronicity: acute on chronic Qualified Code(s): I50.33 - Acute on chronic diastolic (congestive) heart failure (3) COPD exacerbation Priority: Primary Status: Acute Comments: Acute exacerbation of COPD secondary to rhino/enterovirus and contributing to hypoxia on admission Initially treated with vancomycin and zosyn for concerns or healthc are associated pneumonia, both stopped RIDO positive for rhino/enterovirus Patientmaintained on his home medications of spiriva and symbicort received duonebs scheduled q 6 hours and albuterol prn Has received 2 days IV steroids while in hospital, will plan to discharge on 12 day extended taper (4) Hyperkalemia, diminished renal excretion Priority: Primary Status: Acute Comments: Initial elevation to 5.6, he was given kayexalate Potassium has been fluctating during hospital stay, ranging from 4.5-5.0 Patient follows with nephrology outpatient, recommend further follow up and monitoring given addition of lasix (5) Nonischemic cardiomyopathy Priority: Primary Status: Chronic Comments: Patient follows with cardiology in [place] He has a pacemaker/defibrillator in place, no recent discharge of device Recommend further follow up with order entry as previously scheduled. (6) Diabetes mellitus Priority: Primary Status: Chronic Comments: A1c 7.5, complicated by chronic kidney disease and polyneuropathy He was maintained on his home medications, while in hospital he admitted to not being as compliant with his insulin and only taking his basal in addition to one mealtime at home He was maintained on his home lyrica Experienced expected hyperglycemia after administration of IV steroids, advised patient to follow up further with his PCP Qualifiers: Diabetes mellitus type: type 2 Diabetes mellitus complication status: with neurologic complications Diabetes mellitus complication detail: with polyneuropathy 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 mellitus 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 insulin use: with half-way use Qualified Code(s): E11.42 - Type 2 diabetes mellitus with diabetic polyneuropathy; Z79.4 - detention (current) use of insulin (7) Atrial fibrillation Priority: Primary Status: Chronic Comments: Patient remained rate controlled throughout hospitalization He was maintained on his home eliquis for anticoagulation Continued on home carvedilol Previous echo with LVEF 50% and mild diastolic dysfunction Qualifiers: Atrial fibrillation type: chronic Qualified Code(s): I48.2 - Chronic atrial fibrillation (8) Anemia Priority: Primary Status: Chronic Comments: Patient experienced nosebleed prior to arrival, no further bleeding observed during stay Hgb increased to 11.1 during stay Qualifiers: Anemia type: unspecified type Qualified Code(s): D64.9 - Anemia, unspecified (9) Hypertension Priority: Primary Status: Chronic Comments: Blood pressure stable during hospitalization Maintained on his home medications of hydralazine and amlodipine Qualifiers: Hypertension type: essential hypertension Qualified Code(s): I10 - Essential (primary) hypertension (10) Chronic kidney disease, stage 4 (severe) Priority: Primary Status: Chronic Comments: Patient with known history of CKD stage 4, follow with nephrology BUN and creatinine stable, GFR stable Neprhology colnsulted, appreciated expertise and assistance. Per their note, patient stated to them that he did not want dialysis and if he required dialysis then he would rather just . No practitioner during hospital stay mentioned him needing dialysis. (11) Thrombocytopenia Priority: Primary Status: Chronic Comments: Intermittently chronic. Patient had no active bleeding during stay Recommend further follow up as outpatient - Discharge Medications Prescriptions: Furosemide [Lasix] 40 mg PO BID 30 Days PredniSONE 10 mg PO DAILY #84 tablet Home Medications: Insulin Glargine,Hum.rec.anlog [Lantus Solostar] 42 unit SQ HS 05/09/15 [History ] Pregabalin [Lyrica] 200 mg PO BID 05/09/15 [History] Simvastatin [Zocor] 40 mg PO DAILY 05/09/15 [History] Temazepam [Restoril] 30 mg PO HS 05/09/15 [History] Apixaban [Eliquis] 2.5 mg PO BID 12/31/15 [History] Carvedilol [Coreg] 25 mg PO BID 12/31/15 [History] Promethazine [Phenergan] 25 mg PO HS 12/31/15 [History] Artificial Tears SOLN [Akwa Tears] 1 drop BOTH EYES QID bottle 01/07/16 [Rx] HydrALAZINE 75 mg PO TID #270 tablet 01/07/16 [Rx] Tamsulosin [Flomax] 0.4 mg PO DAILY #30 capsule 01/07/16 [Rx] Acetaminophen [Tylenol] 650 mg PO HS 03/26/16 [History] Cholecalciferol (D-3) [Vitamin D] 1,000 unit PO DAILY 03/26/16 [History] Cyanocobalamin (Vitamin B-12) [Vitamin B12] 5,000 mcg PO DAILY 03/26/16 [History ] Amlodipine [Norvasc] 10 mg PO DAILY #30 tablet 04/05/16 [Rx] Docusate [Colace] 200 mg PO DAILY #60 capsule 04/05/16 [Rx] Tiotropium [Spiriva] 18 mcg IH DAILYR #60 inh 04/05/16 [Rx] Albuterol Sulfate [Proventil Hfa] 1 - 2 puff IH Q6H PRN 04/27/16 [History] Budesonide/Formoterol 160/4.5 [Symbicort 160/4.5] 2 puff IH BIDR 04/27/16 [ History] Ipratropium/Albuterol Neb [Duoneb] 3 ml IH QID PRN 04/27/16 [History] GuaiFENesin Liq [Robitussin Liq] 200 mg PO Q6HR PRN 05/12/16 [History] Pantoprazole Sodium [Protonix] 40 mg PO DAILY 05/12/16 [History] Furosemide [Lasix] 40 mg PO BID 30 Days 05/19/16 [Rx] PredniSONE 10 mg PO DAILY #84 tablet 05/19/16 [Rx] Allergies/Adverse Reactions: Allergies aspirin Allergy (Verified 03/26/16 14:56) Hives diphenhydramine [From Benadryl] Allergy (Verified 03/26/16 12:08) Swelling of Lip/Tongue/Throat Tetracyclines Allergy (Verified 03/26/16 14:56) Hives Date of admission: 05/12/16 22:14 Primary care physician: Travis Brasher Jr, MD Consults: 05/14/16 12:34 Consult to Nephrology [CONS] Routine Consulting Provider: Shon Barlow Reason for Consult: patient known to you. CKD4. mild katia overnight. Here for recurrent pneumonia on vanc and zosyn. please eval and advise. thanks Time Notified: 12:35 Call Completed: Yes 05/15/16 07:40 Consult to Occupational Therapy [CONS] Routine Comment: Evaluate, develop and implement POC Consult to Physical Therapy [CONS] Routine Comment: Evaluate, develop and implement POC Consult to Custom Tailor Apprentice [CONS] Routine Reason for SW Consult: may need home oxygen; may need ecf Discharging clinician: Dev Prince Anticipated date of discharge: 05/19/16 - Patient Status Disposition: Home, Self-Care Condition: Good Functional capacity at discharge: independent ambulation Overall status at discharge: patient is progressing back to baseline - Discharge Instructions Instructions: Heart Failure (GEN), Diabetes Mellitus Type 2 in Adults (GEN), COPD Exacerbation, Energy Scheduler (GEN) Follow Up With: Travis Brasher Jr, MD [Primary Care Provider] - 05/22/16 3:00 pm - Diet and Activity Activity: increase activity as tolerated Diet: diabetic diet, low fat, low cholesterol, low salt diet Interval History: 71 year old male with past medical history of atrial fibrillation on eliquis, hypertension, chronic kidney disease stage 4, morbid obesity who presented to the ER with continued shortness of breath and wheezing associated with productive cough who was admitted secondary to acute hypoxia requiring oxygen. He had recently been discharged 8 days prior for an acute COPD exacerbation, required oxygen during that stay however did not qualify for oxygen on discharge. He was treated with zosyn and vancomycin for 4 days for concern of health care associated pneumonia given his recent hospitalization. IV antibiotics were discontinued after a RIDP was positive for enterovirus/ rhinovirus. He was started on treatment for acute decompensation of chronic diastolic heart failure with IV lasix. He successfully diuresed over 7L during the next 4 days. He was discharged on lasix 40 mg BID. He was evaluated for qualification for home oxygen again, and he failed to qualify for home oxygen on discharge. He was treated for an acute COPD exacerbation with IV steroids for 2 days, will be transitioned to a 12 day taper on discharge. His diabetes was maintained with basal and meal time insulin. He was discharged home on his home regimen. His atrial fibrillation remained rate controlled, he was maintained on his home eliquis and carvedilol. He was found to be hyperakalemic on arrival with a potassium of 5.6, he was given kayexelate and IV fluids. His potassium was 5.0 on day of discharge. He should continue to be monitored with a BMP as outpatient. He was found o be anemic on admission, had a nosebleed prior to arrival, with a hemoglobin of 8.7 which increased to 11 during stay. There was no signs of active bleeding during his hospital stay. His hypertension was controlled, blood pressures remained stable. He was maintained on his home hydralazine and amlodipine. He has a history of non-ischemic cardiomyopathy for which he has an implantable cardiac defibrillator/pacemaker in place, he denied any recent discharge, and is followed by a order entry in [place]. His chronic kidney disease stage 4 was stable throughout hospital stay. Nephrology was consulted, and followed him in the hospital. Per nephrology notes, patient expressed to them that he was very against dialysis and stated to them that he would rather than undergo dialysis. It should be noted that there was no practioner who mentioned to the patient during his entire hospital stay. He was found to have thrombocytopenia, which for him is chronic and intermittent in nature. His platelets remained stable throughout hospital stay. On day of discharge, pateint was doing well, had stable vital signs. He was tolerating oral intake. Hospital course: Mr. Vera is a 71 year old male - Time Spent with Patient Total time spent providing and/or coordinating discharge services: - Constitutional Vitals: Temp Pulse Resp BP Pulse Ox 97.6 F 69 17 147/82 93 L 05/19/16 07:26 05/19/16 07:26 05/19/16 07:26 05/19/16 07:26 05/19/16 07:26 General appearance: Present: cooperative, A&O X 3, morbidly obese, pleasant, no acute distress, answers questions appropriately - Head Head exam: Present: atraumatic, normocephalic - Eye Eye exam: Present: normal appearance. Absent: conjunctival injection - ENT ENT exam: Present: mucous membranes dry, normal external ear exam - Neck Neck exam general surgery: Present: supple, trachea midline - Respiratory Respiratory exam: Present: CTAB. Absent: rales, rhonchi, stridor, wheezes - Cardiovascular Cardiovascular exam: Present: RRR, +S1, +S2. Absent: clicks, diastolic murmur, gallop, rubs, systolic murmur - GI/Abdominal GI/Abdominal exam: Present: normal bowel sounds, soft. Absent: distended, guarding, rebound, tenderness - Extremities Exam Extremities exam: Present: normal capillary refill. Absent: pedal edema - Psychiatric Psychiatric exam: Present: normal affect, normal mood - VTE Documentation of Mechanical Device: Intermittent pneumatic compression device <Dev Prince - Last Filed: 05/19/16 15:06> Date of Encounter: 05/19/16 Date of admission: 05/12/16 22:14 Primary care physician: Travis Brasher Jr, MD Consults: 05/14/16 12:34 Consult to Nephrology [CONS] Routine Consulting Provider: Shon Barlow Reason for Consult: patient known to you. CKD4. mild katia overnight. Here for recurrent pneumonia on vanc and zosyn. please eval and advise. thanks Time Notified: 12:35 Call Completed: Yes 05/15/16 07:40 Consult to Occupational Therapy [CONS] Routine Comment: Evaluate, develop and implement POC Consult to Physical Therapy [CONS] Routine Comment: Evaluate, develop and implement POC Consult to Custom Tailor Apprentice [CONS] Routine Reason for SW Consult: may need home oxygen; may need ecf Hospital course: Mr. Vera is a 71 year old male - Time Spent with Patient Total time spent providing and/or coordinating discharge services: - Constitutional Vitals: Temp Pulse Resp BP Pulse Ox 97.6 F 61 16 125/79 98 05/19/16 11:10 05/19/16 11:10 05/19/16 11:10 05/19/16 11:10 05/19/16 11:10 - Attending Attestation continue prednisone taper and lasix at home time spent on this discharge 40 min Follow up with Primary care physician in 7 days and with pulmonary service within the next 3-4 weeks. I examined this patient and my medical decision-making was reviewed with the SYBASE DEVELOPER/PA/Advanced Practice Nurse/Resident Physician. I agree with the documented findings, disposition and treatment plan as described except to the extent set forth below.
[2016-05-19] MEDS: Budesonide/Formoterol 160/4.5 MDI IH SCH (10:35)
[2016-05-19] MEDS: Tiotropium 18 MCG inhalation IH SCH (10:35)
[2016-05-19 11:11] VITALS: BP 125/79
--- NOTE | 2016-05-19 15:10 | Physician Discharge Referral ---
<AlidaFannie Olga - Last Filed: 05/19/16 15:09> Home Health/Hosp Referral Info Transfer to: Home Health Attending Provider: [facility] Provider in Charge Post Discharge: PCP - Diagnosis (1) Acute and chronic respiratory failure Status: Chronic (2) Congestive heart failure with left ventricular diastolic dysfunction Status: Acute (3) COPD exacerbation Status: Acute (4) Hyperkalemia, diminished renal excretion Status: Acute (5) Nonischemic cardiomyopathy Status: Chronic (6) Diabetes mellitus Status: Chronic (7) Atrial fibrillation Status: Chronic (8) Anemia Status: Chronic (9) Hypertension Status: Chronic (10) Chronic kidney disease, stage 4 (severe) Status: Chronic (11) Thrombocytopenia Status: Chronic - Respiratory Orders Smoking Cessation: Smoking cessation has been advised. For more information, call the [place] Tobacco Quit Line at 0-218-GATF-NOW. - Transfer Medications Prescriptions: Furosemide [Lasix] 40 mg PO BID 30 Days PredniSONE 10 mg PO DAILY #84 tablet Home Medications: Insulin Glargine,Hum.rec.anlog [Lantus Solostar] 42 unit SQ HS 05/09/15 [History ] Pregabalin [Lyrica] 200 mg PO BID 05/09/15 [History] Simvastatin [Zocor] 40 mg PO DAILY 05/09/15 [History] Temazepam [Restoril] 30 mg PO HS 05/09/15 [History] Apixaban [Eliquis] 2.5 mg PO BID 12/31/15 [History] Carvedilol [Coreg] 25 mg PO BID 12/31/15 [History] Promethazine [Phenergan] 25 mg PO HS 12/31/15 [History] Artificial Tears SOLN [Akwa Tears] 1 drop BOTH EYES QID bottle 01/07/16 [Rx] HydrALAZINE 75 mg PO TID #270 tablet 01/07/16 [Rx] Tamsulosin [Flomax] 0.4 mg PO DAILY #30 capsule 01/07/16 [Rx] Acetaminophen [Tylenol] 650 mg PO HS 03/26/16 [History] Cholecalciferol (D-3) [Vitamin D] 1,000 unit PO DAILY 03/26/16 [History] Cyanocobalamin (Vitamin B-12) [Vitamin B12] 5,000 mcg PO DAILY 03/26/16 [History ] Amlodipine [Norvasc] 10 mg PO DAILY #30 tablet 04/05/16 [Rx] Docusate [Colace] 200 mg PO DAILY #60 capsule 04/05/16 [Rx] Tiotropium [Spiriva] 18 mcg IH DAILYR #60 inh 04/05/16 [Rx] Albuterol Sulfate [Proventil Hfa] 1 - 2 puff IH Q6H PRN 04/27/16 [History] Budesonide/Formoterol 160/4.5 [Symbicort 160/4.5] 2 puff IH BIDR 04/27/16 [ History] Ipratropium/Albuterol Neb [Duoneb] 3 ml IH QID PRN 04/27/16 [History] GuaiFENesin Liq [Robitussin Liq] 200 mg PO Q6HR PRN 05/12/16 [History] Pantoprazole Sodium [Protonix] 40 mg PO DAILY 05/12/16 [History] Furosemide [Lasix] 40 mg PO BID 30 Days 05/19/16 [Rx] PredniSONE 10 mg PO DAILY #84 tablet 05/19/16 [Rx] Allergies/Adverse Reactions: Allergies aspirin Allergy (Verified 03/26/16 14:56) Hives diphenhydramine [From Benadryl] Allergy (Verified 03/26/16 12:08) Swelling of Lip/Tongue/Throat Tetracyclines Allergy (Verified 03/26/16 14:56) Hives Certification: Further, I certify that my clinical findings support that this patient is homebound (i.e. absences from home require considerable and taxing effort and are for medical reasons or synagogue services or infrequently or short duration when for other reasons) because: Attestation: My signature below is to certify that this patient is under my care and that I, or nurse practitioner, or a physician's contact center assistant working with me, has a face-to -face encounter with this patient. <Dev Prince - Last Filed: 05/19/16 15:13> - Respiratory Orders Smoking Cessation: Smoking cessation has been advised. For more information, call the [place] Tobacco Quit Line at 9-550-UQIY-NOW. Certification: Further, I certify that my clinical findings support that this patient is homebound (i.e. absences from home require considerable and taxing effort and are for medical reasons or synagogue services or infrequently or short duration when for other reasons) because: Homebound Reason: Patient requires assistance of a person or device to safely leave home Attestation: My signature below is to certify that this patient is under my care and that I, or nurse practitioner, or a physician's contact center assistant working with me, has a face-to -face encounter with this patient. I examined this patient and my medical decision-making was reviewed with the PROJECT MANAGER INTERIOR DESIGN/PA/Advanced Practice Nurse/Resident Physician. I agree with the documented findings, disposition and treatment plan as described except to the extent set forth below.
[2016-05-19] MEDS ORDERED: Famotidine 20 MG TABLET PO SCH (16:30)
[2016-05-19] MEDS ORDERED: Furosemide 40 MG/4 ML VIAL IV SCH (17:00)
== END 2016-05-19 14:44 | disposition home or self-care (01) | DRG 190 ==
LOC: EMEROO 14:12 → 3BNU 14:12 → SUATTDRO 22:14
PROVIDERS: ADMIT Nurse Practitioner Family; ATTEND Internal Medicine

== ENCOUNTER 2016-05-20 01:00 | Inpatient (IN) ==
--- NOTE | 2016-05-20 02:56 | Emergency Department Note ---
Disposition Clinical Impression: ALEKS (acute kidney injury) Syncope Qualifiers: Syncope type: unspecified Qualified Code(s): R55 - Syncope and collapse Hyperglycemia due to type 2 diabetes mellitus Qualifiers: Diabetes mellitus medical record consultant insulin use: unspecified chcf insulin use status Qualified Code(s): E11.65 - Type 2 diabetes mellitus with hyperglycemia Disposition: Admitted As Inpatient Condition: Fair Time of Disposition: 04:45 Syncope HPI - General Chief Complaint: ED Dizziness Stated Complaint: head injury Time Seen by Provider: 05/20/16 01:41 Source: patient Limitations: no limitations Nursing Notes Reviewed: Yes Vital Signs Reviewed: Yes - History of Present Illness HPI Narrative: Patient is a 71-year-old male who presents to [facility] ED with a chief complaint of head pain status post passing out. States he was walking back into his bedroom when all of a sudden he felt lightheaded and fell backwards and hit his head. Patient is on a liquid. Denies any loss of consciousness. Complaining of headache right now. States he has had chronic shortness of breath and chest pain. States this does feel little worse than it is usually. Patient just left the hospital yesterday after being admitted for congestive heart failure. Pt Subjective Complaint: loss of consciousness Onset (ago): hour(s) Prodromal Symptoms: headache, lightheaded, chest pain, shortness of breath Witnessed: no Context: during exertion Injuries Sustained Associated with Event: neck, head Current Symptoms: back to baseline History: none Treatments prior to arrival: none Associated trauma secondary to event: No - Related Data Home Medications Medication Instructions Recorded Confirmed Insulin Glargine,Hum.rec.anlog 42 unit SQ HS 05/09/15 05/12/16 [Lantus Solostar] Pregabalin [Lyrica] 200 mg PO BID 05/09/15 05/12/16 Simvastatin [Zocor] 40 mg PO DAILY 05/09/15 05/12/16 Temazepam [Restoril] 30 mg PO HS 05/09/15 05/12/16 Apixaban [Eliquis] 2.5 mg PO BID 12/31/15 04/27/16 Carvedilol [Coreg] 25 mg PO BID 12/31/15 05/12/16 Promethazine [Phenergan] 25 mg PO HS 12/31/15 05/12/16 Acetaminophen [Tylenol] 650 mg PO HS 03/26/16 05/12/16 Cholecalciferol (D-3) [Vitamin D] 1,000 unit PO DAILY 03/26/16 05/12/16 Cyanocobalamin (Vitamin B-12) 5,000 mcg PO DAILY 03/26/16 05/12/16 [Vitamin B12] Albuterol Sulfate [Proventil Hfa] 1 - 2 puff IH Q6H PRN 04/27/16 05/12/16 Budesonide/Formoterol 160/4.5 2 puff IH BIDR 04/27/16 05/12/16 [Symbicort 160/4.5] Ipratropium/Albuterol Neb [Duoneb] 3 ml IH QID PRN 04/27/16 05/12/16 GuaiFENesin Liq [Robitussin Liq] 200 mg PO Q6HR PRN 05/12/16 05/12/16 Pantoprazole Sodium [Protonix] 40 mg PO DAILY 05/12/16 05/12/16 Previous Rx's Medication Instructions Recorded Artificial Tears SOLN [Akwa Tears] 1 drop BOTH EYES QID bottle 01/07/16 HydrALAZINE 75 mg PO TID #270 tablet 01/07/16 Tamsulosin [Flomax] 0.4 mg PO DAILY #30 capsule 01/07/16 Amlodipine [Norvasc] 10 mg PO DAILY #30 tablet 04/05/16 Docusate [Colace] 200 mg PO DAILY #60 capsule 04/05/16 Tiotropium [Spiriva] 18 mcg IH DAILYR #60 inh 04/05/16 Furosemide [Lasix] 40 mg PO BID 30 Days 05/19/16 PredniSONE 10 mg PO DAILY #84 tablet 05/19/16 Allergies Allergy/AdvReac Type Severity Reaction Status Date / Time aspirin Allergy Hives Verified 05/20/16 01:28 diphenhydramine Allergy Swelling Verified 05/20/16 01:28 [From Benadryl] of Lip/Tongue/Throat Tetracyclines Allergy Hives Verified 05/20/16 01:28 All systems ED: reviewed and negative except as stated. Past Medical History - Past Medical History Attestation: Yes The following information was validated with the patient. Source: patient Medical history: Reports: atrial fibrillation, cardiomyopathy, CHF, COPD, CVA, diabetes, hyperlipidemia, hypertension, myocardial infarction, renal disease, TIA Surgical history: Reports: orthopedic, other Psychiatric history: Reports: no psych history - Social History Smoking Status: Former smoker Smokeless Tobacco Status: No Alcohol use: Reports: rarely Drug use: Reports: none Physical Exam - General Limitations: no limitations General appearance: alert - Head Head exam: atraumatic, normocephalic, normal inspection - Eye Eye exam: Present: normal appearance, PERRL, EOMI - ENT ENT exam: normal exam, normal oropharynx, mucous membranes moist - Neck Neck exam: Present: normal inspection, full ROM, trachea midline - Chest Chest inspection: Present: normal inspection, symmetric chest wall rise - Respiratory Respiratory exam: Present: normal lung sounds bilaterally - Cardiovascular Cardiovascular exam: Present: regular rate, normal rhythm, normal heart sounds - Abdominal Exam Abdominal exam: Present: soft, Non-Tender. Absent: tenderness, distention, guarding, rebound, rigidity - Extremities Exam Extremities exam: Present: normal inspection, full ROM. Absent: tenderness, pedal edema - Back Exam Back exam: Present: normal inspection, full ROM. Absent: tenderness - Neurological Exam Neurological exam: Present: alert, oriented X3 - Psychiatric Psychiatric exam: Present: normal affect, normal mood - Skin Skin exam: Present: warm, dry, intact, normal color Course Course Narrative: Patient seen and examined. Head injury status post fall. Completely had a syncopal episode. Was lightheaded prior to the fall. CT head and cervical spine ordered. Patient is on eliquis. Cardiopulmonary workup ordered since he is having some chest pain and difficulty breathing. - Reevaluation(s) Reevaluation #1: Lab work shows glucose over 400, ALEKS on CKD with a creatinine at 3.07. This has acutely increased from yesterday. He does appear dry as well with the BUN over 90. We will admit for syncope, ALEKS. I spoke with hospitalist Dr. Chavez who has accepted patient for admission. Time: 04:43 Vital Signs Temperature 97.4 F L 05/20/16 01:23 Pulse Rate 67 05/20/16 01:23 Respiratory Rate 18 05/20/16 01:23 Blood Pressure 122/67 05/20/16 01:23 O2 Sat by Pulse Oximetry 96 05/20/16 01:23 Temperature 97.7 F 05/20/16 06:12 Pulse Rate 68 05/20/16 06:12 Respiratory Rate 18 05/20/16 06:12 Blood Pressure 134/72 05/20/16 06:12 O2 Sat by Pulse Oximetry 96 05/20/16 06:12 Oxygen Delivery Oxygen Delivery Room Air Syncope - Medical Records Medical records reviewed: Yes I reviewed the patient's medical records. - Lab Data Lab results reviewed: Yes I reviewed the patient's lab results. Result diagrams: 05/20/16 03:15 05/20/16 03:15 Lab Results 05/20/16 05/20/16 05/20/16 Range/Units 03:13 03:15 03:15 WBC 9.4 (4.3-11.1) K/mcL RBC 3.86 L (4.19-5.50) M/mcL Hgb 10.9 L (12.9-16.9) g/dL Hct 32.8 L (37.5-50.1) % MCV 85.0 (83.0-100.0) fL MCH 28.2 (28.0-33.3) pg MCHC 33.2 (31.6-35.5) g/dL RDW 14.2 (11.5-14.5) % Plt Count 178 D (140-400) K/mcL MPV 9.5 (9.4-12.4) fL Immature Gran % 4.1 H (0-4) % Seg Neutrophils % 80.3 % Lymphocytes % 7.4 % Monocytes % 8.1 % Eosinophils % 0.0 % Basophils % 0.1 % Neutrophils # 7.6 (1.6-8.9) K/mcL Lymphocytes # 0.7 (0.6-4.6) K/mcL Monocytes # 0.8 (0.0-1.3) K/mcL Eosinophils # 0.0 (0.0-0.6) K/mcL Basophils # 0.0 (0.0-0.2) K/mcL Immature Plt Fraction 4.1 (1.1-6.1) % Sodium 129 L (136-145) mEq/L Potassium 4.7 H (3.5-4.5) mEq/L Chloride 94 L (98-109) mEq/L Carbon Dioxide 24 (19-29) mEq/L BUN 92 H D (8-26) mg/dL Creatinine 3.07 H (0.72-1.25) mg/dL Est GFR ( Amer) 24 L (> 60) Est GFR (Non-Af Amer) 20 L (> 60) BUN/Creatinine Ratio 30 H (6-26) Glucose 451 H (70-99) mg/dL POC Glucose 407 H* (58-89) Calculated Osmolality 316 H (280-300) Calcium 8.1 L (8.6-10.8) mg/dL Troponin I (0-0.03) ng/mL 05/20/16 Range/Units 03:15 WBC (4.3-11.1) K/mcL RBC (4.19-5.50) M/mcL Hgb (12.9-16.9) g/dL Hct (37.5-50.1) % MCV (83.0-100.0) fL MCH (28.0-33.3) pg MCHC (31.6-35.5) g/dL RDW (11.5-14.5) % Plt Count (140-400) K/mcL MPV (9.4-12.4) fL Immature Gran % (0-4) % Seg Neutrophils % % Lymphocytes % % Monocytes % % Eosinophils % % Basophils % % Neutrophils # (1.6-8.9) K/mcL Lymphocytes # (0.6-4.6) K/mcL Monocytes # (0.0-1.3) K/mcL Eosinophils # (0.0-0.6) K/mcL Basophils # (0.0-0.2) K/mcL Immature Plt Fraction (1.1-6.1) % Sodium (136-145) mEq/L Potassium (3.5-4.5) mEq/L Chloride (98-109) mEq/L Carbon Dioxide (19-29) mEq/L BUN (8-26) mg/dL Creatinine (0.72-1.25) mg/dL Est GFR ( Amer) (> 60) Est GFR (Non-Af Amer) (> 60) BUN/Creatinine Ratio (6-26) Glucose (70-99) mg/dL POC Glucose (58-89) Calculated Osmolality (280-300) Calcium (8.6-10.8) mg/dL Troponin I 0.03 (0-0.03) ng/mL - Radiology Data Radiology results reviewed: Yes I reviewed the patient's radiology results. - EKG Data EKG attestation: Yes I reviewed and interpreted this EKG. EKG results narrative: EKG done at 306 shows electric chronic ventricular pacemaker rate of [address] elevation or depression. Attestation Statement - Attestation Attestation: I, Robe Gonzalez MD, personally performed a history and physical exam of the patient and discussed their management with the resident. I reviewed the resident's note and agree with the documented findings, medical decision making , and plan of care. 71-year-old abscess to the emergency department with a complaint of a fall. Patient states he was walking with his walker and became dizzy and lightheaded and blacked out and fell backwards. He at the back of his head. He complains of some pain in the back of his head. Some pain in his chest. No palpitations or shortness of breath. No nausea or vomiting. Patient is on Eliquis. On examination patient is a well-developed well-nourished elderly male in no acute distress. He is alert and oriented 3. There is no cyanosis or diaphoresis. Some left occipital scalp tenderness with no obvious hematoma. No lacerations. Neck is supple with some mild posterior tenderness. Chest is nontender to palpation. Breath sounds equal bilaterally. Heart regular. Abdomen soft and nontender with normal bowel sounds. No gross focal neurological deficits. Labs reviewed. EKG shows electronic ventricular pacemaker. Chest x-ray negative. CT of the head and cervical spine showed no acute abnormality. The hospitalist, Dr. Chavez, was consulted and accepted admission of the patient.
[2016-05-20 03:24] LABS: Basophils % 0.1 %; Hematocrit 32.8 % (37.5-50.1); Hemoglobin 10.9 g/dL (12.9-16.9); Immature Granulocytes % 4.1 % (0-4); Immature Platelets 4.1 % (1.1-6.1); Lymphocytes # 0.7 K/mcL (0.6-4.6); Lymphocytes % 7.4 %; Mean Corpuscular HGB Conc 33.2 g/dL (31.6-35.5); Mean Corpuscular Hemoglobin 28.2 pg (28.0-33.3); Mean Platelet Volume 9.5 fL (9.4-12.4); Monocytes # 0.8 K/mcL (0.0-1.3); Monocytes % 8.1 %; Neutrophils # 7.6 K/mcL (1.6-8.9); Platelet Count 178 K/mcL (140-400); Red Blood Count 3.86 M/mcL (4.19-5.50); Red Cell Distribution Width 14.2 % (11.5-14.5); Segmented Neutrophils % 80.3 %
[2016-05-20 03:45] LABS: Calcium 8.1 mg/dL (8.6-10.8); Potassium 4.7 mEq/L (3.5-4.5)
[2016-05-20] MEDS ORDERED: 0.9 % Sodium Chloride 1,000 ML IVC ONE (03:50)
--- NOTE | 2016-05-20 05:41 | Internal Med History&Physical ---
Date of Encounter: 05/20/16 Time of Encounter: 05:36 Assessment and Plan (1) Syncope Current visit: No Status: Acute Patient status post fall, he denied loss of consciousness. Patient is on anticoagulation, he takes eliquis due to history of atrial fibrillation. Complaining of head, will continue with pain control meds. CT of the head ruled out intracranial bleeding. Qualifiers: Encounter type: initial encounter Qualified Code(s): T67.1XXA - Heat syncope, initial encounter (2) DVT prophylaxis Current visit: No Status: Acute Continue with anticoagulation. (3) [id number] kidney injury Current visit: No Status: Resolved Elevation of both the BUN and creatinine compared to baseline. BUN of admission is 92, baseline was 37. Likely induced by diuretics and steroids. Avoid nephrotoxic agents, hold diuretics for now. (4) Atrial fibrillation Current visit: No Status: Chronic Qualifiers: Atrial fibrillation type: chronic Qualified Code(s): I48.2 - Chronic atrial fibrillation (5) Hyperglycemia due to type 2 diabetes mellitus Current visit: Yes Status: Acute Hyperglycemia likely induced by the recent use of steroids. Continue with insulin therapy. Monitor fingerstick. Qualifiers: Diabetes mellitus terminal gauger insulin use: unspecified terminal gauger insulin use status Qualified Code(s): E11.65 - Type 2 diabetes mellitus with hyperglycemia Internal Medicine - H&P: HPI Chief complaint: S/P fall Admitted From: Emergency Dept Plans for Post Hospital Care: Home History of present illness: Mr. Vera is a 71 year old male with past medical history of atrial fibrillation on eliquis, hypertension, chronic kidney disease, COPD, morbid obesity, former smoker, CHF. Patient was discharged yesterday from the facility. Admission was due to shortness of breath secondary to viral infection and fluid overload. This is his third admission in the last month. He presented to the emergency department today after he sustained a fall at home. The patient states that he was walking with his walker and he had a mechanical fall. Prior to the event he was dizzy. The patient and his family members who witnessed the event said that the patient did not loss consciousness. He is complaining of a headache. He has not received pain medications so far. He underwent initial workup in the emergency department which included a CT scan of the head which rule out intracranial bleeding. He also had x-rays of the right lower extremity which ruled out acute fractures. Initial workup revealed a sodium of 139, potassium 4.7, chloride 94, BUN/ creatinine 92, creatinine 3.07, glucose 407 (patient is on steroids). Hemoglobin 10.9, platelet count 178,000. The patient was admitted due to worsening kidney function tests, persistent headaches, concern for possible syncopal episode, hyperglycemia. Past Med Surg Social Fam HX - Past Medical History Medical history: atrial fibrillation, cardiomyopathy, CHF, COPD, CVA, diabetes, hyperlipidemia, hypertension, myocardial infarction, renal disease, TIA Psychiatric history: no psych history - Past Surgical History Surgical History: orthopedic, other - Social History Smoking Status: Former smoker Smokeless Tobacco Status: No Alcohol use: rarely Drug use: none - Family History Mother Adopted: No Family Member Ethnicity: Non- Living Status: Hx Family Cardiac Disorders: Yes Hx Family Respiratory Disorders: Yes Hx Family Cancer: Yes Hx Family GI Disorders: No Hx Family Endocrine Disorder: Yes Hx Family Neuromuscular Disorders: No Hx Family Neurologic Disorders: No Hx Family HEENT Disorders: No Hx Family Autoimmune Disorders: No Internal Medicine - H&P: Meds Insulin Glargine,Hum.rec.anlog [Lantus Solostar] 42 unit SQ HS 05/09/15 [History ] Pregabalin [Lyrica] 200 mg PO BID 05/09/15 [History] Simvastatin [Zocor] 40 mg PO DAILY 05/09/15 [History] Temazepam [Restoril] 30 mg PO HS 05/09/15 [History] Apixaban [Eliquis] 2.5 mg PO BID 12/31/15 [History] Carvedilol [Coreg] 25 mg PO BID 12/31/15 [History] Promethazine [Phenergan] 25 mg PO HS 12/31/15 [History] Artificial Tears SOLN [Akwa Tears] 1 drop BOTH EYES QID bottle 01/07/16 [Rx] HydrALAZINE 75 mg PO TID #270 tablet 01/07/16 [Rx] Tamsulosin [Flomax] 0.4 mg PO DAILY #30 capsule 01/07/16 [Rx] Acetaminophen [Tylenol] 650 mg PO HS 03/26/16 [History] Cholecalciferol (D-3) [Vitamin D] 1,000 unit PO DAILY 03/26/16 [History] Cyanocobalamin (Vitamin B-12) [Vitamin B12] 5,000 mcg PO DAILY 03/26/16 [History ] Amlodipine [Norvasc] 10 mg PO DAILY #30 tablet 04/05/16 [Rx] Docusate [Colace] 200 mg PO DAILY #60 capsule 04/05/16 [Rx] Tiotropium [Spiriva] 18 mcg IH DAILYR #60 inh 04/05/16 [Rx] Albuterol Sulfate [Proventil Hfa] 1 - 2 puff IH Q6H PRN 04/27/16 [History] Budesonide/Formoterol 160/4.5 [Symbicort 160/4.5] 2 puff IH BIDR 04/27/16 [ History] Ipratropium/Albuterol Neb [Duoneb] 3 ml IH QID PRN 04/27/16 [History] GuaiFENesin Liq [Robitussin Liq] 200 mg PO Q6HR PRN 05/12/16 [History] Pantoprazole Sodium [Protonix] 40 mg PO DAILY 05/12/16 [History] Furosemide [Lasix] 40 mg PO BID 30 Days 05/19/16 [Rx] PredniSONE 10 mg PO DAILY #84 tablet 05/19/16 [Rx] Allergies aspirin Allergy (Verified 05/20/16 01:28) Hives diphenhydramine [From Benadryl] Allergy (Verified 05/20/16 01:28) Swelling of Lip/Tongue/Throat Tetracyclines Allergy (Verified 05/20/16 01:28) Hives All Systems PM: A 10-system review of systems was performed and is negative for pertinent findings except as documented above in the HPI. - Constitutional Constitutional: as per HPI - EENT Eyes: as per HPI Ears: as per HPI Nose, mouth and throat: as per HPI - Breasts Breasts: as per HPI - Cardiovascular Cardiovascular ROS IM: as per HPI - Respiratory Respiratory: as per HPI, dyspnea, dyspnea on exertion - Gastrointestinal Gastrointestinal: as per HPI - Genitourinary Genitourinary ROS male: as per HPI - Musculoskeletal Musculoskeletal ROS IM: as per HPI - Integumentary Integumentary IM: as per HPI - Neurological Neurological ROS: as per HPI - Psychiatric Psychiatric: as per HPI - Endocrine Endocrine IM: as per HPI - Hematologic/Lymphatic Hematologic/Lymphatic: as per HPI - Allergic/Immunologic Allergic/Immunologic: as per HPI - Constitutional Vitals: Temp Pulse Resp BP Pulse Ox 97.4 F L 71 20 146/79 94 05/20/16 01:23 05/20/16 04:45 05/20/16 04:45 05/20/16 04:45 05/20/16 04:45 General appearance: Present: cooperative, A&O X 3, pleasant, obese Exam: He is obese, he does not look to be in respiratory distress, complaining of headache. Bilateral pitting edema lower extremities. - Head Head exam: Present: atraumatic, normocephalic - Eye Eye exam: Present: PERRL, conjuntiva pink, sclera anicteric Pupils: Present: PERRL - Neck Neck exam general surgery: Present: supple, trachea midline. Absent: lymphadenopathy - Respiratory Respiratory exam: Present: decreased breath sounds. Absent: accessory muscle use, rales, rhonchi, wheezes - Cardiovascular Cardiovascular exam: Present: RRR, +S1, +S2. Absent: diastolic murmur, gallop, rubs, systolic murmur - GI/Abdominal GI/Abdominal exam: Present: normal bowel sounds, soft, no peritoneal signs. Absent: distended, tenderness - Extremities Exam Extremities exam: Present: warm, radial pulses palpable and symetrical. Absent : calf tenderness, cyanotic, pedal edema - Neurological Exam Neurological exam: Present: CN II-XII intact, oriented X3, no focal deficits. Absent: pronater drift, facial droop, speech deficit - Skin Skin exam: Present: dry, intact Internal Med - H&P Results - Labs CBC & Chem 7: 05/20/16 03:15 05/20/16 03:15
[2016-05-20] MEDS ORDERED: *HR* Dextrose 50 % in Water (Syg) 50 ML SYRINGE IVP PRN (05:59)
[2016-05-20] MEDS ORDERED: Naloxone 0.4 MG/ML INJ IVP PRN (05:59)
[2016-05-20] MEDS ORDERED: Acetaminophen 325 MG TABLET PO PRN (05:59)
[2016-05-20] MEDS ORDERED: Dextrose Gel 15 GM PO PRN ×2 (05:59)
[2016-05-20] MEDS ORDERED: D5% in Water 1,000 ML IVC PRN (05:59)
[2016-05-20] MEDS: *HR* Morphine 2 MG/ML SYRINGE IVP PRN ×3 (07:01→23:01)
[2016-05-20] MEDS: APIXABAN 5 MG TABLET PO SCH ×2 (08:07→21:02)
[2016-05-20] MEDS: Insulin LISPRO 300 UNITS/3 ML VIAL SQ SCH ×4 (08:08→22:11)
[2016-05-20] MEDS: Pregabalin 50 MG CAPSULE PO SCH ×2 (08:08→21:02)
[2016-05-20] MEDS: Insulin DETEMIR 100 UNIT/ML X5UNITS SQ SCH ×2 (08:09→22:59)
[2016-05-20] MEDS: Cyanocobalamin (B-12) 1,000 MCG TABLET PO SCH (08:09)
[2016-05-20] MEDS ORDERED: predniSONE 10 MG TABLET PO SCH (09:00)
[2016-05-20] MEDS ORDERED: Cholecalciferol (D-3) 1,000 UNIT TABLET PO SCH (09:00)
[2016-05-20] MEDS: Ipratropium/Albuterol Neb 3 ML IH SCH ×3 (10:42→22:55)
[2016-05-20] MEDS: Budesonide/Formoterol 160/4.5 MDI IH SCH ×2 (10:42→22:55)
--- NOTE | 2016-05-20 11:00 | Nephrology Consult Note ---
Date of Encounter: 05/20/16 Time of Encounter: 11:00 Assessment and Plan (1) ALEKS (acute kidney injury) Current Visit: Yes Status: Acute Elevated SCR from baseline in the setting of viral URI and decerased po intake Agree with volume already given and encouraged po fluid Agree with holding diuretics for now Avoid nephrotoxins if possible Will check urine for sodium and creatinine (2) Hyponatremia Current Visit: Yes Status: Acute Likely due to decreased po intake along with diuretics and steroids will check urine and serum osmolality NS already given should help (3) CKD (chronic kidney disease) stage 4, GFR 15-29 ml/min Current Visit: No Status: Acute Baseline typically around 29 Continue vitamin D supplements but increase dose given deficiency and hyperparathyroidism History of Present Illness - Reason for Consult Consult date: 05/20/16 Acute Kidney Injury, Chronic Kidney Disease Requesting physician: Luis Antonio Ramirez - History of Present Illness 71 y o male with PMH of HTN, COPD, ex-smoker, CHF, Afib on eliquis and stage 4 CKD readmitted less than 24hrs after discharge for viral respiratory infection along with CHF/COPD exacerbation after falling and hitting head. Pt reports becoming weak and falling after taking a shower and onhis way to bed for the night. He reports hitting head n was borught in to the Ed as a result. His renal function looked worse with SCr now 3.07, GFR 20 from GFR 23 prior to discharge. Sodium also worse at 129. Potassium slightly better at 4.7. 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 he received some IVF on admission but now stopped with diuretics held. Past Med Surg Social Fam HX - Past Medical History Medical history: atrial fibrillation, cardiomyopathy, CHF, COPD, CVA, diabetes, hyperlipidemia, hypertension, myocardial infarction, renal disease, TIA Psychiatric history: no psych history - Past Surgical History Surgical History: orthopedic, other - Social History Smoking Status: Former smoker Smokeless Tobacco Status: No Alcohol use: rarely Drug use: none - Family History Mother Adopted: No Family Member Ethnicity: Non- Living Status: Hx Family Cardiac Disorders: Yes Hx Family Respiratory Disorders: Yes Hx Family Cancer: Yes Hx Family GI Disorders: No Hx Family Endocrine Disorder: Yes Hx Family Neuromuscular Disorders: No Hx Family Neurologic Disorders: No Hx Family HEENT Disorders: No Hx Family Autoimmune Disorders: No Medications and Allergies Insulin Glargine,Hum.rec.anlog [Lantus Solostar] 42 unit SQ HS 05/09/15 [History ] Pregabalin [Lyrica] 200 mg PO BID 05/09/15 [History] Simvastatin [Zocor] 40 mg PO DAILY 05/09/15 [History] Temazepam [Restoril] 30 mg PO HS 05/09/15 [History] Apixaban [Eliquis] 2.5 mg PO BID 12/31/15 [History] Carvedilol [Coreg] 25 mg PO BID 12/31/15 [History] Promethazine [Phenergan] 25 mg PO HS 12/31/15 [History] Artificial Tears SOLN [Akwa Tears] 1 drop BOTH EYES QID bottle 01/07/16 [Rx] HydrALAZINE 75 mg PO TID #270 tablet 01/07/16 [Rx] Tamsulosin [Flomax] 0.4 mg PO DAILY #30 capsule 01/07/16 [Rx] Acetaminophen [Tylenol] 650 mg PO HS 03/26/16 [History] Cholecalciferol (D-3) [Vitamin D] 1,000 unit PO DAILY 03/26/16 [History] Amlodipine [Norvasc] 10 mg PO DAILY #30 tablet 04/05/16 [Rx] Docusate [Colace] 200 mg PO DAILY #60 capsule 04/05/16 [Rx] Albuterol Sulfate [Proventil Hfa] 1 - 2 puff IH Q6H PRN 04/27/16 [History] Budesonide/Formoterol 160/4.5 [Symbicort 160/4.5] 2 puff IH BIDR 04/27/16 [ History] Ipratropium/Albuterol Neb [Duoneb] 3 ml IH QID PRN 04/27/16 [History] GuaiFENesin Liq [Robitussin Liq] 200 mg PO Q6HR PRN 05/12/16 [History] Pantoprazole Sodium [Protonix] 40 mg PO DAILY 05/12/16 [History] Furosemide [Lasix] 40 mg PO BID 30 Days 05/19/16 [Rx] PredniSONE 10 mg PO DAILY #84 tablet 05/19/16 [Rx] Tiotropium [Spiriva] 18 mcg IH DAILY 04/01/17 [History] Allergies aspirin Allergy (Verified 05/20/16 01:28) Hives diphenhydramine [From Benadryl] Allergy (Verified 05/20/16 01:28) Swelling of Lip/Tongue/Throat Tetracyclines Allergy (Verified 05/20/16 01:28) Hives Exam - Vital Signs Vital signs: Initial Vital Signs Temp Pulse Resp BP Pulse Ox 97.4 F L 67 18 122/67 96 05/20/16 01:23 05/20/16 01:23 05/20/16 01:23 05/20/16 01:23 05/20/16 01:23 Vital Signs - Last 8 Hours Temp Pulse Resp BP Pulse Ox 05/20/16 10:43 18 96 05/20/16 08:22 96 05/20/16 06:12 97.7 F 68 18 134/72 96 05/20/16 05:53 20 139/75 Intake and Output 05/19/16 05/20/16 05/20/16 23:59 07:59 15:59 Intake Total 125 / 125 Output Total 0 / 0 Balance 125 / 125 Intake: Oral 125 / 125 Output: Urine 0 / 0 Other: Meal Breakfast Percent of Meal Consumed 40% Weight 123.831 kg Blood Glucose* 295 Patient Weight 05/20/16 23:59 Weight 123.831 kg - General Appearance General appearance: chronically ill (NAD) EENT: ATNC, mucous membranes dry Neck: no JVD, supple Additional Comments: decreased BS bases bilat Cardiology: no edema, normal S1, normal S2 Gastrointestinal: no tenderness, no guarding, obese Integumentary: warm and dry Neurologic: no focal deficit Musculoskeletal: no deformities Psychiatric: mood/affect appropriate, cooperative Results - Lab Results 05/21/16 03:00 05/21/16 03:00 Most recent lab results Calcium 8.1 mg/dL (8.6-10.8) L 05/20/16 03:15 Consult Discharge Plan - Plan Referrals: Travis Brasher Jr, MD [Primary Care Provider] -
[2016-05-20] MEDS: Artificial Tears SOLN 15 ML BOTTLE BOTH EYES SCH ×4 (12:51→21:03)
[2016-05-20] MEDS: Temazepam 15 MG CAPSULE PO SCH (21:02)
[2016-05-21 03:14] LABS: Basophils % 0.2 %; Eosinophils % 0.3 %; Hematocrit 28.5 % (37.5-50.1); Hemoglobin 9.5 g/dL (12.9-16.9); Immature Granulocytes % 4.5 % (0-4); Lymphocytes % 17.1 %; Mean Corpuscular HGB Conc 33.3 g/dL (31.6-35.5); Mean Corpuscular Hemoglobin 28.6 pg (28.0-33.3); Mean Corpuscular Volume 85.8 fL (83.0-100.0); Mean Platelet Volume 9.4 fL (9.4-12.4); Monocytes # 0.7 K/mcL (0.0-1.3); Monocytes % 12.3 %; Neutrophils # 3.8 K/mcL (1.6-8.9); Platelet Count 129 K/mcL (140-400); Red Blood Count 3.32 M/mcL (4.19-5.50); Red Cell Distribution Width 14.5 % (11.5-14.5); Segmented Neutrophils % 65.6 %
[2016-05-21 03:31] LABS: Calcium 7.8 mg/dL (8.6-10.8); Potassium 3.9 mEq/L (3.5-4.5)
[2016-05-21] MEDS: Ipratropium/Albuterol Neb 3 ML IH SCH ×4 (04:42→23:02)
[2016-05-21] MEDS: *HR* Morphine 2 MG/ML SYRINGE IVP PRN ×3 (04:45→22:08)
--- NOTE | 2016-05-21 08:37 | Internal Med Progress Note ---
Date of Encounter: 05/21/16 Time of Encounter: 08:35 - Assessment and plan (1) Near syncope Current Visit: Yes Status: Acute Assessment and plan: likely secondary to orthostatic hypotension fall precautions consider Midodrine if not improving high risk of falling (2) Rhinovirus infection Current Visit: Yes Status: Acute Assessment and plan: causing Acute COPD exacerbation (3) Chronic kidney disease, stage 4 (severe) Current Visit: No Status: Chronic Assessment and plan: acute on chronic renal failure due to diuresis resume lasix (4) Acute exacerbation of CHF (congestive heart failure) Current Visit: No Status: Acute Assessment and plan: acute systolic and diastolic CHF exacerbation lasix was held due to Acute on chronic renal failure Resume Lasix IV 20 mg BID strict I's and O's , daily weight ECHO Mar 2016 showed EF 50%, mild diastolic dysfunction Qualifiers: Congestive heart failure type: combined Qualified Code(s): I50.43 - Acute on chronic combined systolic (congestive) and diastolic (congestive) heart failure (5) Atrial fibrillation Current Visit: No Status: Chronic Assessment and plan: continue Eliquis and carvedilol, consider switching to metoprolol Cardiology consulted as the atient is requesting his pacemaker to be interrogated Qualifiers: Atrial fibrillation type: unspecified Qualified Code(s): I48.91 - Unspecified atrial fibrillation (6) Morbid obesity Current Visit: No Status: Chronic Qualifiers: Obesity type: unspecified obesity type Qualified Code(s): E66.01 - Morbid ( severe) obesity due to excess calories (7) COPD exacerbation Current Visit: No Status: Acute Assessment and plan: continue Prednisone taper (8) Hyperglycemia due to type 2 diabetes mellitus Current Visit: Yes Status: Acute Assessment and plan: ISS Qualifiers: Diabetes mellitus intermediate teacher insulin use: unspecified intermediate teacher insulin use status Qualified Code(s): E11.65 - Type 2 diabetes mellitus with hyperglycemia - Subjective Interval history: The patient is feeling less short of breath, feels very weak, denies any chest pain, no abdominal pain, no fevers, no dysuria or diarrhea - Constitutional Vitals: Temp Pulse Resp BP Pulse Ox 97.7 F 66 17 155/76 95 05/21/16 06:53 05/21/16 06:53 05/21/16 06:53 05/21/16 06:53 05/21/16 06:53 General appearance: Present: cooperative, A&O X 3, morbidly obese, pleasant - Head Head exam: Present: atraumatic, normocephalic - Eye Eye exam: Present: PERRL, conjuntiva pink, sclera anicteric Pupils: Present: PERRL - Neck Neck exam general surgery: Present: supple, trachea midline. Absent: lymphadenopathy - Respiratory Respiratory exam: Present: CTAB, rales (Bilateral coarse crackles). Absent: accessory muscle use, rhonchi, wheezes - Cardiovascular Cardiovascular exam: Present: RRR, +S1, +S2. Absent: diastolic murmur, gallop, rubs, systolic murmur - GI/Abdominal GI/Abdominal exam: Present: normal bowel sounds, soft, no peritoneal signs. Absent: distended, tenderness - Extremities Exam Extremities exam: Present: warm, radial pulses palpable and symetrical. Absent : calf tenderness, cyanotic, pedal edema - Neurological Exam Neurological exam: Present: CN II-XII intact, oriented X3, no focal deficits. Absent: pronater drift, facial droop, speech deficit - Skin Skin exam: Present: dry, intact Internal Medicine: Result - Labs CBC & Chem 7: 05/21/16 03:00 05/21/16 03:00 Labs: Short CBC 05/21/16 Range/Units 03:00 WBC 5.8 (4.3-11.1) K/mcL Hgb 9.5 L (12.9-16.9) g/dL Hct 28.5 L (37.5-50.1) % Plt Count 129 L (140-400) K/mcL Neutrophils # 3.8 (1.6-8.9) K/mcL BMP 05/21/16 03:00 Sodium 137 D Potassium 3.9 Chloride 103 Carbon Dioxide 25 BUN 82 H Creatinine 2.58 H Glucose 134 H Calcium 7.8 L Consult Discharge Plan - Plan Referrals: Travis Brasher Jr, MD [Primary Care Provider] -
[2016-05-21] MEDS ORDERED: Furosemide 20 MG/2 ML VIAL IVP SCH (09:00)
[2016-05-21] MEDS: APIXABAN 5 MG TABLET PO SCH ×2 (09:22→22:11)
[2016-05-21] MEDS: Cyanocobalamin (B-12) 1,000 MCG TABLET PO SCH (09:23)
[2016-05-21] MEDS: Pregabalin 50 MG CAPSULE PO SCH ×2 (09:23→22:11)
[2016-05-21] MEDS: Cholecalciferol (D-3) 1,000 UNIT TABLET PO SCH (09:23)
[2016-05-21] MEDS: predniSONE 20 MG TABLET PO SCH (09:27)
[2016-05-21] MEDS: Budesonide/Formoterol 160/4.5 MDI IH SCH ×2 (10:07→23:02)
[2016-05-21] MEDS: Artificial Tears SOLN 15 ML BOTTLE BOTH EYES SCH ×4 (10:31→22:17)
--- NOTE | 2016-05-21 10:53 | Electrocardiograph Report ---
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
[2016-05-21] MEDS: Insulin LISPRO 300 UNITS/3 ML VIAL SQ SCH ×4 (11:57→22:26)
--- NOTE | 2016-05-21 14:37 | Nephrology Progress Note ---
Date of Encounter: 05/21/16 Time of Encounter: 12:00 - Assessment and Plan (1) ALEKS (acute kidney injury) Current Visit: Yes Status: Acute SCr back at baseline at 2.58, GFR 25 after a bolus of fluid yesterday Continue po fluids Careful use of diuretics given recurrent AKIs Continue to avoid nephrotoxins if possible (2) Hyponatremia Current Visit: Yes Status: Acute Resolved and at 137 after fluid bolus (3) CKD (chronic kidney disease) stage 4, GFR 15-29 ml/min Current Visit: No Status: Acute Back at baseline Subjective Interval history: Pt seen and examined does not feel much better today. Still weak. Discussed at length the merits of ECF for rehab, pt will think about it Objective - Vital Signs Vital signs: Vital Signs Temp Pulse Pulse Pulse Pulse Resp BP 05/21/16 11:04 97.8 F 89 17 126/70 05/21/16 10:03 16 126/70 05/21/16 09:43 05/21/16 06:53 97.7 F 66 17 155/76 05/21/16 04:43 98.5 F 62 62 70 75 22 152/76 05/21/16 04:42 18 05/20/16 23:44 98.2 F 62 18 133/74 05/20/16 22:56 18 05/20/16 19:11 97.7 F 64 18 134/71 05/20/16 16:08 97.8 F 59 18 130/74 05/20/16 15:45 20 BP BP BP Pulse Ox 05/21/16 11:04 96 05/21/16 10:03 95 05/21/16 09:43 95 05/21/16 06:53 95 05/21/16 04:43 152/76 132/66 124/67 96 05/21/16 04:42 97 05/20/16 23:44 95 05/20/16 22:56 93 05/20/16 19:11 95 05/20/16 16:08 95 05/20/16 15:45 96 Intake and Output 05/20/16 05/21/16 05/21/16 23:59 07:59 15:59 Intake Total 490 / 490 120 / 120 Output Total 0 / 0 Balance 490 / 490 120 / 120 Intake: Oral 490 / 490 120 / 120 Output: Urine 0 / 0 Other: Meal HS SNACK-SANDWICH AND [employer] Lunch Percent of Meal Consumed 75% 50% # Urine Diapers 1 1 1 Blood Glucose* 130 138 146 - General Appearance General appearance: Present: chronically ill (NAD) EENT: Present: ATNC, mucous membranes moist Neck: Present: no JVD, supple Additional Comments: good aretaion with occasional wheezes bilat ant Cardiology: Present: no edema, normal S1, normal S2 Gastrointestinal: Present: no tenderness, no guarding Integumentary: Present: warm and dry Neurologic: Present: no focal deficit Musculoskeletal: Present: no deformities Psychiatric: Present: mood/affect appropriate - Lab 05/21/16 03:00 05/21/16 03:00 Most recent lab results Calcium 7.8 mg/dL (8.6-10.8) L 05/21/16 03:00 Urine Creatinine 71 mg/dL 05/20/16 18:30 Urine Sodium 33.0 mEq/L 05/20/16 18:30 Consult Discharge Plan - Plan Referrals: Travis Brasher Jr, MD [Primary Care Provider] -
--- NOTE | 2016-05-21 15:25 | Cardiology Consult Note ---
<José Miguel Flores - Last Filed: 05/21/16 16:30> Date of Encounter: 05/21/16 Time of Encounter: 15:00 Assessment and Plan (1) Syncope Current Visit: No Status: Acute Per cardiology: -Patient presents after fall. Patient states he did not lose consciousness. -Patient reports frequent episodes of dizziness. -Orthostatic BP checked with BP lying 152/76 HR 62, sitting 132/66 HR 70, standing 124/67 HR 75 -ECG with ventricular pacing. -Telemetry reviewed with average HR 63, ventricular pacing. Device interrogation with no significant events. -Denies any recent ICD shocks or fires -Discussed with Dr. Ch, will DC IV Lasix, appears to be on Lasix 40mg PO BID at home. Euvolemic on exam, will switch to lasix 40mg PO daily. Discussed possible addition of midodrine per discussion with hopsitalist team, however discussed with Dr. Ch and do not recommend at this time (has CKD). Rec f/u with his primary choir member for further eval and recs for midodrine. -Can consider neurology consultation. -ICD interrogation showed no evidence of ventricular arrhythmias or ICD shocks. Few atrial high rates in March 2016. Battery life at least 2 more years. -Do not suspect cardiac etiology for syncope. Cardiology will sign off and recommend patient follow up with primary choir member in [place]. (BROWN) Qualifiers: Encounter type: initial encounter Qualified Code(s): T67.1XXA - Heat syncope, initial encounter (2) Cardiomyopathy Current Visit: No Status: Chronic Per cardiology: -History of non-ischemic cardiomyopathy. -ICD in place with device interrogation today with no significant events. Battery in good working order. 3 episodes of Atrial tachycardia/Atrial fibrillation noted. Last episode 04/11/16. -Echo 03/27/16 with LVEF 50%, mild diastolic dysfunction, no significant valvular dysfunction, no pulmonary hypertension, all wall segments with normal motion. -Appears euvolemic on exam, chest x-ray with no acute process. -On Coreg 25 mg by mouth twice a day. On IV Lasix, consider switching to by mouth. Avoid EDISON inhibitor/ARB his CKD. -Recommend patient follow up with primary choir member. (BROWN) Qualifiers: Cardiomyopathy type: other Qualified Code(s): I42.8 - Other cardiomyopathies (3) Chronic renal failure Current Visit: No Status: Acute Per cardiology: -Creatinine Slightly imrpoved today at 2.58. -Management per primary and nephrology service. (BROWN) Qualifiers: Chronic kidney disease stage: stage 3 (moderate) Qualified Code(s): N18.3 - Chronic kidney disease, stage 3 (moderate) (4) Atrial fibrillation Current Visit: No Status: Chronic Per cardiology: -Known history of atrial fibrillation. -Previously on sotalol, but was stopped due to worsening renal failure. -3 epsiodes of atrial tachycardia/atrial fibrillation on device interrogation. -On eliquis and beta nayely. -Currently ventricular paced with HR 63. -Follow up with primary choir member. (BROWN) Qualifiers: Atrial fibrillation type: unspecified Qualified Code(s): I48.91 - Unspecified atrial fibrillation (5) Anemia Current Visit: No Status: Chronic Per cardiology: -Chronic anemia. -May be contributing to dizziness. -Denies any active bleeding or blood loss. He is on Eliquis. -Management per primary service. (BROWN) Qualifiers: Anemia type: unspecified type Qualified Code(s): D64.9 - Anemia, unspecified Discussion w patient/family: The assessment and plan as outlined above was discussed with the patient who expressed understanding and agreement. All questions were answered. Thank you for involving us in the care of your patient. Please call with any questions. Patient seen and examined with SAMEERA Alvarado Discussed and reviewed with . History of Present Illness Consult date: 05/21/16 Requesting physician: Dev Prince Consult reason: syncope Chief complaint: syncope History of present illness: Mr. Vera is a 71 year old male with a relevant past medical history of smoking, CHF, cardiomyopathy, ICD placement, anxiety, carotid surgery, and recent RSV infection. Patient came to ER after fall at home where patient hit head. Patient states he has fallen several times over the past few months. Also reports frequent dizzy episodes. Patient denies shocks from ICD. (BROWN) Past Med Surg Social Fam HX - Past Medical History Attestation: Yes The following information was validated with the patient. Source: patient, old records reviewed Medical history: atrial fibrillation, cardiomyopathy, CHF, COPD, CVA, diabetes, hyperlipidemia, hypertension, myocardial infarction, renal disease, TIA Psychiatric history: no psych history - Past Surgical History Surgical History: orthopedic, other - Social History Smoking Status: Former smoker Smokeless Tobacco Status: No Alcohol use: rarely Drug use: none - Family History Mother Adopted: No Family Member Ethnicity: Non- Living Status: Hx Family Cardiac Disorders: Yes Hx Family Respiratory Disorders: Yes Hx Family Cancer: Yes Hx Family GI Disorders: No Hx Family Endocrine Disorder: Yes Hx Family Neuromuscular Disorders: No Hx Family Neurologic Disorders: No Hx Family HEENT Disorders: No Hx Family Autoimmune Disorders: No Medications and Allergies Insulin Glargine,Hum.rec.anlog [Lantus Solostar] 42 unit SQ HS 05/09/15 [History ] Pregabalin [Lyrica] 200 mg PO BID 05/09/15 [History] Simvastatin [Zocor] 40 mg PO DAILY 05/09/15 [History] Temazepam [Restoril] 30 mg PO HS 05/09/15 [History] Apixaban [Eliquis] 2.5 mg PO BID 12/31/15 [History] Carvedilol [Coreg] 25 mg PO BID 12/31/15 [History] Promethazine [Phenergan] 25 mg PO HS 12/31/15 [History] Artificial Tears SOLN [Akwa Tears] 1 drop BOTH EYES QID bottle 01/07/16 [Rx] HydrALAZINE 75 mg PO TID #270 tablet 01/07/16 [Rx] Tamsulosin [Flomax] 0.4 mg PO DAILY #30 capsule 01/07/16 [Rx] Acetaminophen [Tylenol] 650 mg PO HS 03/26/16 [History] Cholecalciferol (D-3) [Vitamin D] 1,000 unit PO DAILY 03/26/16 [History] Amlodipine [Norvasc] 10 mg PO DAILY #30 tablet 04/05/16 [Rx] Docusate [Colace] 200 mg PO DAILY #60 capsule 04/05/16 [Rx] Albuterol Sulfate [Proventil Hfa] 1 - 2 puff IH Q6H PRN 04/27/16 [History] Budesonide/Formoterol 160/4.5 [Symbicort 160/4.5] 2 puff IH BIDR 04/27/16 [ History] Ipratropium/Albuterol Neb [Duoneb] 3 ml IH QID PRN 04/27/16 [History] GuaiFENesin Liq [Robitussin Liq] 200 mg PO Q6HR PRN 05/12/16 [History] Pantoprazole Sodium [Protonix] 40 mg PO DAILY 05/12/16 [History] Furosemide [Lasix] 40 mg PO BID 30 Days 05/19/16 [Rx] PredniSONE 10 mg PO DAILY #84 tablet 05/19/16 [Rx] Tiotropium [Spiriva] 18 mcg IH DAILY 05/20/16 [History] Allergies aspirin Allergy (Verified 05/20/16 01:28) Hives diphenhydramine [From Benadryl] Allergy (Verified 05/20/16 01:28) Swelling of Lip/Tongue/Throat Tetracyclines Allergy (Verified 05/20/16 01:28) Hives All Systems Review: A 10-system review of systems was performed and is negative for pertinent findings except as documented above in the HPI. - Cardiovascular Cardiovascular: as per HPI - Neurological Neurological: dizziness Physical Examination Vital Signs Temp Pulse Pulse Pulse Pulse Resp BP 05/21/16 11:04 97.8 F 89 17 126/70 05/21/16 10:03 16 126/70 05/21/16 09:43 05/21/16 06:53 97.7 F 66 17 155/76 05/21/16 04:43 98.5 F 62 62 70 75 22 152/76 05/21/16 04:42 18 05/20/16 23:44 98.2 F 62 18 133/74 05/20/16 22:56 18 05/20/16 19:11 97.7 F 64 18 134/71 05/20/16 16:08 97.8 F 59 18 130/74 05/20/16 15:45 20 BP BP BP Pulse Ox 05/21/16 11:04 96 05/21/16 10:03 95 05/21/16 09:43 95 05/21/16 06:53 95 05/21/16 04:43 152/76 132/66 124/67 96 05/21/16 04:42 97 05/20/16 23:44 95 05/20/16 22:56 93 05/20/16 19:11 95 05/20/16 16:08 95 05/20/16 15:45 96 General: Conversant, No Apparent Distress HEENT: Atraumatic, Normocephaly, Mucus Membranes Moist Neck: No JVD, Normal carotid pulses Cardiac: Reg Rate and Rhythm, Normal S1 and S2, No Murmur Lungs: Normal Breath Sounds, No Wheeze, Rales, Rhonchi Neuro: Alert and responsive, No focal deficits noted Abdomen: Soft, Non-Tender Skin: No rashes noted on visualized skin Musculoskeletal: No Chest Wall Tenderness Extremities: No Clubbing, No Cyanosis, No Edema, Normal Pulses Results 05/21/16 03:00 05/21/16 03:00 Lab Results Active Medications Acetaminophen (Tylenol) 650 mg PO Q6HR PRN PRN Reason: Mild Pain (1-3) Stop: 11/19/16 06:00 Acetaminophen/Hydrocodone Bitart ([place] 5-325 Mg) 1 tab PO Q4HR PRN PRN Reason: Moderate Pain (4-6) Stop: 11/19/16 06:00 Albuterol/Ipratropium (Duoneb) 3 ml IH QIDR SANDI PRN Reason: Protocol Stop: 11/19/16 11:01 Last Admin: 05/21/16 10:03 Dose: 3 ml Apixaban (Eliquis) 2.5 mg PO BID SANDI Stop: 11/19/16 09:01 Last Admin: 05/21/16 09:22 Dose: 2.5 mg Artificial Tears (Akwa Tears) 1 drop BOTH EYES QID SANDI PRN Reason: Protocol Stop: 11/19/16 09:01 Last Admin: 05/21/16 11:59 Dose: 1 drop Budesonide/Formoterol Fumarate (Symbicort) 2 puff IH BIDRESP SANDI PRN Reason: Protocol Stop: 11/19/16 10:01 Last Admin: 05/21/16 10:07 Dose: 2 puff Carvedilol (Coreg) 25 mg PO BID SANDI PRN Reason: Protocol Stop: 11/19/16 09:01 Last Admin: 05/21/16 09:23 Dose: 25 mg Cyanocobalamin (Vitamin B12) 1,000 mcg PO DAILY SANDI Stop: 11/19/16 09:01 Last Admin: 05/21/16 09:23 Dose: 1,000 mcg Dextrose/Water (Dextrose 50% (Syg)) 25 ml IVP AD PRN PRN Reason: Hypoglycemia Stop: 11/19/16 06:00 Docusate Sodium (Colace) 200 mg PO DAILY [facility] PRN Reason: Protocol Stop: 11/19/16 09:01 Last Admin: 05/21/16 09:22 Dose: 200 mg Furosemide (Lasix) 20 mg IVP BID [facility] Stop: 11/20/16 09:01 Last Admin: 05/21/16 09:27 Dose: 20 mg Glucagon (Glucagen) 1 mg IM ONCE PRN PRN Reason: Hypoglycemia Stop: 11/19/16 06:00 Glucose (Gluctose) 15 gm PO ONCE PRN PRN Reason: Hypoglycemia Stop: 11/19/16 06:00 Glucose (Gluctose) 30 gm PO ONCE PRN PRN Reason: Hypoglycemia Stop: 11/19/16 06:00 Dextrose (Dextrose 5%) 1,000 mls @ 100 mls/hr IVC .Q10H PRN PRN Reason: HYPOGLYCEMIA Stop: 11/19/16 06:00 Insulin Detemir (Levemir) 42 unit SQ HS [facility] Stop: 11/19/16 06:31 Last Admin: 05/20/16 22:59 Dose: 42 unit Insulin Human Lispro (Humalog) 0 units SQ HS [facility] PRN Reason: Protocol Stop: 11/19/16 21:01 Last Admin: 05/20/16 22:11 Dose: Not Given Insulin Human Lispro (Humalog) 0 units SQ TIDAC [facility] PRN Reason: Protocol Stop: 11/19/16 07:31 Last Admin: 05/21/16 11:58 Dose: 6 units Morphine Sulfate (Morphine Sulfate) 2 mg IVP Q4HR PRN PRN Reason: Severe Pain (7-10) Stop: 11/19/16 06:00 Last Admin: 05/21/16 04:45 Dose: 2 mg Naloxone HCl (Narcan) 0.4 mg IVP Q2MIN PRN PRN Reason: Opioid Reversal Stop: 11/19/16 06:00 Ondansetron HCl (Zofran) 4 mg IVP Q8HR PRN PRN Reason: Nausea And Vomiting Stop: 11/19/16 06:00 Prednisone (Prednisone) 40 mg PO DAILY [facility] Stop: 11/20/16 08:20 Last Admin: 05/21/16 09:27 Dose: 40 mg Pregabalin (Lyrica) 200 mg PO BID [facility] Stop: 11/19/16 09:01 Last Admin: 05/21/16 09:23 Dose: 200 mg Temazepam (Restoril) 30 mg PO HS [facility]ANDI Stop: 11/19/16 21:01 Last Admin: 05/20/16 21:02 Dose: 30 mg Vitamin D (Vitamin D) 2,000 unit PO DAILY [facility]I Stop: 11/19/16 12:51 Last Admin: 05/21/16 09:23 Dose: 2,000 unit Laboratory Tests 05/02/16 05/04/16 05/18/16 05:43 06:07 04:19 Hgb Creatinine 2.24 H 2.47 H 2.45 H 05/19/16 05/20/16 05/20/16 05:04 03:15 03:15 Hgb 10.9 L Creatinine 2.72 H 3.07 H 05/21/16 05/21/16 03:00 03:00 Hgb 9.5 L Creatinine 2.58 H ITS Impressions Cervical Spine CT 05/20/16 01:41 IMPRESSION: Spondylosis with no definite fracture. D/ / Chava Saini MD / Chava Saini MD Interpreting Provider: Chava Saini MD Head CT 05/20/16 01:41 IMPRESSION: No acute intracranial abnormality. D/ / Felecia Peralta MD / Felecia Peralta MD Interpreting Provider: Felecia Peralta MD Ankle X-Ray 05/20/16 01:47 IMPRESSION: No definite acute osseous abnormality involving the right foot or right ankle. Soft tissue swelling is seen at the dorsum of the foot. D/ / Felecia Peralta MD / Felecia Peralta MD Interpreting Provider: Felecia Peralta MD Foot X-Ray 05/20/16 01:47 IMPRESSION: No definite acute osseous abnormality involving the right foot or right ankle. Soft tissue swelling is seen at the dorsum of the foot. D/ / Felecia Peralta MD / Felecia Peralta MD Interpreting Provider: Felecia Peralta MD Chest X-Ray 05/20/16 02:53 IMPRESSION: 1. No acute cardiopulmonary disease. 2. Stable mild nonspecific elevation of the right hemidiaphragm. D/ / Rudy Pretty MD / Rudy Pretty MD Interpreting Provider: Rudy Pretty MD - Imaging and Cardiology Chest Xray: report reviewed Other Results: CT head reviewed. - EKG Interpretation EKG results cardiology: personally reviewed (ECG with ventricular pacing.), other (Telemetry reviewed with average HR 63, ventricular paced.) Consult Discharge Plan - Plan Referrals: Travis Brasher Jr, MD [Primary Care Provider] - <DimaDara - Last Filed: 05/21/16 17:49> Date of Encounter: 05/21/16 Assessment and Plan Discussion w patient/family: The assessment and plan as outlined above was discussed with the patient and/or family members who expressed understanding and agreement. All questions were answered. Thank you for involving us in the care of your patient. Please call with any questions. History of Present Illness History of present illness: Mr. Vera is a 71 year old male All Systems Review: A 10-system review of systems was performed and is negative for pertinent findings except as documented above in the HPI. Physical Examination Vital Signs, Last 4 Hours Temp Pulse Resp BP Pulse Ox 05/21/16 17:30 16 136/72 95 05/21/16 15:41 97.9 F 62 16 136/72 96 Results 05/21/16 03:00 05/21/16 03:00 Lab Results 05/21/16 05/21/16 03:00 03:00 WBC 5.8 Hgb 9.5 L Hct 28.5 L Plt Count 129 L Sodium 137 D Potassium 3.9 Chloride 103 Carbon Dioxide 25 BUN 82 H Creatinine 2.58 H Glucose 134 H Calcium 7.8 L - Attending Attestation I examined this patient and my medical decision-making was reviewed with the DEVELOPMENTAL THERAPIST/PA/Advanced Practice Nurse/Resident Physician. I agree with the documented findings, disposition and treatment plan. Mr. Vera presented with what appears to be a mechanical fall. He denies loss of consciousness but admits to mechanical instability. We interrogated his ICD which does not demonstrate an explanation for his presentation. Otherwise, he had orthostatics done while hospitalized demonstrating a reduction in SBP (152 to 124 mmHg) but not a profound reduction. We recommend considering decreasing his diuretic dose at this time and observe. He would also benefit from an ENT evaluation as an outpatient as he describes dizziness while laying in bed. No further recommendations at this time. We will sign off. He is interested in following us as an outpatient. Please schedule follow up with [facility].
[2016-05-21] MEDS: Temazepam 15 MG CAPSULE PO SCH (22:11)
[2016-05-21] MEDS: Insulin DETEMIR 100 UNIT/ML X5UNITS SQ SCH (22:12)
[2016-05-21] MEDS: Ondansetron 4 MG/2 ML VIAL IVP PRN (22:17)
[2016-05-22] MEDS: Ipratropium/Albuterol Neb 3 ML IH SCH ×4 (04:08→23:22)
[2016-05-22] MEDS: Cyanocobalamin (B-12) 1,000 MCG TABLET PO SCH (08:04)
[2016-05-22] MEDS: Furosemide 40 MG TABLET PO SCH (08:04)
[2016-05-22] MEDS: APIXABAN 5 MG TABLET PO SCH ×2 (08:04→22:08)
[2016-05-22] MEDS: Insulin LISPRO 300 UNITS/3 ML VIAL SQ SCH ×4 (08:05→22:19)
[2016-05-22] MEDS: Pregabalin 50 MG CAPSULE PO SCH ×2 (08:05→22:08)
[2016-05-22] MEDS: Cholecalciferol (D-3) 1,000 UNIT TABLET PO SCH (08:05)
[2016-05-22] MEDS: predniSONE 20 MG TABLET PO SCH (08:05)
[2016-05-22] MEDS: Artificial Tears SOLN 15 ML BOTTLE BOTH EYES SCH ×4 (08:06→22:08)
--- NOTE | 2016-05-22 11:05 | Nephrology Consult Note ---
Date of Encounter: 05/22/16 Time of Encounter: 11:04 Past Med Surg Social Fam HX - Past Medical History Medical history: atrial fibrillation, cardiomyopathy, CHF, COPD, CVA, diabetes, hyperlipidemia, hypertension, myocardial infarction, renal disease, TIA Psychiatric history: no psych history - Past Surgical History Surgical History: orthopedic, other - Social History Smoking Status: Former smoker Smokeless Tobacco Status: No Alcohol use: rarely Drug use: none - Family History Mother Adopted: No Family Member Ethnicity: Non- Living Status: Hx Family Cardiac Disorders: Yes Hx Family Respiratory Disorders: Yes Hx Family Cancer: Yes Hx Family GI Disorders: No Hx Family Endocrine Disorder: Yes Hx Family Neuromuscular Disorders: No Hx Family Neurologic Disorders: No Hx Family HEENT Disorders: No Hx Family Autoimmune Disorders: No Medications and Allergies Insulin Glargine,Hum.rec.anlog [Lantus Solostar] 42 unit SQ HS 05/09/15 [History ] Pregabalin [Lyrica] 200 mg PO BID 05/09/15 [History] Simvastatin [Zocor] 40 mg PO DAILY 05/09/15 [History] Temazepam [Restoril] 30 mg PO HS 05/09/15 [History] Apixaban [Eliquis] 2.5 mg PO BID 12/31/15 [History] Carvedilol [Coreg] 25 mg PO BID 12/31/15 [History] Promethazine [Phenergan] 25 mg PO HS 12/31/15 [History] Artificial Tears SOLN [Akwa Tears] 1 drop BOTH EYES QID bottle 01/07/16 [Rx] HydrALAZINE 75 mg PO TID #270 tablet 01/07/16 [Rx] Tamsulosin [Flomax] 0.4 mg PO DAILY #30 capsule 01/07/16 [Rx] Acetaminophen [Tylenol] 650 mg PO HS 03/26/16 [History] Cholecalciferol (D-3) [Vitamin D] 1,000 unit PO DAILY 03/26/16 [History] Amlodipine [Norvasc] 10 mg PO DAILY #30 tablet 04/05/16 [Rx] Docusate [Colace] 200 mg PO DAILY #60 capsule 04/05/16 [Rx] Albuterol Sulfate [Proventil Hfa] 1 - 2 puff IH Q6H PRN 04/27/16 [History] Budesonide/Formoterol 160/4.5 [Symbicort 160/4.5] 2 puff IH BIDR 04/27/16 [ History] Ipratropium/Albuterol Neb [Duoneb] 3 ml IH QID PRN 04/27/16 [History] GuaiFENesin Liq [Robitussin Liq] 200 mg PO Q6HR PRN 05/12/16 [History] Pantoprazole Sodium [Protonix] 40 mg PO DAILY 05/12/16 [History] Furosemide [Lasix] 40 mg PO BID 30 Days 05/19/16 [Rx] PredniSONE 10 mg PO DAILY #84 tablet 05/19/16 [Rx] Tiotropium [Spiriva] 18 mcg IH DAILY 05/20/16 [History] Allergies aspirin Allergy (Verified 05/20/16 01:28) Hives diphenhydramine [From Benadryl] Allergy (Verified 05/20/16 01:28) Swelling of Lip/Tongue/Throat Tetracyclines Allergy (Verified 05/20/16 01:28) Hives Exam - Vital Signs Vital signs: Initial Vital Signs Temp Pulse Resp BP Pulse Ox 97.4 F L 67 18 122/67 96 05/20/16 01:23 05/20/16 01:23 05/20/16 01:23 05/20/16 01:23 05/20/16 01:23 Intake and Output 05/21/16 05/22/16 05/22/16 23:59 07:59 15:59 Intake Total 360 / 360 Balance 360 / 360 Intake: Oral 360 / 360 Other: Meal Breakfast Percent of Meal Consumed 100% Blood Glucose* 194 Results - Lab Results 05/21/16 03:00 05/21/16 03:00 Most recent lab results Calcium 7.8 mg/dL (8.6-10.8) L 05/21/16 03:00 Urine Creatinine 71 mg/dL 05/20/16 18:30 Urine Sodium 33.0 mEq/L 05/20/16 18:30 Consult Discharge Plan - Plan Referrals: Travis Brasher Jr, MD [Primary Care Provider] -
--- NOTE | 2016-05-22 11:07 | Nephrology Progress Note ---
<Sangeetha Brock Dorota - Last Filed: 05/22/16 11:05> Date of Encounter: 05/22/16 Time of Encounter: 11:05 - Assessment and Plan (1) CKD (chronic kidney disease) stage 4, GFR 15-29 ml/min Current Visit: No Status: Acute back at baseline after sustaining ALEKS continue po fluis careful use of diuretics given recurrent AKIs continue to avoid nephrotoxins (2) ALEKS (acute kidney injury) Current Visit: Yes Status: Resolved resolved (3) Hyponatremia Current Visit: Yes Status: Resolved resolved as of yesterday's labs, no new labs this morning Subjective Principal diagnosis: ALEKS Interval history: Patient seen and examined. Still weak. Discussed rehab again. Objective - Vital Signs Vital signs: Intake and Output 05/21/16 05/22/16 05/22/16 23:59 07:59 15:59 Intake Total 360 / 360 Balance 360 / 360 Intake: Oral 360 / 360 Other: Meal Breakfast Percent of Meal Consumed 100% Blood Glucose* 194 - General Appearance General appearance: Present: well-developed, well-nourished, appears started age Neck: Present: supple Respiratory: Present: clear Cardiology: Present: no murmurs, no rub, no gallops, no edema, regular rate, regular rhythm, normal S1, normal S2 Integumentary: Present: no rash, warm and dry Neurologic: Present: no focal deficit, alert and oriented x3, CN 3-12 intact Musculoskeletal: Present: no deformities, no erythema, no cyanosis, no clubbing Psychiatric: Present: mood/affect appropriate, cooperative - Lab 05/21/16 03:00 05/21/16 03:00 Most recent lab results Calcium 7.8 mg/dL (8.6-10.8) L 05/21/16 03:00 Urine Creatinine 71 mg/dL 05/20/16 18:30 Urine Sodium 33.0 mEq/L 05/20/16 18:30 Consult Discharge Plan - Plan Referrals: Travis Brasher Jr, MD [Primary Care Provider] - (patient is going to [facility]) <Homero Merida - Last Filed: 05/22/16 21:52> Date of Encounter: 05/22/16 - Assessment and Plan (1) ALEKS (acute kidney injury) Current Visit: Yes Status: Resolved (2) Hyponatremia Current Visit: Yes Status: Resolved (3) CKD (chronic kidney disease) stage 4, GFR 15-29 ml/min Current Visit: No Status: Acute Objective - Vital Signs Vital signs: Vital Signs Temp Pulse Resp BP Pulse Ox 05/22/16 19:48 97.3 F L 61 16 165/68 93 05/22/16 16:00 97.9 F 61 18 134/77 96 05/22/16 12:01 18 96 05/22/16 11:44 97.6 F 62 18 133/70 95 Intake and Output 05/22/16 05/22/16 05/22/16 07:59 15:59 23:59 Intake Total 360 / 360 Balance 360 / 360 Intake: Oral 360 / 360 Other: Meal Breakfast Percent of Meal Consumed 100% Blood Glucose* 164 294 - Lab 05/21/16 03:00 05/21/16 03:00 Most recent lab results Calcium 7.8 mg/dL (8.6-10.8) L 05/21/16 03:00 Urine Creatinine 71 mg/dL 05/20/16 18:30 Urine Sodium 33.0 mEq/L 05/20/16 18:30 - Attending Attestation I examined this patient and my medical decision-making was reviewed with the CENTRIFUGAL SCREEN TENDER/PA/Advanced Practice Nurse/Resident Physician. I agree with the documented findings, disposition and treatment plan as described except to the extent set forth below. Pt seen and examined still feeling weak. He is also with orthostatic hypotension. Still deciding on rehab No new labs today. SCr back at baseline as of yesterday. Will monitor and avoid nephrotoxinx if possible. Continue po fluids. Caution with diuretics at this point.
[2016-05-22] MEDS: *HR* HYDROcodone/Acet 5/325 mg TABLET PO PRN ×2 (11:55→22:07)
--- NOTE | 2016-05-22 11:57 | Internal Med Progress Note ---
Date of Encounter: 05/22/16 Time of Encounter: 11:55 - Assessment and plan (1) Near syncope Current Visit: Yes Status: Acute Assessment and plan: likely secondary to orthostatic hypotension fall precautions consider Midodrine if not improving ( cardiology not recommending it, may discuss this possibility with his PCP) Very unsteady, PT OT ordered Has had 3 readmission in the past months , was refusing ECF ( now he will think about it) Resumed PO lasix 40 mg daily per cardiology ( takes 40 mg BD at home) high risk of falling (2) Rhinovirus infection Current Visit: Yes Status: Acute Assessment and plan: causing Acute COPD exacerbation taper prednisone (3) Chronic kidney disease, stage 4 (severe) Current Visit: No Status: Chronic Assessment and plan: acute on chronic renal failure due to diuresis resumed lasix (4) Acute exacerbation of CHF (congestive heart failure) Current Visit: No Status: Acute Assessment and plan: acute systolic and diastolic CHF exacerbation lasix was held due to Acute on chronic renal failure Resumed Lasix strict I's and O's , daily weight ECHO Mar 2016 showed EF 50%, mild diastolic dysfunction Qualifiers: Congestive heart failure type: combined Qualified Code(s): I50.43 - Acute on chronic combined systolic (congestive) and diastolic (congestive) heart failure (5) Atrial fibrillation Current Visit: No Status: Chronic Assessment and plan: continue Eliquis and carvedilol, consider switching to metoprolol Cardiology consulted as the atient is requesting his pacemaker to be interrogated Qualifiers: Atrial fibrillation type: unspecified Qualified Code(s): I48.91 - Unspecified atrial fibrillation (6) Morbid obesity Current Visit: No Status: Chronic Qualifiers: Obesity type: unspecified obesity type Qualified Code(s): E66.01 - Morbid ( severe) obesity due to excess calories (7) COPD exacerbation Current Visit: No Status: Acute Assessment and plan: continue Prednisone taper (8) Hyperglycemia due to type 2 diabetes mellitus Current Visit: Yes Status: Acute Assessment and plan: ISS Qualifiers: Diabetes mellitus retirement insulin use: unspecified retirement insulin use status Qualified Code(s): E11.65 - Type 2 diabetes mellitus with hyperglycemia - Time Spent With Patient Greater than 35 minutes - Subjective Interval history: Feeling less short of breath, feels still weak, denies any chest pain, no abdominal pain, no fevers, no dysuria or diarrhea - Constitutional Vitals: Temp Pulse Resp BP Pulse Ox 97.6 F 62 18 133/70 95 05/22/16 11:44 05/22/16 11:44 05/22/16 11:44 05/22/16 11:44 05/22/16 11:44 General appearance: Present: cooperative, A&O X 3, morbidly obese, pleasant - Head Head exam: Present: atraumatic, normocephalic - Eye Eye exam: Present: PERRL, conjuntiva pink, sclera anicteric Pupils: Present: PERRL - Neck Neck exam general surgery: Present: supple, trachea midline. Absent: lymphadenopathy - Respiratory Respiratory exam: Present: CTAB, rales (bilateral basilar crackles ). Absent: accessory muscle use, rhonchi, wheezes - Cardiovascular Cardiovascular exam: Present: RRR, +S1, +S2. Absent: diastolic murmur, gallop, rubs, systolic murmur - GI/Abdominal GI/Abdominal exam: Present: normal bowel sounds, soft, no peritoneal signs. Absent: distended, tenderness - Extremities Exam Extremities exam: Present: pedal edema (+1 pitting edema), warm, radial pulses palpable and symetrical. Absent: calf tenderness, cyanotic - Neurological Exam Neurological exam: Present: CN II-XII intact, oriented X3, no focal deficits. Absent: pronater drift, facial droop, speech deficit - Skin Skin exam: Present: dry, intact Internal Medicine: Result - Labs CBC & Chem 7: 05/21/16 03:00 05/21/16 03:00 Consult Discharge Plan - Plan Referrals: Travis Brasher Jr, MD [Primary Care Provider] - (patient is going to [facility])
[2016-05-22] MEDS: Budesonide/Formoterol 160/4.5 MDI IH SCH ×2 (12:01→23:22)
[2016-05-22] MEDS: Insulin DETEMIR 100 UNIT/ML X5UNITS SQ SCH (22:08)
[2016-05-22] MEDS: Temazepam 15 MG CAPSULE PO SCH (22:09)
[2016-05-22] MEDS: Ondansetron 4 MG/2 ML VIAL IVP PRN (22:10)
[2016-05-23] MEDS: Ipratropium/Albuterol Neb 3 ML IH SCH ×2 (04:33→10:41)
[2016-05-23] MEDS: *HR* Morphine 2 MG/ML SYRINGE IVP PRN (06:20)
[2016-05-23 07:40] LABS: Calcium 7.9 mg/dL (8.6-10.8); Potassium 4.3 mEq/L (3.5-4.5)
[2016-05-23] MEDS: Pregabalin 50 MG CAPSULE PO SCH ×2 (08:08→22:49)
[2016-05-23] MEDS: Cholecalciferol (D-3) 1,000 UNIT TABLET PO SCH (08:08)
[2016-05-23] MEDS: predniSONE 20 MG TABLET PO SCH (08:09)
[2016-05-23] MEDS: Furosemide 40 MG TABLET PO SCH (08:09)
[2016-05-23] MEDS: Cyanocobalamin (B-12) 1,000 MCG TABLET PO SCH (08:09)
[2016-05-23] MEDS: APIXABAN 5 MG TABLET PO SCH ×2 (08:09→22:49)
[2016-05-23] MEDS: Insulin LISPRO 300 UNITS/3 ML VIAL SQ SCH ×4 (08:11→22:48)
[2016-05-23] MEDS: Artificial Tears SOLN 15 ML BOTTLE BOTH EYES SCH ×4 (10:26→22:44)
[2016-05-23] MEDS: Budesonide/Formoterol 160/4.5 MDI IH SCH ×2 (10:41→20:22)
[2016-05-23] MEDS ORDERED: *HR* HYDROcodone/Acet 10/325 mg TABLET PO PRN (12:32)
[2016-05-23] MEDS ORDERED: Ipratropium/Albuterol Neb 3 ML IH PRN (12:33)
--- NOTE | 2016-05-23 17:20 | Nephrology Progress Note ---
Date of Encounter: 05/23/16 Time of Encounter: 17:18 - Assessment and Plan (1) CKD (chronic kidney disease) stage 4, GFR 15-29 ml/min Current Visit: No Status: Chronic CKD stage IV at baseline and improving. Would rec restarting po lasix at discharge Disposition location as per Primary. Pt is asking for discharge to home (2) Edema extremities Current Visit: Yes Status: Chronic Volume status is acceptably controlled; would resume home po lasix at discharge. (3) ALEKS (acute kidney injury) Current Visit: Yes Status: Resolved Resolving Subjective Principal diagnosis: ALEKS Interval history: Pt was seen/examined this AM. He did not affirm N/V/D. He voiced strongly wanting to go home instead of rehab. Objective - Vital Signs Vital signs: Vital Signs Temp Pulse Resp BP Pulse Ox 05/23/16 17:12 98.4 F 64 16 143/63 94 05/23/16 07:51 97.7 F 67 16 153/69 96 05/23/16 04:34 18 92 05/22/16 23:39 97.7 F 61 18 144/80 93 05/22/16 23:23 18 98 05/22/16 19:48 97.3 F L 61 16 165/68 93 Intake and Output 05/23/16 05/23/16 05/23/16 07:59 15:59 23:59 Other: Weight 127.097 kg Blood Glucose* 234 117 292 Patient Weight 05/23/16 23:59 Weight 127.097 kg - General Appearance General appearance: Present: well-developed, well-nourished, appears started age , chronically ill EENT: Present: ATNC, PERRL, mucous membranes moist Neck: Present: supple Respiratory: Present: course breath sounds, rhonchi Cardiology: Present: edema (minimal edema in the ankles), normal S1, normal S2 Gastrointestinal: Present: normoactive bowel sounds, no tenderness, no guarding Integumentary: Present: warm and dry, ecchymotic (Rt foot greater than Lt foot) Neurologic: Present: no focal deficit, no asterixis, alert and oriented x3 Musculoskeletal: Present: no deformities, no erythema Psychiatric: Present: mood/affect appropriate, cooperative - Lab 05/21/16 03:00 05/23/16 07:07 Most recent lab results Calcium 7.9 mg/dL (8.6-10.8) L 05/23/16 07:07 Urine Creatinine 71 mg/dL 05/20/16 18:30 Urine Sodium 33.0 mEq/L 05/20/16 18:30 Consult Discharge Plan - Plan Referrals: Travis Brasher Jr, MD [Primary Care Provider] - ()
[2016-05-23] MEDS: Insulin DETEMIR 100 UNIT/ML X5UNITS SQ SCH (22:48)
[2016-05-23] MEDS: *HR* HYDROcodone/Acet 5/325 mg TABLET PO PRN (22:50)
[2016-05-23] MEDS: Temazepam 15 MG CAPSULE PO SCH (22:50)
[2016-05-24 07:04] LABS: Calcium 8.3 mg/dL (8.6-10.8); Potassium 4.5 mEq/L (3.5-4.5)
[2016-05-24] MEDS: predniSONE 20 MG TABLET PO SCH (08:10)
[2016-05-24] MEDS: Cholecalciferol (D-3) 1,000 UNIT TABLET PO SCH (08:10)
[2016-05-24] MEDS: Cyanocobalamin (B-12) 1,000 MCG TABLET PO SCH (08:11)
[2016-05-24] MEDS: APIXABAN 5 MG TABLET PO SCH (08:11)
[2016-05-24] MEDS: Insulin LISPRO 300 UNITS/3 ML VIAL SQ SCH ×3 (08:11→17:42)
[2016-05-24] MEDS: Pregabalin 50 MG CAPSULE PO SCH (08:11)
[2016-05-24] MEDS: Furosemide 40 MG TABLET PO SCH (08:11)
[2016-05-24] MEDS: Artificial Tears SOLN 15 ML BOTTLE BOTH EYES SCH ×3 (08:12→17:42)
[2016-05-24] MEDS: Budesonide/Formoterol 160/4.5 MDI IH SCH (08:50)
[2016-05-24] MEDS: *HR* HYDROcodone/Acet 5/325 mg TABLET PO PRN (10:00)
--- NOTE | 2016-05-24 10:59 | Nephrology Progress Note ---
Date of Encounter: 05/24/16 Time of Encounter: 10:57 - Assessment and Plan (1) CKD (chronic kidney disease) stage 4, GFR 15-29 ml/min Current Visit: No Status: Chronic CKD stage IV at baseline and stable. Cont to follow a renal protective strategy. Generalized weakness: Disposition location as per Primary. Pt is asking for discharge to home Continue to follow a renal protective strategy. He has a follow up appt already scheduled with me. Thank you. (2) Edema extremities Current Visit: Yes Status: Chronic Volume status is acceptably controlled (3) ALEKS (acute kidney injury) Current Visit: Yes Status: Resolved Resolving (4) Syncope Current Visit: Yes Status: Acute As per primary Qualifiers: Syncope type: unspecified Qualified Code(s): R55 - Syncope and collapse Subjective Principal diagnosis: ALEKS Interval history: Pt was seen/examined this AM. He did not affirm N/V/D. He voiced strongly wanting to go home instead of rehab. No new major complaints. Objective - Vital Signs Vital signs: Vital Signs Temp Pulse Resp BP Pulse Ox 05/24/16 07:27 98.2 F 61 18 159/85 95 05/24/16 04:00 98.2 F 67 16 146/80 96 05/24/16 00:09 97.9 F 61 16 158/80 98 05/23/16 21:00 97.8 F 56 16 137/74 95 05/23/16 20:22 16 98 05/23/16 17:12 98.4 F 64 16 143/63 94 Intake and Output 05/23/16 05/24/16 05/24/16 23:59 07:59 15:59 Other: Weight 127.2 kg Blood Glucose* 285 241 Patient Weight 05/24/16 23:59 Weight 127.2 kg - General Appearance General appearance: Present: well-developed, well-nourished, appears started age , obese, fatigue EENT: Present: ATNC, PERRL, mucous membranes moist Neck: Present: supple Respiratory: Present: clear Cardiology: Present: edema (trace pedal edema b/l), normal S1, normal S2 Gastrointestinal: Present: normoactive bowel sounds, no tenderness, obese Integumentary: Present: warm and dry, ecchymotic (Rt foot greater than Lt foot) Neurologic: Present: no focal deficit, no asterixis, alert and oriented x3 Musculoskeletal: Present: no deformities, no cyanosis Psychiatric: Present: mood/affect appropriate, cooperative - Lab 05/21/16 03:00 05/24/16 05:51 Most recent lab results Calcium 8.3 mg/dL (8.6-10.8) L 05/24/16 05:51 Urine Creatinine 71 mg/dL 05/20/16 18:30 Urine Sodium 33.0 mEq/L 05/20/16 18:30 Consult Discharge Plan - Plan Referrals: Travis Brasher Jr, MD [Primary Care Provider] - ()
[2016-05-24] MEDS ORDERED: Insulin DETEMIR 100 UNIT/ML X5UNITS SQ SCH (12:15)
--- NOTE | 2016-05-24 15:36 | Discharge Summary ---
Date of Encounter: 05/24/16 Time of Encounter: 13:00 - Discharge Diagnosis (1) Generalized weakness Priority: Primary Status: Chronic (2) COPD (chronic obstructive pulmonary disease) Priority: Secondary Status: Chronic Qualifiers: COPD type: unspecified COPD Qualified Code(s): J44.9 - Chronic obstructive pulmonary disease, unspecified (3) Diabetes mellitus Priority: Secondary Status: Chronic Qualifiers: Diabetes mellitus type: type 2 Diabetes mellitus complication status: with kidney complications Diabetes mellitus complication detail: with chronic kidney disease Diabetes mellitus correction insulin use: with correction use Chronic kidney disease stage: stage 3 (moderate) Qualified Code(s): E11.22 - Type 2 diabetes mellitus with diabetic chronic kidney disease; N18.3 - Chronic kidney disease, stage 3 (moderate); Z79.4 - correction (current) use of insulin (4) Cardiomyopathy Priority: Secondary Status: Chronic Qualifiers: Cardiomyopathy type: other Qualified Code(s): I42.8 - Other cardiomyopathies (5) Atrial fibrillation Priority: Secondary Status: Chronic Qualifiers: Atrial fibrillation type: chronic Qualified Code(s): I48.2 - Chronic atrial fibrillation (6) Chronic kidney disease, stage 4 (severe) Priority: Secondary Status: Chronic - Discharge Medications Home Medications: Pregabalin [Lyrica] 200 mg PO BID 05/09/15 [History] Simvastatin [Zocor] 40 mg PO DAILY 05/09/15 [History] Temazepam [Restoril] 30 mg PO HS 05/09/15 [History] Apixaban [Eliquis] 2.5 mg PO BID 12/31/15 [History] Carvedilol [Coreg] 25 mg PO BID 12/31/15 [History] Promethazine [Phenergan] 25 mg PO HS 12/31/15 [History] Artificial Tears SOLN [Akwa Tears] 1 drop BOTH EYES QID bottle 01/07/16 [Rx] HydrALAZINE 75 mg PO TID #270 tablet 01/07/16 [Rx] Tamsulosin [Flomax] 0.4 mg PO DAILY #30 capsule 01/07/16 [Rx] Acetaminophen [Tylenol] 650 mg PO HS 03/26/16 [History] Cholecalciferol (D-3) [Vitamin D] 1,000 unit PO DAILY 03/26/16 [History] Amlodipine [Norvasc] 10 mg PO DAILY #30 tablet 04/05/16 [Rx] Docusate [Colace] 200 mg PO DAILY #60 capsule 04/05/16 [Rx] Albuterol Sulfate [Proventil Hfa] 1 - 2 puff IH Q6H PRN 04/27/16 [History] Budesonide/Formoterol 160/4.5 [Symbicort 160/4.5] 2 puff IH BIDR 04/27/16 [ History] Ipratropium/Albuterol Neb [Duoneb] 3 ml IH QID PRN 04/27/16 [History] GuaiFENesin Liq [Robitussin Liq] 200 mg PO Q6HR PRN 05/12/16 [History] Pantoprazole Sodium [Protonix] 40 mg PO DAILY 05/12/16 [History] Furosemide [Lasix] 40 mg PO BID 30 Days 05/19/16 [Rx] PredniSONE 10 mg PO DAILY #84 tablet 05/19/16 [Rx] Tiotropium [Spiriva] 18 mcg IH DAILY 05/20/16 [History] Insulin Glargine,Hum.rec.anlog [Lantus Solostar] 50 unit SQ HS #0 05/24/16 [Rx] Allergies/Adverse Reactions: Allergies aspirin Allergy (Verified 05/20/16 01:28) Hives diphenhydramine [From Benadryl] Allergy (Verified 05/20/16 01:28) Swelling of Lip/Tongue/Throat Tetracyclines Allergy (Verified 05/20/16 01:28) Hives Date of admission: 05/22/16 08:17 Primary care physician: Travis Brasher Jr, MD Discharging clinician: Linda Farris Anticipated date of discharge: 05/24/16 - Patient Status Disposition: Home Health Service Condition: Fair Functional capacity at discharge: uses cane/walker Overall status at discharge: patient is progressing back to baseline - Discharge Instructions Instructions: Syncope (DC), Diabetes Mellitus Type 2 in Adults (DC) Follow Up With: Travis Brasher Jr, MD [Primary Care Provider] - (Please call the office and make a follow up appointment within 57 days) Additional Instructions: Follow-up with primary link knitting machine operator in [place], as scheduled - Diet and Activity Activity: as per physical therapy Diet: diabetic diet, low fat, low cholesterol, low salt diet, other (renal diet) Hospital course: Mr. Vera is a 71 year old male with multiple medical problems who has had several hospitalizations in the last few weeks for various reasons including acute exacerbation of COPD, acute exacerbation of CHF, pneumonia etc. Patient has developed generalized weakness which has been getting worse and has sustained recurrent falls at home. He describes no associated dizziness or loss of consciousness. He was evaluated by cardiology, had a recent echocardiogram done which showed no acute abnormality. He underwent pacemaker interrogation which showed no events, his telemetry monitoring remained uneventful and serial troponins were negative for ACS. He was also evaluated by physical therapy and recommended placement in inpatient rehabilitation, which he continued to decline, even after explaining the risks of living alone, further falls causing fractures and morbidity. The patient was followed by nephrology while in the hospital and his renal function is noted to be stable. He is otherwise medically stable for discharge, home health services are being resumed. - Time Spent with Patient Total time spent providing and/or coordinating discharge services: Greater than 30 minutes (45 min) - Constitutional Vitals: Temp Pulse Resp BP Pulse Ox 97.7 F 60 18 125/55 96 05/24/16 12:42 05/24/16 12:42 05/24/16 12:42 05/24/16 12:42 05/24/16 12:42 General appearance: Present: cooperative, A&O X 3, obese - Respiratory Respiratory exam: Present: CTAB. Absent: accessory muscle use, rales, rhonchi, wheezes - Cardiovascular Cardiovascular exam: Present: irregular rhythm, +S1, +S2. Absent: diastolic murmur, gallop, rubs, systolic murmur - Extremities Exam Extremities exam: Present: pedal edema, warm, radial pulses palpable and symetrical. Absent: calf tenderness, cyanotic
--- NOTE | 2016-05-24 15:46 | Physician Discharge Referral ---
Home Health/Hosp Referral Info Transfer to: Home Health Attending Provider: Linda Farris Provider in Charge Post Discharge: PCP - Diagnosis (1) Generalized weakness Priority: Primary Status: Chronic (2) COPD (chronic obstructive pulmonary disease) Priority: Secondary Status: Chronic (3) Diabetes mellitus Priority: Secondary Status: Chronic (4) Cardiomyopathy Priority: Secondary Status: Chronic (5) Atrial fibrillation Priority: Secondary Status: Chronic (6) Chronic kidney disease, stage 4 (severe) Priority: Secondary Status: Chronic - Respiratory Orders Smoking Cessation: Smoking cessation has been advised. For more information, call the [place] Tobacco Quit Line at 9-815-RPTN-NOW. - Diet/Nutrition Diet/Nutrition Orders: No Added Salt (EVELYN), Renal, Cardiac, No Concentrated Sweets (diabetic) - Activity Activity Orders: Ambulate - Services Needed Following services are medically necessary services: Nursing, Physical Therapy, Occupational Therapy - Transfer Medications Home Medications: Pregabalin [Lyrica] 200 mg PO BID 05/09/15 [History] Simvastatin [Zocor] 40 mg PO DAILY 05/09/15 [History] Temazepam [Restoril] 30 mg PO HS 05/09/15 [History] Apixaban [Eliquis] 2.5 mg PO BID 12/31/15 [History] Carvedilol [Coreg] 25 mg PO BID 12/31/15 [History] Promethazine [Phenergan] 25 mg PO HS 12/31/15 [History] Artificial Tears SOLN [Akwa Tears] 1 drop BOTH EYES QID bottle 01/07/16 [Rx] HydrALAZINE 75 mg PO TID #270 tablet 01/07/16 [Rx] Tamsulosin [Flomax] 0.4 mg PO DAILY #30 capsule 01/07/16 [Rx] Acetaminophen [Tylenol] 650 mg PO HS 03/26/16 [History] Cholecalciferol (D-3) [Vitamin D] 1,000 unit PO DAILY 03/26/16 [History] Amlodipine [Norvasc] 10 mg PO DAILY #30 tablet 04/05/16 [Rx] Docusate [Colace] 200 mg PO DAILY #60 capsule 04/05/16 [Rx] Albuterol Sulfate [Proventil Hfa] 1 - 2 puff IH Q6H PRN 04/27/16 [History] Budesonide/Formoterol 160/4.5 [Symbicort 160/4.5] 2 puff IH BIDR 04/27/16 [ History] Ipratropium/Albuterol Neb [Duoneb] 3 ml IH QID PRN 04/27/16 [History] GuaiFENesin Liq [Robitussin Liq] 200 mg PO Q6HR PRN 05/12/16 [History] Pantoprazole Sodium [Protonix] 40 mg PO DAILY 05/12/16 [History] Furosemide [Lasix] 40 mg PO BID 30 Days 05/19/16 [Rx] PredniSONE 10 mg PO DAILY #84 tablet 05/19/16 [Rx] Tiotropium [Spiriva] 18 mcg IH DAILY 05/20/16 [History] Insulin Glargine,Hum.rec.anlog [Lantus Solostar] 50 unit SQ HS #0 05/24/16 [Rx] Allergies/Adverse Reactions: Allergies aspirin Allergy (Verified 05/20/16 01:28) Hives diphenhydramine [From Benadryl] Allergy (Verified 05/20/16 01:28) Swelling of Lip/Tongue/Throat Tetracyclines Allergy (Verified 05/20/16 01:28) Hives Certification: Further, I certify that my clinical findings support that this patient is homebound (i.e. absences from home require considerable and taxing effort and are for medical reasons or scientology services or infrequently or short duration when for other reasons) because: Homebound Reason: Patient requires assistance of a person or device to safely leave home, Leaving home requires considerable and taxing effort due to condition Attestation: My signature below is to certify that this patient is under my care and that I, or nurse practitioner, or a physician's administrative office assistant working with me, has a face-to -face encounter with this patient.
[2016-05-24 17:51] VITALS: BP 155/82
--- NOTE | 2016-05-25 15:41 | Internal Med Progress Note ---
Date of Encounter: 05/23/16 Time of Encounter: 13:45 - Assessment and plan (1) Generalized weakness Status: Chronic Assessment and plan: Patient has ongoing generalized weakness along with drop attacks, not necessarily associated with dizziness. CT head done in the emergency room showed no acute abnormality. Physical and occupational therapy evaluation. Cardiology evaluation appreciated, currently signed off. Patient does not seem to have a cardiac etiology for near syncopal episodes. ICD interrogation has been done, showing no significant events. Will consider neurology evaluation. (2) COPD (chronic obstructive pulmonary disease) Status: Chronic Assessment and plan: Not noted to be in acute exacerbation. Continue when necessary bronchodilators , currently not requiring any supplemental oxygen. Qualifiers: COPD type: unspecified COPD Qualified Code(s): J44.9 - Chronic obstructive pulmonary disease, unspecified (3) Diabetes mellitus Status: Chronic Assessment and plan: Continue Accu-Chek blood glucose monitoring with basal bolus insulin regimen. Diabetic diet. Qualifiers: Diabetes mellitus type: type 2 Diabetes mellitus complication status: with kidney complications Diabetes mellitus complication detail: with chronic kidney disease Diabetes mellitus watermelon inspector insulin use: with assisted use Chronic kidney disease stage: stage 3 (moderate) Qualified Code(s): E11.22 - Type 2 diabetes mellitus with diabetic chronic kidney disease; N18.3 - Chronic kidney disease, stage 3 (moderate); Z79.4 - watermelon inspector (current) use of insulin (4) Cardiomyopathy Status: Chronic Assessment and plan: Stable. Continue home medications. Qualifiers: Cardiomyopathy type: other Qualified Code(s): I42.8 - Other cardiomyopathies (5) Atrial fibrillation Status: Chronic Assessment and plan: Currently rate controlled. Continue beta nayely and anticoagulation. Qualifiers: Atrial fibrillation type: chronic Qualified Code(s): I48.2 - Chronic atrial fibrillation (6) Chronic kidney disease, stage 4 (severe) Status: Chronic Assessment and plan: Nephrology follow-up appreciated. Renal function is noted to be at baseline at this time. - Subjective Interval history: Reports feeling well. No chest pain, shortness of breath or palpitations. Does have some dizziness on standing up. Had a detailed discussion about rehabilitation services, however continues to refuse being placed for short- term rehabilitation. - Constitutional Vitals: Temp Pulse Resp BP Pulse Ox 97.7 F 63 18 155/82 96 05/24/16 12:42 05/24/16 17:30 05/24/16 12:42 05/24/16 17:30 05/24/16 12:42 General appearance: Present: cooperative, A&O X 3, obese - Respiratory Respiratory exam: Present: CTAB. Absent: accessory muscle use, rales, rhonchi, wheezes - Cardiovascular Cardiovascular exam: Present: RRR, +S1, +S2. Absent: diastolic murmur, gallop, rubs, systolic murmur - GI/Abdominal GI/Abdominal exam: Present: normal bowel sounds, soft, no peritoneal signs. Absent: distended, tenderness - Extremities Exam Extremities exam: Present: full ROM, pedal edema, warm, radial pulses palpable and symetrical. Absent: calf tenderness, cyanotic - Neurological Exam Neurological exam: Present: CN II-XII intact, oriented X3, no focal deficits. Absent: pronater drift, facial droop, speech deficit Internal Medicine: Result - Labs CBC & Chem 7: 05/21/16 03:00 05/24/16 05:51 Consult Discharge Plan - Plan Instructions: Syncope (DC), Diabetes Mellitus Type 2 in Adults (DC) Additional Instructions: Follow-up with primary feed mill operator in [place], as scheduled Referrals: Travis Brasher Jr, MD [Primary Care Provider] - (Please call the office and make a follow up appointment within 57 days)
== END 2016-05-24 20:03 | disposition home health service (06) | DRG 922 ==
LOC: 2ANU 01:00 → EMEROO 01:00 → SUATTDRO 05:12 → 2ANU 05:54 → SUATTDRO 05-22 08:17
PROVIDERS: ADMIT Internal Medicine; ATTEND Internal Medicine

== ENCOUNTER 2016-07-30 18:31 | Inpatient (IN) ==
[2016-07-30] MEDS ORDERED: Ipratropium/Albuterol Neb 3 ML IH ONE (18:32)
[2016-07-30] MEDS ORDERED: Ondansetron 4 MG/2 ML VIAL IVP ONE (18:32)
[2016-07-30] MEDS ORDERED: Aspirin 81 MG TAB.CHEW PO ONE (18:32)
--- NOTE | 2016-07-30 18:38 | Emergency Department Note ---
START Narrative - START START: Start note: 71-year-old male via EMS from the [facility] urgent care clinic. Patient showed up at 1805 from the clinic closed at 1800. They found the patient slightly somnolent and hypoxic in the mid 80s. Placed him on oxygen monitor showed demand pacing and brought the patient here for further evaluation. Patient complains of approximately one day of shortness of breath and chest discomfort. Has a history of coronary artery disease emphysema and hypertension among others. Patient's 96% on nasal cannula patient I discussed with the patient that the evening ED attending team of Dr. Cannon will be arriving shortly. Patient's EKG shows a paced rhythm of about 85 bpm with no ectopy noted. Patient will be given a DuoNeb double treatment anti-medics supplemental oxygen and cardiac workup will be initiated. Patient stable condition. Awaiting arrival for management of the Dr. Cannon.
[2016-07-30] MEDS ORDERED: Nitroglycerin 0.4 MG TAB.SUBL SL PRN (18:48)
[2016-07-30 18:49] LABS: Basophils % 0.4 %; Eosinophils # 0.1 K/mcL (0.0-0.6); Eosinophils % 1.7 %; Hematocrit 28.1 % (37.5-50.1); Hemoglobin 8.5 g/dL (12.9-16.9); Immature Granulocytes % 1.5 % (0-4); Lymphocytes # 1.1 K/mcL (0.6-4.6); Lymphocytes % 24.5 %; Mean Corpuscular HGB Conc 30.2 g/dL (31.6-35.5); Mean Corpuscular Hemoglobin 27.8 pg (28.0-33.3); Mean Corpuscular Volume 91.8 fL (83.0-100.0); Mean Platelet Volume 9.5 fL (9.4-12.4); Monocytes # 0.3 K/mcL (0.0-1.3); Monocytes % 6.2 %; Neutrophils # 3.1 K/mcL (1.6-8.9); Nucleated Red Blood Cells 0.4 /100 WBC (0); Platelet Count 192 K/mcL (140-400); Red Blood Count 3.06 M/mcL (4.19-5.50); Red Cell Distribution Width 15.3 % (11.5-14.5); Segmented Neutrophils % 65.7 %
--- NOTE | 2016-07-30 18:53 | Emergency Department Note ---
Disposition Clinical Impression: Hypoxia Acute exacerbation of CHF (congestive heart failure) Qualifiers: Congestive heart failure type: unspecified congestive heart failure type Qualified Code(s): I50.9 - Heart failure, unspecified CKD (chronic kidney disease) Qualifiers: Chronic kidney disease stage: stage 4 (severe) Qualified Code(s): N18.4 - Chronic kidney disease, stage 4 (severe) Disposition: Admitted As Inpatient Condition: Fair Chest Pain HPI - General Chief Complaint: ED Chest Pain Stated Complaint: CP/SOB Time Seen by Provider: 07/30/16 18:32 Source: patient, family, EMS Mode of arrival: EMS Limitations: no limitations Vital Signs Reviewed: Yes Nursing Notes Reviewed: Yes - History of Present Illness HPI Narrative: 71 year old male history of atrial fibrillation with pacemaker placement on eliquis, htn, chronic kidney disease, copd, chf, morbid obesity who presents to the ER with a chief complaint of shortness of breath and chest pain. Patient arrives via EMS. They report that the patient had tried to go to the [place] [facility] but they were closed. Upon arrival he was noted to be hypoxic in the 80s as well as diaphoretic and pale. His O2 saturation quickly improved with nasal cannula. Patient reports that he has had a cough at home for the last 2-3 days. He does not wear oxygen at home and family reports he does not qualify because he is unable to walk for the test. He reports during this time that he has had left-sided chest pain. No history of cardiac stents or NE. He follows with a career resource specialist in [place] but reports no recent stress test or cardiac catheterization. No fevers at home. No history of DVT or PE. No other complaints. Pt complaint: chest pain, other (shortness of breath) Onset (ago): day(s) Duration: intermittent Onset: during rest Pain Location: left chest Severity: severe Severity scale (1-10): 10 Quality: other (pain) Pain Radiation: none Improves with: nothing Worsens with: nothing Context: recent illness (cough for 3 days) Associated symptoms: Reports: diaphoresis, dyspnea. Denies: nausea, vomiting Treatments prior to arrival chest pain: other (duoneb, o2) - Related Data On Oral Contraceptives: No Home Medications Medication Instructions Recorded Confirmed Pregabalin [Lyrica] 200 mg PO BID 05/09/15 05/20/16 Simvastatin [Zocor] 40 mg PO DAILY 05/09/15 05/20/16 Temazepam [Restoril] 30 mg PO HS 05/09/15 05/20/16 Apixaban [Eliquis] 2.5 mg PO BID 12/31/15 05/20/16 Carvedilol [Coreg] 25 mg PO BID 12/31/15 05/20/16 Promethazine [Phenergan] 25 mg PO HS 12/31/15 05/20/16 Acetaminophen [Tylenol] 650 mg PO HS 03/26/16 05/20/16 Cholecalciferol (D-3) [Vitamin D] 1,000 unit PO DAILY 03/26/16 05/20/16 Albuterol Sulfate [Proventil Hfa] 1 - 2 puff IH Q6H PRN 04/27/16 05/20/16 Budesonide/Formoterol 160/4.5 2 puff IH BIDR 04/27/16 05/20/16 [Symbicort 160/4.5] Ipratropium/Albuterol Neb [Duoneb] 3 ml IH QID PRN 04/27/16 05/20/16 GuaiFENesin Liq [Robitussin Liq] 200 mg PO Q6HR PRN 05/12/16 05/20/16 Pantoprazole Sodium [Protonix] 40 mg PO DAILY 05/12/16 05/20/16 Tiotropium [Spiriva] 18 mcg IH DAILY 05/20/16 05/20/16 Previous Rx's Medication Instructions Recorded Artificial Tears SOLN [Akwa Tears] 1 drop BOTH EYES QID bottle 01/07/16 Tamsulosin [Flomax] 0.4 mg PO DAILY #30 capsule 01/07/16 hydrALAZINE [HydrALAZINE] 75 mg PO TID #270 tablet 01/07/16 Docusate [Colace] 200 mg PO DAILY #60 capsule 04/05/16 amLODIPine [Norvasc] 10 mg PO DAILY #30 tablet 04/05/16 Furosemide [Lasix] 40 mg PO BID 30 Days 05/19/16 predniSONE [PredniSONE] 10 mg PO DAILY #84 tablet 05/19/16 Insulin Glargine,Hum.rec.anlog 50 unit SQ HS #0 05/24/16 [Lantus Solostar] Allergies Allergy/AdvReac Type Severity Reaction Status Date / Time aspirin Allergy Hives Verified 05/20/16 01:28 diphenhydramine Allergy Swelling Verified 05/20/16 01:28 [From Benadryl] of Lip/Tongue/Throat Tetracyclines Allergy Hives Verified 05/20/16 01:28 All systems ED: reviewed and negative except as stated. Constitutional: Denies: fever Cardiovascular: Reports: orthopnea. Denies: chest pain Respiratory: Reports: cough, dyspnea. Denies: wheezes Gastrointestinal: Denies: abdominal pain, nausea, vomiting Musculoskeletal: Denies: back pain, neck pain Chest Pain PMH - Past Medical History Medical history: Reports: atrial fibrillation, cardiomyopathy, CHF, COPD, CVA, diabetes, hyperlipidemia, hypertension, myocardial infarction, renal disease, TIA Surgical history: Reports: orthopedic, other Psychiatric history: Reports: no psych history - Social History Smoking Status: Former smoker Alcohol use: Reports: rarely Drug use: Reports: none Physical Exam - General Limitations: no limitations General appearance: alert, in no apparent distress, other (appears pale) - Head Head exam: atraumatic, normocephalic, normal inspection - Eye Eye exam: Present: normal appearance, EOMI - ENT ENT exam: normal exam - Neck Neck exam: Present: normal inspection - Chest Chest inspection: Present: normal inspection, symmetric chest wall rise - Respiratory Respiratory exam: Present: normal lung sounds bilaterally. Absent: respiratory distress, prolonged expiratory phase - Cardiovascular Cardiovascular exam: Present: regular rate, normal rhythm, normal heart sounds - Abdominal Exam Abdominal exam: Present: soft, Non-Tender, distention. Absent: tenderness - Extremities Exam Extremities exam: Present: normal inspection, full ROM - Expanded Upper Extremity Exam Shoulder exam: Present: normal inspection, full ROM Arm exam: Present: normal inspection, full ROM Elbow exam: Present: normal inspection, full ROM Forearm/Wrist exam: Present: normal inspection, full ROM Hand exam: Present: normal inspection, full ROM - Expanded Lower Extremity Exam Hip/Pelvis exam: Present: normal inspection, full ROM Upper leg exam: Present: normal inspection, full ROM Knee exam: Present: normal inspection, full ROM Lower leg exam: Present: normal inspection, full ROM, swelling (2+ BLE pitting edema) Ankle exam: Present: normal inspection, full ROM Foot/toe exam: Present: normal inspection, full ROM - Neurological Exam Neurological exam: Present: alert - Psychiatric Psychiatric exam: Present: normal affect, normal mood - Skin Skin exam: Present: warm, dry, intact, other (pale) Course Course Narrative: patient seen and examined. vital signs reviewed. currently complaining of chest discomfort. We will give him a trial of nitro as well as duonebs for his shortness of breath. Sat has improved on nasal cannula. Patient will require admission for hypoxia, chest pain - Reevaluation(s) Reevaluation #1: Discussed results of imaging and lab work with the patient. He received one nitroglycerin with no real improvement in his pain but states is more of an ache. He is unable to lay flat at this time. Vital Signs O2 Sat by Pulse Oximetry 96 07/30/16 18:33 Temperature 98.3 F 07/30/16 20:21 Pulse Rate 73 07/30/16 20:09 Respiratory Rate 16 07/30/16 20:21 Blood Pressure 122/61 07/30/16 20:21 O2 Sat by Pulse Oximetry 94 07/30/16 20:09 Oxygen Delivery Oxygen Delivery Nasal Cannula Chest Pain - MDM Narrative Medical decision making narrative: 71-year-old male presents to the ER due to shortness of breath and chest pain. He has a known history of COPD and CHF. Echo performed on 03/27/16 with an ejection fraction of 50% with mild diastolic dysfunction. He was originally hypoxic on room air with correction with nasal cannula. His EKG shows an atrially paced rhythm without ischemic features. Chest x-ray with pulmonary edema. His creatinine is elevated but is at baseline. He appears pale however he is chronically anemic. Patient given nitroglycerin as well as 2 nebs in the ED as well as a dose of 80 mg Lasix IV. Admitted to the hospitalist service for acute exacerbation of congestive heart failure. - Lab Data Lab results reviewed: Yes I reviewed the patient's lab results. Result diagrams: 07/30/16 18:38 07/30/16 18:38 Lab Results 07/30/16 07/30/16 07/30/16 Range/Units 18:38 18:38 18:38 WBC 4.7 (4.3-11.1) K/mcL RBC 3.06 L (4.19-5.50) M/mcL Hgb 8.5 L (12.9-16.9) g/dL Hct 28.1 L (37.5-50.1) % MCV 91.8 (83.0-100.0) fL MCH 27.8 L (28.0-33.3) pg MCHC 30.2 L (31.6-35.5) g/dL RDW 15.3 H (11.5-14.5) % Plt Count 192 (140-400) K/mcL MPV 9.5 (9.4-12.4) fL Immature Gran % 1.5 (0-4) % Seg Neutrophils % 65.7 % Lymphocytes % 24.5 % Monocytes % 6.2 % Eosinophils % 1.7 % Basophils % 0.4 % Neutrophils # 3.1 (1.6-8.9) K/mcL Lymphocytes # 1.1 (0.6-4.6) K/mcL Monocytes # 0.3 (0.0-1.3) K/mcL Eosinophils # 0.1 (0.0-0.6) K/mcL Basophils # 0.0 (0.0-0.2) K/mcL Nucleated RBCs/100 WBC 0.4 H (0) /100 WBC PT 14.5 H (9.4-12.1) Seconds INR 1.3 Sodium (136-145) mEq/L Potassium (3.5-4.5) mEq/L Chloride (98-109) mEq/L Carbon Dioxide (19-29) mEq/L BUN (8-26) mg/dL Creatinine (0.72-1.25) mg/dL Est GFR ( Amer) (> 60) Est GFR (Non-Af Amer) (> 60) BUN/Creatinine Ratio (6-26) Glucose (70-99) mg/dL Calculated Osmolality (280-300) Calcium (8.6-10.8) mg/dL Troponin I (0-0.03) ng/mL B-Natriuretic Peptide 1359 H (0-100) pg/mL 07/30/16 07/30/16 Range/Units 18:38 18:38 WBC (4.3-11.1) K/mcL RBC (4.19-5.50) M/mcL Hgb (12.9-16.9) g/dL Hct (37.5-50.1) % MCV (83.0-100.0) fL MCH (28.0-33.3) pg MCHC (31.6-35.5) g/dL RDW (11.5-14.5) % Plt Count (140-400) K/mcL MPV (9.4-12.4) fL Immature Gran % (0-4) % Seg Neutrophils % % Lymphocytes % % Monocytes % % Eosinophils % % Basophils % % Neutrophils # (1.6-8.9) K/mcL Lymphocytes # (0.6-4.6) K/mcL Monocytes # (0.0-1.3) K/mcL Eosinophils # (0.0-0.6) K/mcL Basophils # (0.0-0.2) K/mcL Nucleated RBCs/100 WBC (0) /100 WBC PT (9.4-12.1) Seconds INR Sodium 143 (136-145) mEq/L Potassium 4.4 (3.5-4.5) mEq/L Chloride 109 (98-109) mEq/L Carbon Dioxide 22 (19-29) mEq/L BUN 41 H (8-26) mg/dL Creatinine 2.75 H (0.72-1.25) mg/dL Est GFR ( Amer) 28 L (> 60) Est GFR (Non-Af Amer) 23 L (> 60) BUN/Creatinine Ratio 15 (6-26) Glucose 207 H (70-99) mg/dL Calculated Osmolality 312 H (280-300) Calcium 9.0 (8.6-10.8) mg/dL Troponin I 0.03 (0-0.03) ng/mL B-Natriuretic Peptide (0-100) pg/mL - Radiology Data Radiology results reviewed: Yes I reviewed the patient's radiology results. Chest X-Ray 07/30/16 18:33 IMPRESSION: Findings as above likely related to congestive heart failure and edema. D/ / Isabelle Galvan MD / Isabelle Galvan MD Interpreting Provider: Isabelle Galvan MD - EKG Data EKG attestation: Yes I reviewed and interpreted this EKG. EKG results narrative: EKG demonstrates an atrially paced rhythm with a rate of 85 bpm. Left axis deviation. MN interval 146 QRS duration 180 QTC 488 T-wave flattening in the lateral leads. No ST elevations or depressions. No significant changes from previous EKG dated 05/20/16. Heart Score - Score History: Moderately Suspicious EKG: Non Specific repolarisation Disturbance Age: Greater than 65 Risk Factors: Equal/Greater than 3 risk factor or history of atherosclerotic disease Troponin: Less than normal limit HEART Score Total: 6 Critical Care Time Critical Care Time: Yes Total Critical Care Time: 35 Attestation: Critical care performed: Time is exclusive of separately billable procedures. Time includes: direct patient care, patient reassessment, coordination of patient care, interpretation of data (laboratory data, radiology data, and respiratory data), review of patient's medical records, medical consultation and documentation of patient care. Procedures included in critical care time: Procedures excluded from critical care time: [email or web address] - Arielle Situation: Demographics, MOA Background: Presenting Complaint, Relevant PMH, Meds, & Allergies Assessment: Vital Signs, Course and respsone to treatment, Exam Concerns, Patient/Family Expectation, Pertinant Lab Results, Outstanding Labs Recommendation: Barrier(s) to disposition, Recommendation based on pending studies, treatments, or consults Arielle Report Given to: Dr. Vladimir Guzmán Repor Time: 19:47 Attestation Statement - Attestation Attestation: IRobe MD, personally evaluated this patient and discussed their management with the resident physician. I reviewed the resident's note and agree with the documented findings, medical decision making, and plan of care. 71-year-old male presents to the emergency department with a complaint of increased shortness of breath over the past 2 days. He also complains of some mid substernal chest pain. There has been increased cough with no sputum production. No fever. Patient is not on home oxygen. He has a history of CHF and recurrent pneumonia. On examination patient is a well-developed morbidly obese elderly male in no acute distress. He is alert and oriented 3. There is no cyanosis or diaphoresis. He is very pale. Chest is nontender to palpation. Breath sounds are decreased bilaterally with some bibasilar rales and a few scattered expiratory wheezes. Heart regular rate and rhythm. Abdomen is soft and nontender with normal bowel sounds. 1+ pedal edema. EKG shows a paced rhythm. Labs reviewed. Significantly elevated BNP compared to baseline. Chest x-ray shows CHF. The hospitalist, Dr. Gilbert, was consulted and accepted admission of the patient.
[2016-07-30 18:54] LABS: INR 1.3; Prothrombin Time 14.5 Seconds (9.4-12.1)
[2016-07-30 19:02] LABS: Potassium 4.4 mEq/L (3.5-4.5)
[2016-07-30] MEDS ORDERED: Furosemide 80 MG in 0.9 % Sodium Chloride 50 ML IVPB ONE (19:17)
[2016-07-30] MEDS ORDERED: Naloxone 0.4 MG/ML INJ IVP PRN (20:50)
[2016-07-30] MEDS ORDERED: *HR* Morphine 2 MG/ML SYRINGE IVP PRN (20:50)
[2016-07-30] MEDS ORDERED: Acetaminophen 325 MG TABLET PO PRN (20:50)
[2016-07-30] MEDS ORDERED: Ipratropium/Albuterol Neb 3 ML IH PRN (20:59)
--- NOTE | 2016-07-30 21:19 | Internal Med History&Physical ---
Date of Encounter: 07/30/16 Time of Encounter: 20:00 Assessment and Plan (1) Acute exacerbation of CHF (congestive heart failure) Current visit: Yes Status: Acute Assess: Patient presents with shortness of breath, chest pain, cough, and orthopnea over the past two days. Patient reports history of exacerbations of CHF and bilateral pedal edema. Currently, patient has 1+ pitting edema in lower extremities bilaterally. Patient is currently not on home O2 due to qualification reasons. Patient is to receive IVP Lasix 40 mg BID to help with fluid overload as well as fluid restriction diet. Plan: 40 mg Lasix BID IVP Continue Carvedilol Continue Norvasc Renal diet with 1.5L fluid restriciton Monitor I&O Monitor daily weight Qualifiers: Congestive heart failure type: diastolic Qualified Code(s): I50.33 - Acute on chronic diastolic (congestive) heart failure (2) Acute exacerbation of chronic obstructive airways disease Current visit: No Status: Acute Assess: Patient presents with history of chronic obstructive airways disease and acute exacerbation of COPD with this admission. Patient does not use home O2 currently due to qualification reasons. SW consult ordered to assess. Plan: DuoNebs Q4 PRN ordered Supplemental O2 ordered with titration if SpO2 <92% via face mask Continuous SpO2 monitoring Continue patient's home inhalation medications BiPap ordered PRN and HS Sputum culture ordered (3) Dizziness Current visit: Yes Status: Acute Assess: Patient presents with acute dizziness related to diagnosis of acute exacerbation of CHF and acute on chronic exacerbation of COPD. Plan: Supplemental O2/continuous SpO2 monitoring Falls precautions Bed rest [id number] only status Monitor patient and vital signs (4) Edema Current visit: Yes Status: Acute Assess: Patient presents with bilateral 1+ pitting edema related to current acute exacerbation of CHF diagnosis. Plan: Lasix 40 mg BID daily IVP ordered Monitor I&O Monitor daily weight Qualifiers: Edema type: localized Qualified Code(s): R60.0 - Localized edema (5) CKD (chronic kidney disease) Current visit: Yes Status: Chronic Assess: Patient presents with stage IV CKD. Patient's current BUN is 41, creatinine is 2.75, and GFR is 23. Plan: Renal diet with 1.5L fluid restriction Lasix 40 mg BID daily IVP to resolve fluid overload Judicious use of IV fluids if necessary Monitor I&O Monitor daily weight Consider nephrology consult if renal function declines Qualifiers: Chronic kidney disease stage: stage 4 (severe) Qualified Code(s): N18.4 - Chronic kidney disease, stage 4 (severe) (6) Hypertension Current visit: Yes Status: Chronic Assess: Patient presents with history of chronic hypertension. Plan: Continue Norvasc Continue Hydralazine Continue Carvedilol Monitor patient and vital signs Qualifiers: Hypertension type: essential hypertension Qualified Code(s): I10 - Essential (primary) hypertension (7) Diabetes mellitus Current visit: Yes Status: Chronic Assess: Patient presents with history of chronic diabetes 2 managed with Lantus. Plan: Continue patient's insulin Low-dose correction insulin Hypoglycemia protocol ordered Qualifiers: Diabetes mellitus type: type 2 Diabetes mellitus complication status: with kidney complications Diabetes mellitus complication detail: with chronic kidney disease Diabetes mellitus jail insulin use: with termite exterminator use Chronic kidney disease stage: stage 3 (moderate) Qualified Code(s): E11.22 - Type 2 diabetes mellitus with diabetic chronic kidney disease; N18.3 - Chronic kidney disease, stage 3 (moderate); Z79.4 - termite exterminator (current) use of insulin (8) History of atrial fibrillation Current visit: Yes Status: Chronic Assess: Patient presents with history of atrial fibrillation. Patient currently has pacemaker placement. Plan: Heparin 5,000 units SQ Q8 ordered Continuous cardiac telemetry Repeat EKG (9) CAD (coronary artery disease) Current visit: Yes Status: Acute Assess: Patient presents with history of chronic CAD. Plan: Trend troponins x2 Continue Carvedilol Continue Norvasc Continue Hydralazine Continuous cardiac telemetry Qualifiers: Coronary Disease-Associated Artery/Lesion type: unspecified vessel or lesion type [place] vs. transplanted heart: [place] heart Associated angina: angina presence unspecified Qualified Code(s): I25.10 - Atherosclerotic heart disease of [place] coronary artery without angina pectoris (10) DVT prophylaxis Current visit: Yes Status: Acute Assess: Patient to be placed on DVT prophylaxis based on admission protocol, bed rest status, and history of atrial fibrillation. Plan: Heparin 5,000 units SQ Q8 ordered Internal Medicine - H&P: HPI Chief complaint: SOB/Chest pain Admitted From: Emergency Dept Plans for Post Hospital Care: Home History of present illness: Mr. Vera is a 71 year old male presents with chief complaint of shortness of breath and chest pain that began two days ago. Patient also reports cough with minimal sputum production. Mr. Vera states that he does not use home O2 because he cannot complete the 6-minute walking test to qualify. When project scheduler arrived to the patient, his SpO2 was in the 80's. SpO2 improved significantly with O2 via face mask according to the patient's daughter. Patient denies any recent illness, but his daughter reports that he has a history of pneumonia in February, March, and April of 2016. Patient also reports dizziness, orthopnea , and history of falls at home. Patient currently has walker and wheel chair at home, but only reports using walker. Mr. Vera has a history of atrial fibrillation, cardiomyopathy, CHF, COPD, CVA, Diabetes, hyperlipidemia, hypertension, myocardial infarction, and pacemaker placement. Patient is a former smoker who smoked 2-3 cigars daily and reports quitting a year ago. Patient has stage IV CKD with BUN of 41, creatinine of 2.75 and GFR of 23 on initial lab draw. Patient's Hgb is 8.5 and Hct is 28.1 which is not far from his baseline when compared to his past admissions. Patient is high risk for cardiologic and respiratory decline based on his diagnosis of acute exacerbation of CHF and acute on chronic exacerbation of COPD which may require intubation or mechanical ventilation. Mr. Vera is to be placed on continuous cardiac telemetry, supplemental O2 with titration via face mask, BiPap PRN and HS, DuoNebs Q4 PRN, Lasix IVP 40 mg BID, sputum culture based on his history of pneumonia, and falls precautions/bed rest/[id number] only status based on his history of dizziness and falls. Patient also reports urinary incontinence so [place] catheter placed in ED. SW consult ordered to assess home needs and pharmacy education consult ordered to assess patient's non -compliance with medications. Patient is to be monitored closely for signs of respiratory failure. Time spent with patient >40 minutes. 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 hand)) - Social History Smoking Status: Former smoker Packs per day: 2-3 cigars daily - reports quitting 1 year ago Smokeless Tobacco Status: No Alcohol use: rarely Drug use: none Current living situation: Home - Independent Activity Level: Uses cane/walker Recent Out of Country Travel Within the Last 8 Weeks: No Exposure or Possible Exposure to Illness During Travel: No - Family History Mother Adopted: No Family Member Ethnicity: Non- Living Status: Age at : 90 Hx Family Medical Disorders: No Father Race: Family Member Ethnicity: Non- Living Status: Age at : 79 Cause of : [place] Hx Family Cardiac Disorders: Yes ([place]) Brother Race: Family Member Ethnicity: Non- Living Status: Age at : 70 Cause of : [place] Hx Family Cardiac Disorders: Yes ([place]) Sister Race: Family Member Ethnicity: Non- Living Status: Age at : 68 Cause of : Complications from Alzheimer's disease Hx Family Neurologic Disorders: Yes (Alzheimer's disease) Internal Medicine - H&P: Meds Pregabalin [Lyrica] 200 mg PO BID 05/09/15 [History] Simvastatin [Zocor] 40 mg PO DAILY 05/09/15 [History] Temazepam [Restoril] 30 mg PO HS 05/09/15 [History] Apixaban [Eliquis] 2.5 mg PO BID 12/31/15 [History] Carvedilol [Coreg] 25 mg PO BID 12/31/15 [History] Promethazine [Phenergan] 25 mg PO HS 12/31/15 [History] Artificial Tears SOLN [Akwa Tears] 1 drop BOTH EYES QID bottle 01/07/16 [Rx] Tamsulosin [Flomax] 0.4 mg PO DAILY #30 capsule 01/07/16 [Rx] hydrALAZINE [HydrALAZINE] 75 mg PO TID #270 tablet 01/07/16 [Rx] Acetaminophen [Tylenol] 650 mg PO HS 03/26/16 [History] Cholecalciferol (D-3) [Vitamin D] 1,000 unit PO DAILY 03/26/16 [History] Docusate [Colace] 200 mg PO DAILY #60 capsule 04/05/16 [Rx] amLODIPine [Norvasc] 10 mg PO DAILY #30 tablet 04/05/16 [Rx] Albuterol Sulfate [Proventil Hfa] 1 - 2 puff IH Q6H PRN 04/27/16 [History] Budesonide/Formoterol 160/4.5 [Symbicort 160/4.5] 2 puff IH BIDR 04/27/16 [ History] Ipratropium/Albuterol Neb [Duoneb] 3 ml IH QID PRN 04/27/16 [History] GuaiFENesin Liq [Robitussin Liq] 200 mg PO Q6HR PRN 05/12/16 [History] Pantoprazole Sodium [Protonix] 40 mg PO DAILY 05/12/16 [History] Furosemide [Lasix] 40 mg PO BID 30 Days 05/19/16 [Rx] predniSONE [PredniSONE] 10 mg PO DAILY #84 tablet 05/19/16 [Rx] Tiotropium [Spiriva] 18 mcg IH DAILY 05/20/16 [History] Insulin Glargine,Hum.rec.anlog [Lantus Solostar] 50 unit SQ HS #0 05/24/16 [Rx] Allergies aspirin Allergy (Verified 05/20/16 01:28) Hives diphenhydramine [From Benadryl] Allergy (Verified 05/20/16 01:28) Swelling of Lip/Tongue/Throat Tetracyclines Allergy (Verified 05/20/16 01:28) Hives All Systems PM: A 10-system review of systems was performed and is negative for pertinent findings except as documented above in the HPI. - Constitutional Constitutional: as per HPI, falls, no chills, no fever(s), no night sweats - EENT Eyes: no change in vision, no discharge, no pain, no photophobia Ears: no ear discharge, no ear pain, no tinnitus Nose, mouth and throat: no dysphagia, no nasal discharge, no neck pain, no sore throat - Breasts Breasts: as per HPI - Cardiovascular Cardiovascular ROS IM: as per HPI, chest pain, dyspnea, dyspnea on exertion, edema (Pedal edema bilaterally which patient's daughter reports as chronic), irregular heart rhythm, lightheadedness - Respiratory Respiratory: as per HPI, cough, dyspnea, dyspnea on exertion, wheezing, snoring , chest congestion - Gastrointestinal Gastrointestinal: no abdominal pain, no diarrhea, no hematemesis, no hematochezia, no melena, no nausea, no vomiting - Genitourinary Genitourinary ROS male: as per HPI, urinary incontinence - Musculoskeletal Musculoskeletal ROS IM: no numbness, no tingling - Integumentary Integumentary IM: no rash, no unusual bruising - Neurological Neurological ROS: as per HPI, dizziness, frequent falls, no confusion, no convulsions, no focal weakness, no numbness, no tingling, no tremor(s) - Psychiatric Psychiatric: as per HPI - Endocrine Endocrine IM: as per HPI - Hematologic/Lymphatic Hematologic/Lymphatic: no easy bruising - Allergic/Immunologic Allergic/Immunologic: as per HPI - Constitutional Vitals: Temp Pulse Resp BP Pulse Ox 98.3 F 73 16 122/61 94 07/30/16 20:21 07/30/16 20:09 07/30/16 20:21 07/30/16 20:21 07/30/16 20:09 General appearance: Present: cooperative, A&O X 3, pleasant, obese (Severely obese), severe distress, answers questions appropriately - Head Head exam: Present: atraumatic, normocephalic - Eye Eye exam: Present: PERRL, conjuntiva pink, sclera anicteric Pupils: Present: PERRL - ENT ENT exam: Present: normal exam, normal external ear exam - Neck Neck exam general surgery: Present: supple, trachea midline. Absent: lymphadenopathy - Respiratory Respiratory exam: Present: decreased breath sounds, respiratory distress, wheezes Additional comments: Orthopnea with laying flat. - Cardiovascular Additional comments: Electronic atrial and ventricular pacemaker - GI/Abdominal GI/Abdominal exam: Present: firm, normal bowel sounds - Rectal Rectal exam: Present: deferred - Additional comments: exam deferred. - Extremities Exam Extremities exam: Present: pedal edema (1+ pitting edema bilaterally), warm, radial pulses palpable and symetrical - Back Exam Back exam: Present: normal inspection - Neurological Exam Neurological exam: Present: CN II-XII intact, oriented X3, no focal deficits. Absent: pronater drift, facial droop, speech deficit - Psychiatric Psychiatric exam: Present: normal affect, normal mood - Skin Skin exam: Present: dry, intact Internal Med - H&P Results - Labs CBC & Chem 7: 07/30/16 18:38 07/30/16 18:38 - EKG Data When compared to previous EKG: there is no significant change EKG comments: 07/30/16 21:44 EKG dated 05/12/16 shows electronic ventricular pacemaker with occasional PVCs, artifact present. EKG dated 05/20/16 shows electronic ventricular pacemaker with occasional PVCs. EKG dated 07/30/16 shows electronic atrial pacemaker, electronic ventricular pacemaker. - Diagnostic Studies Chest x-ray Additional comments: Impressions Chest X-Ray 07/30/16 18:33 IMPRESSION: Findings as above likely related to congestive heart failure and edema. D/ / Isabelle Galvan MD / Isabelle Galvan MD Interpreting Provider: Isabelle Galvan MD
--- NOTE | 2016-07-30 21:40 | Event Note ---
Date of Encounter: 07/30/16 Time of Encounter: 21:36 I examined this patient and my medical decision-making was reviewed with Mr. Abdul. I agree with the documented findings, disposition and treatment plan as described except to the extent set forth below. 71-year-old male with a history of diastolic CHF plus to the hospital due to worsening shortness of breath, orthopnea and chest tightness. Patient is made by family. Family states that the patient is noncompliant with salt intake and eats potato chips daily. However, they report that he is compliant with his medications. He was discharged from [facility] about 3 weeks ago after he was at the [facility] for about 2 months in inpatient rehabilitation. Currently, he has a nurse and physical therapist was staying at home. He stays with family. On exam, patient is lying in bed and appears to be in mild distress. Pulmonary exam reveals bilateral diffuse wheezing. Bilateral 2+ pitting pedal edema present. Labs reviewed. Chest x-ray personally reviewed and reveals pulmonary vascular condition and cardiomegaly. Assessment/plan: 1. Acute on chronic diastolic CHF-admit to the inpatient status. Expected to be in the hospital for at least overnight. Expected discharge disposition is to home. High risk due to risk of lethal arrhythmias and possible worsening respiratory failure which may require intubation and mechanical ventilation. Intravenous diuresis. Strict input and output monitoring. Fluid restricted diet. 2. Diabetes mellitus type 2 on home insulin completed by chronic kidney disease stage IV-resume diabetic diet. Resume home Lantus and sliding scale insulin. Adjust Lantus based on his sugars. Patient seen by nephrology as an outpatient and is not agreeable to renal replacement therapy. If his kidney function worsens, will consult nephrology for assistance. 3. Coronary artery disease-stable. Cycle cardiac enzymes. Continue home medications. 4. COPD 5. Hypertension 6. Obesity with BMI of 36.8 7. Acute hypoxic respiratory failure due to CHF exacerbation and pulmonary edema NIECY Brizuela
[2016-07-30] MEDS ORDERED: Dextrose Gel 15 GM PO PRN ×2 (21:42)
[2016-07-30] MEDS ORDERED: D5% in Water 1,000 ML IVC PRN (21:42)
[2016-07-30] MEDS ORDERED: *HR* Dextrose 50 % in Water (Syg) 50 ML SYRINGE IVP PRN (21:42)
[2016-07-30] MEDS ORDERED: Insulin DETEMIR 100 UNIT/ML X5UNITS SQ SCH (21:45)
[2016-07-30] MEDS: *HR* Heparin 5,000 UNIT/ML VIAL SQ SCH (23:11)
[2016-07-30] MEDS ORDERED: Temazepam 15 MG CAPSULE PO SCH (23:15)
[2016-07-30] MEDS: Insulin LISPRO 300 UNITS/3 ML VIAL SQ SCH (23:22)
[2016-07-31 05:19] LABS: Basophils % 0.6 %; Eosinophils # 0.1 K/mcL (0.0-0.6); Eosinophils % 1.9 %; Hematocrit 25.6 % (37.5-50.1); Hemoglobin 7.7 g/dL (12.9-16.9); Immature Granulocytes % 1.1 % (0-4); Lymphocytes # 1.4 K/mcL (0.6-4.6); Lymphocytes % 30.9 %; Mean Corpuscular HGB Conc 30.1 g/dL (31.6-35.5); Mean Corpuscular Hemoglobin 28.2 pg (28.0-33.3); Mean Corpuscular Volume 93.8 fL (83.0-100.0); Mean Platelet Volume 10.3 fL (9.4-12.4); Monocytes # 0.4 K/mcL (0.0-1.3); Monocytes % 8.6 %; Neutrophils # 2.7 K/mcL (1.6-8.9); Nucleated Red Blood Cells 0.4 /100 WBC (0); Platelet Count 191 K/mcL (140-400); Red Blood Count 2.73 M/mcL (4.19-5.50); Red Cell Distribution Width 15.6 % (11.5-14.5); Segmented Neutrophils % 56.9 %
[2016-07-31 05:35] LABS: Albumin 2.8 g/dL (3.5-5.0); Albumin/Globulin Ratio 0.8 (1.1-2.2); Bilirubin,Total 0.8 mg/dL (0.2-1.2); Calcium 8.7 mg/dL (8.6-10.8); Globulin 3.7 g/dL (2.4-3.5); Magnesium 1.7 mg/dL (1.6-2.6); Potassium 4.2 mEq/L (3.5-4.5); Total Protein 6.5 g/dL (6.0-8.3)
[2016-07-31] MEDS ORDERED: Ipratropium/Albuterol Neb 3 ML IH SCH ×3 (06:30→10:00)
[2016-07-31 08:45] LABS: ABG Base Excess 0.6 mEq/L (-2.0 to 3.0); ABG HCO3 27.7 mEQ/L (21-27); ABG Oxygen Saturation 94 % (95-98); ABG PCO2 59 mmHg (35-45); ABG PH 7.28 pH Units (7.32-7.45); ABG PO2 81 mmHg (85-104); ABG TCO2 29.5 mEq/L (20-26)
[2016-07-31 08:47] LABS: Blood Gas FiO2 40 %
[2016-07-31] MEDS ORDERED: Pregabalin 50 MG CAPSULE PO SCH ×2 (09:00→21:00)
[2016-07-31] MEDS ORDERED: Naloxone 0.4 MG/ML INJ IVP ONE (09:00)
--- NOTE | 2016-07-31 09:57 | Internal Med Progress Note ---
<Linda Hutchins - Last Filed: 07/31/16 09:54> Date of Encounter: 07/31/16 Time of Encounter: 09:54 - Assessment and plan (1) Acute respiratory failure with hypoxia and hypercapnia Current Visit: No Status: Acute Assessment and plan: pt somnolent and difficult to arouse this morning, respiratory acidosis on initial ABG today reverse morphine and temazepam with flumazenil and narcan consult to respiratory recommend increase IPAP/EPAP repeat ABG in about 2 hours continue supplemental oxygen and bronchodilators therapy (2) Acute exacerbation of CHF (congestive heart failure) Current Visit: Yes Status: Acute Assessment and plan: continue home meds and IV lasix Qualifiers: Congestive heart failure type: diastolic Qualified Code(s): I50.33 - Acute on chronic diastolic (congestive) heart failure (3) CAD (coronary artery disease) Current Visit: Yes Status: Acute Qualifiers: Coronary Disease-Associated Artery/Lesion type: unspecified vessel or lesion type [place] vs. transplanted heart: [place] heart Associated angina: angina presence unspecified Qualified Code(s): I25.10 - Atherosclerotic heart disease of [place] coronary artery without angina pectoris (4) Acute and chronic respiratory failure Current Visit: No Status: Chronic Qualifiers: Respiratory failure complication: hypoxia Qualified Code(s): J96.21 - Acute and chronic respiratory failure with hypoxia; J96.22 - Acute and chronic respiratory failure with hypercapnia (5) Atrial fibrillation Current Visit: No Status: Chronic Qualifiers: Atrial fibrillation type: unspecified Qualified Code(s): I48.91 - Unspecified atrial fibrillation (6) COPD (chronic obstructive pulmonary disease) Current Visit: No Status: Chronic Qualifiers: COPD type: unspecified COPD Qualified Code(s): J44.9 - Chronic obstructive pulmonary disease, unspecified (7) Hyperglycemia due to type 2 diabetes mellitus Current Visit: No Status: Chronic Qualifiers: Diabetes mellitus prison insulin use: with medical terminologist use Qualified Code( s): E11.65 - Type 2 diabetes mellitus with hyperglycemia; Z79.4 - [facility] ( current) use of insulin (8) Hypertension in stage 3 chronic kidney disease due to type 2 diabetes mellitus Current Visit: No Status: Chronic (9) DVT prophylaxis Current Visit: Yes Status: Acute (10) DVT prophylaxis Current Visit: No Status: Acute - Subjective Interval history: 71 yo M resting on BiPAP, somnolent, can be aroused with sternal rub while calling name. Respiratory acidosis on ABG, reverse temazepam and morphine, change BiPAP settings and repeat ABG - Constitutional Vitals: Temp Pulse Resp BP Pulse Ox 97.8 F 71 12 119/60 97 07/31/16 06:56 07/31/16 06:56 07/31/16 06:56 07/31/16 06:56 07/31/16 06:56 General appearance: Present: cooperative, A&O X 3, pleasant, obese (Severely obese), severe distress, answers questions appropriately - Head Head exam: Present: atraumatic, normocephalic - Neck Neck exam general surgery: Present: supple, trachea midline. Absent: lymphadenopathy - Respiratory Respiratory exam: Present: decreased breath sounds, respiratory distress, rhonchi, wheezes. Absent: tachypnea Additional comments: IPAP /EPEP 01/24 RR 8 - Cardiovascular Cardiovascular exam: Present: RRR, +S1, +S2. Absent: diastolic murmur, gallop, rubs, systolic murmur - GI/Abdominal GI/Abdominal exam: Present: normal bowel sounds, soft, no peritoneal signs. Absent: distended, tenderness - Extremities Exam Extremities exam: Present: pedal edema (+1 pitting b/l), warm, radial pulses palpable and symetrical. Absent: cyanotic - Neurological Exam Neurological exam: Present: altered (somnolent, difficult to arouse) - Skin Skin exam: Present: dry, intact Internal Medicine: Result - Labs CBC & Chem 7: 07/31/16 04:49 07/31/16 04:49 Labs: Short CBC 07/31/16 Range/Units 04:49 WBC 4.7 (4.3-11.1) K/mcL Hgb 7.7 L (12.9-16.9) g/dL Hct 25.6 L (37.5-50.1) % Plt Count 191 (140-400) K/mcL Neutrophils # 2.7 (1.6-8.9) K/mcL BMP 07/31/16 04:49 Sodium 141 Potassium 4.2 Chloride 110 H Carbon Dioxide 25 BUN 40 H Creatinine 2.86 H Glucose 174 H Calcium 8.7 Cardiac Enzymes 07/30/16 07/31/16 Range/Units 22:46 04:49 Troponin I 0.04 H* 0.02 (0-0.03) ng/mL Liver Function 07/31/16 Range/Units 04:49 Total Bilirubin 0.8 (0.2-1.2) mg/dL AST 13 (5-34) Units/L ALT 6 (0-55) Units/L Alkaline Phosphatase 77 (38-126) Units/L Albumin 2.8 L (3.5-5.0) g/dL - ABG Interpretation ABG results: ABG ABG pH 7.28 pH Units (7.32-7.45) L 07/31/16 08:25 ABG pCO2 59 mmHg (35-45) H 07/31/16 08:25 ABG pO2 81 mmHg (85-104) L 07/31/16 08:25 ABG O2 Saturation 94 % (95-98) L 07/31/16 08:25 PT/INR, D-dimer PT 14.5 Seconds (9.4-12.1) H 07/30/16 18:38 Consult Discharge Plan - Plan Referrals: Travis Brasher Jr, MD [Primary Care Provider] - <Ambrocio Ramírez - Last Filed: 07/31/16 19:22> Date of Encounter: 07/31/16 - Assessment and plan (1) Acute and chronic respiratory failure Current Visit: No Status: Chronic Qualifiers: Respiratory failure complication: hypoxia and hypercapnia Qualified Code(s) : J96.21 - Acute and chronic respiratory failure with hypoxia; J96.22 - Acute and chronic respiratory failure with hypercapnia (2) Acute exacerbation of CHF (congestive heart failure) Current Visit: Yes Status: Acute Qualifiers: Congestive heart failure type: diastolic Qualified Code(s): I50.33 - Acute on chronic diastolic (congestive) heart failure (3) Acute exacerbation of chronic obstructive airways disease Current Visit: Yes Status: Acute (4) Chronic renal failure Current Visit: No Status: Chronic Qualifiers: Chronic kidney disease stage: stage 3 (moderate) Qualified Code(s): N18.3 - Chronic kidney disease, stage 3 (moderate) (5) CAD (coronary artery disease) Current Visit: Yes Status: Acute Qualifiers: Coronary Disease-Associated Artery/Lesion type: unspecified vessel or lesion type [place] vs. transplanted heart: [place] heart Associated angina: angina presence unspecified Qualified Code(s): I25.10 - Atherosclerotic heart disease of [place] coronary artery without angina pectoris (6) Atrial fibrillation Current Visit: No Status: Chronic Qualifiers: Atrial fibrillation type: chronic Qualified Code(s): I48.2 - Chronic atrial fibrillation (7) Nonischemic cardiomyopathy Current Visit: No Status: Chronic - Constitutional Vitals: Temp Pulse Resp BP Pulse Ox 97.7 F 65 16 100/52 95 07/31/16 15:58 07/31/16 15:58 07/31/16 16:19 07/31/16 15:58 07/31/16 16:19 Internal Medicine: Result - Labs CBC & Chem 7: 07/31/16 04:49 07/31/16 04:49 Labs: Short CBC 07/31/16 Range/Units 04:49 WBC 4.7 (4.3-11.1) K/mcL Hgb 7.7 L (12.9-16.9) g/dL Hct 25.6 L (37.5-50.1) % Plt Count 191 (140-400) K/mcL Neutrophils # 2.7 (1.6-8.9) K/mcL BMP 07/31/16 04:49 Sodium 141 Potassium 4.2 Chloride 110 H Carbon Dioxide 25 BUN 40 H Creatinine 2.86 H Glucose 174 H Calcium 8.7 Cardiac Enzymes 07/30/16 07/31/16 Range/Units 22:46 04:49 Troponin I 0.04 H* 0.02 (0-0.03) ng/mL Liver Function 07/31/16 Range/Units 04:49 Total Bilirubin 0.8 (0.2-1.2) mg/dL AST 13 (5-34) Units/L ALT 6 (0-55) Units/L Alkaline Phosphatase 77 (38-126) Units/L Albumin 2.8 L (3.5-5.0) g/dL - ABG Interpretation ABG results: ABG ABG pH 7.28 pH Units (7.32-7.45) L 07/31/16 08:25 ABG pCO2 59 mmHg (35-45) H 07/31/16 08:25 ABG pO2 81 mmHg (85-104) L 07/31/16 08:25 ABG O2 Saturation 94 % (95-98) L 07/31/16 08:25 PT/INR, D-dimer PT 14.5 Seconds (9.4-12.1) H 07/30/16 18:38 - Attending Attestation I examined this patient and my medical decision-making was reviewed with the Resident Physician on 07/31/16. I agree with the documented findings, disposition and treatment plan as described except to the extent set forth below. Mr. Vera is currently admitted for acute hypercarbic resp failure due to acute CHF and COPD. He is high risk due to potential for worsening respiratory status. Mr. Vera is very somnolent this AM. He arouses to name and was awake after narcan and flumazenil. He is off and on bipap. Denies CP or SOB. No fever. No GI symptoms. Exam Alert. Comfortable Heart reg Diminished breath sounds I/P 1. Acute resp failure 2. COPD 3. CHF Further diagnoses and plan as above.
[2016-07-31] MEDS: Insulin LISPRO 300 UNITS/3 ML VIAL SQ SCH ×4 (10:07→22:29)
--- NOTE | 2016-07-31 10:10 | Electrocardiograph Report ---
[place] [id number] Test Date: 2016-07-30 Pat Name: Mic [place] Department: 105 Room: 2NE29 Gender: M Clothing Man: LISETTE : 1945 Requested By: Napoleon Henderson Order Number: [id number] Reading MD: Renan Daugherty MD Measurements Intervals [place] Rate: 85 P: 98 NV: 146 QRS: -74 QRSD: 180 T: 121 QT: 446 QTc: 488 Interpretive Statements ELECTRONIC ATRIAL PACEMAKER ELECTRONIC VENTRICULAR PACEMAKER Electronically Signed On 07-31-2016 10:08:29 EDT by Renan Daugherty MD
[2016-07-31] MEDS: *HR* Heparin 5,000 UNIT/ML VIAL SQ SCH ×2 (10:53→17:28)
[2016-07-31] MEDS: Pantoprazole 40 MG VIAL IVP SCH (10:54)
[2016-07-31] MEDS: Furosemide 40 MG/4 ML VIAL IVP SCH ×2 (10:54→22:38)
[2016-07-31] MEDS: Ipratropium/Albuterol Neb 3 ML IH SCH ×3 (11:01→22:10)
[2016-07-31] MEDS ORDERED: *HR* Morphine 2 MG/ML SYRINGE IVP PRN (11:41)
[2016-07-31] MEDS ORDERED: Temazepam 15 MG CAPSULE PO PRN ×2 (11:42→13:00)
[2016-07-31] MEDS: hydrALAZINE 25 MG TABLET PO SCH ×3 (14:22→22:29)
[2016-07-31] MEDS: amLODIPine 5 MG TABLET PO SCH (14:23)
[2016-07-31] MEDS: Insulin DETEMIR 100 UNIT/ML X5UNITS SQ SCH (22:38)
[2016-08-01] MEDS: *HR* Heparin 5,000 UNIT/ML VIAL SQ SCH ×3 (00:51→17:48)
[2016-08-01] MEDS: Ipratropium/Albuterol Neb 3 ML IH SCH ×4 (04:59→22:08)
[2016-08-01 06:08] LABS: Hemoglobin 7.9 g/dL (12.9-16.9); Mean Corpuscular HGB Conc 30.4 g/dL (31.6-35.5); Mean Corpuscular Hemoglobin 28.3 pg (28.0-33.3); Mean Corpuscular Volume 93.2 fL (83.0-100.0); Mean Platelet Volume 10.5 fL (9.4-12.4); Platelet Count 169 K/mcL (140-400); Red Blood Count 2.79 M/mcL (4.19-5.50); Red Cell Distribution Width 15.7 % (11.5-14.5)
[2016-08-01 06:21] LABS: Calcium 8.6 mg/dL (8.6-10.8); Potassium 4.1 mEq/L (3.5-4.5)
[2016-08-01] MEDS: Insulin LISPRO 300 UNITS/3 ML VIAL SQ SCH ×4 (09:30→21:31)
--- NOTE | 2016-08-01 09:35 | Internal Med Progress Note ---
<Linda Hutchins - Last Filed: 08/01/16 09:33> Date of Encounter: 08/01/16 Time of Encounter: 09:33 - Assessment and plan (1) Acute respiratory failure with hypoxia and hypercapnia Current Visit: No Status: Acute Assessment and plan: pt more awake this morning compared to yesterday continue to limit pain meds, temazepam and other sedating medications continue BiPAP continue supplemental oxygen and bronchodilators therapy (2) Acute exacerbation of CHF (congestive heart failure) Current Visit: Yes Status: Acute Assessment and plan: continue home meds hold IV lasix this morning, LE edema improved, elevation in basline Cr recheck Cr in am Qualifiers: Congestive heart failure type: diastolic Qualified Code(s): I50.33 - Acute on chronic diastolic (congestive) heart failure (3) CAD (coronary artery disease) Current Visit: Yes Status: Acute Qualifiers: Coronary Disease-Associated Artery/Lesion type: unspecified vessel or lesion type [place] vs. transplanted heart: [place] heart Associated angina: angina presence unspecified Qualified Code(s): I25.10 - Atherosclerotic heart disease of [place] coronary artery without angina pectoris (4) Acute and chronic respiratory failure Current Visit: No Status: Chronic Qualifiers: Respiratory failure complication: hypoxia and hypercapnia Qualified Code(s) : J96.21 - Acute and chronic respiratory failure with hypoxia; J96.22 - Acute and chronic respiratory failure with hypercapnia (5) Atrial fibrillation Current Visit: No Status: Chronic Qualifiers: Atrial fibrillation type: unspecified Qualified Code(s): I48.91 - Unspecified atrial fibrillation (6) COPD (chronic obstructive pulmonary disease) Current Visit: No Status: Chronic Qualifiers: COPD type: unspecified COPD Qualified Code(s): J44.9 - Chronic obstructive pulmonary disease, unspecified (7) Hyperglycemia due to type 2 diabetes mellitus Current Visit: No Status: Chronic Qualifiers: Diabetes mellitus 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 insulin use: with assisted use Qualified Code( s): E11.65 - Type 2 diabetes mellitus with hyperglycemia; Z79.4 - intermediate card tender ( current) use of insulin (8) Hypertension in stage 3 chronic kidney disease due to type 2 diabetes mellitus Current Visit: No Status: Chronic (9) DVT prophylaxis Current Visit: Yes Status: Acute (10) Anemia Current Visit: No Status: Chronic Assessment and plan: worse this morning stool guaic type and screen consider GI consultation may require transfusion if symptomatic Qualifiers: Anemia type: other cause Other causes of anemia: other cause, not classified Qualified Code(s): D64.89 - Other specified anemias - Subjective Interval history: 71 yo M states breathing has been slowly improving, he states he feels better today. He still has some dyspnea with exertion and cough. He denies chest pain, LE edema - Constitutional Vitals: Temp Pulse Resp BP Pulse Ox 98.3 F 69 22 95/49 95 08/01/16 07:34 08/01/16 07:34 08/01/16 08:55 08/01/16 07:34 08/01/16 08:55 General appearance: Present: cooperative, A&O X 3, pleasant, obese (Severely obese), severe distress, answers questions appropriately - Head Head exam: Present: atraumatic, normocephalic - Eye Eye exam: Present: EOMI, PERRL, conjuntiva pink, sclera anicteric Pupils: Present: PERRL - Neck Neck exam general surgery: Present: supple, trachea midline. Absent: lymphadenopathy - Respiratory Respiratory exam: Present: decreased breath sounds, rales, wheezes. Absent: accessory muscle use, chest wall tenderness, tachypnea - Expanded Respiratory Exam Location: decreased breath sounds: Left, Right, Lower (diminished and course throughout), rales: Left, Right (mild bibasilar), rhonchi: Left, Right, Lower ( mild b/l), wheezes: Left, Right (end expiratory scattered) - Cardiovascular Cardiovascular exam: Present: RRR, +S1, +S2. Absent: diastolic murmur, gallop, rubs, systolic murmur - GI/Abdominal GI/Abdominal exam: Present: normal bowel sounds, soft, no peritoneal signs. Absent: distended, tenderness - Extremities Exam Extremities exam: Present: pedal edema (trace, improved), warm, radial pulses palpable and symetrical. Absent: calf tenderness, cyanotic, tenderness - Neurological Exam Neurological exam: Present: CN II-XII intact, oriented X3, no focal deficits. Absent: pronater drift, facial droop, speech deficit - Skin Skin exam: Present: dry, intact, pallor, warm Internal Medicine: Result - Labs CBC & Chem 7: 08/01/16 05:26 08/01/16 05:26 Labs: Short CBC 08/01/16 Range/Units 05:26 WBC 5.5 (4.3-11.1) K/mcL Hgb 7.9 L (12.9-16.9) g/dL Hct 26.0 L (37.5-50.1) % Plt Count 169 (140-400) K/mcL BMP 08/01/16 05:26 Sodium 142 Potassium 4.1 Chloride 109 Carbon Dioxide 27 BUN 43 H Creatinine 3.00 H Glucose 120 H Calcium 8.6 - ABG Interpretation ABG results: ABG ABG pH 7.28 pH Units (7.32-7.45) L 07/31/16 08:25 ABG pCO2 59 mmHg (35-45) H 07/31/16 08:25 ABG pO2 81 mmHg (85-104) L 07/31/16 08:25 ABG O2 Saturation 94 % (95-98) L 07/31/16 08:25 PT/INR, D-dimer PT 14.5 Seconds (9.4-12.1) H 07/30/16 18:38 Consult Discharge Plan - Plan Referrals: Travis Brasher Jr, MD [Primary Care Provider] - 08/10/16 1:25 pm <Ambrocio Ramírez - Last Filed: 08/01/16 14:43> Date of Encounter: 08/01/16 - Assessment and plan (1) Anemia Current Visit: Yes Status: Acute Assessment and plan: Will ask GI to see for potential blood loss. May be related to CKD. Qualifiers: Anemia type: other cause Other causes of anemia: chronic disease, other Qualified Code(s): D63.8 - Anemia in other chronic diseases classified elsewhere (2) Acute and chronic respiratory failure Current Visit: No Status: Chronic Qualifiers: Respiratory failure complication: hypoxia and hypercapnia Qualified Code(s) : J96.21 - Acute and chronic respiratory failure with hypoxia; J96.22 - Acute and chronic respiratory failure with hypercapnia (3) Acute exacerbation of CHF (congestive heart failure) Current Visit: Yes Status: Acute Qualifiers: Congestive heart failure type: diastolic Qualified Code(s): I50.33 - Acute on chronic diastolic (congestive) heart failure (4) Acute exacerbation of chronic obstructive airways disease Current Visit: Yes Status: Acute (5) Chronic renal failure Current Visit: No Status: Chronic Qualifiers: Chronic kidney disease stage: stage 3 (moderate) Qualified Code(s): N18.3 - Chronic kidney disease, stage 3 (moderate) (6) CAD (coronary artery disease) Current Visit: Yes Status: Acute Qualifiers: Coronary Disease-Associated Artery/Lesion type: unspecified vessel or lesion type [place] vs. transplanted heart: [place] heart Associated angina: angina presence unspecified Qualified Code(s): I25.10 - Atherosclerotic heart disease of [place] coronary artery without angina pectoris (7) Atrial fibrillation Current Visit: No Status: Chronic Qualifiers: Atrial fibrillation type: chronic Qualified Code(s): I48.2 - Chronic atrial fibrillation (8) Nonischemic cardiomyopathy Current Visit: No Status: Chronic - Constitutional Vitals: Temp Pulse Resp BP Pulse Ox 98.6 F 71 16 127/55 96 08/01/16 11:25 08/01/16 11:25 08/01/16 11:25 08/01/16 11:25 08/01/16 11:25 Internal Medicine: Result - Labs CBC & Chem 7: 08/01/16 05:26 08/01/16 05:26 Labs: Short CBC 08/01/16 Range/Units 05:26 WBC 5.5 (4.3-11.1) K/mcL Hgb 7.9 L (12.9-16.9) g/dL Hct 26.0 L (37.5-50.1) % Plt Count 169 (140-400) K/mcL BMP 08/01/16 05:26 Sodium 142 Potassium 4.1 Chloride 109 Carbon Dioxide 27 BUN 43 H Creatinine 3.00 H Glucose 120 H Calcium 8.6 - ABG Interpretation ABG results: ABG ABG pH 7.28 pH Units (7.32-7.45) L 07/31/16 08:25 ABG pCO2 59 mmHg (35-45) H 07/31/16 08:25 ABG pO2 81 mmHg (85-104) L 07/31/16 08:25 ABG O2 Saturation 94 % (95-98) L 07/31/16 08:25 PT/INR, D-dimer PT 14.5 Seconds (9.4-12.1) H 07/30/16 18:38 - Attending Attestation I examined this patient and my medical decision-making was reviewed with the Resident Physician on 08/01/16. I agree with the documented findings, disposition and treatment plan as described except to the extent set forth below. Mr. Vera is currently admitted for acute resp failure and exac CHF. He remains moderate to high risk due to potential for worsening respiratory status. Mr. Vera is more awake this AM. He wore his bipap during the night. He is requesting pain medication. No CP. Denies dyspnea at this time. No fever. No GI symptoms. Exam Alert. Comfortable Heart reg Diminished breath sounds Edema present Labs reviewed - hgb lower than baseline. I/P 1. Anemia 2. Resp failure 3. CHF Further diagnoses and plan as above.
[2016-08-01] MEDS: Furosemide 40 MG/4 ML VIAL IVP SCH (09:41)
[2016-08-01] MEDS: Pantoprazole 40 MG VIAL IVP SCH (09:46)
[2016-08-01] MEDS: hydrALAZINE 25 MG TABLET PO SCH ×3 (09:47→21:42)
[2016-08-01] MEDS: amLODIPine 5 MG TABLET PO SCH (09:47)
[2016-08-01] MEDS: *HR* HYDROcodone/Acet 5/325 mg TABLET PO PRN ×2 (09:47→17:47)
[2016-08-01] MEDS ORDERED: traMADol 50 MG TABLET PO PRN (12:31)
[2016-08-01] MEDS: Insulin DETEMIR 100 UNIT/ML X5UNITS SQ SCH (21:33)
[2016-08-01] MEDS: Pregabalin 50 MG CAPSULE PO SCH (21:34)
[2016-08-02] MEDS: *HR* Heparin 5,000 UNIT/ML VIAL SQ SCH ×3 (01:13→17:05)
[2016-08-02] MEDS: Ipratropium/Albuterol Neb 3 ML IH SCH ×4 (04:19→23:24)
[2016-08-02 06:21] LABS: Hematocrit 26.4 % (37.5-50.1); Hemoglobin 8.1 g/dL (12.9-16.9); Immature Platelets 3.5 % (1.1-6.1); Mean Corpuscular HGB Conc 30.7 g/dL (31.6-35.5); Mean Corpuscular Hemoglobin 27.9 pg (28.0-33.3); Mean Platelet Volume 10.2 fL (9.4-12.4); Red Blood Count 2.9 M/mcL (4.19-5.50); Red Cell Distribution Width 15.7 % (11.5-14.5)
[2016-08-02 06:37] LABS: Calcium 8.5 mg/dL (8.6-10.8)
[2016-08-02] MEDS: Insulin LISPRO 300 UNITS/3 ML VIAL SQ SCH ×4 (07:37→21:06)
[2016-08-02] MEDS: Pantoprazole 40 MG VIAL IVP SCH (08:28)
[2016-08-02] MEDS: amLODIPine 5 MG TABLET PO SCH (08:28)
[2016-08-02] MEDS: Pregabalin 50 MG CAPSULE PO SCH ×2 (08:28→21:00)
[2016-08-02] MEDS: hydrALAZINE 25 MG TABLET PO SCH ×3 (08:29→21:00)
--- NOTE | 2016-08-02 09:36 | Internal Med Progress Note ---
<Linda Hutchins - Last Filed: 08/02/16 09:34> Date of Encounter: 08/02/16 Time of Encounter: 09:34 - Assessment and plan (1) Acute respiratory failure with hypoxia and hypercapnia Current Visit: No Status: Acute Assessment and plan: progressing back to baseline, may need longer term rehab care continue to limit pain meds, temazepam and other sedating medications continue BiPAP continue supplemental oxygen and bronchodilators therapy (2) Acute exacerbation of CHF (congestive heart failure) Current Visit: Yes Status: Acute Assessment and plan: continue home meds hold IV lasix this morning, LE edema improved, elevation in basline Cr recheck Cr in am Qualifiers: Congestive heart failure type: diastolic Qualified Code(s): I50.33 - Acute on chronic diastolic (congestive) heart failure (3) CAD (coronary artery disease) Current Visit: Yes Status: Acute Qualifiers: Coronary Disease-Associated Artery/Lesion type: unspecified vessel or lesion type [place] vs. transplanted heart: [place] heart Associated angina: angina presence unspecified Qualified Code(s): I25.10 - Atherosclerotic heart disease of [place] coronary artery without angina pectoris (4) Acute and chronic respiratory failure Current Visit: No Status: Chronic Qualifiers: Respiratory failure complication: hypoxia and hypercapnia Qualified Code(s) : J96.21 - Acute and chronic respiratory failure with hypoxia; J96.22 - Acute and chronic respiratory failure with hypercapnia (5) Atrial fibrillation Current Visit: No Status: Chronic Qualifiers: Atrial fibrillation type: unspecified Qualified Code(s): I48.91 - Unspecified atrial fibrillation (6) COPD (chronic obstructive pulmonary disease) Current Visit: No Status: Chronic Qualifiers: COPD type: unspecified COPD Qualified Code(s): J44.9 - Chronic obstructive pulmonary disease, unspecified (7) Hyperglycemia due to type 2 diabetes mellitus Current Visit: No Status: Chronic Qualifiers: Diabetes mellitus snf insulin use: with snf use Qualified Code( s): E11.65 - Type 2 diabetes mellitus with hyperglycemia; Z79.4 - correction ( current) use of insulin (8) Hypertension in stage 3 chronic kidney disease due to type 2 diabetes mellitus Current Visit: No Status: Chronic (9) DVT prophylaxis Current Visit: Yes Status: Acute (10) Anemia Current Visit: No Status: Chronic Assessment and plan: likely related to CKD III improved from yesterday stool guaic type and screen GI consulted may require transfusion if symptomatic Qualifiers: Anemia type: other cause Other causes of anemia: other cause, not classified Qualified Code(s): D64.89 - Other specified anemias - Subjective Interval history: 71 yo M states breathing has been slowly improving and close t his baseline. Pt complaining of generalized pain, stating current pain medication is not working. He still has some dyspnea with exertion and cough. He denies chest pain , LE edema - Constitutional Vitals: Temp Pulse Resp BP Pulse Ox 98.2 F 60 16 121/61 96 08/02/16 06:50 08/02/16 06:50 08/02/16 06:50 08/02/16 06:50 08/02/16 06:50 General appearance: Present: cooperative, A&O X 3, pleasant, obese (Severely obese), severe distress, answers questions appropriately - Head Head exam: Present: atraumatic, normocephalic - Eye Eye exam: Present: EOMI, PERRL, conjuntiva pink, sclera anicteric Pupils: Present: PERRL - Neck Neck exam general surgery: Present: supple, trachea midline. Absent: lymphadenopathy - Respiratory Respiratory exam: Present: decreased breath sounds (diminshed course sounds), rales (mild bibasilar), wheezes (mild scattered). Absent: accessory muscle use , stridor, tachypnea - Cardiovascular Cardiovascular exam: Present: RRR, +S1, +S2. Absent: diastolic murmur, gallop, rubs, systolic murmur - GI/Abdominal GI/Abdominal exam: Present: normal bowel sounds, soft, no peritoneal signs. Absent: distended, tenderness - Extremities Exam Extremities exam: Present: pedal edema (trace), warm, radial pulses palpable and symetrical. Absent: calf tenderness, cyanotic - Neurological Exam Neurological exam: Present: CN II-XII intact, oriented X3, no focal deficits. Absent: pronater drift, facial droop, speech deficit - Skin Skin exam: Present: dry, intact Internal Medicine: Result - Labs CBC & Chem 7: 08/02/16 05:55 08/02/16 05:55 Labs: Short CBC 08/02/16 Range/Units 05:55 WBC 5.0 (4.3-11.1) K/mcL Hgb 8.1 L (12.9-16.9) g/dL Hct 26.4 L (37.5-50.1) % Plt Count 184 (140-400) K/mcL [facility] 08/02/16 05:55 Sodium 142 Potassium 4.0 Chloride 107 Carbon Dioxide 23 BUN 43 H Creatinine 3.05 H Glucose 113 H Calcium 8.5 L - ABG Interpretation ABG results: ABG ABG pH 7.28 pH Units (7.32-7.45) L 07/31/16 08:25 ABG pCO2 59 mmHg (35-45) H 07/31/16 08:25 ABG pO2 81 mmHg (85-104) L 07/31/16 08:25 ABG O2 Saturation 94 % (95-98) L 07/31/16 08:25 PT/INR, D-dimer PT 14.5 Seconds (9.4-12.1) H 07/30/16 18:38 Consult Discharge Plan - Plan Referrals: Travis Brasher Jr, MD [Primary Care Provider] - 08/10/16 1:25 pm <Ambrocio Ramírez - Last Filed: 08/02/16 15:51> Date of Encounter: 08/02/16 - Assessment and plan (1) Anemia Current Visit: Yes Status: Acute Assessment and plan: To have endoscopy tomorrow to rule out bleeding. Qualifiers: Anemia type: other cause Other causes of anemia: chronic disease, other Qualified Code(s): D63.8 - Anemia in other chronic diseases classified elsewhere (2) Acute and chronic respiratory failure Current Visit: Yes Status: Chronic Assessment and plan: Slowly improving with diuresis. Qualifiers: Respiratory failure complication: hypoxia and hypercapnia Qualified Code(s) : J96.21 - Acute and chronic respiratory failure with hypoxia; J96.22 - Acute and chronic respiratory failure with hypercapnia (3) Acute exacerbation of CHF (congestive heart failure) Current Visit: Yes Status: Acute Qualifiers: Congestive heart failure type: diastolic Qualified Code(s): I50.33 - Acute on chronic diastolic (congestive) heart failure (4) Acute exacerbation of chronic obstructive airways disease Current Visit: Yes Status: Acute (5) Chronic renal failure Current Visit: Yes Status: Chronic Assessment and plan: Monitoring renal status and avoiding nephrotoxins. Qualifiers: Chronic kidney disease stage: stage 3 (moderate) Qualified Code(s): N18.3 - Chronic kidney disease, stage 3 (moderate) (6) CAD (coronary artery disease) Current Visit: Yes Status: Chronic Qualifiers: Coronary Disease-Associated Artery/Lesion type: unspecified vessel or lesion type [place] vs. transplanted heart: [place] heart Associated angina: angina presence unspecified Qualified Code(s): I25.10 - Atherosclerotic heart disease of [place] coronary artery without angina pectoris (7) Atrial fibrillation Current Visit: No Status: Chronic Assessment and plan: Rate controlled. Qualifiers: Atrial fibrillation type: chronic Qualified Code(s): I48.2 - Chronic atrial fibrillation (8) Nonischemic cardiomyopathy Current Visit: Yes Status: Chronic - Constitutional Vitals: Temp Pulse Resp BP Pulse Ox 98.2 F 72 16 124/61 95 08/02/16 11:45 08/02/16 11:45 08/02/16 11:45 08/02/16 11:45 08/02/16 11:45 Internal Medicine: Result - Labs CBC & Chem 7: 08/02/16 05:55 08/02/16 05:55 Labs: Short CBC 08/02/16 Range/Units 05:55 WBC 5.0 (4.3-11.1) K/mcL Hgb 8.1 L (12.9-16.9) g/dL Hct 26.4 L (37.5-50.1) % Plt Count 184 (140-400) K/mcL BMP 08/02/16 05:55 Sodium 142 Potassium 4.0 Chloride 107 Carbon Dioxide 23 BUN 43 H Creatinine 3.05 H Glucose 113 H Calcium 8.5 L - ABG Interpretation ABG results: ABG ABG pH 7.28 pH Units (7.32-7.45) L 07/31/16 08:25 ABG pCO2 59 mmHg (35-45) H 07/31/16 08:25 ABG pO2 81 mmHg (85-104) L 07/31/16 08:25 ABG O2 Saturation 94 % (95-98) L 07/31/16 08:25 PT/INR, D-dimer PT 14.5 Seconds (9.4-12.1) H 07/30/16 18:38 - Attending Attestation I examined this patient and my medical decision-making was reviewed with the Resident Physician on 6/14/17. I agree with the documented findings, disposition and treatment plan as described except to the extent set forth below. Mr. Vera is currently admitted for acute hypercarbic resp failure. He remains moderate to high risk due to potential for worsening respiratory status. Mr. Vera has been more awake overall. He is somnolent now. Complaining of all over pain. No worsening dyspnea. Has been wearing bipap at night. Has been more anemic and is to have endoscopy tomorrow. Exam Alert. Comfortable Heart irreg No wheeze Abd soft I/P 1. Hypercarbia 2. Anemia 3. CKD Further diagnoses and plan as above.
[2016-08-02] MEDS: *HR* OxyCODONE/APAP 5/325 TABLET PO PRN ×2 (11:20→18:54)
--- NOTE | 2016-08-02 11:57 | Gastroenterology Consult Note ---
<DicksonDanny Patricia - Last Filed: 08/02/16 11:55> Date of Encounter: 08/02/16 Time of Encounter: 10:40 - Assessment and plan (1) Anemia Current Visit: No Status: Chronic Assessment and plan: Continue to monitor CBC and transfuse PRBC as needed. Plan for EGD and colonoscopy tomorrow. Clear liquid diet today, no red or purple. NPO at midnight. If unable tolerate NuLytely please use MiraLAX prep. If not clear by 6 AM, give 2 tap water enemas. Qualifiers: Anemia type: other cause Other causes of anemia: other cause, not classified Qualified Code(s): D64.89 - Other specified anemias (2) COPD with acute exacerbation Current Visit: No Status: Acute Assessment and plan: Management per primary team. (3) Acute exacerbation of CHF (congestive heart failure) Current Visit: Yes Status: Acute Assessment and plan: Management per primary team Qualifiers: Congestive heart failure type: diastolic Qualified Code(s): I50.33 - Acute on chronic diastolic (congestive) heart failure - Time Spent With Patient Total time spent is greater than 50% in coordination of care (as documented) at patient's floor/unit and/or counseling patient: GI History of Present Illness - Data of Consult Patient: new to practice Consult date: 08/02/16 Requesting Physician: Ambrocio Ramírez DO - Consult Narrative Reason for consult: Anemia History of present illness: Mr. Vera is a 71 year old male with PMHx of Afib, prostate cancer, cardiomyopathy, CHF, COPD, CVA, DM, HLD, HTN, [place], CKD III, TIA who presented to the ED with SOB, orthopnea, and chest tightness. He has a history of PNA in February, March, and April of 2016, per patients daughter. Pt was started on diuretics for exacerbation of CHF and started on BiPAP for respiratory failure. We were consulted to evaluate anemia. Hgb on admission was 8.5 and decreased to 7.7 on 07/31, this AM Hgb 8.1. FOBT is pending. He denies melena or hematochezia. Pt states he completed a colonoscopy 4 years ago, which was normal per his report. Procedures: Colonoscopy 10/04/1995 Dr. Courtney: adenomatous polyp. Colonoscopy 4 years ago, normal per pt report. NSAIDs: None Anticoagulation: Eliquis Past Med Surg Social Fam HX - Past Medical History Medical history: atrial fibrillation, cardiomyopathy, CHF, COPD, CVA, diabetes, hyperlipidemia, hypertension, myocardial infarction, renal disease, TIA Psychiatric history: no psych history - Past Surgical History Surgical History: orthopedic, other (3 back surgeries, left shoulder surgery x5 (has lost use of left arm and must raise it with right hand)) - Social History Smoking Status: Former smoker Packs per day: 2-3 cigars daily - reports quitting 1 year ago Smokeless Tobacco Status: No Alcohol use: rarely Drug use: none - Family History Father Race: Family Member Ethnicity: Non- Living Status: Age at : 79 Cause of : MN Hx Family Cardiac Disorders: Yes (MN) Brother Race: Family Member Ethnicity: Non- Living Status: Age at : 70 Cause of : MN Hx Family Cardiac Disorders: Yes (MN) Sister Race: Family Member Ethnicity: Non- Living Status: Age at : 68 Cause of : Complications from Alzheimer's disease Hx Family Neurologic Disorders: Yes (Alzheimer's disease) Mother Adopted: No Family Member Ethnicity: Non- Living Status: Age at : 90 Hx Family Cardiac Disorders: Yes Hx Family Respiratory Disorders: Yes Hx Family Cancer: Yes Hx Family GI Disorders: No Hx Family Genitourinary Disorders: No Hx Family Endocrine Disorder: Yes Hx Family Musculoskeletal Disorders: No Hx Family Neuromuscular Disorders: No Hx Family Neurologic Disorders: No Hx Family HEENT Disorders: No Hx Family Autoimmune Disorders: No Hx Family Reproductive Disorders: No Hx Family Psychosocial Disorders: No Hx Family Medical Disorders: No - Gastrointestinal Gastrointestinal: Present: as per HPI - Constitutional Constitutional: as per HPI - EENT Eyes: as per HPI Ears: Present: as per HPI Nose, mouth and throat: Present: as per HPI - Cardiovascular Cardiovascular ROS: Present: as per HPI - Respiratory Respiratory IM: Present: as per HPI - Genitourinary Genitourinary: Absent: change in color, Urinary frequency - Neurological ROS Neurological GI: Present: as per HPI - Hematologic/Lymphatic Hematologic/Lymphatic pediatric: Present: as per HPI - Musculoskeletal Musculoskeletal ROS GI: Present: as per HPI - Integumentary Integumentary GI: Present: as per HPI - Psychiatric ROS Psychiatric GI: Present: as per HPI - Endocrine Endocrine IM: Present: as per HPI - Constitutional Vitals: Temp Pulse Resp BP Pulse Ox 98.2 F 72 16 124/61 95 08/02/16 11:45 08/02/16 11:45 08/02/16 11:45 08/02/16 11:45 08/02/16 11:45 General appearance: Present: cooperative, A&O X 3, no acute distress, answers questions appropriately - Head Head exam: Present: atraumatic, normocephalic - Eye Eye exam: Present: normal appearance, sclera anicteric - ENT ENT exam: Present: mucous membranes moist - Neck Neck exam general surgery: Present: normal inspection, trachea midline - Respiratory Respiratory exam: Present: decreased breath sounds, rales. Absent: CTAB - Cardiovascular Cardiovascular exam: Present: RRR, +S1, +S2 - GI/Abdominal GI/Abdominal exam: Present: normal bowel sounds, soft, no peritoneal signs. Absent: distended, firm, guarding, tenderness - Rectal Rectal exam: Present: deferred - Extremities Exam Extremities exam: Present: warm - Neurological Exam Neurological exam: Present: no focal deficits - Psychiatric Psychiatric exam: Present: normal affect, normal mood - Skin Skin exam: Present: dry, intact, normal color, warm Results - Labs CBC & Chem 7: 08/02/16 05:55 08/02/16 05:55 Labs: Last Result Calcium 8.5 mg/dL (8.6-10.8) L 08/02/16 05:55 Troponin I 0.02 ng/mL (0-0.03) 07/31/16 04:49 Entire Visit Hgb 8.1 g/dL (12.9-16.9) L 08/02/16 05:55 Hct 26.4 % (37.5-50.1) L 08/02/16 05:55 PT 14.5 Seconds (9.4-12.1) H 07/30/16 18:38 Total Bilirubin 0.8 mg/dL (0.2-1.2) 07/31/16 04:49 AST 13 Units/L (5-34) 07/31/16 04:49 ALT 6 Units/L (0-55) 07/31/16 04:49 - ABG ABG results: ABG ABG pH 7.28 pH Units (7.32-7.45) L 07/31/16 08:25 ABG pCO2 59 mmHg (35-45) H 07/31/16 08:25 ABG pO2 81 mmHg (85-104) L 07/31/16 08:25 ABG O2 Saturation 94 % (95-98) L 07/31/16 08:25 PT/INR, D-dimer PT 14.5 Seconds (9.4-12.1) H 07/30/16 18:38 Consult Discharge Plan - Plan Referrals: rTavis Brasher Jr, MD [Primary Care Provider] - 08/10/16 1:25 pm <Elle Turner - Last Filed: 08/02/16 18:48> Date of Encounter: 08/02/16 Time of Encounter: 18:30 - Time Spent With Patient Total time spent is greater than 50% in coordination of care (as documented) at patient's floor/unit and/or counseling patient: GI History of Present Illness - Data of Consult Requesting Physician: Ambrocio Ramírez DO - Consult Narrative History of present illness: Mr. Vera is a 71 year old male - Constitutional Vitals: Temp Pulse Resp BP Pulse Ox 98.2 F 67 16 118/61 94 08/02/16 15:45 08/02/16 15:45 08/02/16 15:45 08/02/16 15:45 08/02/16 15:45 Results - Labs CBC & Chem 7: 08/02/16 05:55 08/02/16 05:55 Labs: Last Result Calcium 8.5 mg/dL (8.6-10.8) L 08/02/16 05:55 Troponin I 0.02 ng/mL (0-0.03) 07/31/16 04:49 Entire Visit Hgb 8.1 g/dL (12.9-16.9) L 08/02/16 05:55 Hct 26.4 % (37.5-50.1) L 08/02/16 05:55 PT 14.5 Seconds (9.4-12.1) H 07/30/16 18:38 Total Bilirubin 0.8 mg/dL (0.2-1.2) 07/31/16 04:49 AST 13 Units/L (5-34) 07/31/16 04:49 ALT 6 Units/L (0-55) 07/31/16 04:49 - ABG ABG results: ABG ABG pH 7.28 pH Units (7.32-7.45) L 07/31/16 08:25 ABG pCO2 59 mmHg (35-45) H 07/31/16 08:25 ABG pO2 81 mmHg (85-104) L 07/31/16 08:25 ABG O2 Saturation 94 % (95-98) L 07/31/16 08:25 PT/INR, D-dimer PT 14.5 Seconds (9.4-12.1) H 07/30/16 18:38 - Attending Attestation I examined this patient and my medical decision-making was reviewed with the C[employer]ESS[employer]OURER/PA/Advanced Practice Nurse/Resident Physician. I agree with the documented findings, disposition and treatment plan as described except to the extent set forth below.
[2016-08-02] MEDS ORDERED: SODIUM CHLORIDE/NAHCO3/KCL/PEG 4,000 ML SOLN.RECON PO ONE (17:00)
[2016-08-02] MEDS ORDERED: Polyethylene Glycol 3350 255 GM POWDER PO ONE (18:04)
[2016-08-02] MEDS: Insulin DETEMIR 100 UNIT/ML X5UNITS SQ SCH (21:31)
[2016-08-03] MEDS: *HR* Heparin 5,000 UNIT/ML VIAL SQ SCH (01:53)
[2016-08-03] MEDS: Ipratropium/Albuterol Neb 3 ML IH SCH ×3 (04:03→16:10)
[2016-08-03 06:48] LABS: Hematocrit 23.8 % (37.5-50.1); Hemoglobin 7.3 g/dL (12.9-16.9); Mean Corpuscular HGB Conc 30.7 g/dL (31.6-35.5); Mean Corpuscular Hemoglobin 27.7 pg (28.0-33.3); Mean Corpuscular Volume 90.2 fL (83.0-100.0); Platelet Count 151 K/mcL (140-400); Red Blood Count 2.64 M/mcL (4.19-5.50); Red Cell Distribution Width 15.4 % (11.5-14.5)
[2016-08-03 06:57] LABS: Calcium 8.3 mg/dL (8.6-10.8); Potassium 3.8 mEq/L (3.5-4.5)
[2016-08-03] MEDS: Insulin LISPRO 300 UNITS/3 ML VIAL SQ SCH ×4 (08:18→20:17)
[2016-08-03] MEDS: Pantoprazole 40 MG VIAL IVP SCH (10:13)
[2016-08-03] MEDS: Ondansetron 4 MG/2 ML VIAL IVP PRN (10:18)
[2016-08-03] MEDS: Furosemide 40 MG/4 ML VIAL IVP SCH ×2 (10:20→20:15)
[2016-08-03] MEDS: hydrALAZINE 25 MG TABLET PO SCH ×3 (12:03→20:16)
[2016-08-03] MEDS: amLODIPine 5 MG TABLET PO SCH (12:24)
[2016-08-03] MEDS: Pregabalin 50 MG CAPSULE PO SCH ×2 (12:24→20:15)
[2016-08-03] MEDS ORDERED: 0.9 % Sodium Chloride 250 ML ONE (14:14)
--- NOTE | 2016-08-03 14:24 | Internal Med Progress Note ---
Date of Encounter: 08/03/16 Time of Encounter: 09:00 - Assessment and plan (1) Acute exacerbation of CHF (congestive heart failure) Current Visit: No Status: Acute Assessment and plan: patient has shortness of breath, elevated BNP, chest x-ray shows pulmonary vascular congestion, consider CHF exacerbation. - We will continue Lasix IV,,however will cautious with dose increase b/o CKD. - Strict I/O - BiPAP and oxygen supportive treatment. Qualifiers: Congestive heart failure type: combined Qualified Code(s): I50.43 - Acute on chronic combined systolic (congestive) and diastolic (congestive) heart failure (2) Diabetes mellitus Current Visit: Yes Status: Chronic Assessment and plan: continue basal and sliding scale insulin. 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 Right now on pacemaker rhythm. patient said he is on Eliquis 2.5 mg twice a day at home. Hold Eliquis now because of low hgb. may resume after scopes. Qualifiers: Atrial fibrillation type: chronic Qualified Code(s): I48.2 - Chronic atrial fibrillation (5) Anemia Current Visit: No Status: Chronic Assessment and plan: etiology is undetermined. MCV 90s. will follow-up anemia workup and results of scopes. Qualifiers: Anemia type: unspecified type Qualified Code(s): D64.9 - Anemia, unspecified (6) Hypertension Current Visit: No Status: Chronic Assessment and plan: continue home medications Qualifiers: Hypertension type: essential hypertension Qualified Code(s): I10 - Essential (primary) hypertension (7) Chronic kidney disease, stage 4 (severe) Current Visit: No Status: Chronic Assessment and plan: creatinine is at about his baseline. Avoid nephrotoxic medications. (8) COPD (chronic obstructive pulmonary disease) Current Visit: No Status: Chronic Assessment and plan: stable, continue home medications. Qualifiers: COPD type: unspecified COPD Qualified Code(s): J44.9 - Chronic obstructive pulmonary disease, unspecified - Time Spent With Patient 25 - 35 minutes - Subjective Interval history: patient is a 71-year-old male admitted for shortness of breath, diagnosed as CHF exacerbation. Past history is significant for A. fib, ardiomyopathy, CHF COPD, CVA, diabetes, hypertension, CKD. Patient was seen and examined. he said he feels nauseous,still shortness of breath. His kidney function limited the diuretic use. Patient has low hemoglobin, plan for scopes but postponed because pt cannot tolerate colon preparation. we will give 1 unit PRBC transfusion. Continue Lasix IV. - Constitutional Vitals: Temp Pulse Resp BP Pulse Ox 98.5 F 72 14 116/63 95 08/03/16 11:05 08/03/16 12:10 08/03/16 12:10 08/03/16 12:10 08/03/16 12:10 General appearance: Present: cooperative, mild distress, A&O X 3, pleasant, obese (Severely obese), answers questions appropriately - Head Head exam: Present: atraumatic, normocephalic - Eye Eye exam: Present: PERRL, conjuntiva pink, sclera anicteric Pupils: Present: PERRL - Neck Neck exam general surgery: Present: supple, trachea midline. Absent: lymphadenopathy - Respiratory Respiratory exam: Present: CTAB. Absent: accessory muscle use, rales, rhonchi, wheezes - Cardiovascular Cardiovascular exam: Present: RRR, +S1, +S2. Absent: diastolic murmur, gallop, rubs, systolic murmur - GI/Abdominal GI/Abdominal exam: Present: normal bowel sounds, soft, no peritoneal signs. Absent: distended, tenderness - Extremities Exam Extremities exam: Present: warm, radial pulses palpable and symetrical. Absent : calf tenderness, cyanotic, pedal edema - Neurological Exam Neurological exam: Present: CN II-XII intact, oriented X3, no focal deficits. Absent: pronater drift, facial droop, speech deficit - Skin Skin exam: Present: dry, intact Internal Medicine: Result - Labs CBC & Chem 7: 08/03/16 06:21 08/03/16 06:21 Labs: Short CBC 08/03/16 Range/Units 06:21 WBC 3.9 L (4.3-11.1) K/mcL Hgb 7.3 L (12.9-16.9) g/dL Hct 23.8 L (37.5-50.1) % Plt Count 151 (140-400) K/mcL BMP 08/03/16 06:21 Sodium 142 Potassium 3.8 Chloride 108 Carbon Dioxide 24 BUN 40 H Creatinine 2.71 H Glucose 104 H Calcium 8.3 L - ABG Interpretation ABG results: ABG ABG pH 7.28 pH Units (7.32-7.45) L 07/31/16 08:25 ABG pCO2 59 mmHg (35-45) H 07/31/16 08:25 ABG pO2 81 mmHg (85-104) L 07/31/16 08:25 ABG O2 Saturation 94 % (95-98) L 07/31/16 08:25 PT/INR, D-dimer PT 14.5 Seconds (9.4-12.1) H 07/30/16 18:38 Consult Discharge Plan - Plan Referrals: Travis Brasher Jr, MD [Primary Care Provider] - 08/10/16 1:25 pm
[2016-08-03] MEDS: *HR* HYDROcodone/Acet 5/325 mg TABLET PO PRN (20:16)
[2016-08-03] MEDS: Insulin DETEMIR 100 UNIT/ML X5UNITS SQ SCH (20:17)
[2016-08-04] MEDS: Ipratropium/Albuterol Neb 3 ML IH SCH ×3 (01:26→19:45)
[2016-08-04] MEDS: Pregabalin 50 MG CAPSULE PO SCH ×2 (09:20→22:45)
[2016-08-04] MEDS: amLODIPine 5 MG TABLET PO SCH (09:20)
[2016-08-04] MEDS: *HR* OxyCODONE/APAP 5/325 TABLET PO PRN ×2 (09:21→18:54)
[2016-08-04] MEDS: Furosemide 40 MG/4 ML VIAL IVP SCH ×2 (09:21→22:45)
[2016-08-04] MEDS: hydrALAZINE 25 MG TABLET PO SCH ×3 (09:21→22:45)
[2016-08-04] MEDS: Pantoprazole 40 MG VIAL IVP SCH (09:21)
[2016-08-04] MEDS: Ondansetron 4 MG/2 ML VIAL IVP PRN (09:24)
[2016-08-04] MEDS: Insulin LISPRO 300 UNITS/3 ML VIAL SQ SCH ×4 (09:42→22:55)
[2016-08-04 09:55] LABS: Basophils % 0.2 %; Eosinophils # 0.1 K/mcL (0.0-0.6); Eosinophils % 2.1 %; Hematocrit 27.5 % (37.5-50.1); Hemoglobin 8.7 g/dL (12.9-16.9); Immature Granulocytes % 0.4 % (0-4); Lymphocytes # 1.3 K/mcL (0.6-4.6); Lymphocytes % 22.2 %; Mean Corpuscular HGB Conc 31.6 g/dL (31.6-35.5); Mean Corpuscular Hemoglobin 28.2 pg (28.0-33.3); Mean Corpuscular Volume 89.3 fL (83.0-100.0); Mean Platelet Volume 10.7 fL (9.4-12.4); Monocytes # 0.6 K/mcL (0.0-1.3); Monocytes % 9.7 %; Neutrophils # 3.7 K/mcL (1.6-8.9); Platelet Count 153 K/mcL (140-400); Red Blood Count 3.08 M/mcL (4.19-5.50); Red Cell Distribution Width 15.7 % (11.5-14.5); Segmented Neutrophils % 65.4 %
[2016-08-04 10:09] LABS: Potassium 3.7 mEq/L (3.5-4.5)
[2016-08-04 10:18] LABS: % Iron Saturation 13 % (20-55); Iron 33 mcg/dL (65-175); Transferrin 185 mg/dL (174-364)
[2016-08-04 10:50] LABS: Ferritin 101 ng/ml (22-275)
[2016-08-04 11:06] LABS: Folate 8.5 ng/mL (7.0-31.4)
[2016-08-04 11:08] LABS: Vitamin B12 > 2000 pg/mL (213-816)
--- NOTE | 2016-08-04 12:59 | Internal Med Progress Note ---
Date of Encounter: 08/04/16 Time of Encounter: 10:00 - Assessment and plan (1) Acute exacerbation of CHF (congestive heart failure) Current Visit: No Status: Acute Assessment and plan: patient has shortness of breath, elevated BNP, chest x-ray shows pulmonary vascular congestion, consider CHF exacerbation. - We will continue Lasix IV,,however will cautious with dose increase b/o CKD. - Strict I/O - BiPAP and oxygen supportive treatment. - SOB improved after treatment. Qualifiers: Congestive heart failure type: combined Qualified Code(s): I50.43 - Acute on chronic combined systolic (congestive) and diastolic (congestive) heart failure (2) Diabetes mellitus Current Visit: Yes Status: Chronic Assessment and plan: continue basal and sliding scale insulin. 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 Right now on pacemaker rhythm. patient said he is on Eliquis 2.5 mg twice a day at home. Hold Eliquis now because of low hgb. may resume after scopes. Qualifiers: Atrial fibrillation type: chronic Qualified Code(s): I48.2 - Chronic atrial fibrillation (5) Anemia Current Visit: No Status: Chronic Assessment and plan: etiology is undetermined. MCV 90s. 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 Will follow-up results of scopes if pt can tolerate. Qualifiers: Anemia type: unspecified type Qualified Code(s): D64.9 - Anemia, unspecified (6) Hypertension Current Visit: No Status: Chronic Assessment and plan: continue home medications Qualifiers: Hypertension type: essential hypertension Qualified Code(s): I10 - Essential (primary) hypertension (7) Chronic kidney disease, stage 4 (severe) Current Visit: No Status: Chronic Assessment and plan: creatinine is at about his baseline. Avoid nephrotoxic medications. (8) COPD (chronic obstructive pulmonary disease) Current Visit: No Status: Chronic Assessment and plan: stable, continue home medications. Qualifiers: COPD type: unspecified COPD Qualified Code(s): J44.9 - Chronic obstructive pulmonary disease, unspecified - Time Spent With Patient 25 - 35 minutes - Subjective Interval history: patient is a 71-year-old male admitted for shortness of breath, diagnosed as CHF exacerbation. Past history is significant for A. fib, ardiomyopathy, CHF COPD, CVA, diabetes, hypertension, CKD. Patient was seen and examined. SOB has improved after diuretics use. However, pt feels sick, has nausea and vomitted once last night. C/O whole body weak and pain, mainly low back and b/l leg pain. Hgb improved after transfusion. CT abd done suggested UTI?, will check UA. Will also check flu test to r/o flu viral infection. Continue treatment for CHF exacerbation. - Constitutional Vitals: Temp Pulse Resp BP Pulse Ox 98.9 F 59 16 112/53 96 08/04/16 11:22 08/04/16 11:22 08/04/16 11:22 08/04/16 11:22 08/04/16 11:22 General appearance: Present: cooperative, mild distress, A&O X 3, obese ( Severely obese), answers questions appropriately - Head Head exam: Present: atraumatic, normocephalic - Eye Eye exam: Present: PERRL, conjuntiva pink, sclera anicteric Pupils: Present: PERRL - Neck Neck exam general surgery: Present: supple, trachea midline. Absent: lymphadenopathy - Respiratory Respiratory exam: Present: CTAB. Absent: accessory muscle use, rales, rhonchi, wheezes - Cardiovascular Cardiovascular exam: Present: RRR, +S1, +S2. Absent: diastolic murmur, gallop, rubs, systolic murmur - GI/Abdominal GI/Abdominal exam: Present: normal bowel sounds, soft, tenderness (mild tenderness w/o rebound or guarding), no peritoneal signs. Absent: distended - Extremities Exam Extremities exam: Present: warm, radial pulses palpable and symetrical. Absent : calf tenderness, cyanotic, pedal edema - Neurological Exam Neurological exam: Present: CN II-XII intact, oriented X3, no focal deficits. Absent: pronater drift, facial droop, speech deficit - Skin Skin exam: Present: dry, intact Internal Medicine: Result - Labs CBC & Chem 7: 08/04/16 09:08 08/04/16 09:08 Labs: Short CBC 08/04/16 Range/Units 09:08 WBC 5.7 (4.3-11.1) K/mcL Hgb 8.7 L (12.9-16.9) g/dL Hct 27.5 L (37.5-50.1) % Plt Count 153 (140-400) K/mcL Neutrophils # 3.7 (1.6-8.9) K/mcL BMP 08/04/16 09:08 Sodium 142 Potassium 3.7 Chloride 105 Carbon Dioxide 28 BUN 36 H Creatinine 2.49 H Glucose 83 Calcium 9.0 - ABG Interpretation ABG results: ABG ABG pH 7.28 pH Units (7.32-7.45) L 07/31/16 08:25 ABG pCO2 59 mmHg (35-45) H 07/31/16 08:25 ABG pO2 81 mmHg (85-104) L 07/31/16 08:25 ABG O2 Saturation 94 % (95-98) L 07/31/16 08:25 PT/INR, D-dimer PT 14.5 Seconds (9.4-12.1) H 07/30/16 18:38 - Impressions Impressions Abdomen/Pelvis CT 08/04/16 10:45 IMPRESSION: There is mild wall thickening of the bladder which is decompressed secondary to an underlying [place] catheter. There is also mild haziness seen surrounding the anterior and superior aspect of the bladder. Correlate with urinalysis to assess for possible urinary tract infection. The apparent wall thickening may be related to underdistention. Stable appearing bilateral renal cystic changes. Bilateral nonobstructive nephrolithiasis is also identified. No appendicitis or evidence of diverticulitis. Small bilateral pleural effusions and bibasilar atelectasis. Mild cardiomegaly. Multilevel degenerative changes are seen within the lumbar spine, without acute osseous fracture. There is a disc osteophyte complex at L1-L2 causing moderate canal stenosis. There is also advanced degenerative disc disease at L4-L5, with moderate to severe appearing bilateral foraminal stenosis. D/ / Brain Garrett MD / Brain Garrett MD Interpreting Provider: Brain Garrett MD Lumbar Spine CT 08/04/16 10:45 IMPRESSION: No substantial interval change from 01/28/2016. No evidence of compression deformity or subluxation. At least moderate spinal canal stenosis at the L1-2. There is moderate-severe multilevel spondylosis. D/ / Sky Capellan MD / Sky Capellan MD Interpreting Provider: Sky Capellan MD - VTE Documentation of Mechanical Device: Intermittent pneumatic compression device Consult Discharge Plan - Plan Referrals: Travis Brasher Jr, MD [Primary Care Provider] - 08/10/16 1:25 pm
[2016-08-04 16:34] LABS: Bilirubin,Urine Negative (Negative); Blood,Urine Large (Negative); Clarity,Urine Cloudy (Clear); Color,Urine Yellow (Yellow); Glucose,Urine (UA) Normal (Normal); Ketones,Urine Negative (Negative); Leukocyte Esterase,Urine Large (Negative); Nitrite,Urine Positive (Negative); PH,Urine 5.5 pH Units (5.0-8.0); Protein,Urine 30 mg/dL (Neg-Trace); Specific Gravity,Urine 1.012 (1.010-1.025); Urobilinogen,Urine Normal (Normal)
[2016-08-04 16:37] LABS: Bacteria,Urine Many per hpf (None-Few); RBC,Urine 50-100 per hpf (0-3); Squamous Epithelial Cell,Urine Many per lpf (None-Few); WBC,Urine TNTC per hpf (0-3)
[2016-08-04] MEDS: *HR* Heparin 5,000 UNIT/ML VIAL SQ SCH (18:55)
[2016-08-04] MEDS ORDERED: Insulin DETEMIR 100 UNIT/ML X5UNITS SQ SCH (21:00)
[2016-08-05] MEDS: *HR* HYDROcodone/Acet 5/325 mg TABLET PO PRN (01:39)
[2016-08-05] MEDS: Ipratropium/Albuterol Neb 3 ML IH SCH ×3 (04:25→15:54)
[2016-08-05 05:43] LABS: Basophils % 0.4 %; Eosinophils # 0.1 K/mcL (0.0-0.6); Eosinophils % 2.3 %; Hematocrit 27.6 % (37.5-50.1); Hemoglobin 8.5 g/dL (12.9-16.9); Immature Granulocytes % 0.4 % (0-4); Lymphocytes # 1.5 K/mcL (0.6-4.6); Mean Corpuscular HGB Conc 30.8 g/dL (31.6-35.5); Mean Corpuscular Hemoglobin 27.6 pg (28.0-33.3); Mean Corpuscular Volume 89.6 fL (83.0-100.0); Mean Platelet Volume 10.6 fL (9.4-12.4); Monocytes # 0.6 K/mcL (0.0-1.3); Monocytes % 10.5 %; Platelet Count 151 K/mcL (140-400); Red Blood Count 3.08 M/mcL (4.19-5.50); Red Cell Distribution Width 15.4 % (11.5-14.5); Segmented Neutrophils % 57.4 %
[2016-08-05 06:13] LABS: Albumin 2.7 g/dL (3.5-5.0); Albumin/Globulin Ratio 0.7 (1.1-2.2); Bilirubin,Total 1.5 mg/dL (0.2-1.2); Calcium 8.6 mg/dL (8.6-10.8); Globulin 3.9 g/dL (2.4-3.5); Potassium 3.7 mEq/L (3.5-4.5); Total Protein 6.6 g/dL (6.0-8.3)
[2016-08-05] MEDS: *HR* Heparin 5,000 UNIT/ML VIAL SQ SCH (06:36)
[2016-08-05] MEDS ORDERED: Furosemide Oral Soln 40 MG/4 ML UDC PO SCH (09:00)
[2016-08-05] MEDS: Insulin LISPRO 300 UNITS/3 ML VIAL SQ SCH ×3 (09:45→16:18)
[2016-08-05] MEDS: Pregabalin 50 MG CAPSULE PO SCH (09:50)
[2016-08-05] MEDS: amLODIPine 5 MG TABLET PO SCH (09:50)
[2016-08-05] MEDS: hydrALAZINE 25 MG TABLET PO SCH (09:50)
[2016-08-05] MEDS: Pantoprazole 40 MG VIAL IVP SCH (09:51)
--- NOTE | 2016-08-05 14:07 | Internal Med Progress Note ---
Date of Encounter: 08/05/16 Time of Encounter: 09:00 - Assessment and plan (1) Acute exacerbation of CHF (congestive heart failure) Current Visit: No Status: Acute Assessment and plan: patient has shortness of breath, elevated BNP, chest x-ray shows pulmonary vascular congestion, consider CHF exacerbation. - Improved after treatment, change to po lasix 40mg po daily. - Repeat CXR shows almost resolution of pulmonary vascular congestion. - Strict I/O - BiPAP and oxygen supportive treatment. - Echo in Mar shows EF 50%. Qualifiers: Congestive heart failure type: combined Qualified Code(s): I50.43 - Acute on chronic combined systolic (congestive) and diastolic (congestive) heart failure (2) Diabetes mellitus Current Visit: Yes Status: Chronic Assessment and plan: continue basal and sliding scale insulin. Qualifiers: Diabetes mellitus type: type 2 Diabetes mellitus complication status: with kidney complications Diabetes mellitus complication detail: with chronic kidney disease Diabetes mellitus truck terminal manager insulin use: with truck terminal manager use Chronic kidney disease stage: stage 4 (severe) Qualified Code(s): E11.22 - Type 2 diabetes mellitus with diabetic chronic kidney disease; N18.4 - Chronic kidney disease, stage 4 (severe); Z79.4 - long term care phlebotomist (current) use of insulin (3) DVT prophylaxis Current Visit: Yes Status: Acute Assessment and plan: EPCD, on eliquis (4) Atrial fibrillation Current Visit: No Status: Chronic Assessment and plan: Rate controlled. Right now on pacemaker rhythm. Resume Eliquis 2.5 mg BID. Qualifiers: Atrial fibrillation type: chronic Qualified Code(s): I48.2 - Chronic atrial fibrillation (5) Anemia Current Visit: No Status: Chronic Assessment and plan: etiology is undetermined. MCV 90s. 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 Since pt is sick now, D/W GI, will hold scopes at this point, may follow up as outpatient. H/H improved after transfusion. Qualifiers: Anemia type: unspecified type Qualified Code(s): D64.9 - Anemia, unspecified (6) Hypertension Current Visit: No Status: Chronic Assessment and plan: continue home medications Qualifiers: Hypertension type: essential hypertension Qualified Code(s): I10 - Essential (primary) hypertension (7) Chronic kidney disease, stage 4 (severe) Current Visit: No Status: Chronic Assessment and plan: creatinine is at about his baseline. Avoid nephrotoxic medications. (8) COPD (chronic obstructive pulmonary disease) Current Visit: No Status: Chronic Assessment and plan: stable, continue home medications. Qualifiers: COPD type: unspecified COPD Qualified Code(s): J44.9 - Chronic obstructive pulmonary disease, unspecified (9) Nausea & vomiting Current Visit: Yes Status: Acute Assessment and plan: Pt has chronic nausea/vomitting and need everyday high dose phenergan. Possibly uremic gastritis?. Will resume phenergan and cont supportive management. CT abd unremarkable. Qualifiers: Vomiting type: unspecified Vomiting Intractability: non-intractable Qualified Code(s): R11.2 - Nausea with vomiting, unspecified (10) UTI (urinary tract infection) Current Visit: Yes Status: Acute Assessment and plan: Pt was found UTI, CAUTI? will place pt on rocephin 1000mg iv qd. F/U urine culture. Consider remove Folay if pt can urinate by himself. Qualifiers: Urinary tract infection type: acute cystitis Hematuria presence: without hematuria Qualified Code(s): N30.00 - Acute cystitis without hematuria - Time Spent With Patient 25 - 35 minutes - Subjective Interval history: patient is a 71-year-old male admitted for shortness of breath, diagnosed as CHF exacerbation. Past history is significant for A. fib, cardiomyopathy, CHF COPD, CVA, diabetes, hypertension, CKD. Patient was seen and examined. SOB has improved after diuretics use. Pt still feels sick, has nausea and vomiting. Further hx obtained from pt's daughter. Pt' s daughter told me pt take Phenergan 25mg po every night, if stopped he will be sick like this and usually need more dose of phenergan to control the nausea and vomitting (Uremic gastritis?). Pt takes Phenergan for years. Will place back phenergan at 25mg po q8hr PRN. Encourage pt to eat and add ensure supplement. Repeated CXR shows near clear up of pulmonary vascular congestion. Will change lasix to po. D/W GI, since pt is sick now and H/H stable at this point, will hold scopes now. Pt may f/u as outpatient as he is more stablized. Resume Eliquis 2.5 mg bid as procedure is on hold. Closely f/u H/H. Pt's and family request to transfer pt to [facility] because they are more familiar with pt. [facility] contacted. Waiting for further response. Pt has UTI, on rocephin, f/u urine culture. - Constitutional Vitals: Temp Pulse Resp BP Pulse Ox 98.4 F 59 18 126/60 96 08/05/16 11:43 08/05/16 11:43 08/05/16 11:43 08/05/16 11:43 08/05/16 11:43 General appearance: Present: cooperative, A&O X 3, no acute distress, obese ( Severely obese), answers questions appropriately - Head Head exam: Present: atraumatic, normocephalic - Eye Eye exam: Present: PERRL, conjuntiva pink, sclera anicteric Pupils: Present: PERRL - Neck Neck exam general surgery: Present: supple, trachea midline. Absent: lymphadenopathy - Respiratory Respiratory exam: Present: CTAB. Absent: accessory muscle use, rales, rhonchi, wheezes - Cardiovascular Cardiovascular exam: Present: RRR, +S1, +S2. Absent: diastolic murmur, gallop, rubs, systolic murmur - GI/Abdominal GI/Abdominal exam: Present: normal bowel sounds, soft, no peritoneal signs. Absent: distended, tenderness - Extremities Exam Extremities exam: Present: warm, radial pulses palpable and symetrical. Absent : calf tenderness, cyanotic, pedal edema - Neurological Exam Neurological exam: Present: CN II-XII intact, oriented X3, no focal deficits. Absent: pronater drift, facial droop, speech deficit - Skin Skin exam: Present: dry, intact Internal Medicine: Result - Labs CBC & Chem 7: 08/05/16 04:40 08/05/16 04:40 Labs: Short CBC 08/05/16 Range/Units 04:40 WBC 5.3 (4.3-11.1) K/mcL Hgb 8.5 L (12.9-16.9) g/dL Hct 27.6 L (37.5-50.1) % Plt Count 151 (140-400) K/mcL Neutrophils # 3.0 (1.6-8.9) K/mcL BMP 08/05/16 04:40 Sodium 142 Potassium 3.7 Chloride 104 Carbon Dioxide 25 BUN 41 H Creatinine 2.89 H Glucose 77 Calcium 8.6 Liver Function 08/05/16 Range/Units 04:40 Total Bilirubin 1.5 H (0.2-1.2) mg/dL AST 15 (5-34) Units/L ALT 7 (0-55) Units/L Alkaline Phosphatase 84 (38-126) Units/L Albumin 2.7 L (3.5-5.0) g/dL Urine 08/04/16 Range/Units 16:19 Urine Color Yellow (Yellow) Urine Clarity Cloudy A (Clear) Urine pH 5.5 (5.0-8.0) pH Units Ur Specific [place] 1.012 (1.010-1.025) Urine Protein 30 H (Neg-Trace) mg/dL Urine Glucose (UA) Normal (Normal) mg/dL - ABG Interpretation ABG results: ABG ABG pH 7.28 pH Units (7.32-7.45) L 07/31/16 08:25 ABG pCO2 59 mmHg (35-45) H 07/31/16 08:25 ABG pO2 81 mmHg (85-104) L 07/31/16 08:25 ABG O2 Saturation 94 % (95-98) L 07/31/16 08:25 PT/INR, D-dimer PT 14.5 Seconds (9.4-12.1) H 07/30/16 18:38 - Impressions Impressions Chest X-Ray 08/05/16 11:28 IMPRESSION: 1. Near resolution of congestive heart failure. 2. Left base atelectasis with small effusion. 3. Cardiomegaly. D/ / 08/05/2016 13:11:59 Kelsie Duarte MD / [email or web address] Interpreting Provider: Kelsie Duarte MD - VTE Documentation of Mechanical Device: Intermittent pneumatic compression device Consult Discharge Plan - Plan Referrals: Travis Brasher Jr, MD [Primary Care Provider] - 08/10/16 1:25 pm
[2016-08-05] MEDS ORDERED: Sennosides/Docusate Sodium TABLET PO PRN (14:10)
[2016-08-05 15:46] VITALS: BP 110/53
--- NOTE | 2016-08-05 17:11 | Discharge Summary ---
Date of Encounter: 08/05/16 Time of Encounter: 16:30 - Discharge Diagnosis (1) Acute exacerbation of CHF (congestive heart failure) Priority: Primary Status: Acute Qualifiers: Congestive heart failure type: combined Qualified Code(s): I50.43 - Acute on chronic combined systolic (congestive) and diastolic (congestive) heart failure (2) Diabetes mellitus Priority: Secondary Status: Chronic Qualifiers: Diabetes mellitus type: type 2 Diabetes mellitus complication status: with kidney complications Diabetes mellitus complication detail: with chronic kidney disease Diabetes mellitus ad terminal makeup operator insulin use: with ad terminal makeup operator use Chronic kidney disease stage: stage 4 (severe) Qualified Code(s): E11.22 - Type 2 diabetes mellitus with diabetic chronic kidney disease; N18.4 - Chronic kidney disease, stage 4 (severe); Z79.4 - ad terminal makeup operator (current) use of insulin (3) DVT prophylaxis Priority: Secondary Status: Acute (4) Atrial fibrillation Priority: Secondary Status: Chronic Qualifiers: Atrial fibrillation type: chronic Qualified Code(s): I48.2 - Chronic atrial fibrillation (5) Anemia Priority: Primary Status: Chronic Qualifiers: Anemia type: unspecified type Qualified Code(s): D64.9 - Anemia, unspecified (6) Hypertension Priority: Secondary Status: Chronic Qualifiers: Hypertension type: essential hypertension Qualified Code(s): I10 - Essential (primary) hypertension (7) Chronic kidney disease, stage 4 (severe) Priority: Secondary Status: Chronic (8) COPD (chronic obstructive pulmonary disease) Priority: Secondary Status: Chronic Qualifiers: COPD type: unspecified COPD Qualified Code(s): J44.9 - Chronic obstructive pulmonary disease, unspecified (9) Nausea & vomiting Priority: Primary Status: Acute Qualifiers: Vomiting type: unspecified Vomiting Intractability: non-intractable Qualified Code(s): R11.2 - Nausea with vomiting, unspecified (10) UTI (urinary tract infection) Priority: Primary Status: Acute Qualifiers: Urinary tract infection type: acute cystitis Hematuria presence: without hematuria Qualified Code(s): N30.00 - Acute cystitis without hematuria - Discharge Medications Home Medications: Simvastatin [Zocor] 40 mg PO DAILY 05/09/15 [History] Temazepam [Restoril] 30 mg PO HS 05/09/15 [History] Apixaban [Eliquis] 2.5 mg PO BID 12/31/15 [History] Carvedilol [Coreg] 25 mg PO BID 12/31/15 [History] Tamsulosin [Flomax] 0.4 mg PO DAILY #30 capsule 01/07/16 [Rx] hydrALAZINE [HydrALAZINE] 75 mg PO TID #270 tablet 01/07/16 [Rx] Acetaminophen [Tylenol] 975 mg PO TID PRN MDD 3000MG 03/26/16 [History] Cholecalciferol (D-3) [Vitamin D] 1,000 unit PO DAILY 03/26/16 [History] amLODIPine [Norvasc] 10 mg PO DAILY #30 tablet 04/05/16 [Rx] Albuterol Sulfate [Proventil Hfa] 2 puff IH Q4H PRN 04/27/16 [History] Budesonide/Formoterol 160/4.5 [Symbicort 160/4.5] 2 puff IH BIDR 04/27/16 [ History] Ipratropium/Albuterol Neb [Duoneb] 3 ml IH QID PRN 04/27/16 [History] Tiotropium [Spiriva] 18 mcg IH DAILY 05/20/16 [History] HYDROcodone/Acet 5/325 mg [[place] 5-325 mg] 1 tab PO DAILY PRN 07/30/16 [History] Insulin ASPART [Novolog Flexpen] 2 - 12 unit SQ QID PRN 07/31/16 [History] Sennosides/Docusate Sodium [Senna-S Tablet] 2 tab PO HS PRN 07/31/16 [History] Sodium Chloride [[place]] 2 spray NS BID PRN 07/31/16 [History] Furosemide Oral Soln [Lasix] 40 mg PO DAILY udc 08/05/16 [Rx] Insulin DETEMIR [Levemir] 8 unit SQ HS m2pniza 08/05/16 [Rx] Pregabalin [Lyrica] 50 mg PO BID capsule 08/05/16 [Rx] Promethazine [Phenergan] 25 mg PO Q8HR PRN #0 tablet 08/05/16 [Rx] Allergies/Adverse Reactions: Allergies aspirin Allergy (Verified 07/31/16 10:56) Hives diphenhydramine [From Benadryl] Allergy (Verified 07/31/16 10:56) Swelling of Lip/Tongue/Throat Tetracyclines Allergy (Verified 07/31/16 10:56) Hives Procedures/tests Complete & Pending: Procedures Performed prior 72 hours Category Date Time Status CT abd pelvis wo no iv no oral [CT] Stat Cat Scan 08/04/16 10:[address] lumbar spine wo con [CT] Stat Cat Scan 08/04/16 10:45 Completed - Notes to Outpatient Provider 1. Pt's home med has been modified during hospitalization. - Add lasix 40mg po daily (pt was treated with lasix 40mg iv BID on admission b/o CHF exacerbation) - Pt takes phenergan 25mg po HS at home, now placed as phenergan 25mg po q8h PRN because pt usually need higher dose if he feels sick (per pt's daughter). - Lyrica dose has been decreased from 200mg po bid to 50mg po bid because of CKD. - His home Vit B12 has been discontinued because lab shows Vit B12 level > 2000 - His insulin dose has been decreased b/o poor uptake, now on insulin detemir 8 units HS and sliding scale. 2. Pt had BiPAP qualification test in our hospital and he qualified home BiPAP. Information available from [address] station. 3. Pt's urine culture final result is pending. Date of admission: 07/30/16 21:51 Primary care physician: Travis Brasher Jr, MD Consults: 08/01/16 14:02 Consult to Gastroenterology [CONS] Routine Consulting Provider: Gastroenternatasha Toribio Reason for Consult: Hb 7.9 with confusion, on blood thinner, CKD III Call Completed: Yes 08/01/16 14:05 Consult to Physical Therapy [CONS] Routine Comment: Evaluate, develop and implement POC Reason for Consult: [facility] 08/01/16 14:06 Consult to Occupational Therapy [CONS] Routine Comment: Evaluate, develop and implement POC Reason for Consult: [facility] Discharging clinician: Crystal Nguyễn Anticipated date of discharge: 08/05/16 - Patient Status Disposition: Transfer Other Condition: Fair Overall status at discharge: patient is not back to baseline - Discharge Instructions Follow Up With: Travis Brasher Jr, MD [Primary Care Provider] - 08/10/16 1:25 pm - Diet and Activity Activity: as per physical therapy Diet: diabetic diet, low salt diet Interval History: Mr. Vera is a 71 year old male presents with chief complaint of shortness of breath and chest pain that began two days ago. Patient also reports cough with minimal sputum production. Mr. Vera states that he does not use home O2 because he cannot complete the 6-minute walking test to qualify. When order taker arrived to the patient, his SpO2 was in the 80's. SpO2 improved significantly with O2 via face mask according to the patient's daughter. Patient denies any recent illness, but his daughter reports that he has a history of pneumonia in February, March, and April of 2016. Patient also reports dizziness, orthopnea , and history of falls at home. Patient currently has walker and wheel chair at home, but only reports using walker. Mr. Vera has a history of atrial fibrillation, cardiomyopathy, CHF, COPD, CVA, Diabetes, hyperlipidemia, hypertension, myocardial infarction, and pacemaker placement. Patient is a former smoker who smoked 2-3 cigars daily and reports quitting a year ago. Patient has stage IV CKD with BUN of 41, creatinine of 2.75 and GFR of 23 on initial lab draw. Patient's Hgb is 8.5 and Hct is 28.1 which is not far from his baseline when compared to his past admissions. Patient is high risk for cardiologic and respiratory decline based on his diagnosis of acute exacerbation of CHF and acute on chronic exacerbation of COPD which may require intubation or mechanical ventilation. Mr. Vera is to be placed on continuous cardiac telemetry, supplemental O2 with titration via face mask, BiPap PRN and HS, DuoNebs Q4 PRN, Lasix IVP 40 mg BID, sputum culture based on his history of pneumonia, and falls precautions/bed rest/[id number] only status based on his history of dizziness and falls. Patient also reports urinary incontinence so [place] catheter placed in ED. SW consult ordered to assess home needs and pharmacy education consult ordered to assess patient's non -compliance with medications. Patient is to be monitored closely for signs of respiratory failure. Hospital course: Mr. Vera is a 71 year old male admitted as CHF exacerbation. He was treated with iv Lasix and his SOB has improved. Pt has good urine output and negative fluid balance. Repeated CXR shows near resolution of CHF. However, pt is generally weak and has nausea and vomiting. Per family, Pt has chronic nausea vomiting and was on phenergan 25mg po daily at bed time, which is not started upon admission. Pt also was found UTI and rocephin 1000mg iv qd started. Urine culture shows Gram negative brook, final result pending. Pt has anemia, which is chronic, H/H improved after 1 unit of PRBC transfusion and stable at 8.5. Pt and family request to be transferred to [facility] for continuous management, [facility] was called and accepted pt. I saw and examined pt today, he is still weak, poor uptake, nausea but no vomiting. Phenergan restarted as 25mg q8h PRN (family said usually he needs high dose if started feeling sick). Continue rocephin for UTI. Vitals are stable , I talked with [facility] phasician on phone and pt was accepted by [facility]. Pt is stable to transfer to [facility] for further management. - Time Spent with Patient Total time spent providing and/or coordinating discharge services: 40 min Greater than 30 minutes - Constitutional Vitals: Temp Pulse Resp BP Pulse Ox 98.5 F 63 16 110/53 94 08/05/16 15:41 08/05/16 15:41 08/05/16 15:41 08/05/16 15:41 08/05/16 15:41 General appearance: Present: cooperative, A&O X 3, no acute distress, obese ( Severely obese), answers questions appropriately - Head Head exam: Present: atraumatic, normocephalic - Eye Eye exam: Present: PERRL, conjuntiva pink, sclera anicteric Pupils: Present: PERRL - Neck Neck exam general surgery: Present: supple, trachea midline. Absent: lymphadenopathy - Respiratory Respiratory exam: Present: CTAB. Absent: accessory muscle use, rales, rhonchi, wheezes - Cardiovascular Cardiovascular exam: Present: RRR, +S1, +S2. Absent: diastolic murmur, gallop, rubs, systolic murmur - GI/Abdominal GI/Abdominal exam: Present: distended, normal bowel sounds, soft, no peritoneal signs. Absent: tenderness - Extremities Exam Extremities exam: Present: warm, radial pulses palpable and symetrical. Absent : calf tenderness, cyanotic, pedal edema - Neurological Exam Neurological exam: Present: CN II-XII intact, oriented X3, no focal deficits. Absent: pronater drift, facial droop, speech deficit - Skin Skin exam: Present: dry, intact - VTE Documentation of Mechanical Device: Intermittent pneumatic compression device
[2016-08-05] MEDS ORDERED: APIXABAN 5 MG TABLET PO SCH (21:00)
[2016-08-05] MEDS ORDERED: Budesonide/Formoterol 160/4.5 MDI IH SCH (22:00)
[2016-08-06] MEDS ORDERED: SODIUM CHLORIDE/NAHCO3/KCL/PEG 4,000 ML SOLN.RECON PO ONE (17:00)
== END 2016-08-05 18:00 | disposition other institution (70) | DRG 291 ==
LOC: EMEROO 18:31 → 2NENU 18:31 → SUATTDRO 21:51
PROVIDERS: ADMIT Internal Medicine; ATTEND Internal Medicine